=== PATIENT | female | born 1975 | race Caucasian/White ===

== ENCOUNTER 2018-02-18 15:26 | Emergency (ER) | payer MEDICARE ==
[~2018-02-18] VITALS: Ht 170.2 cm; Wt 160.6 kg
[~2018-02-18 15:26] MED LIST: ASPIRIN EC81 MG PO; AUGMENTIN 875-1 EACH PO; BACTROBAN15 GM; BENTYL10 MG PO; CETIRIZINE HCL10 MG PO; CLARITIN10 M2 PO; FEXOFENADINE HC60 MG; GABAPENTIN300 MG PO; IBUPROFEN400 MG PO; KLONOPIN0.5 MG PO; KLONOPIN2 MG PO; LEVOTHYROXINE112 MCG PO; LEVOTHYROXINE200 MCG PO; LEXAPRO10 MG PO; LIPITOR10 MG PO; LISINOPRIL-HCT1 EACH PO; LISINOPRIL20 MG PO; METFORMIN HCL500 M2 PO; METFORMIN HCL500 MG PO; METOPROLOL SUCC25 MG PO; NASONEX17 GM IH; OMEPRAZOLE20 M1 PO; OMEPRAZOLE40 MG PO; SINGULAIR10 MG PO; SYMBICORT 16010.2 GM INH; SYNTHROID100 MCG PO; ULTRAM50 MG PO; XANAX0.25 MG PO; ZOFRAN ODT4 MG PO
[2018-02-18 18:48] LABS: BASOPHILS # (AUTO) 0.1 (0.0-0.1); BASOPHILS % 0.8 % (0.0-1.0); EOSINOPHILS # (AUTO) 0.3 (0.0-0.4); EOSINOPHILS % 2.9 % (0.0-6.0); HEMATOCRIT 41.8 % (34.2-44.1); HEMOGLOBIN 13.4 g/dL (12.0-16.0); LYMPHOCYTES # (AUTO) 3.5 (1.0-3.2); LYMPHOCYTES % 34.2 % (18.0-39.1); MEAN CORPUSCULAR HEMOGLOBIN 27.6 pg (28-32); MEAN CORPUSCULAR HGB CONC 32.1 g/dL (31-35); MEAN CORPUSCULAR VOLUME 86.2 fL (81-99); MONOCYTES # (AUTO) 0.7 (0.2-0.8); MONOCYTES % 6.4 % (4.4-11.3); NEUTROPHILS # (AUTO) 5.7 (2.1-6.9); NEUTROPHILS % 55.4 % (38.7-80.0); PLATELET COUNT 330 x10e3/uL (140-360); RED BLOOD COUNT 4.85 x10e6/uL (3.6-5.1); RED CELL DISTRIBUTION WIDTH 13.2 % (11.7-14.4)
[2018-02-18 18:51] LABS: ALANINE AMINOTRANSFERASE 27 IU/L (0-55); ALBUMIN 3.9 g/dL (3.5-5.0); ANION GAP 15.2 mmol/L (8-16); BLOOD UREA NITROGEN 7 mg/dL (7-26); BUN/CREATININE RATIO 10 (6-25); CALCIUM 9.8 mg/dL (8.4-10.2); CARBON DIOXIDE 25 mmol/L (22-29); CHLORIDE 105 mmol/L (98-107); CREATININE, SERUM 0.72 mg/dL (0.57-1.11); EST GLOMERULAR FILTRATION RATE > 60 ML/MIN (60-); GLUCOSE 100 mg/dL (74-118); POTASSIUM 4.2 mmol/L (3.5-5.1); SODIUM 141 mmol/L (136-145)
[2018-02-18 18:52] LABS: ALKALINE PHOSPHATASE 74 IU/L (40-150)
[2018-02-18] MEDS ORDERED: IOPAMIDOL 370 MG/ML 200 ML INFUS..BTL INJ ONE (19:07)
[2018-02-18] MEDS ORDERED: SODIUM CHLORIDE 0.9% 50ML 50 ML ONE (19:07)
[2018-02-18 19:37] LABS: CLARITY,URINE HAZY (CLEAR); COLOR,URINE YELLOW (YELLOW)
[2018-02-18 19:38] LABS: LEUKOCYTE ESTERASE ,URINE NEGATIVE (NEGATIVE); NITRITE,URINE POSITIVE (NEGATIVE); PROTEIN,URINE DIPSTICK NEGATIVE (NEGATIVE)
[2018-02-18 19:39] LABS: BILIRUBIN,URINE NEGATIVE (NEGATIVE); KETONES,URINE NEGATIVE (NEGATIVE); URINE UROBILINOGEN 0.2 mg/dL (0.2 - 1)
[2018-02-18 19:41] LABS: BACTERIA,URINE MODERATE /HPF; EPITHELIAL CELLS,URINE MODERATE /LPF; RBC,URINE 0-5 /HPF (0-5); WBC,URINE (MAN) 0-5 /HPF (0-5)
--- NOTE | 2018-02-18 20:19 | Diagnostic Imaging Report ---
EXAM: CT ABDOMEN AND PELVIS with IV CONTRAST DATE: 02/18/2018 3:48 PM Time stamp on Exam: 1929 hours INDICATION: Lower abdominal/bladder pain COMPARISON: None TECHNIQUE: The abdomen and pelvis were scanned using a multidetector helical scanner. Coronal and sagittal reformations were obtained. Routine protocol performed. IV Contrast: 100 cc Isovue-370 Oral Contrast: Water CTDIvol has been reviewed. It is below the limits set by the Radiation Protocol Committee (RPC). FINDINGS: LOWER THORAX: No consolidations LIVER: No masses BILIARY: Cholecystectomy, no ductal dilation. SPLEEN: No masses PANCREAS: No masses ADRENALS: No nodules KIDNEYS: Symmetric perfusion. No enhancing masses. No hydronephrosis. GI TRACT: No distention, wall thickening or evidence of obstruction. Surgical changes of the stomach. 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 BONES: No suspicious bone lesions. IMPRESSION: No acute findings in the CT of the abdomen or pelvis. No findings to explain patient's lower abdominal pain. Signed by: Dr. Vonda Fung M.D. on 02/18/2018 8:15 PM
== END 2018-02-18 20:50 | disposition home or self-care (01) ==
LOC: ER 15:26
DX: R10.32 Left lower quadrant pain (principal); R11.0 Nausea; R19.7 Diarrhea, unspecified; B37.3 Candidiasis of vulva and vagina
CPT/HCPCS: 36415; 74177; 80053; 81001; 85025; 99283; Q9967

== ENCOUNTER 2018-03-23 23:25 | Emergency (ER) | payer MEDICARE ==
[~2018-03-23] VITALS: Ht 167.6 cm; Wt 174.2 kg
[2018-03-24] MEDS ORDERED: KETOROLAC TROMETHAMINE 60 MG/2 ML VIAL IM ONE (00:15)
[2018-03-24 00:20] VITALS: BP 139/90
== END 2018-03-24 00:34 | disposition home or self-care (01) ==
LOC: FSED 23:25
DX: S83.422A Sprain of lateral collateral ligament of left knee, initial encounter (principal); X50.1XXA Overexertion from prolonged static or awkward postures, initial encounter; Y92.008 Other place in unspecified non-institutional (private) residence as the place of occurrence of the external cause; I10 Essential (primary) hypertension; E11.9 Type 2 diabetes mellitus without complications; E03.9 Hypothyroidism, unspecified; E78.5 Hyperlipidemia, unspecified
CPT/HCPCS: 81003; 99282; J1885

== ENCOUNTER 2019-01-12 13:26 | Emergency (ER) | payer MEDICARE ==
[~2019-01-12] VITALS: Ht 170.2 cm; Wt 170.1 kg
--- OUTSIDE RECORDS SUMMARY | 2019-01-12 13:30 | XMS REPORT | Summary of Care ---
Author Author [facility] Organization [facility] Address Unknown Phone Unavailable Encounter MIROSLAVA Cole_fuad(FIN) [id number] Date(s): 04/03/18 - 04/03/18 [facility] [address] Attending Physician: Isacc Chacon MD Referring Physician: Isacc Chacon MD Vital Signs No data available for this section Problem List Condition Effective Dates Status Health Status Informant Asthma(Confirmed) Active Back Active problem(Confirmed) Cholelithiasis(Confi Active rmed) Cholesterol Active level(Confirmed)1 Diabetes mellitus Resolved type 2(Confirmed) GERD - Active Gastro-esophageal reflux disease(Confirmed) Hypothyroidism(Confi Active rmed) Morbid Active obesity(Confirmed) Motion Active sickness(Confirmed) Panic Resolved attack(Confirmed) Short of breath on Active exertion(Confirmed) Sleep Active apnea(Confirmed) 1high Allergies, Adverse Reactions, Alerts Substance Reaction Severity Status sulfa drugs Active Cipro Active Bactrim Active medtronidazole containing Active compounds NKFA Active Medications No data available for this section Results No data available for this section Immunizations No data available for this section Procedures Procedure Date Related Diagnosis Body Site Status Laparoscopic cholecystectomy 12/02/15 Completed Laparoscopic sleeve gastrectomy 11/25/14 Completed Laparoscopy 11/25/14 Completed Lysis of adhesions of abdomen 11/25/14 Completed Hysterectomy Completed Operation Completed Sebaceous cyst removal Completed Tonsillectomy Completed Social History Social History Type Response Alcohol Never, Previous treatment: None. Alcohol use interferes with work or home: No. Drinks more than intended: No. Others hurt by drinking: No. Ready to change: No. Household alcohol concerns: No. Smoking Status Former smoker; Exposure to Tobacco Smoke None; Cigarette Smoking Last 365 Days No; Reg Smoking Cessation Counseling Yes entered on: 12/01/15 Assessment and Plan No data available for this section
--- OUTSIDE RECORDS SUMMARY | 2019-01-12 13:30 | XMS REPORT | Summary of Care ---
Author Author [facility] [place] Organization [facility] Address Unknown Phone Unavailable Encounter MIROSLAVA Aragon(FIN) [id number] Date(s): 12/19/18 - 12/19/18 [facility] [address] [place] [phone] Discharge Disposition: Home or Self Care Attending Physician: Johnny Nieto MD Referring Physician: Johnny iNeto MD Vital Signs No data available for [...]
--- OUTSIDE RECORDS SUMMARY | 2019-01-12 13:30 | XMS REPORT | Continuity of Care Document ---
Author Author [facility] Interface Address Unknown Phone Unavailable Problems Problem Status Onset Date Classification Date Reported Comments Source DX: E66.01=MORBID (SEVERE) OBESITY DUE T Active 12/25/2018 [facility] Sprain of tibiofibular ligament of left ankle, sequela 04/11/2018 10/23/2018 [facility] I80.202 Active 04/04/2018 [facility] I80.202 - PHLBTS AND THOMBOPHLB OF UNSP Active 04/02/2018 [facility] [place] Encounter for screening mammogram for malignant neoplasm of breast 10/05/2017 01/09/2018 [facility] [place] Unspecified subluxation of left patella, initial encounter 09/28/2017 12/29/2017 [facility] [place] Chest pain, unspecified 09/09/2017 12/12/2017 [facility] [place] Pain in right foot 08/23/2017 11/24/2017 [facility] [place] DX: R10.2=PELVIC AND PERINEAL PAIN, N39. Active 04/25/2017 [facility] M74.27 Active 03/02/2017 [facility] 28310, K81.9, CHOLELITHIASIS Active 11/30/2015 [facility] R06.02 - SHORTNESS OF BREATH Active 07/10/2015 [facility] [place] 723.1 - CERVICALGIA Active 03/03/2015 [facility] [place] [address], 27567---QDJDHP OBESITY, CHOLELITH Active 11/06/2014 [facility] 250.00/787.91/V65.3/401.9 Active 09/26/2014 [facility] UNK Active 09/26/2014 [facility] DX: 786.05 DR LEMONS WILL DO/READ PER JESSICA MARES Active 02/21/2012 [facility] MORBID OBESITY Active 12/20/2011 [facility] DX: CHEST PAIN DR. GIVENS WILL BE HERE PER ADORE Active 11/23/2011 [facility] 401.1 Active 10/27/2011 [facility] CPAP Active 10/21/2011 [facility] DX: CHEST PAIN Active 10/17/2011 [facility] 278.01 MORBID OBESITY Active 10/14/2011 [facility] MORBID OESITY Active 06/08/2011 [facility] ABDOMINAL PAIN Active 05/04/2011 [facility] ABD PAIN 789.09/787.99/787.91/278.01/780.57 Active 05/04/2011 [facility] Asthma Active Problem 01/04/2019 [facility] [place] Cholelithiasis Active Problem 01/04/2019 [facility] [place] Cholesterol level<sup>1</sup> Active Problem 01/04/2019 high [facility] [place] Diabetes mellitus type 2 Resolved Problem 01/04/2019 [facility] [place] GERD - Gastro-esophageal reflux disease Active Problem 01/04/2019 [facility] [place] Hypothyroidism Active Problem 01/04/2019 [facility] [place] Morbid obesity Active Problem 01/04/2019 [facility] [place] Motion sickness Active Problem 01/04/2019 [facility] [place] Panic attack Resolved Problem 01/04/2019 [facility] [place] Short of breath on exertion Active Problem 01/04/2019 [facility] [place],[facility] Sleep apnea Active Problem 01/04/2019 [facility] [place] Sprain of unspecified ligament of right ankle, initial encounter 11/24/2017 [facility] [place] Effusion, left knee 12/29/2017 [facility] [place] Phlebitis and thrombophlebitis of unspecified deep vessels of left lower extremity 10/23/2018 [facility] Asthma Active Problem 12/21/2018 [facility] [place],[facility], [facility] [place], [facility] [place] Cholelithiasis Active Problem 12/21/2018 [facility] [place],[facility], [facility] [place], [facility] [place] Cholesterol level<sup>1</sup> Active Problem 12/21/2018 high [facility] [place],[facility], [facility] [place], [facility] [place] Diabetes mellitus type 2 Resolved Problem 12/21/2018 [facility] [place],[facility], [facility] [place], [facility] [place] GERD - Gastro-esophageal reflux disease Active Problem 12/21/2018 [facility] [place],[facility], [facility] [place], [facility] [place] Hypothyroidism Active Problem 12/21/2018 [facility] [place],[facility], [facility] [place], [facility] [place] Morbid obesity Active Problem 12/21/2018 [facility] [place],[facility], [facility] [place], [facility] [place] Motion sickness Active Problem 12/21/2018 [facility] [place],[facility], [facility] [place], [facility] [place] Panic attack Resolved Problem 12/21/2018 [facility] [place],[facility], [facility] [place], [facility] [place] Short of breath on exertion Active Problem 12/21/2018 [facility] [place],[facility], [facility] [place], [facility] [place] Sleep apnea Active Problem 12/21/2018 [facility] [place],[facility], [facility] [place], [facility] [place] Asthma Active Problem 12/07/2018 [facility] [place],[facility], [facility] [place], [facility] [place] Cholelithiasis Active Problem 12/07/2018 [facility] [place],[facility], [facility] [place], [facility] [place] Cholesterol level<sup>1</sup> Active Problem 12/07/2018 high [facility] [place],[facility], [facility] [place], [facility] [place] Diabetes mellitus type 2 Resolved Problem 12/07/2018 [facility] [place],[facility], [facility] [place], [facility] [place] GERD - Gastro-esophageal reflux disease Active Problem 12/07/2018 [facility] [place],[facility], [facility] [place], [facility] [place] Hypothyroidism Active Problem 12/07/2018 [facility] [place],[facility], [facility] [place], [facility] [place] Morbid obesity Active Problem 12/07/2018 [facility] [place],[facility], [facility] [place], [facility] [place] Motion sickness Active Problem 12/07/2018 [facility] [place],[facility], [facility] [place], [facility] [place] Panic attack Resolved Problem 12/07/2018 [facility] LUIS [facility],[facility], [facility] [place], PEDRO LUIS [place] Short of breath on exertion Active Problem 12/07/2018 [facility] [place],[facility], [facility] [place], [facility] [place] Sleep apnea Active Problem 12/07/2018 PEDRO LUIS Villag[facility], [facility] [place], [facility] [place] DIGESTVE SYST SYMPTM NEC Active [facility] ABDMNAL PAIN OTH SPCF ST Active [facility] DIARRHEA Active [facility] OBSTRUCTIVE SLEEP APNEA Active [facility] CHEST PAIN NOS Active [facility] SHORTNESS OF BREATH Active [facility] 786.05 Active [facility] DMII WO CMP NT ST UNCNTR Active [facility] 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 [facility] HYPERTENSION NOS Active [facility] ABDMNAL PAIN EPIGASTRIC Active [facility] ADMINISTRTVE ENCOUNT NOS Active [facility] OTHER SPONDYLOSIS WITH RADICULOPATHY, CECILE Active [facility] ILLNESS, UNSPECIFIED Active [facility] Medications Medication Details Route Status Patient Instructions Ordering Provider Order Date Source Clonazepam (Klonopin) 2 Mg Tablet, 1 Tab Oral Daily Active 03/15/2017 [facility] Dicyclomine Hcl (Bentyl) 10 Mg Capsule, 20 Mg Oral Every 6 Hours Active 03/15/2017 [facility] Escitalopram Oxalate (Lexapro) 10 Mg Tablet, 25 Mg Oral Daily Active 03/15/2017 [facility] Levothyroxine Sodium 112 Mcg Tablet, 312 Mcg Oral Daily Active 03/15/2017 [facility] Ondansetron (Zofran Odt) 4 Mg Tab.rapdis, 4 Mg Oral Every 6 Hours Active 03/15/2017 [facility] Ondansetron 4 MG Disintegrating Tablet [Zofran] 4 mg=1 tab, PO, Q6H, PRN Nausea, # 20 tab, 0 Refill(s) Active 12/03/2015 [facility] tramadol hydrochloride 50 MG Oral Tablet 50 mg=1 tab, PO, Q4H, PRN Pain Score 1-3, # 30 tab, 0 Refill(s) Active 12/03/2015 [facility] Flonase 0.05 mg/inh nasal spray 50 microgram=1 spray, NASAL, Daily, 0 Refill(s) Active 12/03/2015 [facility] 24 HR Metoprolol Tartrate 25 MG Extended Release Tablet [Toprol] 25 mg, 1 tab, Route: PO, Drug form: ERTAB, Daily, Start date: 12/03/15 9:00:00 CDT, Duration: 30 day, Stop date: 01/01/16 9:00:00 CDTNotes: (Same as: Toprol XL) Do Not Crush Inactive 12/03/2015 [facility] Flonase 0.05 mg/inh nasal spray 1 spray, Route: NASAL, Drug Form: SPRY, Dosing Weight 157.2, kg, Daily, Start date: 12/03/15 9:00:00 CDT, Duration: 30 day, Stop date: 01/01/16 9:00:00 CDTNotes: (Same as: Flonase) Inactive 12/03/2015 [facility] Nexium 40 mg, Route: PO, Drug form: ECCAP, Daily, Dosing Weight 157.2, kg, Start date: 12/03/15 9:00:00 CDT, Duration: 30 day, Stop date: 01/01/16 9:00:00 CDT Inactive 12/03/2015 [facility] Lexapro 25 mg, 2.5 tab, Route: PO, Drug form: TAB, Daily, Dosing Weight 157.2, kg, Start date: 12/03/15 9:00:00 CDT, Duration: 30 day, Stop date: 01/01/16 9:00:00 CDTNotes: (Same as: Lexapro) Inactive 12/03/2015 [facility] Klonopin 0.5 mg, 1 tab, Route: PO, Drug form: TAB, QID, Dosing Weight 157.2, kg, Start date: 12/03/15 9:00:00 CDT, Duration: 30 day, Stop date: 01/01/16 21:00:00 CDTNotes: (Same As: KlonoPIN) Inactive 12/03/2015 [facility] Symbicort 160/4.5 inhalation aerosol with adapter 2 inhalation, Route: INHALATION, Drug Form: AERO/A, Dosing Weight 157.2, kg, BID, Start date: 12/03/15 9:00:00 CDT, Duration: 30 day, Stop date: 01/01/16 17:00:00 CDTNotes: (Same as: Symbicort) WASTE: Aerosol - Return to Pharmacy Inactive 12/03/2015 [facility] Protonix 40 mg, 1 tab, Route: PO, Drug form: ECTAB, Before Breakfast, Start date: 12/03/15 7:30:00 CDT, Duration: 30 day, Stop date: 01/01/16 7:30:00 CDTNotes: Tablet should not be chewed or crushed. (Same as: Protonix) Inactive 12/03/2015 [facility] Thyroxine 200 microgram, 2 tab, Route: PO, Drug form: TAB, Q630AM, Dosing Weight 157.2, kg, Start date: 12/03/15 6:30:00 CDT, Duration: 30 day, Stop date: 01/01/16 6:30:00 CDTNotes: Take 1 hour before or 2 hours after meal; Enteral feeds may interefere with the absorption of this medication. (Same as:Levothroid, Synthroid) Inactive 12/03/2015 [facility] Morphine 1 mg, 0.5 mL, Route: IVP, Drug form: INJ, Q2H, Dosing Weight 157.2, kg, PRN Pain Score 7-10, Start date: 12/03/15 6:12:00 CDT, Duration: 30 day, Stop date: 01/02/16 6:11:00 CDTNotes: (Same as:MORPhine Sulfate) Inactive 12/03/2015 [facility] tramadol hydrochloride 50 MG Oral Tablet 50 mg, 1 tab, Route: PO, Drug form: TAB, Q4H, Dosing Weight 157.2, kg, PRN Pain Score 1-3, Start date: 12/03/15 2:00:00 CDT, Duration: 30 day, Stop date: 01/02/16 1:59:00 CDTNotes: Not to exceed 400mg/day. (Same As: Ultram) Inactive 12/03/2015 [facility] Enoxaparin 40 mg, 0.4 mL, Route: SUB-Q, Drug form: INJ, [id number], Dosing Weight 157.2, kg, Consider for obese patients, Start date: 12/02/15 22:00:00 CDT, Duration: 30 day, Stop date: 01/01/16 10:00:00 CDTNotes: (Same as: Lovenox) No Longer Active 12/03/2015 [facility] Simethicone 80 mg, 1 tab, Route: CHEW, Drug form: CHEWTAB, QID, Dosing Weight 157.2, kg, PRN Gas, Start date: 12/02/15 19:07:00 CDT, Duration: 30 day, Stop date: 01/01/16 19:06:00 CDTNotes: (Same as: Mylicon) No Longer Active 12/03/2015 [facility] Ketorolac 30 mg, 1 mL, Route: IV, Drug form: INJ, Q6H, Dosing Weight 157.2, kg, Start date: 12/02/15 18:00:00 CDT, Duration: 4 day, Stop date: 12/06/15 12:00:00 CDTNotes: (Same as:Toradol) IV bolus must be given >15 seconds. Give IM administration slowly and deeply into the muscle. Not for use > 4 days MEDICATION WASTE Product Size: 30 mg Product Wasted: ___ mg No Longer Active 12/02/2015 [facility] Ancef 2 gm, 100 mL, Route: IV, Drug form: INJ, Q8H, Dosing Weight 157.2, kg, times 4 doses, Priority: Routine, Start date: 12/02/15 17:00:00 CDT, Duration: 4 doses or times, Stop date: 12/03/15 16:00:00 CDTNotes: Same as: Ancef No Longer Active 12/02/2015 [facility] Sodium Chloride 0.9% IV 25 mL, Route: IV, Start date: 12/02/15 16:10:00 CDT, Duration: 30 day, Stop date: 01/01/16 16:09:00 CDT, PRN Line Flush No Longer Active 12/02/2015 [facility] BD Normal Saline Flush 10 mL, Route: IV, Drug Form: INJ, PRN, PRN Line Flush, Start date: 12/02/15 16:10:00 CDT, Duration: 30 day, Stop date: 01/01/16 16:09:00 CDTNotes: (Same as: BD Posiflush) No Longer Active 12/02/2015 [facility] D5W 1/2NS + KCL 20mEq/L 1000ml (Premix) 1,000 mL 1,000 mL, Rate: 80 ml/hr, Infuse over: 12.5 hr, Route: IV, Dosing Weight 157.2 kg, Total Volume: 1,000, Start date: 12/02/15 15:48:00 CDT, Stop date: 01/01/16 15:47:00 CDTNotes: PREMIX IV - Do Not Alter WASTE: F/P - Sink; E - Municipal Trash Bin No Longer Active 12/02/2015 [facility] Tylenol 650 mg, 2 tab, Route: PO, Drug form: TAB, Q6H, Dosing Weight 157.2, kg, PRN Pain 1-3/Temp > 100.4 F, Start date: 12/02/15 14:47:00 CDT, Duration: 30 day, Stop date: 01/01/16 14:46:00 CDTNotes: Do not exceed 4 gm/day. (Same as: Tylenol) No Longer Active 12/02/2015 [facility] pneumococcal capsular polysaccharide type 1 vaccine / pneumococcal capsular polysaccharide type 10A vaccine / pneumococcal capsular polysaccharide type 11A vaccine / pneumococcal capsular polysaccharide type 12F vaccine / pneumococcal capsular polysacchar 0.5 mL, Route: IM, Drug Form: INJ, ONCALL, Start date: 12/02/15 12:34:14 CDT, Stop date: 01/01/16 12:29:14 CDTNotes: (Same as: Pneumovax 23) Refrigerate No Longer Active 12/02/2015 [facility] Zofran 4 mg, 2 mL, Route: IVP, Drug form: INJ, Q8H, PRN Nausea & Vomiting, Start date: 12/02/15 10:49:00 CDT, Duration: 30 day, Stop date: 01/01/16 10:48:00 CDTNotes: (Same as: Zofran) MEDICATION WASTE Product Size: 4 mg Product Wasted: ___ mg No Longer Active 12/02/2015 [facility] Benadryl 12.5 mg, 0.25 mL, Route: IVP, Drug form: INJ, Q6H, PRN Itching, Start date: 12/02/15 10:49:00 CDT, Duration: 30 day, Stop date: 01/01/16 10:48:00 CDTNotes: (Same as: Benadryl) No Longer Active 12/02/2015 [facility] naloxone 0.2 mg, 0.5 mL, Route: IVP, Drug form: INJ, Q5Min, PRN Narcotic Reversal, Start date: 12/02/15 10:49:00 CDT, Duration: 30 day, Stop date: 01/01/16 10:48:00 CDTNotes: (Same as: Narcan) No Longer Active 12/02/2015 [facility] morphine Sulfate 30 mg IV, Start date: 12/02/15 10:48:00 CDT, Duration: 30, 30 ml, 154.091Notes: Dose: Delay: Basal rate: 4hr limit: (Same as:Charissai-Ject) No Longer Active 12/02/2015 [facility] Flumazenil 0.2 mg, 2 mL, Route: IVP, Drug form: INJ, PRN, Dosing Weight 154.091, kg, PRN Benzodiazepine Reversal, Initial dose, Start date: 12/02/15 6:58:00 CDT, Duration: 30 day, Stop date: 01/01/16 6:57:00 CD TNotes: (Same as: Romazicon) Inactive 12/02/2015 [facility] Naloxone 0.04 mg, 0.1 mL, Route: IVP, Drug form: INJ, Q2MIN, Dosing Weight 154.091, kg, PRN Narcotic Reversal, Start date: 12/02/15 6:58:00 CDT, Duration: 8 doses or times, Stop date: Limited # of timesNotes: Same as Narcan Inactive 12/02/2015 [facility] Ondansetron 4 mg, 2 mL, Route: IVP, Drug form: INJ, ONCE, Dosing Weight 154.091, kg, PRN Nausea & Vomiting, Start date: 12/02/15 6:58:00 CDTNotes: (Same as: Zofran) MEDICATION WASTE Product Size: 4 mg Product Wasted: ___ mg Inactive 12/02/2015 [facility] Hydromorphone 0.2 mg, 0.1 mL, Route: IVP, Drug form: INJ, Q5Min, Dosing Weight 154.091, kg, PRN Pain Score 7-10, Start date: 12/02/15 6:58:00 CDT, Duration: 4 doses or times, Stop date: Limited # of timesNotes: (S raquel as: Dilaudid) Inactive 12/02/2015 [facility] dicyclomine 20 mg oral tablet 20 mg=1 tab, PO, frequency unknown, 0 Refill(s) Active 12/01/2015 [facility] Vitamin B12 one tablet (mg unknown), PO, Daily, 0 Refill(s) Active 12/01/2015 [facility] Clonazepam 0.5 MG Oral Tablet [Klonopin] 0.5 mg=1 tab, PO, QID, 0 Refill(s) Active 12/01/2015 [facility] Tramadol one tablet (mg unknown), PO, frequency unknown, 0 Refill(s) No Longer Active 12/01/2015 [facility] Flonase 0.05 mg/inh nasal spray 1 spray, NASAL, Daily, 0 Refill(s) Active 12/01/2015 [facility] multivitamin one tablet, PO, Daily, 0 Refill(s) Active 12/01/2015 [facility] Lexapro one tablet (25 mg), PO, Daily, 0 Refill(s) Active 12/01/2015 [facility] metoprolol 25 mg oral tablet, extended release 25 mg=1 tab, PO, Bedtime, # 30 tab, 0 Refill(s) Active 12/01/2015 [facility] Alprazolam (Xanax) 0.25 Mg Tablet, 0.125 Each Oral As Needed as needed for Sleep Active 11/28/2015 [facility] Aspirin (Aspirin Ec) 81 Mg Tablet., 81 Mg Oral Daily Active 11/28/2015 [facility] Atorvastatin Calcium (Lipitor*) 10 Mg Tablet, 10 Mg Oral Bedtime Active 11/28/2015 [facility] Cetirizine Hcl 10 Mg Tablet, 10 Mg Oral Daily Active 11/28/2015 [facility] Lisinopril (Prinavil / Zestril) 20 Mg Tablet, 20 Mg Oral Bedtime Active 11/28/2015 [facility] Metformin Hcl 500 Mg Tablet, 250 Mg Oral Bedtime Active 11/28/2015 [facility] Omeprazole 20 Mg Tablet.dr, 40 Mg Oral Daily Active 11/28/2015 [facility] 0.6 ML Enoxaparin sodium 100 MG/ML Prefilled Syringe [Lovenox] 60 mg, SUB-Q, Q12H, X 7 day, # 14 syr, 0 Refill(s) Active 11/27/2014 [facility] Esomeprazole 40 MG Enteric Coated Capsule [Nexium] 40 mg=1 cap, PO, Daily, # 30 cap, 0 Refill(s) Active 11/27/2014 [facility] Tylenol with Codeine 120 mg-12 mg/5 mL oral liquid 15 ml, PO, Q4H, PRN Pain, X 7 day, # 240 mL, 0 Refill(s) Active 11/27/2014 [facility] Sucralfate 100 MG/ML Oral Suspension [Carafate] 1 gm=10 ml, PO, Before Meals & Bedtime, # 200 ml, 0 Refill(s) Active 11/27/2014 [facility] Lovenox 40 mg, 0.4 mL, Route: SUB-Q, Drug form: INJ, [id number], Start date: 11/26/14 10:00:00, Duration: 30 day, Stop date: 12/25/14 22:00:00Notes: (Same as: Lovenox) No Longer Active 11/26/2014 [facility] acetaminophen-hydrocodone 15 mL, Route: PO, Drug Form: SOLN, Q4H, PRN Other -See Comment, Start date: 11/26/14 9:32:00, Duration: 30 day, Stop date: 12/26/14 9:31:00Notes: Do not exceed 4gm/day of acetaminophen. (Same as: [place] 325/7.5) No Longer Active 11/26/2014 [facility] Tylenol 650 mg, 20.3 mL, Route: PO, Drug form: LIQ, Q4H, PRN Pain Score 1-3, Start date: 11/26/14 9:31:00, Duration: 30 day, Stop date: 12/26/14 9:30:00Notes: Max [id number]/day (4 gm/day). (Same as: Tylenol) No Longer Active 11/26/2014 [facility] heparin 5,000 unit, 1 mL, Route: SUB-Q, Drug form: INJ, ONCE, Start date: 11/26/14 3:00:00, Stop date: 11/26/14 3:00:00Notes: porcine heparin Inactive 11/26/2014 [facility] Reglan 10 mg, 2 mL, Route: IV, Drug form: INJ, Q8H, Start date: 11/26/14 0:00:00, Duration: 30 day, Stop date: 12/25/14 16:00:00Notes: (Same as: Reglan) No Longer Active 11/26/2014 [facility] Pepcid 20 mg, 2 mL, Route: IVP, Drug form: INJ, Q12H, Start date: 11/25/14 21:00:00, Duration: 30 day, Stop date: 12/25/14 9:00:00 No Longer Active 11/26/2014 [facility] ceFAZolin 2 gm, 100 mL, Route: IVPB, Drug form: INJ, Q8H, Start date: 11/25/14 21:00:00, Duration: 4 doses or times, Stop date: 11/26/14 21:00:00Notes: Same as: Ancef No Longer Active 11/26/2014 [facility] insulin regular 100 units/mL human recombinant 8 unit, 0.08 mL, Route: SUB-Q, Drug form: SOLN, TID-Before Meals, PRN Blood Glucose Results, Start date: 11/25/14 18:45:00, Duration: 30 day, Stop date: 12/25/14 18:44:00Notes: (Same as: Humulin R) Roll in palms of hands gently; Do not shake vigorously. "single patient use only" (Restricted to patients requiring a dose > 60 units) Stable for 28 days at room temperature Expires in days fro m Date No Longer Active 11/25/2014 [facility] insulin regular 100 units/mL human recombinant 6 unit, 0.06 mL, Route: SUB-Q, Drug form: SOLN, TID-Before Meals, PRN Blood Glucose Results, Start date: 11/25/14 18:44:00, Duration: 30 day, Stop date: 12/25/14 18:43:00Notes: (Same as: Humulin R) Roll in palms of hands gently; Do not shake vigorously. "single patient use only" (Restricted to patients requiring a dose > 60 units) Stable for 28 days at room temperature Expires in days fro m Date No Longer Active 11/25/2014 [facility] Dextrose 50% in Water IV 25 mL, Route: IVP, Start date: 11/25/14 18:44:00, Duration: 30 day, Stop date: 12/25/14 18:43:00, PRN Blood Glucose Results No Longer Active 11/25/2014 [facility] ketOROLAC 30 mg/mL injectable solution 30 mg, 1 mL, Route: IV, Drug form: INJ, Q6H, Start date: 11/25/14 18:00:00, Duration: 5 doses or times, Stop date: 11/26/14 18:00:00Notes: (Same as:Toradol) IV bolus must be given >15 seconds. Give IM administration slowly and deeply into the muscle. Not for use > 4 days MEDICATION WASTE Product Size: 30 mg Product Wasted: ___ mg No Longer Active 11/25/2014 [facility] Vasotec 1.25 mg, 1 mL, Route: IV, Drug form: INJ, Q6H, PRN Other -See Comment, Start date: 11/25/14 17:55:00, Duration: 30 day, Stop date: 12/25/14 17:54:00Notes: (Same as: Vasotec-IV) No Longer Active 11/25/2014 [facility] Lactated Ringers Injection IV 1,000 mL 1,000 mL, Rate: 80 ml/hr, Infuse over: 12.5 hr, Route: IV, Dosing Weight 210.057 kg, Total Volume: 1,000, Start date: 11/25/14 17:54:00, Stop date: 12/25/14 17:53:00 No Longer Active 11/25/2014 [facility] Sodium Chloride 0.9% IV 25 mL, Route: IV, Start date: 11/25/14 17:53:00, Duration: 30 day, Stop date: 12/25/14 17:52:00, PRN Line Flush No Longer Active 11/25/2014 [facility] BD Normal Saline Flush 10 mL, Route: IV, Drug Form: INJ, PRN, PRN Line Flush, Start date: 11/25/14 17:53:00, Duration: 30 day, Stop date: 12/25/14 17:52:00Notes: (Same as: BD Posiflush) No Longer Active 11/25/2014 [facility] Zofran 4 mg, 2 mL, Route: IVP, Drug form: INJ, Q8H, PRN Nausea & Vomiting, Start date: 11/25/14 15:00:00, Duration: 30 day, Stop date: 12/25/14 14:59:00Notes: (Same as: Zofran) MEDICATION WASTE Product Size: 4 mg Product Wasted: ___ mg No Longer Active 11/25/2014 [facility] Benadryl 12.5 mg, 0.25 mL, Route: IVP, Drug form: INJ, Q6H, PRN Itching, Start date: 11/25/14 15:00:00, Duration: 30 day, Stop date: 12/25/14 14:59:00Notes: (Same as: Benadryl) No Longer Active 11/25/2014 [facility] naloxone 0.2 mg, 0.5 mL, Route: IVP, Drug form: INJ, Q5Min, PRN Narcotic Reversal, Start date: 11/25/14 15:00:00, Duration: 30 day, Stop date: 12/25/14 14:59:00Notes: (Same as: Narcan) No Longer Active 11/25/2014 [facility] morphine 1 mg/ml 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 (30 mg/30 mL) INJ Syringe 30 mg IV, Start date: 11/25/14 14:59:00, Duration: 30, 30 ml, 210.057Notes: Dose: Delay: Basal rate: 4hr limit: (Same as:Charissai-Ject) No Longer Active 11/25/2014 [facility] Phenergan 25 mg, 50 mL, 200 ml/hr, Route: IVPB, Drug Form: SOLN, Q4H, PRN Nausea & Vomiting, Start date: 11/25/14 14:58:00, Duration: 30 day, Stop date: 12/25/14 14:57:00 No Longer Active 11/25/2014 [facility] Morphine 4 mg, 0.4 mL, Route: IVP, Drug form: INJ, Q5Min, Dosing Weight 210.057, kg, PRN Pain Score 7-10, Start date: 11/25/14 12:47:00, Duration: 3 doses or times, Stop date: Limited # of timesNotes: (Same a s:MORPhine Sulfate) Inactive 11/25/2014 [facility] Hydromorphone 0.5 mg, 0.25 mL, Route: IVP, Drug form: INJ, Q5Min, Dosing Weight 210.057, kg, PRN Pain Score 7-10, Start date: 11/25/14 12:47:00, Duration: 4 doses or times, Stop date: Limited # of timesNotes: (Same as: Dilaudid) Inactive 11/25/2014 [facility] Naloxone 0.04 mg, 0.1 mL, Route: IVP, Drug form: INJ, Q2MIN, Dosing Weight 210.057, kg, PRN Narcotic Reversal, Start date: 11/25/14 12:47:00, Duration: 8 doses or times, Stop date: Limited # of timesNotes: Same as Narcan Inactive 11/25/2014 [facility] Meperidine 12.5 mg, 0.25 mL, Route: IVP, Drug form: INJ, Q30Min, Dosing Weight 210.057, kg, PRN Other -See Comment, For shivering, Start date: 11/25/14 12:47:00, Duration: 2 doses or times, Stop date: Limited # of timesNotes: (Same As: Demerol) Inactive 11/25/2014 [facility] Flumazenil 0.2 mg, 2 mL, Route: IVP, Drug form: INJ, PRN, Dosing Weight 210.057, kg, PRN Benzodiazepine Reversal, Initial dose, Start date: 11/25/14 12:47:00, Duration: 30 day, Stop date: 12/25/14 12:46:00Notes: (Same as: Romazicon) Inactive 11/25/2014 [facility] Dexamethasone 4 mg, 1 mL, Route: IVP, Drug form: INJ, ONCE, Dosing Weight 210.057, kg, PRN Nausea & Vomiting, Start date: 11/25/14 12:47:00Notes: Concentration: 4mg/ml Inactive 11/25/2014 [facility] Ondansetron 4 mg, 2 mL, Route: IVP, Drug form: INJ, ONCE, Dosing Weight 210.057, kg, PRN Nausea & Vomiting, Start date: 11/25/14 12:47:00Notes: (Same as: Zofran) MEDICATION WASTE Product Size: 4 mg Product Wasted: ___ mg Inactive 11/25/2014 [facility] Diphenhydramine 12.5 mg, 0.25 mL, Route: IVP, Drug form: INJ, Q6H, Dosing Weight 210.057, kg, PRN Itching, Start date: 11/25/14 12:47:00, Duration: 30 day, Stop date: 12/25/14 12:46:00Notes: (Same as: Benadryl) Inactive 11/25/2014 [facility] Labetalol 10 mg, 2 mL, Route: IVP, Drug form: INJ, Q5Min, Dosing Weight 210.057, kg, PRN Elevated BP, Start date: 11/25/14 12:47:00, Duration: 5 doses or times, Stop date: Limited # of timesNotes: (Same as: Normo dyne, Trandate) Push over 2 minutes Give bolus over 2-3 minutes. Inactive 11/25/2014 [facility] Hydralazine 10 mg, 0.5 mL, Route: IVP, Drug form: INJ, Q20Min, Dosing Weight 210.057, kg, PRN Elevated BP, Start date: 11/25/14 12:47:00, Duration: 2 doses or times, Stop date: Limited # of timesNotes: (Same as: Apresoline) Push over 5 minutes Inactive 11/25/2014 [facility] Metoprolol 1 mg, 1 mL, Route: IVP, Drug form: INJ, Q5Min, Dosing Weight 210.057, kg, PRN Other -See Comment, Start date: 11/25/14 12:47:00, Duration: 5 doses or times, Stop date: Limited # of timesNotes: (Same as: Lopressor) Push over 2 minutes Inactive 11/25/2014 [facility] chlorhexidine topical 0.12% liquid 15 mL, Route: S&SPIT, ONCALL, Drug form: LIQ, Start date: 11/25/14 1:00:00, Duration: 20 hr, Stop date: 11/25/14 20:59:00Notes: (Same As: Peridex) Inactive 11/25/2014 [facility] Ancef 3 gm, 100 mL, Route: IVPB, Drug form: INJ, ONCALL, Start date: 11/25/14 1:00:00, Duration: 30 day, Stop date: 12/25/14 0:59:00Notes: Same as: Ancef Inactive 11/25/2014 [facility] Naloxone 0.1 mg, 0.25 mL, Route: IVP, Drug form: INJ, Q2MIN, Dosing Weight 215.909, kg, PRN Narcotic Reversal, Start date: 10/09/14 10:33:00, Duration: 4 doses or times, Stop date: Limited # of timesNotes: Same as Narcan Inactive 10/09/2014 [facility] Flumazenil 0.2 mg, 2 mL, Route: IVP, Drug form: INJ, PRN, Dosing Weight 215.909, kg, PRN Other -See Comment, Start date: 10/09/14 10:33:00, Duration: 1 doses or times, Stop date: Limited # of timesNotes: (Same as: Romazicon) Inactive 10/09/2014 [facility] Sodium Chloride 0.154 MEQ/ML Injectable Solution 500 mL, 0 ml/hr, Infuse Over: 0 hr, Route: IV, 500, Drug form: INJ, ONCE, Dosing Weight 215.909 kg, Start date: 10/09/14 10:01:00, Stop date: 10/09/14 10:01:00, Bolus Inactive 10/09/2014 [facility] Vitamin D3 5000 intl units oral capsule 5,000 IntlUnit=1 cap, PO, Daily, 0 Refill(s) Active 10/03/2014 [facility] atorvastatin 10 mg, PO, Bedtime, 0 Refill(s) Active 10/03/2014 [facility] montelukast 10 mg oral tablet 10 mg=1 tab, PO, Bedtime, # 30 tab, 0 Refill(s) Active 10/03/2014 [facility] pantoprazole 40 mg oral enteric coated tablet 40 mg=1 tab, PO, Daily, # 30 tab, 0 Refill(s) Active 10/03/2014 [facility] metoprolol 25 mg oral tablet, extended release 25 mg, PO, Daily, # 30 tab, 0 Refill(s) Active 10/03/2014 [facility] Amoxicillin/Potassium Clav (Augmentin 875-125 Tablet) 1 Each Tablet, 1 Tab Oral Twice A Day Active 04/04/2014 [facility] Montelukast Sodium (Singulair) 10 Mg Tablet, 10 Mg Oral Daily Active 04/04/2014 [facility] Mupirocin (Bactroban) 15 Gm Cr, Active 04/04/2014 [facility] flumazenil 0.1 mg, 1 mL, Route: IVP, Drug form: INJ, Q5Min, PRN Other -See Comment, Start date: 05/13/11 9:22:00, Duration: 30 day, Stop date: 06/12/11 8:21:00 IVP No Longer Active [facility] 05/13/2011 [facility] naloxone 0.1 mg, 0.25 mL, Route: IVP, Drug form: INJ, Q2MIN, PRN Narcotic Reversal, Start date: 05/13/11 9:22:00, Duration: 4 doses or times, Stop date: Limited # of times IVP No Longer Active [facility] 05/13/2011 [facility] Zyrtec 10 mg oral tablet 1 tab, PO, Daily, PRN, 30 tab, as needed for allergy symptoms, Substitution Allowed, TAB PO Active 05/11/2011 [facility] Symbicort 160/4.5 inhalation aerosol with adapter 2 puff, INHALATION, BID, 10 gm, Substitution Allowed, Maintenance, AERO INHALATION Active 05/11/2011 [facility] furosemide 20 mg oral tablet 1 tab, PO, Daily, 30 tab, Substitution Allowed, TAB PO Active 05/11/2011 [facility] levothyroxine 200 mcg (0.2 mg) oral tablet 1 tab, PO, Daily, 30 tab, Substitution Allowed, TAB PO Active 05/11/2011 [facility] metFORmin 500 mg oral tablet, extended release 1 tab, PO, Daily, 30 tab, Substitution Allowed, ERTAB PO Active 05/11/2011 [facility] lisinopril 20 mg oral tablet 1 tab, PO, Daily, 30 tab, Substitution Allowed, TAB PO Active 05/11/2011 [facility] Budesonide/Formoterol Fumarate (Symbicort 160-4.5 Mcg Inhaler) 10.2 Gm Hfa.aer.ad Twice A Day Active [facility] Clonazepam (Klonopin) 0.5 Mg Tablet Twice A Day Active [facility] Escitalopram Oxalate (Lexapro) 10 Mg Tablet Daily Active [facility] Gabapentin 300 Mg Capsule Daily Active [facility] Levothyroxine Sodium (Synthroid) 100 Mcg Tab Today At 6:00AM Active [facility] Metformin Hcl 500 Mg Tablet Daily Active [facility] Metoprolol Succinate 25 Mg Tab.er.24h Daily Active [facility] Omeprazole 40 Mg Capsule.dr Daily Active [facility] Tramadol Hcl (Ultram) 50 Mg Tablet Every 4 Hours as needed for Pain Active [facility] Allergies, Adverse Reactions, Alerts Substance Category Reaction Severity Reaction type Status Date Reported Comments Source Sulfamethoxazole DIZZY Unknown Allergy to Substance Active 03/15/2017 [facility] Trimethoprim DIZZY Unknown Allergy to Substance Active 03/15/2017 [facility] Ciprofloxacin Unknown Allergy to Substance Active 03/15/2017 [facility] Metronidazole ITCHING Unknown Allergy to Substance Active 03/15/2017 [facility] Sulfa (Sulfonamide Antibiotics) DIZZY Unknown Allergy to Substance Active 02/18/2018 [facility] Bactrim Assertion Propensity to adverse reactions to drug Active [facility] sulfa drugs Assertion Drug allergy Active [facility] medtronidazole containing compounds Assertion Drug allergy Active [facility] Cipro Assertion Drug allergy Active [facility] NKFA Assertion Food allergy Active [facility] Immunizations Immunization Date Given Site Status Last Updated Comments Source Results Order Name Results Value Reference Range Date Interpretation Comments Source Femur wo contrast CT Femur wo contrast CT EXAM: CT BILATERAL LOWER EXTREMITY WITHOUT CONTRAST DATE: 11/26/2018 12:31 CDT INDICATION: - 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 Axial, coronal and sagittal images through the left hip are provided. MIP images of the pelvis are provided. IV contrast: None. DLP: 451.62 mGy-cm FINDINGS: ACETABULAR ANTEVERSION (measured at the level of the equator of the femoral head): RIGHT: 8.4 degrees LEFT: 10.4 degrees RIGHT FEMORAL ANTEVERSION: 11.5 degrees LEFT FEMORAL ANTEVERSION: 14 degrees RIGHT TIBIAL TORSION :43 degrees LEFT TIBIAL TORSION: 41 degrees BONES: There is no fracture or dislocation of the visualized bones. Lateral and superior subluxation of the patella relative to the trochlear groove bilaterally, worse on the left. Dysplastic and shallow trochlear grooves. TT TG distance is 2.5 on the left and 2.8 on the right. Subchondral cystic change of the lateral patellar facet and trochlear groove on the right. Subchondral cystic change of the median patellar ridge the left. SOFT TISSUES: Limited evaluation of the pelvis due to beam hardening artifact and decreased attenuation secondary to body habitus. Other findings: Mild degenerative changes of the bilateral sacroiliac joints. IMPRESSION: 1. Acetabular/femoral anteversion and tibial torsion measurements, as above. 2. Lateral and superior subluxation of the patella relative to the trochlea bilaterally, worse on the left. Secondary degenerative changes of the bilateral patellofemoral joints. 3. Findings consistent with patellar instability bilaterally and increased TT TG distance, worse on the left. 4. Shallow/dysplastic left trochlea 12/19/2018 - - This report was dictated by a Electrical Timing Device Calibrator/Fellow/Physician Thread Separator. I have personally reviewed the images as well as the interpretation and agree with the findings. Read by: Angelo Tinsley MD Resident/Fellow/Physician Thread Separator: Angelo Tinsley MD Dictated Date/time: 12/19/18 16:52 Electronically Signed by: Juliane Gaston MD 12/19/18 18:36 [facility]AL [facility] Liver US Liver US EXAM: US LIVER DATE: 12/05/2018 INDICATION: - K76.0 Fatty (change of) liver, not elsewhere classified ADDITIONAL INFORMATION: None. COMPARISON: None. TECHNIQUE: Multiplanar grayscale and color Doppler ultrasound of the right upper quadrant. FINDINGS: Liver: Craniocaudal length: 21.08 cm. Normal. Echogenicity: Increased. Surface nodularity: None Mass (size and location): None. Portal vein: Normal. Bile ducts: Common bile duct diameter: 0.5 cm. Normal Intrahepatic ducts: Normal. Gallbladder: Absent Pancreas: Head and uncinate process: Normal. Body and tail: Not seen. Right kidney: Hydronephrosis: None Size: 11.0 x 4.3 x 4.7 cm. Normal. Echogenicity: Normal. Mass/Stone/Cyst (size and location): None. Ascites: None IMPRESSION: 1. Hepatomegaly with hepatic steatosis. 2. Status post cholecystectomy. 12/05/2018 - - Read by: Ida Shaffer MD Dictated Date/time: 12/05/18 09:30 Electronically Signed by: Ida Shaffer MD 12/05/18 09:36 FINAL REPORT [facility] Knee wo contrast MRI Knee wo contrast MRI EXAMINATION: MRI of the left knee without contrast HISTORY: M23.92 Unspecified internal derangement of left knee; left knee patellar instability; left knee patellar chondromalacia COMPARISON: Radiograph dated 02/26/2015 and prior MR dated 09/22/2017 are reviewed. TECHNIQUE: Multiplanar, multisequence magnetic resonance imaging of the left knee is performed with an extremity coil without contrast. FINDINGS: Menisci: --Medial: The anterior horn, body, and posterior horn are intact. --Lateral: The anterior horn, body, and posterior horn are intact. Ligaments: The cruciate ligaments are intact. The medial collateral ligament and lateral collateral ligament complex are intact. Extensor mechanism: There is lateral subluxation of the patella with respect to the trochlear groove and mild lateral patellar tilt. The extensor mechanism is intact. The tibial tubercle-trochlear groove (TT-TG) distance is within normal limits. Muscles: There is normal signal intensity and muscle bulk of the musculature at the knee. Cartilage: * Within the medial and lateral compartments, there is no focal chondrosis or subchondral marrow edema. * Within the patellofemoral compartment, there is grade 2, deep partial thickness chondrosis involving the patellar median ridge and medial aspect of the lateral patellar facet with focus of subchondral edema along the patellar median ridge, similar to the prior examination. The trochlear articular cartilage is within normal limits. Bone: Again, there is lateral subluxation of the patella with respect to the trochlear groove and mild lateral patellar tilt. 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 There is no acute fracture. There are no suspicious bone marrow replacing lesions. Soft tissues: There is a small knee effusion without Rodriguez's cyst. There is mild subcutaneous edema along the anterior aspect of the knee. IMPRESSION: 1. 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 2. 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 These findings are suggestive of patellar maltracking with shallow trochlear groove predisposing to lateral patellar subluxation or dislocation. The tibial tubercle-trochlear groove (TT- TG) distance is within normal limits however. 3. Small left knee effusion and mild subcutaneous edema along the anterior aspect of the knee. 4. Intact left knee menisci, cruciate ligaments, and collateral ligaments without medial or lateral compartment chondrosis. 11/16/2018 - - Read by: Rhett Nunez MD Dictated Date/time: 11/16/18 15:07 Electronically Signed by: Rhett Nunez MD 11/16/18 15:22 FINAL REPORT [facility] [place] Tibia fibula series DX Tibia fibula series DX Left tibia-fibula 2 views: HISTORY: Leg sprain, thrombophlebitis. FINDINGS: No bone, joint or soft tissue abnormality SL: EG-M 04/05/2018 - - Read by: Jluis Coleman MD Dictated Date/time: 04/05/18 16:48 Electronically Signed by: Jluis Coleman MD 04/05/18 16:48 FINAL REPORT [place] Ext Lower Venous Doppler Bilat US Ext Lower Venous Doppler Bilat US PROCEDURE: BILATERAL LOWER EXTREMITY VENOUS ULTRASOUND INDICATION: Leg pain COMPARISON: None. TECHNIQUE: Sonographic evaluation of the bilateral lower extremity veins was performed using high resolution B-mode, pulse and color Doppler imaging. FINDINGS: RIGHT: The common femoral, femoral, popliteal and visualized calf veins are patent. Normal venous waveforms. The saphenofemoral junction is unremarkable. LEFT: The common femoral, femoral, popliteal and visualized calf veins are patent. Normal venous waveforms. The saphenofemoral junction is unremarkable. IMPRESSION: No deep venous thrombosis. SL: MADELYN 04/05/2018 - - Read by: Jluis Coleman MD Dictated Date/time: 04/05/18 16:14 Electronically Signed by: Jluis Coleman MD 04/05/18 16:15 FINAL REPORT [facility] Automated blood basophil count (count/volume) Automated blood basophil count (count/volume) 0.1 0.0 - 0.1 02/18/2018 [facility] Automated blood basophil count as percentage of total leukocytes Automated blood basophil count as percentage of total leukocytes 0.8 0.0 - 1.0 02/18/2018 [facility] Automated blood eosinophil count Automated blood eosinophil count 0.3 0.0 - 0.4 02/18/2018 [facility] Automated blood eosinophil count as percentage of total leukocytes Automated blood eosinophil count as percentage of total leukocytes 2.9 0.0 - 6.0 02/18/2018 [facility] Automated blood hematocrit (volume fraction) Automated blood hematocrit (volume fraction) 41.8 34.2 - 44.1 02/18/2018 [facility] Automated blood lymphocyte count as percentage ot total leukocytes Automated blood lymphocyte count as percentage ot total leukocytes 34.2 18.0 - 39.1 02/18/2018 [facility] Automated blood monocyte count as percentage of total leukocytes Automated blood monocyte count as percentage of total leukocytes 6.4 4.4 - 11.3 02/18/2018 [facility] Automated blood neutrophil count Automated blood neutrophil count 5.7 2.1 - 6.9 02/18/2018 [facility] Automated blood platelet count (count/volume) Automated blood platelet count (count/volume) 330 140 - 360 02/18/2018 [facility] Automated blood segmented neutrophil count as percentage of total leukocytes Automated blood segmented neutrophil count as percentage of total leukocytes 55.4 38.7 - 80.0 02/18/2018 [facility] Automated erythrocyte mean corpuscular hemoglobin (mass per erythrocyte) Automated erythrocyte mean corpuscular hemoglobin (mass per erythrocyte) 27.6 28 - 32 02/18/2018 [facility] Automated erythrocyte mean corpuscular hemoglobin concentration measurement (mass/volume) Automated erythrocyte mean corpuscular hemoglobin concentration measurement (mass/volume) 32.1 31 - 35 02/18/2018 [facility] Automated erythrocyte mean corpuscular volume Automated erythrocyte mean corpuscular volume 86.2 81 - 99 02/18/2018 [facility] Blood erythrocytes automated count (number/volume) Blood erythrocytes automated count (number/volume) 4.85 3.6 - 5.1 02/18/2018 [facility] Blood hemoglobin measurement (moles/volume) Blood hemoglobin measurement (moles/volume) 13.4 12.0 - 16.0 02/18/2018 [facility] Blood leukocytes automated count (number/volume) Blood leukocytes automated count (number/volume) 10.31 4.8 - 10.8 02/18/2018 [facility] Blood lymphocytes count (number/volume) Blood lymphocytes count (number/volume) 3.5 1.0 - 3.2 02/18/2018 [facility] Blood monocytes automated count (number/volume) Blood monocytes automated count (number/volume) 0.7 0.2 - 0.8 02/18/2018 [facility] Estimated glomerular filtration rate (GFR) determination Estimated glomerular filtration rate (GFR) determination null 60 02/18/2018 [facility] Glucose measurement Glucose measurement 100 74 - 118 02/18/2018 [facility] Plasma globulin measurement (mass/volume) Plasma globulin measurement (mass/volume) 3.9 2.3 - 3.5 02/18/2018 [facility] Serum or plasma alanine aminotransferase measurement (enzymatic activity/volume) Serum or plasma alanine aminotransferase measurement (enzymatic activity/volume) 27 0 - 55 02/18/2018 [facility] Serum or plasma albumin measurement (mass/volume) Serum or plasma albumin measurement (mass/volume) 3.9 3.5 - 5.0 02/18/2018 [facility] Serum or plasma albumin/globulin mass ratio Serum or plasma albumin/globulin mass ratio 1.0 0.8 - 2.0 02/18/2018 [facility] Serum or plasma alkaline phosphatase measurement (enzymatic activity/volume) Serum or plasma alkaline phosphatase measurement (enzymatic activity/volume) 74 40 - 150 02/18/2018 [facility] Serum or plasma anion gap Serum or plasma anion gap 15.2 8 - 16 02/18/2018 [facility] Serum or plasma calcium measurement (mass/volume) Serum or plasma calcium measurement (mass/volume) 9.8 8.4 - 10.2 02/18/2018 [facility] Serum or plasma carbon dioxide, total measurement (moles/volume) Serum or plasma carbon dioxide, total measurement (moles/volume) 25 22 - 29 02/18/2018 [facility] Serum or plasma chloride measurement (moles/volume) Serum or plasma chloride measurement (moles/volume) 105 98 - 107 02/18/2018 [facility] Serum or plasma creatinine measurement (mass/volume) Serum or plasma creatinine measurement (mass/volume) 0.72 0.57 - 1.11 02/18/2018 [facility] Serum or plasma potassium measurement (moles/volume) Serum or plasma potassium measurement (moles/volume) 4.2 3.5 - 5.1 02/18/2018 [facility] Serum or plasma protein measurement (mass/volume) Serum or plasma protein measurement (mass/volume) 7.8 6.5 - 8.1 02/18/2018 [facility] Serum or plasma sodium measurement (moles/volume) Serum or plasma sodium measurement (moles/volume) 141 136 - 145 02/18/2018 [facility] Serum or plasma total bilirubin measurement (mass/volume) Serum or plasma total bilirubin measurement (mass/volume) 0.6 0.2 - 1.2 02/18/2018 [facility] Serum or plasma urea nitrogen measurement (mass/volume) Serum or plasma urea nitrogen measurement (mass/volume) 7 7 - 26 02/18/2018 [facility] Serum or plasma urea nitrogen/creatinine mass ratio Serum or plasma urea nitrogen/creatinine mass ratio 10 6 - 25 02/18/2018 [facility] Red Cell Distribution Width 13.2 11.7 - 14.4 02/18/2018 [facility] IM GRANULOCYTES % 0.3 0.0 - 1.0 02/18/2018 [facility] Absolute Immature Granulocyte (auto 0.03 0 - 0.1 02/18/2018 [facility] Aspartate Amino Transf (AST/SGOT) 22 5 - 34 02/18/2018 [facility] Automated urine sediment leukocyte count by microscopy (number/high power field) Automated urine sediment leukocyte count by microscopy (number/high power field) null 0 - 5 02/18/2018 [facility] Bacteria detection in urine sediment by light microscopy Bacteria detection in urine sediment by light microscopy MODERATE NONE 02/18/2018 [facility] Epithelial cells detection in urine sediment by light microscopy Epithelial cells detection in urine sediment by light microscopy MODERATE NONE 02/18/2018 [facility] Erythrocytes detection in urine sediment by light microscopy Erythrocytes detection in urine sediment by light microscopy null 0 - 5 02/18/2018 [facility] Specific gravity of Urine by Test strip Specific gravity of Urine by Test strip 1.010 1.010 - 1.025 02/18/2018 [facility] Urine clarity Urine clarity HAZY CLEAR 02/18/2018 [facility] Urine color determination Urine color determination YELLOW YELLOW 02/18/2018 [facility] Urine erythrocytes detection Urine erythrocytes detection NEGATIVE NEGATIVE 02/18/2018 [facility] Urine glucose detection Urine glucose detection NEGATIVE NEGATIVE 02/18/2018 [facility] Urine ketones detection by automated test strip Urine ketones detection by automated test strip NEGATIVE NEGATIVE 02/18/2018 [facility] Urine leukocyte esterase detection by dipstick Urine leukocyte esterase detection by dipstick NEGATIVE NEGATIVE 02/18/2018 [facility] Urine nitrite detection Urine nitrite detection POSITIVE NEGATIVE 02/18/2018 [facility] Urine pH measurement by automated test strip Urine pH measurement by automated test strip 6.5 5 - 7 02/18/2018 [facility] Urine protein measurement by test strip (mass/volume) Urine protein measurement by test strip (mass/volume) NEGATIVE NEGATIVE 02/18/2018 [facility] Urine total bilirubin measurement (mass/volume) Urine total bilirubin measurement (mass/volume) NEGATIVE NEGATIVE 02/18/2018 [facility] Urine urobilinogen measurement by test strip (mass/volume) Urine urobilinogen measurement by test strip (mass/volume) 0.2 0.2 - 1 02/18/2018 [facility] Shoulder series DX Shoulder series DX HISTORY: - M19.012 Primary osteoarthritis, left shoulder TECHNIQUE: Internal and external rotation views of the left shoulder as well as scapular Y view. COMPARISON: None available. FINDINGS: Normal mineralization and anatomic alignment of the bones without fracture or dislocation. The joint spaces are well-maintained without evidence of effusion. Visualized portion of the left lung is clear. IMPRESSION: No acute osseous injury. [id number] 11/10/2017 - - Read by: Manoj Méndez MD Dictated Date/time: 11/10/17 14:58 Electronically Signed by: Manoj Méndez MD 11/10/17 14:59 FINAL REPORT [facility] [facility] SHANE incl CAD MA Breast Mammo Scrn SHANE incl CAD MA BILATERAL DIGITAL SCREENING MAMMOGRAM WITH CAD: 10/03/2017 CLINICAL: Encounter For Screening Mammogram For Malignant Neoplasm Of Breast/Z12.31. Current study was evaluated with a Computer Aided Detection (CAD) system. COMPARISON:No prior exams were available for comparison. TECHNIQUE: Mammographic views were obtained using digital acquisition. Current study was also evaluated with a Computer Aided Detection (CAD) system. FINDINGS: The tissue of both breasts is almost entirely fat. There are benign calcifications in both breasts. No significant masses, calcifications, or other findings are seen in either breast. IMPRESSION: BENIGN RECOMMENDATION:There is no mammographic evidence of malignancy. A 1 year screening mammogram is recommended.(10/04/2018) This exam was interpreted at [id number] for NAY Ford SL 15. Professional services are provided by the [facility] M.D[facility] Division of Diagnostic Imaging. Warner Pavon M.D. cm/penrad:10/04/2017 11:02:50 Reliability Specialist(s): RT Steve(R)(M), [facility] letter sent: BI-RADS 1/2 Mammogram BI-RADS: 2 Benign 10/03/2017 - - Read by: Linus Stockton MD Dictated Date/time: 10/04/17 11:02 Electronically Signed by: Linus Stockton MD 10/04/17 11:02 FINAL REPORT NAY Villagomez Knee wo contrast MRI Knee wo contrast MRI EXAMINATION: MRI of the left knee without contrast. HISTORY: S83.002A Unspecified subluxation of left patella, initial encounter - S83.002A Unspecified subluxation of left patella, initial encounter; AGE: 42 years GENDER: Female COMPARISON: Left knee radiographs 02/26/2015 TECHNIQUE: Multiplanar, multisequence magnetic resonance imaging of the left knee is performed with an extremity coil without contrast. FINDINGS: Menisci: Medial: The anterior horn, body, and posterior horn are intact. Lateral: The anterior horn, body, and posterior horn are intact. Ligaments: The anterior cruciate ligament and posterior cruciate ligament are intact. The medial collateral ligament and lateral collateral ligament complex are intact. Extensor mechanism: Mild proximal patellar tendinosis. Medial and lateral patellar retinacula are intact. Muscles: There is normal signal intensity and muscle bulk of the musculature at the knee. Cartilage: Mild reactive marrow change in the central patellar apex. The patellofemoral articular cartilage grade 2/3 chondral malacia in the central and inferior patellar apex. Mild chondral surface fraying in the lateral patellar facet.. The medial tibiofemoral articular cartilage is intact.. The lateral tibiofemoral articular cartilage is intact.. Bone: There are no acute fractures. There are no suspicious bone marrow replacing lesions. Tibial tubercle -- trochlear groove distance is within normal limits measuring 17 mm. Soft tissues: There is a moderate knee joint effusion. There is no Rodriguez's cyst. IMPRESSION: 1. Grade 2/3 chondromalacia in the central and inferior patellar apex with mild underlying reactive marrow change. Mild chondral surface fraying in the lateral patellar facet. 2. Mild proximal patellar tendinosis. 09/22/2017 - - Read by: Vincenzo Zhang MD Dictated Date/time: 09/22/17 17:25 Electronically Signed by: Vincenzo Zhang MD 09/22/17 17:37 FINAL REPORT PED[facility] LU[facility] Villagomez Chest 2 views DX Chest 2 views DX EXAM: Chest 2 views DX HISTORY: - R07.2 Precordial pain COMPARISON: 12/02/2015 The heart size is normal and the lungs are clear. There is no pleural effusion or pneumothorax. No acute skeletal abnormality. IMPRESSION: No acute abnormality. 09/05/2017 - - Read by: Jere Waite MD Dictated Date/time: 09/05/17 14:18 Electronically Signed by: Jere Waite MD 09/05/17 14:22 FINAL REPORT P[facility] LU[facility] Villagomez Ankle wo contrast MRI Ankle wo contrast MRI EXAMINATION: MR right ankle without contrast HISTORY: S93.4 Sprain of ankle; right ankle instability; lateral right ankle pain; right ankle grinding; right peroneus longus tendinosis COMPARISON: Radiographs of the right foot dated 03/03/2015 are reviewed. TECHNIQUE: Multiplanar, multisequence magnetic resonance imaging of the right ankle and hindfoot is performed with an extremity coil without contrast. FINDINGS: Ligaments: Lateral: AITFL and PITFL: The anterior/inferior tibiofibular and posterior/inferior tibiofibular syndesmotic ligaments are intact. ATFL: The anterior talofibular ligament is intact. CFL: The calcaneofibular ligament is intact. Medial: Deltoid complex: The superficial and deep components of the deltoid ligament complex including the tibiospring ligament and superomedial calcaneonavicular component of the spring ligament are within normal limits. Tendons: Medial flexor: Fluid is noted within the posterior tibialis tendon sheath without intratendinous abnormality. Otherwise, the remaining medial flexor tendons are within normal limits. Peroneal: There is mild peroneus longus tendinosis with mild increased intratendinous signal and mild focal enlargement of the peroneus longus tendon just posterior and distal to the lateral malleolus. There is a small amount of fluid within the retromalleolar and inframalleolar peroneal tendon sheath, but the peroneal tendons remain intact. Extensor: The anterior ankle extensor tendons are within normal limits. Achilles tendon: The Achilles tendon is within normal limits. Plantar fascia: Within normal limits. Muscles: There is normal signal intensity and muscle bulk of the intrinsic foot musculature. Cartilage: There is no focal chondrosis or subchondral marrow edema. No osteochondral defects. Bone: Examination is nonweightbearing limiting evaluation of alignment; however, there is possible mild pes cavus alignment. There is small subcortical intraosseous cyst formation within the plantar aspect of the base of the 4th metatarsal with very mild adjacent bone marrow edema. The bone marrow signal intensity is otherwise normal without evidence of fracture or osteonecrosis. Soft tissue: There is mild soft tissue edema between the bases of the 4th and 5th metatarsals and mild subcutaneous edema along the dorsolateral aspect of the midfoot at this level. There is a small amount of fluid within the tibiotalar, posterior subtalar, and talonavicular joints, likely physiologic. There is normal fatty signal within the sinus Tarsi. IMPRESSION: 1. Mild right peroneus longus tendinosis with mild increased intratendinous signal and mild focal enlargement of the peroneus longus tendon, just posterior and distal to the lateral malleolus. There is also a small amount of fluid within the retromalleolar and inframalleolar right peroneal tendon sheath which may represent mild peroneal tenosynovitis, but the peroneal tendons remain intact. 2. Small subcortical intraosseous cyst formation within the plantar aspect of the base of the right 4th metatarsal with very mild adjacent bone marrow edema. There is also mild soft tissue edema between the bases of the 4th and 5th metatarsals and mild subcutaneous tenderness edema along the dorsolateral aspect of the midfoot at this level. Overall, these findings are nonspecific, but suggestive of chronic inflammatory or degenerative changes within the intermetatarsal space at the bases of the 4th and 5th metatarsals. 3. Nonweightbearing examination limits evaluation of alignment; however, there is possible mild pes cavus alignment. This may be confirmed with weightbearing radiographs as clinically indicated. 4. Nonspecific small volume fluid within the right tibiotalar, posterior subtalar, and talonavicular joints, likely physiologic. 08/18/2017 - - Read by: Rhett Nunez MD Dictated Date/time: 08/18/17 09:44 Electronically Signed by: Rhett Nunez MD 08/18/17 09:59 FINAL REPORT [facility] LU[facility] Villagomez Abdomen AP DX Abdomen AP DX HISTORY: - N39.0 Urinary tract infection, site not specified TECHNIQUE: 3 frontal views of the abdomen. COMPARISON: None available. FINDINGS: No abnormal calcifications are seen projecting over the renal shadows or along the expected course of the ureters to suggest urolithiasis. Nonobstructive bowel gas pattern with a small stool burden and gas seen throughout the colon to the level of the rectum. No gas distended loops of small bowel are seen. No evidence of intra-abdominal mass effect. Cholecystectomy clips are noted. No acute osseous injury. IMPRESSION: No radiographic evidence of urolithiasis. [id number] 08/15/2017 - - Read by: Manoj Méndez MD Dictated Date/time: 08/15/17 15:07 Electronically Signed by: Manoj Méndez MD 08/15/17 15:08 FINAL REPORT [facility] LU[facility] Villagomez Retroperitoneal Complete US Retroperitoneal Complete US Patient Name: CHARLENE VASQUEZ : 1975; Age: 41 years y/o Female MR: [id number] Study: Retroperitoneal Complete US Clinical Indication: N39.0 Urinary tract infection, site not specified - N39.0 Urinary tract infection, site not specified; Comparison: None TECHNIQUE: Multiple longitudinal and transverse real time sonographic images of the kidneys and urinary bladder are obtained. FINDINGS: KIDNEY: The right kidney measures 12 x 4.7 x 5.9 centimeters The left kidney measures 11.3 x 5.8 x 4.7 cm. No pelvocaliectasis, nephrolithiasis or renal mass lesion identified bilaterally. BLADDER: Bladder is distended. No intrinsic bladder lesion appreciated. IMPRESSION: Distended urinary bladder. No significant renal abnormality is otherwise demonstrated. SL: [id number] 04/27/2017 - - Read by: Frederick Ji MD Dictated Date/time: 04/27/17 11:29 Electronically Signed by: Frederick Ji MD 04/27/17 11:30 FINAL REPORT [facility] Pelvis Complete US Pelvis Complete US Patient Name: CHARLENE VASQUEZ : 1975; Age: 41 years y/o Female MR: [id number] Study: Pelvis Complete US 04/27/2017 10:36 AM CDT Ordering Physician: Isacc Chacon MD Clinical Indication: R10.2 Pelvic and perineal pain - R10.2 Pelvic and perineal pain; Comparison: None Transabdominal pelvic ultrasound exam: Uterus is absent. Right ovary not visualized. Left ovary 4.5 x 4.1 x 5 cm. No adnexal mass or pathologic fluid is evident. IMPRESSION: Absent uterus. Absent visualized right ovary. Correlate with previous surgical history. Left ovary mildly prominent in volume, without other mass or lesion appreciated. SL: [id number] 04/27/2017 - - Read by: Frederick Ji MD Dictated Date/time: 04/27/17 11:31 Electronically Signed by: Frederick Ji MD 04/27/17 11:33 FINAL REPORT [facility] CHEM [facility] eGFR 113 mL/min/1.73m2 03/17/2017 Result Comment: The eGFR is calculated using the CKD-EPI formula. In most young, healthy individuals the eGFR will be >90 mL/min/1.73m2. The eGFR declines with age. An eGFR of 60-89 may be normal in some populations, particularly the elderly, for whom the CKD-EPI formula has not been extensively validated. Use of the eGFR is not recommended in the following populations: Individuals with unstable creatinine concentrations, including patients and those with serious co-morbid conditions. Patients with extremes in muscle mass or diet. The data above are obtained from the National Kidney Disease Education Program (NKDEP) which additionally recommends that when the eGFR is used in patients with extremes of body mass index for purposes of drug dosing, the eGFR should be multiplied by the estimated BMI. [facility] CHEM PANEL POC Creatinine 0.6 mg/dL 0.5 - 1.4 03/17/2017 [facility] Spine lumbar w/wo contrast MRI Spine lumbar w/wo contrast MRI MRI LUMBAR SPINE WITHOUT AND WITH CONTRAST HISTORY: 20ml Dotarem ; Lower back pain with bilateral leg numbness. Patient also experiencing right hip and groin pain. Right leg gives out.; Pain with neurological manifestation, spondylosis with radiculopathy, pain and numbness in the bilateral lower extremities and feet, back pain and right hip pain COMPARISON: Lumbar spine radiography dated 02/27/2016 TECHNIQUE: Multiplanar T1, T2, fluid-sensitive weighted MRI of the lumbar spine without and with IV contrast is performed on the 1.5 Raisa magnet. FINDINGS: There are 6 lumbar type vertebra. No fracture is seen. Vertebral body heights are maintained. No bone marrow edema or aggressive osseous lesion. No discitis/osteomyelitis. No abnormal postcontrast enhancement in the lumbar spine. There is mild degenerative desiccation of the L3/L4 intervertebral disc. Remaining intervertebral discs are normal. There is no disc bulge or disc protrusion in the lumbar spine. No significant degenerative facet arthrosis is identified in the lumbar spine. There is no lumbar spine canal stenosis or neural foraminal narrowing. The conus medullaris and cauda equina are normal. No epidural or intrathecal mass or fluid collection. The paraspinal soft tissues are unremarkable. Visualized portion of the kidneys and aorta are normal. IMPRESSION: 1. Six lumbar type vertebra. If surgery is contemplated, recommend confirmation of surgical level with intraoperative fluoroscopy. 2. Very mild degenerative changes of the L3/L4 intervertebral disc. No other significant lumbar degenerative changes are identified. No lumbar canal stenosis or neural foraminal narrowing. 3. Otherwise negative study. No abnormal postcontrast enhancement. SL: FOSTER 03/17/2017 - - Read by: Kunal Ramos MD Dictated Date/time: 03/17/17 14:36 Electronically Signed by: Kunal Ramos MD 03/17/17 15:03 FINAL REPORT [facility] Hip 2/3 views uni DX Hip 2/3 views uni DX Exam: Right hip x-ray, 2 views Reason for Exam: M19.90 Unspecified osteoarthritis, unspecified site Comparison Exam: None Discussion: No fractures or dislocations are seen within the right hip. No suspicious osteoblastic or osteolytic lesions. The femoral acetabular joint is intact. No evidence for avascular necrosis of the femoral head. The visualized portions of the pubic symphysis and SI joint are unremarkable. Impression: 1. No acute bony abnormalities identified. 01/18/2016 - - Read by: Carmelo Beltran MD Dictated Date/time: 01/18/16 09:19 Electronically Signed by: Carmelo Beltran MD 01/18/16 09:34 FINAL REPORT P[facility] LU[facility] Araujoa CHEM PANEL Alk Phos 79 unit/L 39 - 136 12/03/2015 [facility] CHEM PANEL Bili Total 0.7 mg/dL 0.2 - 1.3 12/03/2015 [facility] CHEM PANEL Total Protein 6.6 g/dL 6.4 - 8.4 12/03/2015 [facility] CHEM PANEL eGFR 110 mL/min/1.73m2 12/03/2015 Result Comment: The eGFR is calculated using the CKD-EPI formula. In most young, healthy individuals the eGFR will be >90 mL/min/1.73m2. The eGFR declines with age. An eGFR of 60-89 may be normal in some populations, particularly the elderly, for whom the CKD-EPI formula has not been extensively validated. Use of the eGFR is not recommended in the following populations: Individuals with unstable creatinine concentrations, including patients and those with serious co-morbid conditions. Patients with extremes in muscle mass or diet. The data above are obtained from the National Kidney Disease Education Program (NKDEP) which additionally recommends that when the eGFR is used in patients with extremes of body mass index for purposes of drug dosing, the eGFR should be multiplied by the estimated BMI. [facility] CHEM PANEL AST 35 unit/L 0 - 37 12/03/2015 [facility] CHEM PANEL Glucose Lvl 121 mg/dL 70 - 99 12/03/2015 [facility] CHEM PANEL CO2 31 meq/L 24 - 32 12/03/2015 [facility] CHEM PANEL Albumin Lvl 3.3 g/dL 3.5 - 5.0 12/03/2015 [facility] CHEM PANEL ALT 49 unit/L 0 - 65 12/03/2015 [facility] CHEM PANEL BUN 6 mg/dL 7 - 22 12/03/2015 [facility] CHEM PANEL Creatinine Lvl 0.66 mg/dL 0.50 - 1.40 12/03/2015 [facility] CHEM PANEL Chloride Lvl 102 meq/L 95 - 109 12/03/2015 [facility] CHEM PANEL Potassium Lvl 4.4 meq/L 3.5 - 5.1 12/03/2015 [facility] CHEM PANEL Calcium Lvl 8.4 mg/dL 8.5 - 10.5 12/03/2015 [facility] CHEM PANEL Sodium Lvl 140 meq/L 135 - 145 12/03/2015 [facility] CHEM PANEL A/G Ratio 1.0 0.7 - 1.6 12/03/2015 [facility] CHEM PANEL Globulin 3.3 g/dL 2.0 - 4.0 12/03/2015 [facility] CHEM PANEL AGAP 11.4 meq/L 10.0 - 20.0 12/03/2015 [facility] CHEM PANEL B/C Ratio 9 6 - 25 12/03/2015 [facility] HEMATOLOGY Basophils # 0.0 K/CMM 0.0 - 0.2 12/03/2015 [facility] HEMATOLOGY Eosinophils # 0.0 K/CMM 0.0 - 0.5 12/03/2015 [facility] HEMATOLOGY Monocytes # 0.9 K/CMM 0.0 - 0.8 12/03/2015 [facility] HEMATOLOGY Basophils 0.2 % 0.0 - 1.0 12/03/2015 [facility] HEMATOLOGY Monocytes 7.3 % 2.0 - 12.0 12/03/2015 [facility] HEMATOLOGY Lymphocytes 17.0 % 20.0 - 40.0 12/03/2015 [facility] HEMATOLOGY Segs 75.5 % 45.0 - 75.0 12/03/2015 [facility] HEMATOLOGY Eosinophils 0.0 % 0.0 - 4.0 12/03/2015 [facility] HEMATOLOGY Lymphocytes # 2.1 K/CMM 1.0 - 5.5 12/03/2015 [facility] HEMATOLOGY Segs-Bands # 9.3 K/CMM 1.5 - 8.1 12/03/2015 [facility] HEMATOLOGY RBC 4.14 M/CMM 4.20 - 5.40 12/03/2015 [facility] HEMATOLOGY WBC 12.4 K/CMM 3.7 - 10.4 12/03/2015 [facility] HEMATOLOGY Hgb 11.5 g/dL 12.0 - 16.0 12/03/2015 [facility] HEMATOLOGY Platelet 297 K/CMM 133 - 450 12/03/2015 [facility] HEMATOLOGY MPV 8.8 fL 7.4 - 10.4 12/03/2015 [facility] HEMATOLOGY RDW 13.1 % 11.5 - 14.5 12/03/2015 [facility] HEMATOLOGY MCHC 32.3 g/dL 32.0 - 36.0 12/03/2015 [facility] HEMATOLOGY MCH 27.8 pg 27.0 - 31.0 12/03/2015 [facility] HEMATOLOGY MCV 86.1 fL 80.0 - 98.0 12/03/2015 [facility] HEMATOLOGY Hct 35.7 % 36.0 - 48.0 12/03/2015 [facility] SPECIAL CHEMISTRY Hgb A1C 5.8 % <=5.6 % 12/03/2015 [facility] Chest 1view DX Chest 1view DX EXAM: AP CHEST X-RAY DATE: 12/02/2015 7:35 PM CDT . CLINICAL INDICATION: Chest pain TECHNIQUE: SINGLE FRONTAL VIEW OF THE CHEST COMPARISON: Chest x-ray of 07/10/2015 FINDINGS: The lungs are well-inflated. There are linear opacities at the left lung base.. Heart and mediastinal contours are grossly stable given differences in technique and position. Bony thorax is unremarkable. IMPRESSION: Left lung base platelike atelectasis. Otherwise no acute intrathoracic abnormality. 12/02/2015 - - Read by: Bobby Shine MD Dictated Date/time: 12/02/15 20:28 Electronically Signed by: Bobby Shine MD 12/02/15 20:29 FINAL REPORT [facility] Chest 2 views DX Chest 2 views DX CHEST PA AND LATERAL History: 39 year female with shortness of breath Comparison: 11/14/2014 Findings: The lungs are expanded and no infiltrate, mass or pleural effusion seen. The cardiomediastinal structures are within normal limits. Osseous structures are unremarkable. IMPRESSION: There is no active cardio pulmonary abnormality. Stable chest x-ray. 07/10/2015 - - Read by: Derian Landry MD Dictated Date/time: 07/10/15 14:23 Electronically Signed by: Derian Landry 07/10/15 14:24 FINAL REPORT [facility] Villagomez Foot 2 views bilateral DX Foot 2 views bilateral DX EXAM: Foot 2 Views Bilateral HISTORY: pain COMPARISON: None FINDINGS: No displaced fracture or subluxation is seen involving the bilateral feet. No significant degenerative change. There is no evidence of soft tissue swelling. IMPRESSION: No radiographic abnormality appreciated. 03/03/2015 - - Read by: Jere Waite MD Dictated Date/time: 03/03/15 16:42 Electronically Signed by: Jere Waite MD 03/03/15 16:43 FINAL REPORT [facility] Villagomez Spine cervical 2 or 3 view DX Spine cervical 2 or 3 view DX Exam: Cervical spine x-ray, 2 views Reason for Exam: Neck pain Comparison Exam: None Discussion: On lateral view, the cervical spine is seen from the C1 vertebral body level down through the C7/T1 junction. Vertebral body heights are maintained. No spondylolisthesis. Mild scattered degenerative disc disease. No suspicious osteoblastic or osteolytic lesions. Prevertebral soft tissue is within normal limits. Lateral masses of C1 and dens of C2 appear intact. Please note that a cervical spine x-ray cannot rule out ligamentous injuries or spinal cord abnormalities. Visualized portions of the lung apices are unremarkable. Impression: 1. Vertebral body heights are maintained. No spondylolisthesis. Mild scattered degenerative disc disease. 03/03/2015 - - Read by: Carmelo Beltran MD Dictated Date/time: 03/04/15 09:29 Electronically Signed by: Carmelo Beltran MD 03/04/15 09:31 FINAL REPORT SERAChery Kalpesh Spine lumbar 2 or 3 views DX Spine lumbar 2 or 3 views DX EXAMINATION: Lumbar spine - 2 to 3 views HISTORY: Lumbago. FINDINGS: Frontal, lateral, and coned lateral views of the lumbar spine are performed without comparison. There is a partially lumbarized S1 segment. There is no listhesis of the lumbar spine. The vertebral body heights are normal without compression fracture. There is a fracture of the left transverse process of L1 of indeterminate age. There is mild L3-L4 through L4-L5 degenerative disc disease. The sacral ala appear intact. IMPRESSION: 1. Partially lumbarized S1 segment. 2. Fracture of the left transverse process of L1 of indeterminate age. 3. Mild L3-L4 through L4-L5 degenerative disc disease. 02/26/2015 - - Read by: Rhett Nunez MD Dictated Date/time: 02/26/15 13:38 Electronically Signed by: Rhett Nunez MD 02/26/15 13:41 FINAL REPORT NAY Villagomez Knee 1-2 Views Bilateral DX Knee 1-2 Views Bilateral DX EXAMINATION: Bilateral knees 1 to 2 views each. HISTORY: Bilateral knee pain; possible recurrent patellar dislocation-relocation FINDINGS: Frontal view of both knees and lateral views of each knee are performed without comparison. There is mild lateral subluxation of the patellae with respect to the central trochlea bilaterally demonstrated on the frontal views. The joint spaces are normal. There is a possible small right knee effusion without definite left knee effusion. There is no acute fracture. IMPRESSION: 1. Mild lateral subluxation of the patellae with respect to the central trochlea bilaterally. 2. Possible small right knee effusion. 3. No acute fracture or substantial joint space narrowing. 02/26/2015 - - Read by: Rhett Nunez MD Dictated Date/time: 02/26/15 13:33 Electronically Signed by: Rhett Nunez MD 02/26/15 13:38 FINAL REPORT NAY Villagomez Spine thoracic 3 views DX Spine thoracic 3 views DX EXAMINATION: Thoracic spine 2-3 views HISTORY: Thoracic back pain. FINDINGS: Frontal, lateral, and swimmer's views of the thoracic spine are performed without comparison. There is minimal dextrocurvature of the midthoracic spine without listhesis. The vertebral body heights are normal without compression fracture. There is moderate multilevel degenerative disc disease of the mid to lower thoracic spine. IMPRESSION: 1. Moderate multilevel degenerative disc disease of the mid to lower thoracic spine. 02/26/2015 - - Read by: Rhett Nunez MD Dictated Date/time: 02/26/15 13:32 Electronically Signed by: Rhett Nunez MD 02/26/15 13:33 FINAL REPORT [facility] CHEM PANEL Calcium Lvl 8.5 mg/dL 8.5 - 10.5 11/27/2014 [facility] CHEM PANEL Albumin Lvl 3.3 g/dL 3.5 - 5.0 11/27/2014 [facility] CHEM PANEL CO2 26 meq/L 24 - 32 11/27/2014 [facility] CHEM PANEL Glucose Lvl 93 mg/dL 70 - 99 11/27/2014 4Interpretive Data: Adult reference range values reflect the clinical guidelines of the [place] [employer]. [facility] CHEM PANEL BUN 6 mg/dL 7 - 22 11/27/2014 [facility] CHEM PANEL ALT 73 unit/L 0 - 65 11/27/2014 [facility] CHEM PANEL AST 73 unit/L 0 - 37 11/27/2014 [facility] CHEM PANEL Alk Phos 112 unit/L 39 - 136 11/27/2014 [facility] CHEM PANEL Bili Total 1.2 mg/dL 0.2 - 1.3 11/27/2014 [facility] CHEM PANEL A/G Ratio 0.9 0.7 - 1.6 11/27/2014 [facility] CHEM PANEL Globulin 3.5 g/dL 2.0 - 4.0 11/27/2014 [facility] CHEM PANEL Total Protein 6.8 g/dL 6.4 - 8.4 11/27/2014 [facility] CHEM PANEL eGFR 93 mL/min/1.73m2 11/27/2014 1Result Comment: The eGFR is calculated using the CKD-EPI formula. In most young, healthy individuals the eGFR will be >90 mL/min/1.73m2. The eGFR declines with age. An eGFR of 60-89 may be normal in some populations, particularly the elderly, for whom the CKD-EPI formula has not been extensively validated. Use of the eGFR is not recommended in the following populations: Individuals with unstable creatinine concentrations, including patients and those with serious co-morbid conditions. Patients with extremes in muscle mass or diet. The data above are obtained from the National Kidney Disease Education Program (NKDEP) which additionally recommends that when the eGFR is used in patients with extremes of body mass index for purposes of drug dosing, the eGFR should be multiplied by the estimated BMI. [facility] CHEM PANEL Sodium Lvl 140 meq/L 135 - 145 11/27/2014 [facility] CHEM PANEL Creatinine Lvl 0.8 mg/dL 0.5 - 1.4 11/27/2014 [facility] CHEM PANEL Chloride Lvl 104 meq/L 95 - 109 11/27/2014 [facility] CHEM PANEL Potassium Lvl 4.0 meq/L 3.5 - 5.1 11/27/2014 [facility] CHEM PANEL AGAP 14.0 meq/L 10.0 - 20.0 11/27/2014 [facility] CHEM PANEL B/C Ratio 8 6 - 25 11/27/2014 [facility] HEMATOLOGY RBC 4.15 M/CMM 4.20 - 5.40 11/27/2014 [facility] HEMATOLOGY Hgb 11.2 g/dL 12.0 - 16.0 11/27/2014 [facility] HEMATOLOGY WBC 9.4 K/CMM 3.7 - 10.4 11/27/2014 [facility] MPV 9.2 fL 7.4 - 10.4 11/27/2014 [facility] Platelet 267 K/CMM 133 - 450 11/27/2014 [facility] RDW 15.1 % 11.5 - 14.5 11/27/2014 [facility] MCHC 32.2 g/dL 32.0 - 36.0 11/27/2014 [facility] MCV 83.6 fL 80.0 - 98.0 11/27/2014 [facility] MCH 26.9 pg 27.0 - 31.0 11/27/2014 [facility] Hct 34.7 % 36.0 - 48.0 11/27/2014 [facility] HEMATOLOGY Basophils # 0.1 K/CMM 0.0 - 0.2 11/27/2014 [facility] Eosinophils # 0.1 K/CMM 0.0 - 0.5 11/27/2014 [facility] Monocytes # 0.7 K/CMM 0.0 - 0.8 11/27/2014 [facility] Segs 57.3 % 45.0 - 75.0 11/27/2014 [facility] Lymphocytes # 3.1 K/CMM 1.0 - 5.5 11/27/2014 [facility] Eosinophils 1.4 % 0.0 - 4.0 11/27/2014 [facility] Monocytes 7.7 % 2.0 - 12.0 11/27/2014 [facility] Basophils 0.6 % 0.0 - 1.0 11/27/2014 [facility] Segs-Bands # 5.4 K/CMM 1.5 - 8.1 11/27/2014 [facility] Lymphocytes 33.0 % 20.0 - 40.0 11/27/2014 [facility] Upper GI Series w water soluble DX Upper GI Series w water soluble DX OMNIPAQUE UPPER GI SERIES 11/26/2014 The fluoroscopy time is 5 seconds. Small volume of Omnipaque given orally passed easily from the distal esophagus into the gastric tube and duodenum. No contrast extravasation or obstruction is seen. Impression: 1. No contrast extravasation or obstruction identified. 11/26/2014 - - Read by: Ted Monk MD Dictated Date/time: 11/26/14 08:27 Electronically Signed by: Ted Monk MD 11/26/14 08:27 FINAL REPORT [facility] CHEM PANEL Globulin 3.8 g/dL 2.0 - 4.0 11/26/2014 [facility] CHEM PANEL A/G Ratio 0.9 0.7 - 1.6 11/26/2014 [facility] CHEM PANEL AGAP 11.8 meq/L 10.0 - 20.0 11/26/2014 [facility] CHEM PANEL B/C Ratio 9 6 - 25 11/26/2014 [facility] CHEM PANEL Bili Total 0.7 mg/dL 0.2 - 1.3 11/26/2014 [facility] CHEM PANEL ALT 82 unit/L 0 - 65 11/26/2014 [facility] CHEM PANEL AST 47 unit/L 0 - 37 11/26/2014 [facility] CHEM PANEL Alk Phos 104 unit/L 39 - 136 11/26/2014 [facility] CHEM PANEL Total Protein 7.3 g/dL 6.4 - 8.4 11/26/2014 [facility] CHEM PANEL Creatinine Lvl 0.8 mg/dL 0.5 - 1.4 11/26/2014 [facility] CHEM PANEL Sodium Lvl 138 meq/L 135 - 145 11/26/2014 [facility] CHEM PANEL Potassium Lvl 4.8 meq/L 3.5 - 5.1 11/26/2014 [facility] CHEM PANEL Chloride Lvl 103 meq/L 95 - 109 11/26/2014 [facility] CHEM PANEL eGFR 93 mL/min/1.73m2 11/26/2014 2Result Comment: The eGFR is calculated using the CKD-EPI formula. In most young, healthy individuals the eGFR will be >90 mL/min/1.73m2. The eGFR declines with age. An eGFR of 60-89 may be normal in some populations, particularly the elderly, for whom the CKD-EPI formula has not been extensively validated. Use of the eGFR is not recommended in the following populations: Individuals with unstable creatinine concentrations, including patients and those with serious co-morbid conditions. Patients with extremes in muscle mass or diet. The data above are obtained from the National Kidney Disease Education Program (NKDEP) which additionally recommends that when the eGFR is used in patients with extremes of body mass index for purposes of drug dosing, the eGFR should be multiplied by the estimated BMI. [facility] CHEM PANEL Calcium Lvl 8.5 mg/dL 8.5 - 10.5 11/26/2014 [facility] CHEM PANEL Albumin Lvl 3.5 g/dL 3.5 - 5.0 11/26/2014 [facility] CHEM PANEL BUN 7 mg/dL 7 - 22 11/26/2014 [facility] CHEM PANEL Glucose Lvl 99 mg/dL 70 - 99 11/26/2014 5Interpretive Data: Adult reference range values reflect the clinical guidelines of the [place] [employer]. [facility] CHEM PANEL CO2 28 meq/L 24 - 32 11/26/2014 [facility] HEMATOLOGY MCV 84.1 fL 80.0 - 98.0 11/26/2014 [facility] HEMATOLOGY MCH 27.0 pg 27.0 - 31.0 11/26/2014 [facility] HEMATOLOGY MCHC 32.1 g/dL 32.0 - 36.0 11/26/2014 [facility] HEMATOLOGY RDW 15.5 % 11.5 - 14.5 11/26/2014 [facility] HEMATOLOGY RBC 4.46 M/CMM 4.20 - 5.40 11/26/2014 [facility] HEMATOLOGY Hgb 12.0 g/dL 12.0 - 16.0 11/26/2014 [facility] HEMATOLOGY WBC 12.8 K/CMM 3.7 - 10.4 11/26/2014 [facility] HEMATOLOGY Platelet 313 K/CMM 133 - 450 11/26/2014 [facility] HEMATOLOGY MPV 8.9 fL 7.4 - 10.4 11/26/2014 [facility] HEMATOLOGY Hct 37.5 % 36.0 - 48.0 11/26/2014 [facility] HEMATOLOGY Monocytes # 0.7 K/CMM 0.0 - 0.8 11/26/2014 [facility] HEMATOLOGY Eosinophils # 0.0 K/CMM 0.0 - 0.5 11/26/2014 [facility] HEMATOLOGY Eosinophils 0.1 % 0.0 - 4.0 11/26/2014 [facility] HEMATOLOGY Monocytes 5.4 % 2.0 - 12.0 11/26/2014 [facility] HEMATOLOGY Basophils 0.3 % 0.0 - 1.0 11/26/2014 [facility] HEMATOLOGY Plt Morph Normal (11/26/14 3:36 AM) 11/26/2014 [facility] HEMATOLOGY RBC Morph Normal (11/26/14 3:36 AM) 11/26/2014 [facility] HEMATOLOGY Lymphocytes 13.0 % 20.0 - 40.0 11/26/2014 [facility] HEMATOLOGY Segs 81.2 % 45.0 - 75.0 11/26/2014 [facility] HEMATOLOGY Segs-Bands # 10.4 K/CMM 1.5 - 8.1 11/26/2014 [facility] HEMATOLOGY Lymphocytes # 1.7 K/CMM 1.0 - 5.5 11/26/2014 [facility] BLOOD BANK RESULTS Antibody Scrn Negative (11/25/14 12:05 PM) 11/25/2014 [facility] BLOOD BANK RESULTS ABO/Rh O POS 11/25/2014 [facility] CHEM PANEL Vitamin D, 25-OH, Total 28 ng/mL 30 - 100 11/14/2014 7Interpretive Data: Reference range is based on recommendations in the Endocrine Society Clinical Practice Guideline (J Clin Endocrinol Metab 2011;96:2783-0535) [facility] CHEM PANEL eGFR 93 mL/min/1.73m2 11/14/2014 3Result Comment: The eGFR is calculated using the CKD-EPI formula. In most young, healthy individuals the eGFR will be >90 mL/min/1.73m2. The eGFR declines with age. An eGFR of 60-89 may be normal in some populations, particularly the elderly, for whom the CKD-EPI formula has not been extensively validated. Use of the eGFR is not recommended in the following populations: Individuals with unstable creatinine concentrations, including patients and those with serious co-morbid conditions. Patients with extremes in muscle mass or diet. The data above are obtained from the National Kidney Disease Education Program (NKDEP) which additionally recommends that when the eGFR is used in patients with extremes of body mass index for purposes of drug dosing, the eGFR should be multiplied by the estimated BMI. [facility] CHEM PANEL Creatinine Lvl 0.8 mg/dL 0.5 - 1.4 11/14/2014 [facility] CHEM PANEL BUN 12 mg/dL 7 - 22 11/14/2014 [facility] CHEM PANEL Glucose Lvl 98 mg/dL 70 - 99 11/14/2014 6Interpretive Data: Adult reference range values reflect the clinical guidelines of the [place] [employer]. [facility] ELECTROLYTES Sodium Lvl 136 meq/L 135 - 145 11/14/2014 [facility] ELECTROLYTES Potassium Lvl 4.0 meq/L 3.5 - 5.1 11/14/2014 [facility] HEMATOLOGY Hct 40.4 % 36.0 - 48.0 11/14/2014 [facility] HEMATOLOGY Hgb 12.9 g/dL 12.0 - 16.0 11/14/2014 [facility] PARATHYROID PROFILE PTH Intact 42.8 pg/mL 11.1 - 79.5 11/14/2014 [facility] SPECIAL CHEMISTRY Hgb A1C 6.3 % <=5.6 % 11/14/2014 [facility] Chest 2 views DX Chest 2 views DX Chest x-ray 2 views INDICATION: Coughing COMPARISON: 12/21/2011 FINDINGS: Heart size and central vasculature are within normal limits. There is no effusion or focal pneumonia. No pneumothorax. No acute osseous pathology. IMPRESSION: No acute cardiopulmonary process. 11/14/2014 - - Read by: Rebecca Moran MD Dictated Date/time: 11/14/14 13:59 Electronically Signed by: Rebecca Moran MD 11/14/14 14:00 FINAL REPORT [facility] CHEM PANEL eGFR 93 mL/min/1.73m2 10/03/2014 1Result Comment: The eGFR is calculated using the CKD-EPI formula. In most young, healthy individuals the eGFR will be >90 mL/min/1.73m2. The eGFR declines with age. An eGFR of 60-89 may be normal in some populations, particularly the elderly, for whom the CKD-EPI formula has not been extensively validated. Use of the eGFR is not recommended in the following populations: Individuals with unstable creatinine concentrations, including patients and those with serious co-morbid conditions. Patients with extremes in muscle mass or diet. The data above are obtained from the National Kidney Disease Education Program (NKDEP) which additionally recommends that when the eGFR is used in patients with extremes of body mass index for purposes of drug dosing, the eGFR should be multiplied by the estimated BMI. [facility] CHEM PANEL Chloride Lvl 103 meq/L 95 - 109 10/03/2014 [facility] CHEM PANEL Potassium Lvl 4.0 meq/L 3.5 - 5.1 10/03/2014 [facility] CHEM PANEL CO2 29 meq/L 24 - 32 10/03/2014 [facility] CHEM PANEL AGAP 10.0 meq/L 10.0 - 20.0 10/03/2014 [facility] CHEM PANEL Calcium Lvl 9.2 mg/dL 8.5 - 10.5 10/03/2014 [facility] CHEM PANEL Creatinine Lvl 0.8 mg/dL 0.5 - 1.4 10/03/2014 [facility] CHEM PANEL BUN 15 mg/dL 7 - 22 10/03/2014 [facility] CHEM PANEL Sodium Lvl 138 meq/L 135 - 145 10/03/2014 [facility] CHEM PANEL Glucose Lvl 108 mg/dL 70 - 99 10/03/2014 2Interpretive Data: Adult reference range values reflect the clinical guidelines of the [place] [employer]. [facility] Vital Signs Vital Sign Value Date Comments Source Respitory Rate 10 12/03/2015 [facility] Systolic (mm Hg) 83 12/03/2015 [facility] Diastolic (mm Hg) 38 12/03/2015 [facility] Respitory Rate 20 12/03/2015 [facility] Systolic (mm Hg) 112 12/03/2015 [facility] Diastolic (mm Hg) 61 12/03/2015 [facility] Respitory Rate 11 12/03/2015 [facility] Temperature Oral (F) 97.8 F 12/03/2015 [facility] Systolic (mm Hg) 109 12/03/2015 [facility] Diastolic (mm Hg) 48 12/03/2015 [facility] Temperature Oral (F) 98 F 12/03/2015 [facility] Temperature Oral (F) 98.3 F 12/03/2015 [facility] Weight 157.2 12/02/2015 [facility] Heart Rate 75 12/02/2015 [facility] Weight 154.091 12/01/2015 [facility] BMI Calculated 53.21 12/01/2015 [facility] Height 170.18 cm 12/01/2015 [facility] Heart Rate 88 11/27/2014 [facility] Respitory Rate 19 11/27/2014 [facility] Systolic (mm Hg) 114 11/27/2014 [facility] Diastolic (mm Hg) 72 11/27/2014 [facility] Temperature Oral (F) 98.0 F 11/27/2014 [facility] Respitory Rate 19 11/27/2014 [facility] Systolic (mm Hg) 115 11/27/2014 [facility] Diastolic (mm Hg) 74 11/27/2014 [facility] Temperature Oral (F) 98.3 F 11/27/2014 [facility] Heart Rate 95 11/27/2014 [facility] Temperature Oral (F) 98.4 F 11/27/2014 [facility] Respitory Rate 18 11/27/2014 [facility] Systolic (mm Hg) 111 11/27/2014 [facility] Diastolic (mm Hg) 71 11/27/2014 [facility] Heart Rate 93 11/27/2014 [facility] BMI Calculated 73.63 11/14/2014 [facility] Weight 210.057 11/14/2014 [facility] Height 168.91 cm 11/14/2014 [facility] Respitory Rate 20 10/09/2014 [facility] Systolic (mm Hg) 123 10/09/2014 [facility] Diastolic (mm Hg) 71 10/09/2014 [facility] Respitory Rate 12 10/09/2014 [facility] Systolic (mm Hg) 106 10/09/2014 [facility] Diastolic (mm Hg) 62 10/09/2014 [facility] Systolic (mm Hg) 117 10/09/2014 [facility] Diastolic (mm Hg) 75 10/09/2014 [facility] Heart Rate 87 10/09/2014 [facility] Respitory Rate 20 10/09/2014 [facility] Heart Rate 90 10/03/2014 [facility] Temperature Oral (F) 98.6 F 10/03/2014 [facility] Weight 215.909 10/03/2014 [facility] BMI Calculated 76.83 10/03/2014 [facility] Height 167.64 cm 10/03/2014 [facility] Weight 202.727 11/05/2011 [facility] Height 170.18 cm 11/05/2011 [facility] Weight 200.455 10/20/2011 [facility] Height 170.18 cm 10/20/2011 [facility] Weight 202.273 10/17/2011 [facility] Height 170.18 cm 10/17/2011 [facility] Height 170.18 cm 10/14/2011 [facility] Weight 190.909 10/14/2011 [facility] Heart Rate 85.0 05/13/2011 [facility] Respitory Rate 18.0 05/13/2011 [facility] Systolic (mm Hg) 121.0 05/13/2011 [facility] Diastolic (mm Hg) 67.0 05/13/2011 [facility] Respitory Rate 18.0 05/13/2011 [facility] Systolic (mm Hg) 104.0 05/13/2011 [facility] Diastolic (mm Hg) 54.0 05/13/2011 [facility] Heart Rate 89.0 05/13/2011 [facility] Respitory Rate 18.0 05/13/2011 [facility] Systolic (mm Hg) 108.0 05/13/2011 [facility] Diastolic (mm Hg) 56.0 05/13/2011 [facility] Heart Rate 95.0 05/13/2011 [facility] Temperature Oral (F) 98.2 F 05/11/2011 [facility] Height 167.64 cm 05/11/2011 [facility] Weight 211.364 05/11/2011 [facility] Encounters Location Location Details Encounter Type Encounter Number Reason For Visit Attending Provider ADM Date DC Date Status Source [facility] AIDE [id number] DARABRIANNA FALCON 05/13/2011 05/13/2011 [place] [facility] [place] [id number] [facility]08[facility]2011 [place] [facility] [place] [id number] [facility] 07/13/2011 Active [facility] Outpatient [id number] 278.01 [facility]/16[facility]2011 Active [facility] Outpatient [id number] DX: CHEST PAIN [facility] 10/20/2011 Active [facility] Outpatient [id number] 401.1 [facility] 11/02/2011 Active [facility] [id number] [facility] 11/04/2011 Active [facility] [place] [id number] MORBID OBESITY [facility] 12/21/2011 Active [facility] Outpatient [id number] 786.05 LESIA NELSON 12/21/2011 Active [facility] Bedded Outpatient [id number] Nanette Covington 10/09/2014 10/09/2014 [facility] Inpatient [id number] Sacha [place] 11/25/2014 11/27/2014 [facility] [place] [facility] [id number] Dillan Mushtaq 02/26/2015 02/27/2015 [facility] [place] [facility] [place] [facility] [id number] Dillan Mushtaq 03/03/2015 03/04/2015 [facility] [facility] [place] [facility] [id number] Lesia Nelson 07/10/2015 07/11/[address] [place] [facility] Inpatient [id number] Sacha [place] 12/02/2015 12/03/2015 [facility] [place] [facility] [id number] Isacc Cahcon 01/18/2016 01/19/2016 [place] [facility] Outpatient [id number] Isacc Chacon 03/17/2017 03/18/2017 [facility] Outpatient [id number] Isacc Chacon 04/27/2017 04/28/2017 [facility] Out[facility] [place] [facility] [id number] Frank Cuza 08/18/2017 08/19/2017 [facility] [place] [facility] [place] [facility] [id number] Isacc Chacon 09/05/2017 09/06/2017 [facility] [facility] [place] [facility] [id number] Isacc Chacon 09/22/2017 09/23/2017 [facility] [facility] [place] [facility] [id number] Paulette Blas 10/03/2017 10/04/2017 [facility] [place] [facility] [place] [facility] [id number] Isacc Chacon 11/10/2017 11/11/2017 [facility] [place] Departed Emergency Room [id number] YANG IBANEZ MD 02/18/2018 02/18/2018 [facility] Departed Emergency Room [id number] RON CARVAJAL MD 03/23/2018 03/24/2018 [facility] Out[facility] [place] [facility] [id number] Isacc Chacon 04/03/2018 04/03/2018 [facility] [place] [facility] Outpatient [id number] Isacc Chacon 04/05/2018 04/06/2018 [facility] Outpatient [facility] [place] [facility] [id number] Chun Bender 11/16/2018 11/17/2018 [facility] [place] [facility] Outpatient [facility] [place] [facility] [id number] Alberto Franz 12/05/2018 12/06/2018 OP[facility] [place] [facility] Outpatient Imaging [place] [facility] [id number] Johnny Nieto 12/19/2018 12/20/2018 [facility] [place] [facility] Outpatient [id number] Bernardino Marrero 01/02/2019 01/03/2019 [facility] Outpatient [id number] DX: CHEST PAIN DR. GIVENS WILL BE HERE PER ADORE GIVENS Cancel [facility] Outpatient [id number] DX: 786.05 DR LEMONS WILL DO/READ PER JESSICA MARES ISAIAH LEMONS Cancel [facility] Procedures Procedure Code Date Perfomer Comments Source Computed tomography of abdomen and pelvis with contrast [id number] 02/18/2018 [facility] Laparoscopic cholecystectomy [id number] 12/02/2015 [facility] [place] Laparoscopic cholecystectomy [id number] 12/02/2015 [facility] Laparoscopic cholecystectomy [id number] 12/02/2015 [facility] Laparoscopic cholecystectomy [id number] 12/02/2015 [facility] [place] Laparoscopic cholecystectomy [id number] 12/02/2015 [facility] [place] Laparoscopic cholecystectomy [id number] 12/02/2015 [facility] [place] Laparoscopic sleeve gastrectomy [id number] 11/25/2014 [facility] [place] Laparoscopy [id number] 11/25/2014 [facility] [place] Lysis of adhesions of abdomen [id number] 11/25/2014 [facility] [place] Laparoscopic sleeve gastrectomy [id number] 11/25/2014 [facility] Laparoscopy [id number] 11/25/2014 [facility] Lysis of adhesions of abdomen [id number] 11/25/2014 [facility] Laparoscopic sleeve gastrectomy [id number] 11/25/2014 [facility] Laparoscopy [id number] 11/25/2014 [facility] Lysis of adhesions of abdomen [id number] 11/25/2014 [facility] Laparoscopic sleeve gastrectomy [id number] 11/25/2014 [facility] Laparoscopy [id number] 11/25/2014 [facility] Lysis of adhesions of abdomen [id number] 11/25/2014 [facility] Laparoscopic sleeve gastrectomy [id number] 11/25/2014 [facility] [place] Laparoscopy [id number] 11/25/2014 [facility] Lysis of adhesions of abdomen [id number] 11/25/2014 [facility] Laparoscopic sleeve gastrectomy [id number] 11/25/2014 [facility] Laparoscopy [id number] 11/25/2014 [facility] Lysis of adhesions of abdomen [id number] 11/25/2014 [facility] Hysterectomy [id number] [facility] [place] Operation [id number] [facility] Sebaceous cyst removal [id number] [facility] Tonsillectomy [id number] [facility] Hysterectomy [id number] [facility] [id number] [facility] Sebaceous cyst removal [id number] [facility] Tonsillectomy [id number] [facility] Hysterectomy [id number] [facility] Operation [id number] [facility] Sebaceous cyst removal [id number] [facility] Tonsillectomy [id number] [facility] Hysterectomy [id number] [facility] Operation [id number] [facility] Sebaceous cyst removal [id number] [facility] Tonsillectomy [id number] [facility] Hysterectomy [id number] [facility] Operation [id number] [facility] Sebaceous cyst removal [id number] [facility] [place] Tonsillectomy [id number] [facility] Hysterectomy [id number] [facility] [place] Operation [id number] [facility] Sebaceous cyst removal [id number] [facility] [place] Tonsillectomy [id number] [facility] [place] [facility]
--- OUTSIDE RECORDS SUMMARY | 2019-01-12 13:30 | XMS REPORT | Summary of Care ---
Author Author [facility] Organization [facility] Address Unknown Phone Unavailable Encounter MIROSLAVA Aragon(KELLY) [id number] Date(s): 01/02/19 - 01/02/19 [facility] [address] [place] [address]- Discharge Disposition: Home or Self Care Attending Physician: Bernardino Marrero DO Referring Physician: Bernardino Marrero DO Vital Signs No data available for this [...]
--- OUTSIDE RECORDS SUMMARY | 2019-01-12 13:30 | XMS REPORT | Summary of Care ---
Author Author [facility] Organization [facility] Address Unknown Phone Unavailable Encounter HQ Mahesh(FIN) [id number] Date(s): 04/05/18 - 04/05/18 [facility] [address] [place] [address]- Encounter Diagnosis Sprain of tibiofibular ligament of left ankle, sequela (Final) - 04/10/18 Phlebitis and thrombophlebitis of unspecified deep vessels of left lower extremi ty (Final) - Discharge Disposition: Home or Self Care Attending Physician: Isacc Chacon MD Admitting Physician: Isacc Chacon MD Referring Physician: Isacc [...]
--- OUTSIDE RECORDS SUMMARY | 2019-01-12 13:30 | XMS REPORT | Summary of Care ---
Author Author [facility] [place] Organization [facility] [place] Address Unknown Phone Unavailable Encounter [facility] Mahesh(FIN) [id number] Date(s): 11/16/18 - 11/16/18 [facility] [place] [address] [address] [phone] Discharge Disposition: Home or Self Care Attending Physician: Chun Bender MD Referring Physician: Chun Bender MD Vital Signs No data available for [...]
--- OUTSIDE RECORDS SUMMARY | 2019-01-12 13:30 | XMS REPORT | Summary of Care ---
Author Author [facility] Outpatient [facility] Address Unknown Phone Unavailable Encounter MIROSLAVA Aragon(KELLY) [id number] Date(s): 12/05/18 - 12/05/18 [facility] [address] [facility], [address] [place] [address] [phone] Discharge Disposition: Home or Self Care Attending Physician: Alberto Franz MD Referring Physician: Alberto Franz MD Vital Signs No data available for [...]
--- OUTSIDE RECORDS SUMMARY | 2019-01-12 13:30 | XMS REPORT | Summary of Care ---
Author Author [facility] [place] Organization [facility] Address Unknown Phone Unavailable Encounter MIROSLAVA Cole_fuad(FIN) [id number] Date(s): 04/03/18 - 04/03/18 [facility] [place] [address] Attending Physician: Isacc Chacon MD Referring [...]
--- OUTSIDE RECORDS SUMMARY | 2019-01-12 13:31 | XMS REPORT | Summary of Care ---
Author Author MARTINEZ M.D., PHD, MICHAEL Jesus Unknown Address [facility] Phone Unavailable Care Team Providers Care Biological Aide Name Role Phone NAV Kuhn, CAMPBELL Unavailable Unavailable VASILIY Chambers, MIKAL Unavailable Unavailable ASHKAN Chambers, JACQUE Unavailable Unavailable MARTINEZ M.D., PHD, MICHAEL Unavailable Unavailable SHANNON SHARMA, MADINA Olvera Unavailable Unavailable MILY SENIOR SUPPORT ENGINEER [place], LAWSON Unavailable Unavailable MARTINEZ MD PHD, MICHAEL Unavailable Unavailable VASILIY SHARMA, MIKAL Caal Unavailable Unavailable LOUIE SENIOR SUPPORT ENGINEER, JOHN Meneses Unavailable Unavailable Adi SHARMA, Karson Unavailable Unavailable JULIANNE SHARMA [place], ARLETTE SIDDIQUI Unavailable Unavailable ASHKAN SHARMA [place], JACQUE H Unavailable Unavailable Unavailable Unavailable Functional Status Name Dates Details Functional status health issues are not documented Status: Name Dates Details Cognitive status health issues are not documented Status: Problems Name Dates Details Acute internal derangement of knee, left (717.9, M23.92) Status: Active Left knee pain, unspecified chronicity (719.46, M25.562) Status: Active Malabsorption (579.9, K90.9) Status: Active Breast cancer screening by mammogram (V76.12, Z12.31) Status: Active Low serum parathyroid hormone (PTH) (790.6, R79.89) Status: Active Urinary frequency (788.41, R35.0) Status: Active Urinary tract infection (599.0, N39.0) Status: Active Acute vaginitis (616.10, N76.0) Status: Active PCOS (polycystic ovarian syndrome) (256.4, E28.2) Status: Active Seasonal allergic rhinitis due to pollen (477.0, J30.1) Status: Active Diabetes (250.00, E11.9) Status: Active Screening for STD (sexually transmitted disease) (V74.5, Z11.3) Status: Active Intestinal malabsorption (579.9, K90.9) Status: Active History of Observed sleep apnea (780.57, G47.30) Status: Resolved History of Shortness of breath on exertion (786.05, R06.02) Status: Resolved History of Joint pain (719.40, M25.50) Status: Resolved History of esophageal reflux (V12.79, Z87.19) Status: Resolved History of hyperlipidemia (V12.29, Z86.39) Status: Resolved History of Edema (782.3, R60.9) Status: Resolved Current mild episode of major depressive disorder without prior episode (296.21, F32.0) Status: Active Binge eating disorder (307.50, F50.81) Status: Active Weight gain (783.1, R63.5) Status: Active Agoraphobia with panic attacks (300.21, F40.01) Status: Active Hypothyroidism (244.9, E03.9) Status: Active Loss of weight (783.21, R63.4) Status: Active Vitamin deficiency (269.2, E56.9) Status: Active Borderline personality disorder (301.83, F60.3) Status: Active Morbid obesity (278.01, E66.01) Status: Active 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 * Quantity: 270 Refills: 1 MARTINEZ M.D., PHD, MICHAEL * Start : 07-Jan-2016 Active Gabapentin 300 MG Oral Capsule TAKE 1 CAPSULE TWICE DAILY * Refills: 0 Active Flonase SUSP * Refills: 0 Active Montelukast Sodium 10 MG Oral Tablet * Refills: 0 Active Dexilant 60 MG Oral Capsule Delayed Release TAKE 1 CAPSULE DAILY * Refills: 1 Active Sucralfate 1 GM Oral Tablet * Refills: 0 Active Levothyroxine Sodium 150 MCG Oral Tablet TAKE 1 TABLET BY MOUTH EVERY DAY DIRECTED * Refills: 0 Active metFORMIN HCl - 500 MG Oral Tablet TAKE 1 TABLET ONCE DAILY WITH A MEAL. * Quantity: 90 Refills: 1 Active Lipitor 20 MG Oral Tablet TAKE 1 TABLET BY MOUTH AT BEDTIME * Refills: 2 Active Metoprolol Tartrate 25 MG Oral Tablet TAKE 1 TABLET DAILY * Quantity: 30 Refills: 0 Active Zyrtec TABS * Refills: 0 Active Methylphenidate HCl - 20 MG Oral Tablet TAKE 1 TABLET 3 TIMES DAILY * Quantity: 90 Refills: 0 MARTINEZ M.D., PHD, MICHAEL * Start : 07-May-2018 Active buPROPion HCl ER (XL) 300 MG Oral Tablet Extended Release 24 Hour TAKE 1 TABLET BY MOUTH EVERY MORNING * Quantity: 90 Refills: 1 MARTINEZ M.D., PHD, MICHAEL * Start : 06-Jul-2018 Active Azelastine HCl - 137 MCG/SPRAY Nasal Solution USE 1 TO 2 SPRAYS IN EACH NOSTRIL TWICE DAILY NEEDED * Quantity: 1 Refills: 11 MIKAL AMANDA M.D. * Start : 23-Aug-2018 Active 30 ML Bottle Cefdinir 300 MG Oral Capsule TAKE 1 CAPSULE EVERY 12 HOURS DAILY. * Quantity: 14 Refills: 0 CAMPBELL CHOPRA N.P. * Start : 09-Oct-2018 Active Nystatin-Triamcinolone 115505-4.1 UNIT/GM-% External Ointment APPLY SPARINGLY TO AFFECTED AREA TWICE A DAY FOR 7 TO 14 DAYS. * Quantity: 1 Refills: 0 CAMPBELL CHOPRA N.P. * Start : 09-Oct-2018 Active 15 GM Tube Diclofenac Sodium 1 % Transdermal Gel APPLY 4 GRAMS TOPICALLY TO AFFECTED AREA (LOWER EXTREMITIES) 4 TIMES DAILY. DO N OT APPLY MORE THAN 16 GRAMS DAILY TO ANY ONE AFFECTED JOINT * Quantity: 5 Refills: 1 JACQUE LUTHER M.D. * Start : 07-Nov-2018 Active 100 GM Tube Allergies and Adverse Reactions Name Dates Details Cipro (Allergy) Status: Active Flagyl TABS (Allergy) Status: Active Sulfa Drugs (Allergy) Status: Active Past Medical History Name Dates Details Diabetes (250.00, E11.9) Status: Active History of Edema (782.3, R60.9) Status: Resolved History of esophageal reflux (V12.79, Z87.19) Status: Resolved History of Essential hypertension, benign (401.1, I10) Status: Resolved History of hyperlipidemia (V12.29, Z86.39) Status: Resolved History of Joint pain (719.40, M25.50) Status: Resolved History of BAXTER (nonalcoholic steatohepatitis) (571.8, K75.81) Status: Resolved History of Observed sleep apnea (780.57, G47.30) Status: Resolved History of Shortness of breath on exertion (786.05, R06.02) Status: Resolved Procedures Procedure Dates Details History of Cholecystectomy Completed History of Dilation Of Female Urethra Completed History of Hysterectomy Completed History of Gastrectomy Sleeve Laparoscopic Completed History of Tonsillectomy Completed Immunization Name Dates Details Immunizations not documented Family History Name Dates Details Family history of cancer (V16.9, Z80.9) Status: Active Family history of High cholesterol (272.0, E78.00) Status: Active Name Dates Details Family history of cancer (V16.9, Z80.9) Status: Active Family history of High cholesterol (272.0, E78.00) Status: Active Name Dates Details Family history of depression (V17.0, Z81.8) Status: Active Family history of Gallbladder disease (575.9, K82.9) Status: Active Family history of cancer (V16.9, Z80.9) Status: Active Family history of cardiac disorder (V17.49, Z82.49) Status: Active Family history of HTN (hypertension) (401.9, I10) Status: Active Family history of High cholesterol (272.0, E78.00) Status: Active Name Dates Details Family history of cancer (V16.9, Z80.9) Status: Active Family history of Bilateral kidney stones (592.0, N20.0) Status: Active Family history of HTN (hypertension) (401.9, I10) Status: Active Family history of High cholesterol (272.0, E78.00) Status: Active Name Dates Details Family history of Diabetes (250.00, E11.9) Status: Active Social History Name Dates Details - Status: Name Dates Details Former smoker Former smoker Vital Signs Date Test Result Details [id number] BP Systolic 117 mm[Hg] Status: BP Diastolic 74 mm[Hg] Status: Weight 378.8 lb Status: Body Mass Index Calculated 59.33 kg/m2 Status: Body Surface Area Calculated 2.65 m2 Status: Heart Rate 71 /min Status: :22 Weight 375 lb Status: Body Mass Index Calculated 58.73 kg/m2 Status: Body Surface Area Calculated 2.64 m2 Status: Height 67 in Status: Results Date Description Value Details :19 [U] XRAY KNEE 4 OR MORE VWS LEFT 48710 XR KNEE 4 OR MORE VWS LEFT Images acquired, not reported on this accession number. Plan of Care Name Dates Details Planned Observations Planned Goals not documented Planned Encounters Appointment; JACQUE LUTHER M.D. On: 29-Nov-2018 14:45 Interventions Provided Medication Changes* buPROPion HCl ER (XL) 300 MG Oral Tablet Extended Release 24 Hour - Renew * clonazePAM 0.5 MG Oral Tablet Disintegrating - Renew * Escitalopram Oxalate 20 MG Oral Tablet - Renew * Methylphenidate HCl - 20 MG Oral Tablet - Renew Plan* Escitalopram Oxalate 20 MG Oral Tablet; TAKE 2 TABLETS DAILY; * Therapy: 13Oct2015 to (Evaluate:[id number]) Requested for: 12Jan2017; Last Rx:12Jan2017; Status: ACTIVE Ordered * Rx By: MICHAEL MARTINEZ; Dispense: 90 Days ; #:180 Tablet; Refill: 0; * For: Agoraphobia with panic attacks; ITA=N; Verified Transmission to [employer]; Last Updated By: [employer]; 01/18/2017 1:09:30 PM * buPROPion HCl ER (XL) 300 MG Oral Tablet Extended Release 24 Hour; TAKE 1 TABLET EVERY MORNING; * Therapy: [id number] to (Evaluate:03Nov2018) Requested for: [id number]; Last Rx:[id number]; Status: ACTIVE Ordered * Rx By: MICHAEL MARTINEZ; Dispense: 30 Days ; #:30 Tablet; Refill: 1; * For: Binge eating disorder, Current mild episode of major depressive disorder without prior episode; ITA=N; Verified Transmission to [employer] [id number]; Last Updated By: [employer]; 09/05/2018 3:52:01 PM * Annotations * Formulary Override Reason: * Drug has been unsuccessful in the past * Agoraphobia with panic attacks (300.21) (F40.01) * Discussed diagnosis, differential diagnosis, co morbidities, bio psychosocial factors, predisposing, precipitating and maintaining symptoms PHARMACOGENOMICS TEST ORDERED TODAY * 1. MEDICATION: * LEXAPRO 20 MG 0 + 0 + 0 + 2 * WELLBUTRIN XL 300 MG 1 + 0 + 0 + 0 * KLONOPIN 0.5 MG 0 + 0 + 0 + 1 * RITALIN 20 MG 1 + 1 + 1 + 0 * 2. PRN KLONOPIN ODT 0.5 MG UP TO 3 TIMES A DAY only if more anxiety/panic * 3. Explained possible side effects including GI upset, restlessness, insomnia, sexual dysfunction, increase risk of blood pressure if >225mg etc. * 4. Patient encouraged calling the clinic if symptoms worsen or side effects develop * 5. Patient also encouraged to call 911/go to ER if begin feeling unsafe or suicidal/homicidal or having significant side-effects from the medication * 6. Patient educated on the benefits of a balanced diet. Encouraged outside activities including exercise * 7. Patient to follow-up with primary care physician for care and management of any medical issues * 8. Monitor for signs of low mood, anxiety or hypomania * 9. Referred to PSYCHOLOGY * 10. Referred to her BARIATRIC SURGERY team * 11. Return to clinic in 8 weeks. Discussion/Summary* Progress made toward Goal actively participated. * Discussed the following with patient/family/other who verbally acknowledged and agrees to comply. Safety issues, Patient understands and will comply. Bio-psychosocial factors. Co-Morbidities. Differential diagnosis. Emergency treatment. Maintaining symptoms. Predisposing symptoms. Precipating symptoms. Safety plan. Alternative medication(s). Current medication(s). Risks/benefits. Side effects. Target symptoms. Treatment plan. Diagnosis. follow-up 8 weeks Agoraphobia with panic attacks Instructions Name Dates Details Instructions not documented Encounters Appointment; MICHAEL MARTINEZ M.D.|PHD Encounter Diagnosis: Problem not documented On: 12-Jan-2017 9:00 Appointment; MICHAEL MARTINEZ M.D.|PHD Encounter Diagnosis: Problem not documented On: 30-Mar-2017 9:30 Appointment; JOSEPHINE MORRELL M.D. Encounter Diagnosis: Problem not documented On: 27-Jun-2017 15:30 Appointment; MICHAEL MARTINEZ M.D.|PHD Encounter Diagnosis: Problem not documented On: 04-Jul-2017 13:00 Appointment; ELLIOTT TERESA M.D. Encounter Diagnosis: Problem not documented On: 06-Sep-2017 8:30 Appointment; MICHAEL MARTINEZ M.D.|PHD Encounter Diagnosis: Problem not documented On: 17-Oct-2017 14:00 Appointment; MICHAEL MARTINEZ M.D.|PHD Encounter Diagnosis: Problem not documented On: 18-Jan-2018 11:30 Appointment; MICHAEL MARTINEZ M.D.|PHD Encounter Diagnosis: Problem not documented On: 28-Feb-2018 13:30 Appointment; MICHAEL MARTINEZ M.D.|PHD Encounter Diagnosis: Problem not documented On: 06-Mar-2018 10:00 Appointment; MICHAEL MARTINEZ M.D.|PHD Encounter Diagnosis: Problem not documented On: 14-Mar-2018 16:00 Appointment; MICHAEL MARTINEZ M.D.|PHD Encounter Diagnosis: Problem not documented On: 04-May-2018 13:00 Appointment; JOHN PALMA LCSW Encounter Diagnosis: Problem not documented On: 08-May-2018 11:00 Appointment; JOHN PALMA LCSW Encounter Diagnosis: Problem not documented On: 15-May-2018 10:00 Appointment; JOHN PALMA LCSW Encounter Diagnosis: Problem not documented On: 22-May-2018 13:00 Appointment; MICHAEL MARTINEZ M.D.|PHD Encounter Diagnosis: Problem not documented On: 06-Jul-2018 13:00 Appointment; LAWSON MINOR LCSW Encounter Diagnosis: Problem not documented On: 20-Jul-2018 12:00 Appointment; LAWSON MINOR LCSW Encounter Diagnosis: Problem not documented On: 27-Jul-2018 9:00 Appointment; LAWSON MINOR LCSW Encounter Diagnosis: Problem not documented On: 10-Aug-2018 9:00 Appointment; MIKAL AMANDA M.D. Encounter Diagnosis: Problem not documented On: 23-Aug-2018 12:45 Appointment; MICHAEL MARTINEZ M.D.|PHD Encounter Diagnosis: Problem not documented On: 04-Sep-2018 15:30 Appointment; LAWSON MINOR LCSW Encounter Diagnosis: Problem not documented On: 04-Sep-2018 16:00 Appointment; LAWSON MINOR LCSW Encounter Diagnosis: Problem not documented On: 04-Sep-2018 16:00 Appointment; CAMPBELL CHOPRA NP Encounter Diagnosis: Problem not documented On: 09-Oct-2018 7:30 Appointment; JACQUE LUTHER M.D. Encounter Diagnosis: Problem not documented On: 07-Nov-2018 8:45 Appointment; MICHAEL MARTINEZ M.D.|PHD Encounter Diagnosis: Problem not documented On: 27-Nov-2018 14:00"
[2019-01-12 15:01] VITALS: BP 177/87
== END 2019-01-12 14:53 | disposition home or self-care (01) ==
LOC: FSED 13:26
DX: J02.0 Streptococcal pharyngitis (principal); H65.01 Acute serous otitis media, right ear; E66.01 Morbid (severe) obesity due to excess calories; Z68.43 Body mass index [BMI] 50.0-59.9, adult; I10 Essential (primary) hypertension; E11.9 Type 2 diabetes mellitus without complications; Z87.891 Personal history of nicotine dependence; E28.2 Polycystic ovarian syndrome; N39.0 Urinary tract infection, site not specified; Z79.84 Long term (current) use of oral hypoglycemic drugs
CPT/HCPCS: 81003; 99283

== ENCOUNTER 2019-01-13 14:26 | Emergency (ER) | payer MEDICARE, OTHER ==
[~2019-01-13] VITALS: Ht 170.2 cm; Wt 170.1 kg
[2019-01-13 15:50] VITALS: BP 117/71
== END 2019-01-13 15:45 | disposition home or self-care (01) ==
LOC: FSED 14:26
DX: J02.9 Acute pharyngitis, unspecified (principal); R05 Cough; R10.12 Left upper quadrant pain; R19.7 Diarrhea, unspecified; R53.83 Other fatigue; I10 Essential (primary) hypertension; E11.9 Type 2 diabetes mellitus without complications; J45.909 Unspecified asthma, uncomplicated
CPT/HCPCS: 83518; 99283

== ENCOUNTER 2019-01-20 03:14 | Emergency (ER) | payer MEDICARE, OTHER ==
[~2019-01-20] VITALS: Ht 170.2 cm; Wt 170.1 kg
--- OUTSIDE RECORDS SUMMARY | 2019-01-20 03:18 | XMS REPORT | Continuity of Care Document ---
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 Role Phone [employer] Information [place] Unavailable Unavailable Problems Problem Status Onset Date Classification Date Reported Comments Source DX: E66.01=MORBID (SEVERE) OBESITY DUE T Active 12/25/2018 [facility] Sprain of tibiofibular ligament of left ankle, sequela 04/11/2018 10/23/2018 [facility] I80.202 Active 04/04/2018 [facility] I80.202 - PHLBTS AND THOMBOPHLB OF UNSP [facility] [place] Encounter for screening mammogram for malignant neoplasm of breast 10/05/2017 01/09/2018 [facility] [place] Unspecified subluxation of left patella, initial encounter 09/28/2017 12/29/2017 [facility] [place] Chest pain, unspecified 09/09/2017 12/12/2017 [facility] [place] Pain in right foot 08/23/2017 11/24/2017 [facility] [place] DX: R10.2=PELVIC AND PERINEAL PAIN, N39. Active 04/25/2017 [facility] M74.27 Active 03/02/2017 [facility] 80584, K81.9, CHOLELITHIASIS Active 11/30/2015 [facility] R06.02 - SHORTNESS OF BREATH Active 07/10/2015 [facility] [place] 723.1 - CERVICALGIA Active 03/03/2015 [facility] [place] [address], [address]231---BAKKNL OBESITY, CHOLELITH Active 11/06/2014 [facility] UNK Active 09/26/2014 [facility] 250.00/787.91/V65.3/401.9 Active 09/26/2014 [facility] DX: 786.05 DR LEMONS WILL DO/READ PER JESSICA MARES Active 02/21/2012 [facility] MORBID OBESITY Active 12/20/2011 [facility] DX: CHEST PAIN DR. GIVENS WILL BE HERE PER HEATHE Active 11/23/2011 [facility] 401.1 Active 10/27/2011 [facility] CPAP Active 10/21/2011 [facility] DX: CHEST PAIN Active 10/17/2011 [facility] 278.01 MORBID OBESITY Active 10/14/2011 [facility] MORBID OESITY Active 06/08/2011 [facility] ABDOMINAL PAIN Active 05/04/2011 [facility] ABD PAIN 789.09/787.99/787.91/278.01/780.57 Active 05/04/2011 [facility] Asthma Active Problem 01/04/2019 PEDRO LUIS Nelson, [facility] [place], [facility] [place],[facility] [place] Cholesterol level1 Active Problem 01/04/2019 high PEDRO LUIS Nelson, [facility] [place], [facility] [place],[facility], [facility] [place] Diabetes mellitus type 2 Resolved Problem 01/04/2019 PEDRO LUIS Nelson, [facility] [place], [facility] [place],[facility], [facility] [place] GERD - Gastro-esophageal reflux disease Active Problem 01/04/2019 PEDRO LUIS Nelson, [facility] [place], [facility] [place],[facility], [facility] [place] Hypothyroidism Active Problem 01/04/2019 PEDRO LUIS Nelson, [facility] [place], [facility] [place],[facility], [facility] [place] Morbid obesity Active Problem 01/04/2019 PEDRO LUIS Nelson, [facility] [place], [facility] [place],[facility], [facility] [place] Motion sickness Active Problem 01/04/2019 PEDRO LUIS Nelson, [facility] [place], [facility] [place],[facility], [facility] [place] Short of breath on exertion Active Problem 01/04/2019 PEDRO LUIS Nelson, [facility] [place], [facility] [place],[facility], [facility] [place] Sleep apnea Active Problem 01/04/2019 PEDRO LUIS Nelson, [facility] [place], [facility] [place],[facility], [facility] [place] Cholelithiasis Active Problem 01/04/2019 [facility], [facility] [place], [facility] Panic attack Resolved Problem 01/04/2019 PEDRO LUIS Nelson, [facility] LU[facility] [place], [facility] [place], [facility] [place] Sprain of unspecified ligament of right ankle, initial encounter 11/24/2017 [facility] [place] Phlebitis and thrombophlebitis of unspecified deep vessels of left lower extremity 10/23/2018 [facility] Effusion, left knee 12/29/2017 PEDRO LUIS Villagomez DIGESTVE SYST SYMPTM NEC Active [facility] ABDMNAL PAIN OTH SPCF ST Active [facility] DIARRHEA Active [facility] OBSTRUCTIVE SLEEP APNEA Active [facility] CHEST PAIN NOS Active [facility] SHORTNESS OF BREATH Active [facility] 786.05 Active [facility] DMII WO CMP NT ST UNCNTR Active [facility] 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 [facility] HYPERTENSION NOS Active [facility] ABDMNAL PAIN EPIGASTRIC Active [facility] ADMINISTRTVE ENCOUNT NOS Active [facility] ILLNESS, UNSPECIFIED Active [facility] OTHER SPONDYLOSIS WITH RADICULOPATHY, CECILE Active [facility] Medications Medication Details Route Status Patient Instructions Ordering Provider Order Date Source Clonazepam (Klonopin) 2 Mg Tablet, 1 Tab Oral Daily Active 03/15/2017 [facility] Dicyclomine Hcl (Bentyl) 10 Mg Capsule, 20 Mg Oral Every 6 Hours Active 03/15/2017 [facility] Escitalopram Oxalate (Lexapro) 10 Mg Tablet, 25 Mg Oral Daily Active 03/15/2017 [facility] Levothyroxine Sodium 112 Mcg Tablet, 312 Mcg Oral Daily Active 03/15/2017 [facility] Ondansetron (Zofran Odt) 4 Mg Tab.rapdis, 4 Mg Oral Every 6 Hours Active 03/15/2017 [facility] Ondansetron 4 MG Disintegrating Tablet [Zofran] 4 mg=1 tab, PO, Q6H, PRN Nausea, # 20 tab, 0 Refill(s) Active 12/03/2015 [facility] tramadol hydrochloride 50 MG Oral Tablet 50 mg=1 tab, PO, Q4H, PRN Pain Score 1-3, # 30 tab, 0 Refill(s) Active 12/03/2015 [facility] Flonase 0.05 mg/inh nasal spray 50 microgram=1 spray, NASAL, Daily, 0 Refill(s) Active 12/03/2015 [facility] 24 HR Metoprolol Tartrate 25 MG Extended Release Tablet [Toprol] 25 mg, 1 tab, Route: PO, Drug form: ERTAB, Daily, Start date: 12/03/15 9:00:00 CDT, Duration: 30 day, Stop date: 01/01/16 9:00:00 CDTNotes: (Same as: Toprol XL) Do Not Crush Inactive 12/03/2015 [facility] Flonase 0.05 mg/inh nasal spray 1 spray, Route: NASAL, Drug Form: SPRY, Dosing Weight 157.2, kg, Daily, Start date: 12/03/15 9:00:00 CDT, Duration: 30 day, Stop date: 01/01/16 9:00:00 CDTNotes: (Same as: Flonase) Inactive 12/03/2015 [facility] Nexium 40 mg, Route: PO, Drug form: ECCAP, Daily, Dosing Weight 157.2, kg, Start date: 12/03/15 9:00:00 CDT, Duration: 30 day, Stop date: 01/01/16 9:00:00 CDT Inactive 12/03/2015 [facility] Lexapro 25 mg, 2.5 tab, Route: PO, Drug form: TAB, Daily, Dosing Weight 157.2, kg, Start date: 12/03/15 9:00:00 CDT, Duration: 30 day, Stop date: 01/01/16 9:00:00 CDTNotes: (Same as: Lexapro) Inactive 12/03/2015 [facility] Klonopin 0.5 mg, 1 tab, Route: PO, Drug form: TAB, QID, Dosing Weight 157.2, kg, Start date: 12/03/15 9:00:00 CDT, Duration: 30 day, Stop date: 01/01/16 21:00:00 CDTNotes: (Same As: KlonoPIN) Inactive 12/03/2015 [facility] Symbicort 160/4.5 inhalation aerosol with adapter 2 inhalation, Route: INHALATION, Drug Form: AERO/A, Dosing Weight 157.2, kg, BID, Start date: 12/03/15 9:00:00 CDT, Duration: 30 day, Stop date: 01/01/16 17:00:00 CDTNotes: (Same as: Symbicort) WASTE: Aerosol - Return to Pharmacy Inactive 12/03/2015 [facility] Protonix 40 mg, 1 tab, Route: PO, Drug form: ECTAB, Before Breakfast, Start date: 12/03/15 7:30:00 CDT, Duration: 30 day, Stop date: 01/01/16 7:30:00 CDTNotes: Tablet should not be chewed or crushed. (Same as: Protonix) Inactive 12/03/2015 [facility] Thyroxine 200 microgram, 2 tab, Route: PO, Drug form: TAB, Q630AM, Dosing Weight 157.2, kg, Start date: 12/03/15 6:30:00 CDT, Duration: 30 day, Stop date: 01/01/16 6:30:00 CDTNotes: Take 1 hour before or 2 hours after meal; Enteral feeds may interefere with the absorption of this medication. (Same as:Levothroid, Synthroid) Inactive 12/03/2015 [facility] Morphine 1 mg, 0.5 mL, Route: IVP, Drug form: INJ, Q2H, Dosing Weight 157.2, kg, PRN Pain Score 7-10, Start date: 12/03/15 6:12:00 CDT, Duration: 30 day, Stop date: 01/02/16 6:11:00 CDTNotes: (Same as:MORPhine Sulfate) Inactive 12/03/2015 [facility] tramadol hydrochloride 50 MG Oral Tablet 50 mg, 1 tab, Route: PO, Drug form: TAB, Q4H, Dosing Weight 157.2, kg, PRN Pain Score 1-3, Start date: 12/03/15 2:00:00 CDT, Duration: 30 day, Stop date: 01/02/16 1:59:00 CDTNotes: Not to exceed 400mg/day. (Same As: Ultram) Inactive 12/03/2015 [facility] Enoxaparin 40 mg, 0.4 mL, Route: SUB-Q, Drug form: INJ, [id number], Dosing Weight 157.2, kg, Consider for obese patients, Start date: 12/02/15 22:00:00 CDT, Duration: 30 day, Stop date: 01/01/16 10:00:00 CDTNotes: (Same as: Lovenox) No Longer Active 12/03/2015 [facility] Simethicone 80 mg, 1 tab, Route: CHEW, Drug form: CHEWTAB, QID, Dosing Weight 157.2, kg, PRN Gas, Start date: 12/02/15 19:07:00 CDT, Duration: 30 day, Stop date: 01/01/16 19:06:00 CDTNotes: (Same as: Mylicon) No Longer Active 12/03/2015 [facility] Ketorolac 30 mg, 1 mL, Route: [...] Wasted: ___ mg No Longer Active 12/02/2015 [facility] Ancef 2 gm, 100 mL, Route: IV, Drug form: INJ, Q8H, Dosing Weight 157.2, kg, times 4 doses, Priority: Routine, Start date: 12/02/15 17:00:00 CDT, Duration: 4 doses or times, Stop date: 12/03/15 16:00:00 CDTNotes: Same as: Ancef No Longer Active 12/02/2015 [facility] Sodium Chloride 0.9% IV 25 mL, Route: IV, Start date: 12/02/15 16:10:00 CDT, Duration: 30 day, Stop date: 01/01/16 16:09:00 CDT, PRN Line Flush No Longer Active 12/02/2015 [facility] BD Normal Saline Flush 10 mL, Route: IV, Drug Form: INJ, PRN, PRN Line Flush, Start date: 12/02/15 16:10:00 CDT, Duration: 30 day, Stop date: 01/01/16 16:09:00 CDTNotes: (Same as: BD Posiflush) No Longer Active 12/02/2015 [facility] D5W 1/2NS + KCL 20mEq/L 1000ml (Premix) 1,000 mL 1,000 mL, Rate: 80 ml/hr, Infuse over: 12.5 hr, Route: IV, Dosing Weight 157.2 kg, Total Volume: 1,000, Start date: 12/02/15 15:48:00 CDT, Stop date: 01/01/16 15:47:00 CDTNotes: PREMIX IV - Do Not Alter WASTE: F/P - Sink; E - Municipal Trash Bin No Longer Active 12/02/2015 [facility] Tylenol 650 mg, 2 tab, Route: PO, Drug form: TAB, Q6H, Dosing Weight 157.2, kg, PRN Pain 1-3/Temp > 100.4 F, Start date: 12/02/15 14:47:00 CDT, Duration: 30 day, Stop date: 01/01/16 14:46:00 CDTNotes: Do not exceed 4 gm/day. (Same as: Tylenol) No Longer Active 12/02/2015 [facility] pneumococcal capsular polysaccharide type 1 vaccine / pneumococcal capsular polysaccharide type 10A vaccine / pneumococcal capsular polysaccharide type 11A vaccine / pneumococcal capsular polysaccharide type 12F vaccine / pneumococcal capsular polysacchar 0.5 mL, Route: IM, Drug Form: INJ, ONCALL, Start date: 12/02/15 12:34:14 CDT, Stop date: 01/01/16 12:29:14 CDTNotes: (Same as: Pneumovax 23) Refrigerate No Longer Active 12/02/2015 [facility] Zofran 4 mg, 2 mL, Route: IVP, Drug form: INJ, Q8H, PRN Nausea & Vomiting, Start date: 12/02/15 10:49:00 CDT, Duration: 30 day, Stop date: 01/01/16 10:48:00 CDTNotes: (Same as: Zofran) MEDICATION WASTE Product Size: 4 mg Product Wasted: ___ mg No Longer Active 12/02/2015 [facility] Benadryl 12.5 mg, 0.25 mL, Route: IVP, Drug form: INJ, Q6H, PRN Itching, Start date: 12/02/15 10:49:00 CDT, Duration: 30 day, Stop date: 01/01/16 10:48:00 CDTNotes: (Same as: Benadryl) No Longer Active 12/02/2015 [facility] naloxone 0.2 mg, 0.5 mL, Route: IVP, Drug form: INJ, Q5Min, PRN Narcotic Reversal, Start date: 12/02/15 10:49:00 CDT, Duration: 30 day, Stop date: 01/01/16 10:48:00 CDTNotes: (Same as: Narcan) No Longer Active 12/02/2015 [facility] morphine Sulfate 30 mg IV, Start date: 12/02/15 10:48:00 CDT, Duration: 30, 30 ml, 154.091Notes: Dose: Delay: Basal rate: 4hr limit: (Same as:Rapi-Ject) No Longer Active 12/02/2015 [facility] Flumazenil 0.2 mg, 2 mL, Route: IVP, Drug form: INJ, PRN, Dosing Weight 154.091, kg, PRN Benzodiazepine Reversal, Initial dose, Start date: 12/02/15 6:58:00 CDT, Duration: 30 day, Stop date: 01/01/16 6:57:00 CD TNotes: (Same as: Romazicon) Inactive 12/02/2015 [facility] Naloxone 0.04 mg, 0.1 mL, Route: IVP, Drug form: INJ, Q2MIN, Dosing Weight 154.091, kg, PRN Narcotic Reversal, Start date: 12/02/15 6:58:00 CDT, Duration: 8 doses or times, Stop date: Limited # of timesNotes: Same as Narcan Inactive 12/02/2015 [facility] Ondansetron 4 mg, 2 mL, Route: IVP, Drug form: INJ, ONCE, Dosing Weight 154.091, kg, PRN Nausea & Vomiting, Start date: 12/02/15 6:58:00 CDTNotes: (Same as: Zofran) MEDICATION WASTE Product Size: 4 mg Product Wasted: ___ mg Inactive 12/02/2015 [facility] Hydromorphone 0.2 mg, 0.1 mL, Route: IVP, Drug form: INJ, Q5Min, Dosing Weight 154.091, kg, PRN Pain Score 7-10, Start date: 12/02/15 6:58:00 CDT, Duration: 4 doses or times, Stop date: Limited # of timesNotes: (S raquel as: Dilaudid) Inactive 12/02/2015 [facility] dicyclomine 20 mg oral tablet 20 mg=1 tab, PO, frequency unknown, 0 Refill(s) Active 12/01/2015 [facility] Vitamin B12 one tablet (mg unknown), PO, Daily, 0 Refill(s) Active 12/01/2015 [facility] Clonazepam 0.5 MG Oral Tablet [Klonopin] 0.5 mg=1 tab, PO, QID, 0 Refill(s) Active 12/01/2015 [facility] Tramadol one tablet (mg unknown), PO, frequency unknown, 0 Refill(s) No Longer Active 12/01/2015 [facility] Flonase 0.05 mg/inh nasal spray 1 spray, NASAL, Daily, 0 Refill(s) Active 12/01/2015 [facility] multivitamin one tablet, PO, Daily, 0 Refill(s) Active 12/01/2015 [facility] Lexapro one tablet (25 mg), PO, Daily, 0 Refill(s) Active 12/01/2015 [facility] metoprolol 25 mg oral tablet, extended release 25 mg=1 tab, PO, Bedtime, # 30 tab, 0 Refill(s) Active 12/01/2015 [facility] Alprazolam (Xanax) 0.25 Mg Tablet, 0.125 Each Oral As Needed as needed for Sleep Active 11/28/2015 [facility] Aspirin (Aspirin Ec) 81 Mg Tablet.dr, 81 Mg Oral Daily Active 11/28/2015 [facility] Atorvastatin Calcium (Lipitor*) 10 Mg Tablet, 10 Mg Oral Bedtime Active 11/28/2015 [facility] Cetirizine Hcl 10 Mg Tablet, 10 Mg Oral Daily Active 11/28/2015 [facility] Lisinopril (Prinavil / Zestril) 20 Mg Tablet, 20 Mg Oral Bedtime Active 11/28/2015 [facility] Metformin Hcl 500 Mg Tablet, 250 Mg Oral Bedtime Active 11/28/2015 [facility] Omeprazole 20 Mg Tablet.dr, 40 Mg Oral Daily Active 11/28/2015 [facility] 0.6 ML Enoxaparin sodium 100 MG/ML Prefilled Syringe [Lovenox] 60 mg, SUB-Q, Q12H, X 7 day, # 14 syr, 0 Refill(s) Active 11/27/2014 [facility] Esomeprazole 40 MG Enteric Coated Capsule [Nexium] 40 mg=1 cap, PO, Daily, # 30 cap, 0 Refill(s) Active 11/27/2014 [facility] Tylenol with Codeine 120 mg-12 mg/5 mL oral liquid 15 ml, PO, Q4H, PRN Pain, X 7 day, # 240 mL, 0 Refill(s) Active 11/27/2014 [facility] Sucralfate 100 MG/ML Oral Suspension [Carafate] 1 gm=10 ml, PO, Before Meals & Bedtime, # 200 ml, 0 Refill(s) Active 11/27/2014 [facility] Lovenox 40 mg, 0.4 mL, Route: SUB-Q, Drug form: INJ, [id number], Start date: 11/26/14 10:00:00, Duration: 30 day, Stop date: 12/25/14 22:00:00Notes: (Same as: Lovenox) No Longer Active 11/26/2014 [facility] acetaminophen-hydrocodone 15 mL, Route: PO, Drug Form: SOLN, Q4H, PRN Other -See Comment, Start date: 11/26/14 9:32:00, Duration: 30 day, Stop date: 12/26/14 9:31:00Notes: Do not exceed 4gm/day of acetaminophen. (Same as: [place] 325/7.5) No Longer Active 11/26/2014 [facility] Tylenol 650 mg, 20.3 mL, Route: PO, Drug form: LIQ, Q4H, PRN Pain Score 1-3, Start date: 11/26/14 9:31:00, Duration: 30 day, Stop date: 12/26/14 9:30:00Notes: Max onnbogdvypume=9637oq/day (4 gm/day). (Same as: Tylenol) No Longer Active 11/26/2014 [facility] heparin 5,000 unit, 1 mL, Route: SUB-Q, Drug form: INJ, ONCE, Start date: 11/26/14 3:00:00, Stop date: 11/26/14 3:00:00Notes: porcine heparin Inactive 11/26/2014 [facility] Reglan 10 mg, 2 mL, Route: IV, Drug form: INJ, Q8H, Start date: 11/26/14 0:00:00, Duration: 30 day, Stop date: 12/25/14 16:00:00Notes: (Same as: Reglan) No Longer Active 11/26/2014 [facility] Pepcid 20 mg, 2 mL, Route: IVP, Drug form: INJ, Q12H, Start date: 11/25/14 21:00:00, Duration: 30 day, Stop date: 12/25/14 9:00:00 No Longer Active 11/26/2014 [facility] ceFAZolin 2 gm, 100 mL, Route: IVPB, Drug form: INJ, Q8H, Start date: 11/25/14 21:00:00, Duration: 4 doses or times, Stop date: 11/26/14 21:00:00Notes: Same as: Ancef No Longer Active 11/26/2014 [facility] insulin regular 100 units/mL human recombinant [...] fro m Date No Longer Active 11/25/2014 [facility] insulin regular 100 units/mL human recombinant [...] fro m Date No Longer Active 11/25/2014 [facility] Dextrose 50% in Water IV 25 mL, Route: IVP, Start date: 11/25/14 18:44:00, Duration: 30 day, Stop date: 12/25/14 18:43:00, PRN Blood Glucose Results No Longer Active 11/25/2014 [facility] ketOROLAC 30 mg/mL injectable solution 30 [...] Wasted: ___ mg No Longer Active 11/25/2014 [facility] Vasotec 1.25 mg, 1 mL, Route: IV, Drug form: INJ, Q6H, PRN Other -See Comment, Start date: 11/25/14 17:55:00, Duration: 30 day, Stop date: 12/25/14 17:54:00Notes: (Same as: Vasotec-IV) No Longer Active 11/25/2014 [facility] Lactated Ringers Injection IV 1,000 mL 1,000 mL, Rate: 80 ml/hr, Infuse over: 12.5 hr, Route: IV, Dosing Weight 210.057 kg, Total Volume: 1,000, Start date: 11/25/14 17:54:00, Stop date: 12/25/14 17:53:00 No Longer Active 11/25/2014 [facility] Sodium Chloride 0.9% IV 25 mL, Route: IV, Start date: 11/25/14 17:53:00, Duration: 30 day, Stop date: 12/25/14 17:52:00, PRN Line Flush No Longer Active 11/25/2014 [facility] BD Normal Saline Flush 10 mL, Route: IV, Drug Form: INJ, PRN, PRN Line Flush, Start date: 11/25/14 17:53:00, Duration: 30 day, Stop date: 12/25/14 17:52:00Notes: (Same as: BD Posiflush) No Longer Active 11/25/2014 [facility] Zofran 4 mg, 2 mL, Route: IVP, Drug form: INJ, Q8H, PRN Nausea & Vomiting, Start date: 11/25/14 15:00:00, Duration: 30 day, Stop date: 12/25/14 14:59:00Notes: (Same as: Zofran) MEDICATION WASTE Product Size: 4 mg Product Wasted: ___ mg No Longer Active 11/25/2014 [facility] Benadryl 12.5 mg, 0.25 mL, Route: IVP, Drug form: INJ, Q6H, PRN Itching, Start date: 11/25/14 15:00:00, Duration: 30 day, Stop date: 12/25/14 14:59:00Notes: (Same as: Benadryl) No Longer Active 11/25/2014 [facility] naloxone 0.2 mg, 0.5 mL, Route: IVP, Drug form: INJ, Q5Min, PRN Narcotic Reversal, Start date: 11/25/14 15:00:00, Duration: 30 day, Stop date: 12/25/14 14:59:00Notes: (Same as: Narcan) No Longer Active 11/25/2014 [facility] morphine 1 mg/ml 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 (30 mg/30 mL) INJ Syringe 30 mg IV, Start date: 11/25/14 14:59:00, Duration: 30, 30 ml, 210.057Notes: Dose: Delay: Basal rate: 4hr limit: (Same as:Charissai-Ject) No Longer Active 11/25/2014 [facility] Phenergan 25 mg, 50 mL, 200 ml/hr, Route: IVPB, Drug Form: SOLN, Q4H, PRN Nausea & Vomiting, Start date: 11/25/14 14:58:00, Duration: 30 day, Stop date: 12/25/14 14:57:00 No Longer Active 11/25/2014 [facility] Morphine 4 mg, 0.4 mL, Route: IVP, Drug form: INJ, Q5Min, Dosing Weight 210.057, kg, PRN Pain Score 7-10, Start date: 11/25/14 12:47:00, Duration: 3 doses or times, Stop date: Limited # of timesNotes: (Same a s:MORPhine Sulfate) Inactive 11/25/2014 [facility] Hydromorphone 0.5 mg, 0.25 mL, Route: IVP, Drug form: INJ, Q5Min, Dosing Weight 210.057, kg, PRN Pain Score 7-10, Start date: 11/25/14 12:47:00, Duration: 4 doses or times, Stop date: Limited # of timesNotes: (Same as: Dilaudid) Inactive 11/25/2014 [facility] Naloxone 0.04 mg, 0.1 mL, Route: IVP, Drug form: INJ, Q2MIN, Dosing Weight 210.057, kg, PRN Narcotic Reversal, Start date: 11/25/14 12:47:00, Duration: 8 doses or times, Stop date: Limited # of timesNotes: Same as Narcan Inactive 11/25/2014 [facility] Meperidine 12.5 mg, 0.25 mL, Route: IVP, Drug form: INJ, Q30Min, Dosing Weight 210.057, kg, PRN Other -See Comment, For shivering, Start date: 11/25/14 12:47:00, Duration: 2 doses or times, Stop date: Limited # of timesNotes: (Same As: Demerol) Inactive 11/25/2014 [facility] Flumazenil 0.2 mg, 2 mL, Route: IVP, Drug form: INJ, PRN, Dosing Weight 210.057, kg, PRN Benzodiazepine Reversal, Initial dose, Start date: 11/25/14 12:47:00, Duration: 30 day, Stop date: 12/25/14 12:46:00Notes: (Same as: Romazicon) Inactive 11/25/2014 [facility] Dexamethasone 4 mg, 1 mL, Route: IVP, Drug form: INJ, ONCE, Dosing Weight 210.057, kg, PRN Nausea & Vomiting, Start date: 11/25/14 12:47:00Notes: Concentration: 4mg/ml Inactive 11/25/2014 [facility] Ondansetron 4 mg, 2 mL, Route: IVP, Drug form: INJ, ONCE, Dosing Weight 210.057, kg, PRN Nausea & Vomiting, Start date: 11/25/14 12:47:00Notes: (Same as: Zofran) MEDICATION WASTE Product Size: 4 mg Product Wasted: ___ mg Inactive 11/25/2014 [facility] Diphenhydramine 12.5 mg, 0.25 mL, Route: IVP, Drug form: INJ, Q6H, Dosing Weight 210.057, kg, PRN Itching, Start date: 11/25/14 12:47:00, Duration: 30 day, Stop date: 12/25/14 12:46:00Notes: (Same as: Benadryl) Inactive 11/25/2014 [facility] Labetalol 10 mg, 2 mL, Route: IVP, Drug form: INJ, Q5Min, Dosing Weight 210.057, kg, PRN Elevated BP, Start date: 11/25/14 12:47:00, Duration: 5 doses or times, Stop date: Limited # of timesNotes: (Same as: Normo dyne, Trandate) Push over 2 minutes Give bolus over 2-3 minutes. Inactive 11/25/2014 [facility] Hydralazine 10 mg, 0.5 mL, Route: IVP, Drug form: INJ, Q20Min, Dosing Weight 210.057, kg, PRN Elevated BP, Start date: 11/25/14 12:47:00, Duration: 2 doses or times, Stop date: Limited # of timesNotes: (Same as: Apresoline) Push over 5 minutes Inactive 11/25/2014 [facility] Metoprolol 1 mg, 1 mL, Route: IVP, Drug form: INJ, Q5Min, Dosing Weight 210.057, kg, PRN Other -See Comment, Start date: 11/25/14 12:47:00, Duration: 5 doses or times, Stop date: Limited # of timesNotes: (Same as: Lopressor) Push over 2 minutes Inactive 11/25/2014 [facility] chlorhexidine topical 0.12% liquid 15 mL, Route: S&SPIT, ONCALL, Drug form: LIQ, Start date: 11/25/14 1:00:00, Duration: 20 hr, Stop date: 11/25/14 20:59:00Notes: (Same As: Peridex) Inactive 11/25/2014 [facility] Ancef 3 gm, 100 mL, Route: IVPB, Drug form: INJ, ONCALL, Start date: 11/25/14 1:00:00, Duration: 30 day, Stop date: 12/25/14 0:59:00Notes: Same as: Ancef Inactive 11/25/2014 [facility] Naloxone 0.1 mg, 0.25 mL, Route: IVP, Drug form: INJ, Q2MIN, Dosing Weight 215.909, kg, PRN Narcotic Reversal, Start date: 10/09/14 10:33:00, Duration: 4 doses or times, Stop date: Limited # of timesNotes: Same as Narcan Inactive 10/09/2014 [facility] Flumazenil 0.2 mg, 2 mL, Route: IVP, Drug form: INJ, PRN, Dosing Weight 215.909, kg, PRN Other -See Comment, Start date: 10/09/14 10:33:00, Duration: 1 doses or times, Stop date: Limited # of timesNotes: (Same as: Romazicon) Inactive 10/09/2014 [facility] Sodium Chloride 0.154 MEQ/ML Injectable Solution 500 mL, 0 ml/hr, Infuse Over: 0 hr, Route: IV, 500, Drug form: INJ, ONCE, Dosing Weight 215.909 kg, Start date: 10/09/14 10:01:00, Stop date: 10/09/14 10:01:00, Bolus Inactive 10/09/2014 [facility] Vitamin D3 5000 intl units oral capsule 5,000 IntlUnit=1 cap, PO, Daily, 0 Refill(s) Active 10/03/2014 [facility] atorvastatin 10 mg, PO, Bedtime, 0 Refill(s) Active 10/03/2014 [facility] montelukast 10 mg oral tablet 10 mg=1 tab, PO, Bedtime, # 30 tab, 0 Refill(s) Active 10/03/2014 [facility] pantoprazole 40 mg oral enteric coated tablet 40 mg=1 tab, PO, Daily, # 30 tab, 0 Refill(s) Active 10/03/2014 [facility] metoprolol 25 mg oral tablet, extended release 25 mg, PO, Daily, # 30 tab, 0 Refill(s) Active 10/03/2014 [facility] Amoxicillin/Potassium Clav (Augmentin 875-125 Tablet) 1 Each Tablet, 1 Tab Oral Twice A Day Active 04/04/2014 [facility] Montelukast Sodium (Singulair) 10 Mg Tablet, 10 Mg Oral Daily Active 04/04/2014 [facility] Mupirocin (Bactroban) 15 Gm Cr, Active 04/04/2014 [facility] flumazenil 0.1 mg, 1 mL, Route: IVP, Drug form: INJ, Q5Min, PRN Other -See Comment, Start date: 05/13/11 9:22:00, Duration: 30 day, Stop date: 06/12/11 8:21:00 IVP No Longer Active [place] 05/13/2011 [facility] naloxone 0.1 mg, 0.25 mL, Route: IVP, Drug form: INJ, Q2MIN, PRN Narcotic Reversal, Start date: 05/13/11 9:22:00, Duration: 4 doses or times, Stop date: Limited # of times IVP No Longer Active [place] 05/13/2011 [facility] Zyrtec 10 mg oral tablet 1 tab, PO, Daily, PRN, 30 tab, as needed for allergy symptoms, Substitution Allowed, TAB PO Active 05/11/2011 [facility] Symbicort 160/4.5 inhalation aerosol with adapter 2 puff, INHALATION, BID, 10 gm, Substitution Allowed, Maintenance, AERO INHALATION Active 05/11/2011 [facility] furosemide 20 mg oral tablet 1 tab, PO, Daily, 30 tab, Substitution Allowed, TAB PO Active 05/11/2011 [facility] levothyroxine 200 mcg (0.2 mg) oral tablet 1 tab, PO, Daily, 30 tab, Substitution Allowed, TAB PO Active 05/11/2011 [facility] metFORmin 500 mg oral tablet, extended release 1 tab, PO, Daily, 30 tab, Substitution Allowed, ERTAB PO Active 05/11/2011 [facility] lisinopril 20 mg oral tablet 1 tab, PO, Daily, 30 tab, Substitution Allowed, TAB PO Active 05/11/2011 [facility] Budesonide/Formoterol Fumarate (Symbicort 160-4.5 Mcg Inhaler) 10.2 Gm Hfa.aer.ad Twice A Day Active [facility] Clonazepam (Klonopin) 0.5 Mg Tablet Twice A Day Active [facility] Escitalopram Oxalate (Lexapro) 10 Mg Tablet Daily Active [facility] Gabapentin 300 Mg Capsule Daily Active [facility] Levothyroxine Sodium (Synthroid) 100 Mcg Tab Today At 6:00AM Active [facility] Metformin Hcl 500 Mg Tablet Daily Active [facility] Metoprolol Succinate 25 Mg Tab.er.24h Daily Active [facility] Omeprazole 40 Mg Capsule.dr [place] Active [facility] Tramadol Hcl (Ultram) 50 Mg Tablet Every 4 Hours as needed for Pain Active [facility] Allergies, Adverse Reactions, Alerts Substance Category Reaction Severity Reaction type Status Date Reported Comments Source Sulfamethoxazole DIZZY Unknown Allergy to Substance Active 03/15/2017 [facility] Trimethoprim DIZZY Unknown Allergy to Substance Active 03/15/2017 [facility] Ciprofloxacin Unknown Allergy to Substance Active 03/15/2017 [facility] Metronidazole ITCHING Unknown Allergy to Substance Active 03/15/2017 [facility] Sulfa (Sulfonamide Antibiotics) DIZZY Unknown Allergy to Substance Active 02/18/2018 [facility] Bactrim Assertion Propensity to adverse reactions to drug Active [facility] sulfa drugs Assertion Drug allergy Active [facility] medtronidazole containing compounds Assertion Drug allergy Active [facility] Cipro Assertion Drug allergy Active [facility] NKFA Assertion Food allergy Active [facility] Immunizations No Data Provided for This Section Results Order Name Results Value Reference Range Date Interpretation Comments Source Automated blood basophil count (count/volume) Automated blood basophil count (count/volume) 0.1 0.0 - 0.1 02/18/2018 [facility] Automated blood basophil count as percentage of total leukocytes Automated blood basophil count as percentage of total leukocytes 0.8 0.0 - 1.0 02/18/2018 [facility] Automated blood eosinophil count Automated blood eosinophil count 0.3 0.0 - 0.4 02/18/2018 [facility] Automated blood eosinophil count as percentage of total leukocytes Automated blood eosinophil count as percentage of total leukocytes 2.9 0.0 - 6.0 02/18/2018 [facility] Automated blood hematocrit (volume fraction) Automated blood hematocrit (volume fraction) 41.8 34.2 - 44.1 02/18/2018 [facility] Automated blood lymphocyte count as percentage ot total leukocytes Automated blood lymphocyte count as percentage ot total leukocytes 34.2 18.0 - 39.1 02/18/2018 [facility] Automated blood monocyte count as percentage of total leukocytes Automated blood monocyte count as percentage of total leukocytes 6.4 4.4 - 11.3 02/18/2018 [facility] Automated blood neutrophil count Automated blood neutrophil count 5.7 2.1 - 6.9 02/18/2018 [facility] Automated blood platelet count (count/volume) Automated blood platelet count (count/volume) 330 140 - 360 02/18/2018 [facility] Automated blood segmented neutrophil count as percentage of total leukocytes Automated blood segmented neutrophil count as percentage of total leukocytes 55.4 38.7 - 80.0 02/18/2018 [facility] Automated erythrocyte mean corpuscular hemoglobin (mass per erythrocyte) Automated erythrocyte mean corpuscular hemoglobin (mass per erythrocyte) 27.6 28 - 32 02/18/2018 [facility] Automated erythrocyte mean corpuscular hemoglobin concentration measurement (mass/volume) Automated erythrocyte mean corpuscular hemoglobin concentration measurement (mass/volume) 32.1 31 - 35 02/18/2018 [facility] Automated erythrocyte mean corpuscular volume Automated erythrocyte mean corpuscular volume 86.2 81 - 99 02/18/2018 [facility] Blood erythrocytes automated count (number/volume) Blood erythrocytes automated count (number/volume) 4.85 3.6 - 5.1 02/18/2018 [facility] Blood hemoglobin measurement (moles/volume) Blood hemoglobin measurement (moles/volume) 13.4 12.0 - 16.0 02/18/2018 [facility] Blood leukocytes automated count (number/volume) Blood leukocytes automated count (number/volume) 10.31 4.8 - 10.8 02/18/2018 [facility] Blood lymphocytes count (number/volume) Blood lymphocytes count (number/volume) 3.5 1.0 - 3.2 02/18/2018 [facility] Blood monocytes automated count (number/volume) Blood monocytes automated count (number/volume) 0.7 0.2 - 0.8 02/18/2018 [facility] Estimated glomerular filtration rate (GFR) determination Estimated glomerular filtration rate (GFR) determination >60 60 02/18/2018 [facility] Glucose measurement Glucose measurement 100 74 - 118 02/18/2018 [facility] Plasma globulin measurement (mass/volume) Plasma globulin measurement (mass/volume) 3.9 2.3 - 3.5 02/18/2018 [facility] Serum or plasma alanine aminotransferase measurement (enzymatic activity/volume) Serum or plasma alanine aminotransferase measurement (enzymatic activity/volume) 27 0 - 55 02/18/2018 [facility] Serum or plasma albumin measurement (mass/volume) Serum or plasma albumin measurement (mass/volume) 3.9 3.5 - 5.0 02/18/2018 [facility] Serum or plasma albumin/globulin mass ratio Serum or plasma albumin/globulin mass ratio 1.0 0.8 - 2.0 02/18/2018 [facility] Serum or plasma alkaline phosphatase measurement (enzymatic activity/volume) Serum or plasma alkaline phosphatase measurement (enzymatic activity/volume) 74 40 - 150 02/18/2018 [facility] Serum or plasma anion gap Serum or plasma anion gap 15.2 8 - 16 02/18/2018 [facility] Serum or plasma calcium measurement (mass/volume) Serum or plasma calcium measurement (mass/volume) 9.8 8.4 - 10.2 02/18/2018 [facility] Serum or plasma carbon dioxide, total measurement (moles/volume) Serum or plasma carbon dioxide, total measurement (moles/volume) 25 22 - 29 02/18/2018 [facility] Serum or plasma chloride measurement (moles/volume) Serum or plasma chloride measurement (moles/volume) 105 98 - 107 02/18/2018 [facility] Serum or plasma creatinine measurement (mass/volume) Serum or plasma creatinine measurement (mass/volume) 0.72 0.57 - 1.11 02/18/2018 [facility] Serum or plasma potassium measurement (moles/volume) Serum or plasma potassium measurement (moles/volume) 4.2 3.5 - 5.1 02/18/2018 [facility] Serum or plasma protein measurement (mass/volume) Serum or plasma protein measurement (mass/volume) 7.8 6.5 - 8.1 02/18/2018 [facility] Serum or plasma sodium measurement (moles/volume) Serum or plasma sodium measurement (moles/volume) 141 136 - 145 02/18/2018 [facility] Serum or plasma total bilirubin measurement (mass/volume) Serum or plasma total bilirubin measurement (mass/volume) 0.6 0.2 - 1.2 02/18/2018 [facility] Serum or plasma urea nitrogen measurement (mass/volume) Serum or plasma urea nitrogen measurement (mass/volume) 7 7 - 26 02/18/2018 [facility] Serum or plasma urea nitrogen/creatinine mass ratio Serum or plasma urea nitrogen/creatinine mass ratio 10 6 - 25 02/18/2018 [facility] Red Cell Distribution Width 13.2 11.7 - 14.4 02/18/2018 [facility] IM GRANULOCYTES % 0.3 0.0 - 1.0 02/18/2018 [facility] Absolute Immature Granulocyte (auto 0.03 0 - 0.1 02/18/2018 [facility] Aspartate Amino Transf (AST/SGOT) 22 5 - 34 02/18/2018 [facility] Automated urine sediment leukocyte count by microscopy (number/high power field) Automated urine sediment leukocyte count by microscopy (number/high power field) <5 0 - 5 02/18/2018 [facility] Bacteria detection in urine sediment by light microscopy Bacteria detection in urine sediment by light microscopy MODERATE NONE 02/18/2018 [facility] Epithelial cells detection in urine sediment by light microscopy Epithelial cells detection in urine sediment by light microscopy MODERATE NONE 02/18/2018 [facility] Erythrocytes detection in urine sediment by light microscopy Erythrocytes detection in urine sediment by light microscopy <5 0 - 5 02/18/2018 [facility] Specific gravity of Urine by Test strip Specific gravity of Urine by Test strip 1.010 1.010 - 1.025 02/18/2018 [facility] Urine clarity Urine clarity HAZY CLEAR 02/18/2018 [facility] Urine color determination Urine color determination YELLOW YELLOW 02/18/2018 [facility] Urine erythrocytes detection Urine erythrocytes detection NEGATIVE NEGATIVE 02/18/2018 [facility] Urine glucose detection Urine glucose detection NEGATIVE NEGATIVE 02/18/2018 [facility] Urine ketones detection by automated test strip Urine ketones detection by automated test strip NEGATIVE NEGATIVE 02/18/2018 [facility] Urine leukocyte esterase detection by dipstick Urine leukocyte esterase detection by dipstick NEGATIVE NEGATIVE 02/18/2018 [facility] Urine nitrite detection Urine nitrite detection POSITIVE NEGATIVE 02/18/2018 [facility] Urine pH measurement by automated test strip Urine pH measurement by automated test strip 6.5 5 - 7 02/18/2018 [facility] Urine protein measurement by test strip (mass/volume) Urine protein measurement by test strip (mass/volume) NEGATIVE NEGATIVE 02/18/2018 [facility] Urine total bilirubin measurement (mass/volume) Urine total bilirubin measurement (mass/volume) NEGATIVE NEGATIVE 02/18/2018 [facility] Urine urobilinogen measurement by test strip (mass/volume) Urine urobilinogen measurement by test strip (mass/volume) 0.2 0.2 - 1 02/18/2018 [facility] CHEM PANEL eGFR 113 03/17/2017 Result Comment: The eGFR is calculated [...] should be multiplied by the estimated BMI. [facility] CHEM PANEL POC Creatinine 0.6 0.5 - 1.4 03/17/2017 [facility] CHEM PANEL Alk Phos 79 39 - 136 12/03/2015 [facility] CHEM PANEL Bili Total 0.7 0.2 - 1.3 12/03/2015 [facility] CHEM PANEL Total Protein 6.6 6.4 - 8.4 12/03/2015 [facility] CHEM PANEL eGFR 110 12/03/2015 Result Comment: The eGFR is calculated [...] should be multiplied by the estimated BMI. [facility] CHEM PANEL AST 35 0 - 37 12/03/2015 [facility] CHEM PANEL Glucose Lvl 121 70 - 99 12/03/2015 [facility] CHEM PANEL CO2 31 24 - 32 12/03/2015 [facility] CHEM PANEL Albumin Lvl 3.3 3.5 - 5.0 12/03/2015 [facility] CHEM PANEL ALT 49 0 - 65 12/03/2015 [facility] CHEM PANEL BUN 6 7 - 22 12/03/2015 [facility] CHEM PANEL Creatinine Lvl 0.66 0.50 - 1.40 12/03/2015 [facility] CHEM PANEL Chloride Lvl 102 95 - 109 12/03/2015 [facility] CHEM PANEL Potassium Lvl 4.4 3.5 - 5.1 12/03/2015 [facility] CHEM PANEL Calcium Lvl 8.4 8.5 - 10.5 12/03/2015 [facility] CHEM PANEL Sodium Lvl 140 135 - 145 12/03/2015 [facility] CHEM PANEL A/G Ratio 1.0 0.7 - 1.6 12/03/2015 [facility] CHEM PANEL Globulin 3.3 2.0 - 4.0 12/03/2015 [facility] CHEM PANEL AGAP 11.4 10.0 - 20.0 12/03/2015 [facility] CHEM PANEL B/C Ratio 9 6 - 25 12/03/2015 [facility] HEMATOLOGY Basophils # 0.0 0.0 - 0.2 12/03/2015 [facility] HEMATOLOGY Eosinophils # 0.0 0.0 - 0.5 12/03/2015 [facility] HEMATOLOGY Monocytes # 0.9 0.0 - 0.8 12/03/2015 [facility] HEMATOLOGY Basophils 0.2 0.0 - 1.0 12/03/2015 [facility] HEMATOLOGY Monocytes 7.3 2.0 - 12.0 12/03/2015 [facility] HEMATOLOGY Lymphocytes 17.0 20.0 - 40.0 12/03/2015 [facility] HEMATOLOGY Segs 75.5 45.0 - 75.0 12/03/2015 [facility] HEMATOLOGY Eosinophils 0.0 0.0 - 4.0 12/03/2015 [facility] HEMATOLOGY Lymphocytes # 2.1 1.0 - 5.5 12/03/2015 [facility] HEMATOLOGY Segs-Bands # 9.3 1.5 - 8.1 12/03/2015 [facility] HEMATOLOGY RBC 4.14 4.20 - 5.40 12/03/2015 [facility] HEMATOLOGY WBC 12.4 3.7 - 10.4 12/03/2015 [facility] HEMATOLOGY Hgb 11.5 12.0 - 16.0 12/03/2015 [facility] HEMATOLOGY Platelet 297 133 - 450 12/03/2015 [facility] HEMATOLOGY MPV 8.8 7.4 - 10.4 12/03/2015 [facility] HEMATOLOGY RDW 13.1 11.5 - 14.5 12/03/2015 [facility] HEMATOLOGY MCHC 32.3 32.0 - 36.0 12/03/2015 [facility] HEMATOLOGY MCH 27.8 27.0 - 31.0 12/03/2015 [facility] HEMATOLOGY MCV 86.1 80.0 - 98.0 12/03/2015 [facility] HEMATOLOGY Hct 35.7 36.0 - 48.0 12/03/2015 [facility] SPECIAL CHEMISTRY Hgb A1C 5.8 <=5.6 % 12/03/2015 [facility] CHEM PANEL Calcium Lvl 8.5 8.5 - 10.5 11/27/2014 [facility] CHEM PANEL Albumin Lvl 3.3 3.5 - 5.0 11/27/2014 [facility] CHEM PANEL CO2 26 24 - 32 11/27/2014 [facility] CHEM PANEL Glucose Lvl 93 70 - 99 11/27/2014 <sup>4</sup>Interpretive Data: Adult reference range values reflect the clinical guidelines
of the [place] [employer]. [facility] CHEM PANEL BUN 6 7 - 22 11/27/2014 [facility] CHEM PANEL ALT 73 0 - 65 11/27/2014 [facility] CHEM PANEL AST 73 0 - 37 11/27/2014 [facility] CHEM PANEL Alk Phos 112 39 - 136 11/27/2014 [facility] CHEM PANEL Bili Total 1.2 0.2 - 1.3 11/27/2014 [facility] CHEM PANEL A/G Ratio 0.9 0.7 - 1.6 11/27/2014 [facility] CHEM PANEL Globulin 3.5 2.0 - 4.0 11/27/2014 [facility] CHEM PANEL Total Protein 6.8 6.4 - 8.4 11/27/2014 [facility] CHEM PANEL eGFR 93 11/27/2014 <sup>1</sup>Result Comment: The eGFR is calculated using the CKD-EPI formula. In most young, healthy individuals the eGFR will be >90 mL/min/1.73m2. The eGFR declines with age. An eGFR of 60-89 may be normal in some populations, particularly the elderly, for whom the CKD-EPI formula has not been extensively validated. Use of the eGFR is not recommended in the following populations:& lt;br/>
Individuals with unstable creatinine concentrations, including patients [...] should be multiplied by the estimated BMI. [facility] CHEM PANEL Sodium Lvl 140 135 - 145 11/27/2014 [facility] CHEM PANEL Creatinine Lvl 0.8 0.5 - 1.4 11/27/2014 [facility] CHEM PANEL Chloride Lvl 104 95 - 109 11/27/2014 [facility] CHEM PANEL Potassium Lvl 4.0 3.5 - 5.1 11/27/2014 [facility] CHEM PANEL AGAP 14.0 10.0 - 20.0 11/27/2014 [facility] CHEM PANEL B/C Ratio 8 6 - 25 11/27/2014 [facility] HEMATOLOGY RBC 4.15 4.20 - 5.40 11/27/2014 [facility] HEMATOLOGY Hgb 11.2 12.0 - 16.0 11/27/2014 [facility] HEMATOLOGY WBC 9.4 3.7 - 10.4 11/27/2014 [facility] HEMATOLOGY MPV 9.2 7.4 - 10.4 11/27/2014 [facility] HEMATOLOGY Platelet 267 133 - 450 11/27/2014 [facility] HEMATOLOGY RDW 15.1 11.5 - 14.5 11/27/2014 [facility] HEMATOLOGY MCHC 32.2 32.0 - 36.0 11/27/2014 [facility] HEMATOLOGY MCV 83.6 80.0 - 98.0 11/27/2014 [facility] HEMATOLOGY MCH 26.9 27.0 - 31.0 11/27/2014 [facility] HEMATOLOGY Hct 34.7 36.0 - 48.0 11/27/2014 [facility] HEMATOLOGY Basophils # 0.1 0.0 - 0.2 11/27/2014 [facility] HEMATOLOGY Eosinophils # 0.1 0.0 - 0.5 11/27/2014 [facility] HEMATOLOGY Monocytes # 0.7 0.0 - 0.8 11/27/2014 [facility] HEMATOLOGY Segs 57.3 45.0 - 75.0 11/27/2014 [facility] HEMATOLOGY Lymphocytes # 3.1 1.0 - 5.5 11/27/2014 [facility] HEMATOLOGY Eosinophils 1.4 0.0 - 4.0 11/27/2014 [facility] HEMATOLOGY Monocytes 7.7 2.0 - 12.0 11/27/2014 [facility] HEMATOLOGY Basophils 0.6 0.0 - 1.0 11/27/2014 [facility] HEMATOLOGY Segs-Bands # 5.4 1.5 - 8.1 11/27/2014 [facility] HEMATOLOGY Lymphocytes 33.0 20.0 - 40.0 11/27/2014 [facility] CHEM PANEL Globulin 3.8 2.0 - 4.0 11/26/2014 [facility] CHEM PANEL A/G Ratio 0.9 0.7 - 1.6 11/26/2014 [facility] CHEM PANEL AGAP 11.8 10.0 - 20.0 11/26/2014 [facility] CHEM PANEL B/C Ratio 9 6 - 25 11/26/2014 [facility] CHEM PANEL Bili Total 0.7 0.2 - 1.3 11/26/2014 [facility] CHEM PANEL ALT 82 0 - 65 11/26/2014 [facility] CHEM PANEL AST 47 0 - 37 11/26/2014 [facility] CHEM PANEL Alk Phos 104 39 - 136 11/26/2014 [facility] CHEM PANEL Total Protein 7.3 6.4 - 8.4 11/26/2014 [facility] CHEM PANEL Creatinine Lvl 0.8 0.5 - 1.4 11/26/2014 [facility] CHEM PANEL Sodium Lvl 138 135 - 145 11/26/2014 [facility] CHEM PANEL Potassium Lvl 4.8 3.5 - 5.1 11/26/2014 [facility] CHEM PANEL Chloride Lvl 103 95 - 109 11/26/2014 [facility] CHEM PANEL eGFR 93 11/26/2014 <sup>2</sup>Result Comment: The eGFR is calculated using the CKD-EPI formula. In most young, healthy individuals the eGFR will be >90 mL/min/1.73m2. The eGFR declines with age. An eGFR of 60-89 may be normal in some populations, particularly the elderly, for whom the CKD-EPI formula has not been extensively validated. Use of the eGFR is not recommended in the following populations:& lt;br/>
Individuals with unstable creatinine concentrations, including patients [...] should be multiplied by the estimated BMI. [facility] CHEM PANEL Calcium Lvl 8.5 8.5 - 10.5 11/26/2014 [facility] CHEM PANEL Albumin Lvl 3.5 3.5 - 5.0 11/26/2014 [facility] CHEM PANEL BUN 7 7 - 22 11/26/2014 [facility] CHEM PANEL Glucose Lvl 99 70 - 99 11/26/2014 <sup>5</sup>Interpretive Data: Adult reference range values reflect the clinical guidelines
of the [place] [employer]. [facility] CHEM PANEL CO2 28 24 - 32 11/26/2014 [facility] HEMATOLOGY MCV 84.1 80.0 - 98.0 11/26/2014 [facility] HEMATOLOGY MCH 27.0 27.0 - 31.0 11/26/2014 [facility] HEMATOLOGY MCHC 32.1 32.0 - 36.0 11/26/2014 [facility] HEMATOLOGY RDW 15.5 11.5 - 14.5 11/26/2014 [facility] HEMATOLOGY RBC 4.46 4.20 - 5.40 11/26/2014 [facility] HEMATOLOGY Hgb 12.0 12.0 - 16.0 11/26/2014 [facility] WBC 12.8 3.7 - 10.4 11/26/2014 [facility] Platelet 313 133 - 450 11/26/2014 [facility] MPV 8.9 7.4 - 10.4 11/26/2014 [facility] Hct 37.5 36.0 - 48.0 11/26/2014 [facility] Monocytes # 0.7 0.0 - 0.8 11/26/2014 [facility] HEMATOLOGY Eosinophils # 0.0 0.0 - 0.5 11/26/2014 [facility] HEMATOLOGY Eosinophils 0.1 0.0 - 4.0 11/26/2014 [facility] Monocytes 5.4 2.0 - 12.0 11/26/2014 [facility] Basophils 0.3 0.0 - 1.0 11/26/2014 [facility] Plt Morph Normal (11/26/14 3:36 AM) 11/26/2014 [facility] RBC Morph Normal (11/26/14 3:36 AM) 11/26/2014 [facility] Lymphocytes 13.0 20.0 - 40.0 11/26/2014 [facility] Segs 81.2 45.0 - 75.0 11/26/2014 [facility] Segs-Bands # 10.4 1.5 - 8.1 11/26/2014 [facility] Lymphocytes # 1.7 1.0 - 5.5 11/26/2014 [facility] BLOOD BANK RESULTS Antibody Scrn Negative (11/25/14 12:05 PM) 11/25/2014 [facility] BLOOD BANK RESULTS ABO/Rh O POS 11/25/2014 [facility] CHEM PANEL Vitamin D, 25-OH, Total 28 30 - 100 11/14/2014 <sup>7</sup>Interpretive Data: Reference range is based on recommendations in the Endocrine
Society Clinical Practice Guideline (J Clin Endocrinol Metab
2010;96:7790-5012) [facility] CHEM PANEL eGFR 93 11/14/2014 <sup>3</sup>Result Comment: The eGFR is calculated using the CKD-EPI formula. In most young, healthy individuals the eGFR will be >90 mL/min/1.73m2. The eGFR declines with age. An eGFR of 60-89 may be normal in some populations, particularly the elderly, for whom the CKD-EPI formula has not been extensively validated. Use of the eGFR is not recommended in the following populations:& lt;br/>
Individuals with unstable creatinine concentrations, including patients [...] should be multiplied by the estimated BMI. [facility] CHEM PANEL Creatinine Lvl 0.8 0.5 - 1.4 11/14/2014 [facility] CHEM PANEL BUN 12 7 - 22 11/14/2014 [facility] CHEM PANEL Glucose Lvl 98 70 - 99 11/14/2014 <sup>6</sup>Interpretive Data: Adult reference range values reflect the clinical guidelines
of the [place] [employer]. [facility] ELECTROLYTES Sodium Lvl 136 135 - 145 11/14/2014 [facility] ELECTROLYTES Potassium Lvl 4.0 3.5 - 5.1 11/14/2014 [facility] HEMATOLOGY Hct 40.4 36.0 - 48.0 11/14/2014 [facility] HEMATOLOGY Hgb 12.9 12.0 - 16.0 11/14/2014 [facility] PARATHYROID PROFILE PTH Intact 42.8 11.1 - 79.5 11/14/2014 [facility] SPECIAL CHEMISTRY Hgb A1C 6.3 <=5.6 % 11/14/2014 [facility] CHEM PANEL eGFR 93 10/03/2014 <sup>1</sup>Result Comment: The eGFR is calculated using the CKD-EPI formula. In most young, healthy individuals the eGFR will be >90 mL/min/1.73m2. The eGFR declines with age. An eGFR of 60-89 may be normal in some populations, particularly the elderly, for whom the CKD-EPI formula has not been extensively validated. Use of the eGFR is not recommended in the following populations:& lt;br/>
Individuals with unstable creatinine concentrations, including patients [...] should be multiplied by the estimated BMI. [facility] CHEM PANEL Chloride Lvl 103 95 - 109 10/03/2014 [facility] CHEM PANEL Potassium Lvl 4.0 3.5 - 5.1 10/03/2014 [facility] CHEM PANEL CO2 29 24 - 32 10/03/2014 [facility] CHEM PANEL AGAP 10.0 10.0 - 20.0 10/03/2014 [facility] CHEM PANEL Calcium Lvl 9.2 8.5 - 10.5 10/03/2014 [facility] CHEM PANEL Creatinine Lvl 0.8 0.5 - 1.4 10/03/2014 [facility] CHEM PANEL BUN 15 7 - 22 10/03/2014 [facility] CHEM PANEL Sodium Lvl 138 135 - 145 10/03/2014 [facility] CHEM PANEL Glucose Lvl 108 70 - 99 10/03/2014 <sup>2</sup>Interpretive Data: Adult reference range values reflect the clinical guidelines
of the [place] [employer]. [facility] Pathology Reports No Data Provided for This Section Diagnostic Reports Report Value Date Source Femur wo contrast CT EXAM: CT BILATERAL [...] the left. 4. Shallow/dysplastic left trochlea 12/19/2018 [facility] Liver US EXAM: US LIVER DATE: 12/05/2018 [...] hepatic steatosis. 2. Status post cholecystectomy. 12/05/2018 [facility] Knee wo contrast MRI EXAMINATION: MRI of [...] without medial or lateral compartment chondrosis. 11/16/2018 [facility] Tibia fibula series DX Left tibia-fibula 2 views: HISTORY: Leg sprain, thrombophlebitis. FINDINGS: No bone, joint or soft tissue abnormality SL: MADELYN 04/05/2018 [facility] Ext Lower Venous Doppler Bilat US PROCEDURE: [...] unremarkable. IMPRESSION: No deep venous thrombosis. SL: EG-M 04/05/2018 [facility] Shoulder series DX HISTORY: - M19.012 Primary [...] is clear. IMPRESSION: No acute osseous injury. [id number] 11/10/2017 [facility] Breast Mammo Scrn SHANE incl CAD MA [...] is recommended.(10/04/2018) This exam was interpreted at [id number] for ISIDRO Del Real 15. Professional services are provided by the [facility]. Warner Pavon M.D., cm/kalen:10/04/2017 11:02:50 Vice President Quality(s): RT Steve(R)(M), [facility] letter sent: BI-RADS 1/2 Mammogram BI-RADS: 2 Benign 10/03/2017 [facility] Knee wo contrast MRI EXAMINATION: MRI of [...] facet. 2. Mild proximal patellar tendinosis. 09/22/2017 [facility] Chest 2 views DX EXAM: Chest 2 views DX HISTORY: - R07.2 Precordial pain COMPARISON: 12/02/2015 The heart size is normal and the lungs are clear. There is no pleural effusion or pneumothorax. No acute skeletal abnormality. IMPRESSION: No acute abnormality. 09/05/2017 [facility] Ankle wo contrast MRI EXAMINATION: MR right [...] subtalar, and talonavicular joints, likely physiologic. 08/18/2017 [facility] Abdomen AP DX HISTORY: - N39.0 Urinary [...] injury. IMPRESSION: No radiographic evidence of urolithiasis. [id number] 08/15/2017 [facility] Retroperitoneal Complete US Patient Name: CHARLENE VASQUEZ : 1975; Age: 41 years y/o Female MR: [id number] Study: Retroperitoneal Complete US Clinical Indication: N39.0 [...] significant renal abnormality is otherwise demonstrated. SL: [id number] 04/27/2017 [facility] Pelvis Complete US Patient Name: CHARLENE VASQUEZ : 1975; Age: 41 years y/o Female MR: [id number] Study: Pelvis Complete US 04/27/2017 10:36 AM [...] without other mass or lesion appreciated. SL: [id number] 04/27/2017 [facility] lumbar w/wo contrast MRI MRI LUMBAR SPINE [...] negative study. No abnormal postcontrast enhancement. SL: ELIZABETH-PC 03/17/2017 [facility] Hip 2/3 views uni DX Exam: Right [...] 1. No acute bony abnormalities identified. 01/18/2016 [facility] Chest 1view DX EXAM: AP CHEST X-RAY [...] atelectasis. Otherwise no acute intrathoracic abnormality. 12/02/2015 [facility] Chest 2 views DX CHEST PA AND LATERAL History: 39 year female with shortness of breath Comparison: 11/14/2014 Findings: The lungs are expanded and no infiltrate, mass or pleural effusion seen. The cardiomediastinal structures are within normal limits. Osseous structures are unremarkable. IMPRESSION: There is no active cardio pulmonary abnormality. Stable chest x-ray. 07/10/2015 [facility] Spine cervical 2 or [...] spondylolisthesis. Mild scattered degenerative disc disease. 03/03/2015 [facility] [place] Foot 2 views bilateral DX EXAM: Foot 2 Views Bilateral HISTORY: pain COMPARISON: None FINDINGS: No displaced fracture or subluxation is seen involving the bilateral feet. No significant degenerative change. There is no evidence of soft tissue swelling. IMPRESSION: No radiographic abnormality appreciated. [facility]-2 Views Bilateral DX EXAMINATION: Bilateral [...] fracture or substantial joint space narrowing. [facility] Spine thoracic 3 views DX EXAMINATION: Thoracic [...] the mid to lower thoracic spine. [facility]26[facility] [place] Spine lumbar 2 or 3 views DX [...] L3-L4 through L4-L5 degenerative disc disease. 02/26/2015 [facility] Upper GI Series w water soluble DX OMNIPAQUE UPPER GI SERIES 11/26/2014 The fluoroscopy time is 5 seconds. Small volume of Omnipaque given orally passed easily from the distal esophagus into the gastric tube and duodenum. No contrast extravasation or obstruction is seen. Impression: 1. No contrast extravasation or obstruction identified. 11/26/2014 [facility] Chest 2 views DX Chest x-ray 2 views INDICATION: Coughing COMPARISON: 12/21/2011 FINDINGS: Heart size and central vasculature are within normal limits. There is no effusion or focal pneumonia. No pneumothorax. No acute osseous pathology. IMPRESSION: No acute cardiopulmonary process. 11/14/2014 [facility] Consultation Notes No Data Provided for This Section Discharge Summaries No Data Provided for This Section History and Physicals No Data Provided for This Section Vital Signs Vital Sign Value Date Comments Source Respitory Rate 10 12/03/2015 [facility] Systolic (mm Hg) 83 12/03/2015 [facility] Diastolic (mm Hg) 38 12/03/2015 [facility] Respitory Rate 20 12/03/2015 [facility] Systolic (mm Hg) 112 12/03/2015 [facility] Diastolic (mm Hg) 61 12/03/2015 [facility] Respitory Rate 11 12/03/2015 [facility] Temperature Oral (F) 97.8 F 12/03/2015 [facility] Systolic (mm Hg) 109 12/03/2015 [facility] Diastolic (mm Hg) 48 12/03/2015 [facility] Temperature Oral (F) 98 F 12/03/2015 [facility] Temperature Oral (F) 98.3 F 12/03/2015 [facility] Weight 157.2 12/02/2015 [facility] Heart Rate 75 12/02/2015 [facility] Weight 154.091 12/01/2015 [facility] BMI Calculated 53.21 12/01/2015 [facility] Height 170.18 cm 12/01/2015 [facility] Heart Rate 88 11/27/2014 [facility] Respitory Rate 19 11/27/2014 [facility] Systolic (mm Hg) 114 11/27/2014 [facility] Diastolic (mm Hg) 72 11/27/2014 [facility] Temperature Oral (F) 98.0 F 11/27/2014 [facility] Respitory Rate 19 11/27/2014 [facility] Systolic (mm Hg) 115 11/27/2014 [facility] Diastolic (mm Hg) 74 11/27/2014 [facility] Temperature Oral (F) 98.3 F 11/27/2014 [facility] Heart Rate 95 11/27/2014 [facility] Temperature Oral (F) 98.4 F 11/27/2014 [facility] Respitory Rate 18 11/27/2014 [facility] Systolic (mm Hg) 111 11/27/2014 [facility] Diastolic (mm Hg) 71 11/27/2014 [facility] Heart Rate 93 11/27/2014 [facility] BMI Calculated 73.63 11/14/2014 [facility] Weight 210.057 11/14/2014 [facility] Height 168.91 cm 11/14/2014 [facility] Respitory Rate 20 10/09/2014 [facility] Systolic (mm Hg) 123 10/09/2014 [facility] Diastolic (mm Hg) 71 10/09/2014 [facility] Respitory Rate 12 10/09/2014 [facility] Systolic (mm Hg) 106 10/09/2014 [facility] Diastolic (mm Hg) 62 10/09/2014 [facility] Systolic (mm Hg) 117 10/09/2014 [facility] Diastolic (mm Hg) 75 10/09/2014 [facility] Heart Rate 87 10/09/2014 [facility] Respitory Rate 20 10/09/2014 [facility] Heart Rate 90 10/03/2014 [facility] Temperature Oral (F) 98.6 F 10/03/2014 [facility] Weight 215.909 10/03/2014 [facility] BMI Calculated 76.83 10/03/2014 [facility] Height [...] 67.0 05/13/2011 [facility] Respitory Rate 18.0 05/13/2011 [facility] Systolic (mm Hg) 104.0 05/13/2011 [facility] Diastolic (mm Hg) 54.0 05/13/2011 [facility] Heart Rate 89.0 05/13/2011 [facility] Respitory Rate 18.0 05/13/2011 [facility] Systolic (mm Hg) 108.0 05/13/2011 [facility] Diastolic (mm Hg) 56.0 05/13/2011 [facility] Heart Rate 95.0 05/13/2011 [facility] Temperature Oral (F) 98.2 F 05/11/2011 [facility] Height 167.64 cm 05/11/2011 [facility] Weight 211.364 05/11/2011 [facility] Encounters Location Location Details Encounter Type Encounter Number Reason For Visit Attending Provider ADM Date DC Date Status Source [facility] AIDE [id number] DARA FALCON 05/13/2011 05/13/2011 Discharged [facility] [place] [id number] [facility] 06/08/2011 Active [facility] [place] [id number] [facility] 07/13/2011 Active [facility] Outpatient [id number] 278.01 [facility] 10/16/2011 Active [facility] Outpatient [id number] DX: CHEST PAIN ISAIAH LEMONS 10/20/2011 Active [facility] Outpatient [id number] 401.1 [facility] 11/02/2011 Active [facility] Outpatient [id number] CPAP [facility] 11/04/2011 Active [facility] [place] [id number] [facility] 12/21/2011 Active [facility] Outpatient [id number] 786.05 LESIA NELSON 12/21/2011 Active [facility] Bedded Outpatient [id number] Nanette Covington 10/09/2014 10/09/2014 [facility] Inpatient [id number] Sacha Toledo 11/25/2014 11/27/2014 [facility] [place] [facility] [id number] Dillan Mushtaq 02/26/2015 02/27/2015 [facility] [place] [facility] [id number] Dillan Mushtaq 03/03/2015 03/04/2015 [facility] [place] [facility] [place] [facility] [id number] Lesia Nelson 07/10/2015 07/11/2015 [facility] [place] [facility] Inpatient [id number] Sacha Toledo 12/02/2015 12/03/2015 [facility] [place] [facility] [id number] Isacc Chacon 01/18/2016 01/19/2016 [facility] [place] [facility] Outpatient [id number] Isacc Chacon 03/17/2017 03/18/2017 [facility] Outpatient [id number] Isacc Chacon 04/27/2017 04/28/2017 [facility]patient [facility] [place] [facility] [id number] Frank Brown 08/18/2017 08/19/2017 [facility] [place] [facility] [place] [facility] [id number] Isacc Chacon 09/05/2017 09/06/2017 [facility] [place] [facility] [place] [facility] [id number] Isacc Chacon 09/22/2017 09/23/2017 [facility] [place] [facility] [place] [facility] [id number] Paulette Odonnell 10/03/2017 10/04/2017 [facility] [place] [facility] [place] [facility] [id number] Isacc Chacon 11/10/2017 11/11/2017 [facility] [place] Departed Emergency Room [id number] YANG IBANEZ MD 02/18/2018 02/18/2018 [facility] Departed Emergency Room [id number] RON CARVAJAL MD 03/23/2018 03/24/2018 [facility] Outpatient Imaging [place] Out[facility] Di[facility] [id number] Isacc Chacon 04/03/2018 04/03/2018 [facility] [place] [facility] Outpatient [id number] Isacc Chacon 04/05/2018 04/06/2018 [facility]patient [facility] [place] [facility] [id number] Chun Bender 11/16/2018 11/17/2018 [facility] [place] [facility] Outpatient [facility] [place] Out[facility] Di[facility] Services [id number] Alberto Franz 12/05/2018 12/06/2018 [facility] [place] [facility] Outpatient Imaging [place] Out[facility] Diag Services [id number] Johnny Nieto 12/19/2018 12/20/2018 [facility] Outpatient [id number] Obonorumtalib Salgadose 01/02/2019 01/03/2019 [facility] Outpatient [id number] DX: CHEST PAIN DR. GIVENS WILL BE HERE PER ADORE GIVENS Cancel [facility] Outpatient [id number] DX: 786.05 DR LEMONS WILL DO/READ PER JESSICA MARES ISAIAH LEMONS Cancel [facility] Procedures Procedure Code Date Perfomer Comments Source Computed tomography of abdomen and pelvis with contrast [id number] 02/18/2018 [facility] Laparoscopic cholecystectomy [id number] 12/02/2015 [facility] Laparoscopic cholecystectomy [id number] 12/02/2015 [facility] [place] Laparoscopic cholecystectomy [id number] 12/02/2015 [facility] Laparoscopic cholecystectomy [id number] 12/02/2015 [facility] Laparoscopic cholecystectomy [id number] 12/02/2015 [facility] Laparoscopic cholecystectomy [id number] 12/02/2015 [facility] Laparoscopic sleeve gastrectomy [id number] 11/25/2014 [facility] [place] Laparoscopy [id number] 11/25/2014 [facility] [place] Lysis of adhesions of abdomen [id number] 11/25/2014 [facility] [place] Laparoscopic sleeve gastrectomy [id number] 11/25/2014 [facility] Laparoscopy [id number] 11/25/2014 [facility] Lysis of adhesions of abdomen [id number] 11/25/2014 [facility] Laparoscopic sleeve gastrectomy [id number] 11/25/2014 [facility] [place] Laparoscopy [id number] 11/25/2014 [facility] [place] Lysis of adhesions of abdomen [id number] 11/25/2014 [facility] [place] Laparoscopic sleeve gastrectomy [id number] 11/25/2014 [facility] Laparoscopy [id number] 11/25/2014 [facility] Lysis of adhesions of abdomen 39871758 11/25/2014 [facility] Laparoscopic sleeve gastrectomy [id number] 11/25/2014 [facility] Laparoscopy [id number] 11/25/2014 [facility] Lysis of adhesions of abdomen [id number] 11/25/2014 [facility] [place] Laparoscopic sleeve gastrectomy [id number] 11/25/2014 [facility] [place] Laparoscopy [id number] 11/25/2014 [facility] [place] Lysis of adhesions of abdomen [id number] 11/25/2014 [facility] [place] Hysterectomy [id number] [facility] [place] Operation [id number] [facility] [place] Sebaceous cyst removal 752590151 [facility] [place] Tonsillectomy [id number] [facility] [place] Hysterectomy [id number] [facility] [id number] [facility] Sebaceous cyst removal [id number] [facility] Tonsillectomy [id number] [facility] Hysterectomy [id number] [facility] Operation [id number] [facility] Sebaceous cyst removal [id number] [facility] Tonsillectomy [id number] [facility] Hysterectomy [id number] [facility] [place] Operation [id number] [facility] [place] Sebaceous cyst removal [id number] [facility] [place] Tonsillectomy [id number] [facility] [place] Hysterectomy [id number] [facility] [place] Operation [id number] [facility] [place] Sebaceous cyst removal [id number] [facility] Tonsillectomy [id number] [facility] [place] Hysterectomy [id number] [facility] [place] Operation [id number] [facility] [place] Sebaceous cyst removal [id number] [facility] [place] Tonsillectomy [id number] [facility] [place] Assessment and Plan Assessment and Plan Date Source Extracted from:Title: Surgery Note Author: Ayla Queen (Fellow) Date: 12/03/15 Progress Daily [facility] Completed: November, 01:53 by Ayla Queen (Fellow) RM: 319 - 00, [place]RI[place] J3EC CHARLENE VASQUEZ 40y (: 1975) F Attending: Sacha Toledo MD Service: General Surgery Service Reason for Admission: 27112, K81.9, CHOLELITHIASIS Working DRG: Cholecystectomy except by laparoscope w/o c.d.e. w CC Code status: None Specified=FULL CODE Current diet: Isolation: None Documented Allergies: Cipro, NKFA, medtronidazole containing compounds, sulfa drugs, Bactrim SUBJECTIVE Pt had some issues with "gas pain" last noc, but this has improved. Tolerating clears. +amb, +urination. Pain controlled. No N/V/F/S/C. OBJECTIVE Gen: AAOx3, NAD CV: RRR Lungs: Symmetric expansion, non-labored Abd: Soft, ND, ATTP. No guarding or rebound. Inc sites C/D/I. AKASH drain with serosanguineous output. Ext: No C/C/E ASSESSMENT and EXAM 40 y/o female s/p lap shantel (POD #1) - Pain - Obesity, HTN, HLD, DM, TORREY, GERD, hypothyroidism PLAN and TREATMENT - Pain well controlled. Will encourage use of PO pain meds this AM. - Pertinent home meds restarted. ADAT to regular this AM. Encourage ambulation. - Dispo. Plan to transfer pt to the floor today. Extracted from:Title: Clinical Document Author: Boubacar Bojorquez MD Date: 12/02/15 Consultation Note Attending: Sacha Toledo MD Service: General Surgery Service Code status: None Specified=FULL CODE Reason for Admission: 08034, K81.9, CHOLELITHIASIS Working DRG: None Documented Isolation: None Documented Consulting Physicians: Rupesh Vázquez MD Office: (not on file) MSO: [id number] Service: Medicine Sacha Toledo MD Office: MSO: [id number] Service: General Surgery Reason for Consult: s/p laparoscopy cholecystectomy Chief Complaint: abdominal pain History of Present illness: 40F with h/o morbid obesity s/p gastric sleeve on 12/02/15, diabetes type 2, hypothyroidism, TORREY on CPAP underwent an elective laparoscopy cholecystectomy for acute on chronic cholecystitis. the procedure was uncomplicated. She was extubated to CPAP in PACU and transferred to SICU for further management. She's currently complains of mild abdominal pain around surgical site. ( 10/31). She' s on 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 morphine. ROS All Systems were reviewed and are otherwise negative. Past Medical Diabetes mellitus type 2 Hypothyroidism Sleep apnea Panic attack Past Surgical Laparoscopic sleeve gastrectomy: 11/25/14 Lysis of adhesions of abdomen: 11/25/14 Laparoscopy: 11/25/14 Operation Tonsillectomy Sebaceous cyst removal Hysterectomy Social History Alcohol Details: Never, Previous treatment: None. Alcohol use interferes with work or home: No. Drinks more than intended: No. Others hurt by drinking: No. Ready to change: No. Household alcohol concerns: No. Tobacco Details: Use: Former smoker. Tobacco smoke exposure: None. Did the Patient Smoke Cigarettes Anytime During the Last 365 Days? No. Cessation Counseling Provided? Yes. Family History Reviewed Father: COPD - Chronic obstructive pulmonary disease; Heart attack; Heart disease; High blood pressure; Lung Mother: Aneurysm Brother: Anemia Sister: Anemia Grandparent: Heart attack; Heart disease; Lung; Pacemaker catheter, device; Type 2 diabetes mellitus Allergies: Cipro, NKFA, medtronidazole containing compounds, sulfa drugs, Bactrim Scheduled Meds: None Vitals Tmp(F) Pulse BP RR SpO2 FIO2 12/01 14:06 ---- --- ----- -- --- 40% 12/01 14:04 ---- --- ----- -- 97 2.0L/m 12/01 13:56 ---- --- ----- -- 100 40% 12/01 11:00 ---- 69 103/45 14 100 50% 12/01 10:45 ---- 71 124/72 15 100 50% 24 Hr Tmax: 97.8F (36.56c) at 12/01 05:45 Vital Signs are the last 5 in the past 48 hours. Physical Exam: GEN:NAD, awake HENT:dryMM NECK:supple CARDIOVASCULAR:distant s1s2 LUNGS:diminished BS at both bases ABDO:prominent soft NT BS are hypoactive RUQ AKASH drain ( bloody) NEURO:nonfocal.MAEx4 MUSCULOSKELETAL:no joint deformities EXTREMITIES:no edema SKIN:warm PSYCH:nl mood and affect I&O Record In Out Bal 24hr Tot 0 0 0 24hr Tot 0 0 0 RESPIRATORY CARE ORDERS 12/02/2015 14:06 FIO2 (%) 40 12/02/2015 14:04 Oxygen Therapy Mode Nasal cannula SpO2 percent 97 12/02/2015 13:56 Non-Invasive Vent Mode CPAP PEEP/CPAP 10 Ambu Bag Mask to O2 Yes Resp Rate, Actual 22 Exhaled Tidal Vol (ml) 773 Peak Pressure (cmH2O) 11 12/02/2015 10:29 Inspiratory Pressure 10 No qualifying data available MICROBIOLOGY RADIOLOGY ECHOCARDIOGRAPHY 09/2011 The study is technically limited due to patient body habitus. Endocardium is poorly visualized. Parastenal and subcostal views are inadequate. Apical views are adequate for interpretation. There is normal left ventricular systolic function. The LV ejection fraction is estimated at 55%-60%. Abnormal left ventricular diastolic function is observed. The left atrium is dilated. There is no evidence of aortic stenosis.by spectral doppler. The mitral valve leaflets are normal. There is no evidence of tricuspid valve regurgitation. There is no pericardial effusion. The venous system is not well visualized. (no lines, tubes, drains information documentated) ASSESSMENT 1. Acute on chronic cholecystitis w/ a mucocoele of gallbladder POD#0 s/p laparoscopy cholecystectomy. AKASH drainage minimal. General Surgery following 2. h/o type 2 DM. present on admission 3. h/o TORREY. Present on admission. On CPAP as an outpatient 4. h/o Hypothyroidism. On synthroid PLAN Postop care per GS Frequent IS use encouraged Diet advancement per GS Increase activity level in AM Continue CPAP as needed during the day and continuous at night Continue Morphine 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 for pain control Recommend continuous End-tidal CO2 monitoring while on 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 pump due to high risk for development of respiratory compromise check HbA1C Critical care time 45 minutes excluding procedure time 12/03/2015 [facility] Extracted from:Title: Clinical Document Author: Sacha Toledo MD Date: 11/27/14 Doing well. VS stable. Chest clear. Abdomen soft. Tolerating diet. 11/27/2014 [facility] Plan of Care Plan of Care Date Source Discharge Date 03/24/18 12:34am Disposition HOME, SELF-CARE Condition at Discharge Stable Instructions/Education Provided Sprains- Knee Prescriptions See Medication Section Referrals ISACC CHACON MD Address: [address] [place] [id number] Additional Instructions/Education REST; FOLLOW UP WITH YOUR PCP 03/24/2018 [facility] Social History Social History Date Source Smoking Status Start Date Stop Date Former smoker 03/24/2018 [facility] Social History TypeResponse Alcohol Never, Previous treatment: None. Alcohol use interferes with work or home: No. Drinks more than intended: No. Others hurt by drinking: No. Ready to change: No. Household alcohol concerns: No. Smoking Status Former smoker; Exposure to Tobacco Smoke None; Cigarette Smoking Last 365 Days No; Reg Smoking Cessation Counseling Yes entered on: 12/01/15 12/02/2015 [facility] Social History TypeResponse Alcohol Never, Previous treatment: None. Alcohol use interferes with work or home: No. Drinks more than intended: No. Others hurt by drinking: No. Ready to change: No. Household alcohol concerns: No. Smoking Status Former smoker; Exposure to Tobacco Smoke None; Cigarette Smoking Last 365 Days No; Reg Smoking Cessation Counseling Yes entered on: 12/01/15 12/02/2015 [facility] Social History TypeResponse Alcohol Never, Previous treatment: None. Alcohol use interferes with work or home: No. Drinks more than intended: No. Others hurt by drinking: No. Ready to change: No. Household alcohol concerns: No. Smoking Status Former smoker; Exposure to Tobacco Smoke None; Cigarette Smoking Last 365 Days No; Reg Smoking Cessation Counseling Yes 12/02/2015 [facility] Social History TypeResponse Alcohol Never, Previous treatment: None. Alcohol use interferes with work or home: No. Drinks more than intended: No. Others hurt by drinking: No. Ready to change: No. Household alcohol concerns: No. Smoking Status Former smoker; Exposure to Tobacco Smoke None; Cigarette Smoking Last 365 Days No; Reg Smoking Cessation Counseling Yes entered on: 12/01/15 12/02/2015 [facility] [place] Social History TypeResponse Alcohol Never, Previous treatment: None. Alcohol use interferes with work or home: No. Drinks more than intended: No. Others hurt by drinking: No. Ready to change: No. Household alcohol concerns: No. Smoking Status Former smoker; Exposure to Tobacco Smoke None; Cigarette Smoking Last 365 Days No; Reg Smoking Cessation Counseling Yes entered on: 12/01/15 12/02/2015 [facility] [place] Social History TypeResponse Alcohol Never, Previous treatment: None. Alcohol use interferes with work or home: No. Drinks more than intended: No. Others hurt by drinking: No. Ready to change: No. Household alcohol concerns: No. Smoking Status Former smoker; Exposure to Tobacco Smoke None; Cigarette Smoking Last 365 Days No; Reg Smoking Cessation Counseling Yes entered on: 12/01/15 12/02/2015 [facility] [place] Family History No Data Provided for This Section Advance Directives Order Name Results Value Date Source Advance Directives Advance Directives Directive Response Recorded Date/Time Does the patient have an advance directive? No 07/10/12 3:34pm If yes, is advance directive on file with [facility]? No 07/10/12 3:34pm If not on file with [facility] will patient provide a copy? Yes 03/15/17 8:45pm 03/24/2018 [facility] Functional Status No Data Provided for This Section
[2019-01-20 04:06] LABS: BILIRUBIN,URINE NEGATIVE (NEGATIVE); CLARITY,URINE CLEAR (CLEAR); COLOR,URINE YELLOW (YELLOW); KETONES,URINE NEGATIVE (NEGATIVE); LEUKOCYTE ESTERASE ,URINE NEGATIVE (NEGATIVE); NITRITE,URINE POSITIVE (NEGATIVE); PROTEIN,URINE DIPSTICK NEGATIVE (NEGATIVE); URINE UROBILINOGEN 0.2 mg/dL (0.2 - 1)
[2019-01-20] MEDS ORDERED: PHENAZOPYRIDINE HCL 100 MG TAB PO ONE (04:15)
[2019-01-20 04:18] LABS: BACTERIA,URINE MANY /HPF; EPITHELIAL CELLS,URINE MANY /LPF; RBC,URINE 0-5 /HPF (0-5); WBC,URINE (MAN) 0-5 /HPF (0-5)
[2019-01-20] MEDS ORDERED: PHENAZOPYRIDINE HCL 100 MG TAB ONE (04:25)
[2019-01-20 04:30] LABS: BASOPHILS # (AUTO) 0.1 (0.0-0.1); BASOPHILS % 0.6 % (0.0-1.0); EOSINOPHILS # (AUTO) 0.1 (0.0-0.4); EOSINOPHILS % 0.8 % (0.0-6.0); HEMATOCRIT 40.6 % (34.2-44.1); LYMPHOCYTES # (AUTO) 3.7 (1.0-3.2); LYMPHOCYTES % 26.8 % (18.0-39.1); MEAN CORPUSCULAR HEMOGLOBIN 27.3 pg (28-32); MEAN CORPUSCULAR VOLUME 85.3 fL (81-99); MONOCYTES # (AUTO) 0.8 (0.2-0.8); MONOCYTES % 6.1 % (4.4-11.3); NEUTROPHILS # (AUTO) 8.9 (2.1-6.9); NEUTROPHILS % 65.1 % (38.7-80.0); PLATELET COUNT 351 x10e3/uL (140-360); RED BLOOD COUNT 4.76 x10e6/uL (3.6-5.1); RED CELL DISTRIBUTION WIDTH 13.2 % (11.7-14.4)
[2019-01-20 04:48] LABS: ALANINE AMINOTRANSFERASE 16 IU/L (0-55); ALBUMIN 3.8 g/dL (3.5-5.0); ALKALINE PHOSPHATASE 88 IU/L (40-150); ANION GAP 13.6 mmol/L (8-16); BLOOD UREA NITROGEN 12 mg/dL (7-26); BUN/CREATININE RATIO 15 (6-25); CALCIUM 9.7 mg/dL (8.4-10.2); CARBON DIOXIDE 27 mmol/L (22-29); CHLORIDE 103 mmol/L (98-107); CREATININE, SERUM 0.78 mg/dL (0.57-1.11); EST GLOMERULAR FILTRATION RATE > 60 ML/MIN (60-); GLUCOSE 90 mg/dL (74-118); LIPASE 41 U/L (8-78); POTASSIUM 4.6 mmol/L (3.5-5.1); SODIUM 139 mmol/L (136-145)
--- NOTE | 2019-01-20 05:16 | Diagnostic Imaging Report ---
Exam: Abdominal film Clinical History: Left upper quadrant pain Comparison: None. DISCUSSION: Frontal view of the abdomen shows a nonobstructive bowel gas pattern with mild amount of retained stool. No dilated, air-filled loops of bowel. No abnormal calcifications. Right upper quadrant clips. No acute bone abnormality. IMPRESSION: 1. Nonobstructive bowel gas pattern. Signed by: Dr. Kunal Ureña M.D. on 01/20/2019 5:13 AM
--- NOTE | 2019-01-20 06:03 | Diagnostic Imaging Report ---
EXAMINATION: Limited abdominal ultrasound CLINICAL INDICATION: Left upper quadrant pain COMPARISON: Pain DISCUSSION: Transverse and longitudinal images of the left upper quadrant were obtained. The spleen is normal in echogenicity and size measuring 11.8 centimeters in length. The left kidney measures 10 centimeters in length. There is normal renal cortical echogenicity and no hydronephrosis, mass or shadowing calculi. The visualized portions of the great vessels are normal. No free fluid is seen. IMPRESSION: Normal sonographic appearance of the left upper quadrant. Signed by: Dr. Kunal Ureña M.D. on 01/20/2019 5:59 AM
--- NOTE | 2019-01-20 06:03 | Diagnostic Imaging Report ---
Exam:Ultrasound pelvic Limited History:Pain Comparison: None available Findings:Transverse and longitudinal sonographic images of the bladder region performed. The bladder is unable to be visualized. Impression: Poor visualization of the bladder Signed by: Dr. Kunal Ureña M.D. on 01/20/2019 6:00 AM
[2019-01-20] MEDS ORDERED: MACROBID 100 M100 MG PO (06:14)
[2019-01-20] MEDS ORDERED: PYRIDIUM100 MG PO (06:14)
== END 2019-01-20 06:38 | disposition home or self-care (01) ==
LOC: ER 03:14
DX: R10.30 Lower abdominal pain, unspecified (principal); N30.91 Cystitis, unspecified with hematuria; I10 Essential (primary) hypertension; E11.9 Type 2 diabetes mellitus without complications; K21.9 Gastro-esophageal reflux disease without esophagitis; F41.9 Anxiety disorder, unspecified; F32.9 Major depressive disorder, single episode, unspecified; Z98.84 Bariatric surgery status
CPT/HCPCS: 36415; 74018; 76705; 76857; 80053; 81001; 83690; 85025; 87086; 99284

== ENCOUNTER 2019-01-27 02:20 | Emergency (ER) | payer MEDICARE ==
[~2019-01-27] VITALS: Ht 170.2 cm; Wt 170.1 kg
[~2019-01-27 02:20] MED LIST changes: +MACROBID 100 M100 MG PO; +PYRIDIUM100 MG PO
--- OUTSIDE RECORDS SUMMARY | 2019-01-27 02:25 | XMS REPORT | Continuity of Care Document ---
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 Name Role Phone [employer] Unavailable Unavailable Problems Problem Status Onset Date Classification Date Reported Comments Source LT KNEE INSTABILITY Active 01/15/2019 [facility] [place] DX: E66.01=MORBID (SEVERE) OBESITY DUE T Active 12/25/2018 [facility] Sprain of tibiofibular ligament of left ankle, sequela 04/11/2018 10/23/2018 [facility] I80.202 Active 04/04/2018 [facility] I80.202 - PHLBTS AND THOMBOPHLB OF UNSP Active 04/02/2018 [facility] Encounter for screening mammogram for malignant neoplasm of breast 10/05/2017 01/09/2018 [facility] [place] Unspecified subluxation of left patella, initial encounter 09/28/2017 12/29/2017 [facility] [place] Chest pain, unspecified 09/09/2017 12/12/2017 [facility] [place] Pain in right foot 08/23/2017 11/24/2017 [facility] [place] DX: R10.2=PELVIC AND PERINEAL PAIN, N39. Active 04/25/2017 [facility] M74.27 Active 03/02/2017 [facility] 65789, K81.9, CHOLELITHIASIS Active 11/30/2015 [facility] R06.02 - SHORTNESS OF BREATH Active 07/10/2015 [facility] [place] 723.1 - CERVICALGIA Active 03/03/2015 [facility] [place] 16888, 32712---NXDYZF OBESITY, CHOLELITH Active 11/06/2014 [facility] UNK Active 09/26/2014 [facility] 250.00/787.91/V65.3/401.9 Active 09/26/2014 [facility] DX: 786.05 DR LEMONS WILL DO/READ PER JESSICA @ DR MARES Active 02/21/2012 [facility] MORBID OBESITY Active 12/20/2011 [facility] DX: CHEST PAIN DR. GIVENS WILL BE HERE PER HEATHE Active 11/23/2011 [facility] 401.1 Active 10/27/2011 [facility] CPAP Active 10/21/2011 [facility] DX: CHEST PAIN Active 10/17/2011 [facility] 278.01 MORBID OBESITY Active 10/14/2011 [facility] MORBID OESITY Active 06/08/2011 [facility] ABDOMINAL PAIN Active 05/04/2011 [facility] ABD PAIN 789.09/787.99/787.91/278.01/780.57 Active 05/04/2011 [facility] Asthma Active Problem 01/04/2019 PEDRO LU[facility] Nelson, [facility] [place], [facility],[facility] [place] Cholesterol level1 Active Problem 01/04/2019 high P[facility]RO LU[facility] Nelson, [facility] [place], [facility], [facility] [place] Diabetes mellitus type 2 Resolved Problem 01/04/2019 PEDRO LUIS Nelson, [facility] [place], [facility], [facility] [place] GERD - Gastro-esophageal reflux disease Active Problem 01/04/2019 PEDRO LUIS Nelson, [facility] [place], [facility], [facility] [place] Hypothyroidism Active Problem 01/04/2019 PEDRO LUIS Nelson, [facility] [place], [facility], [facility] [place] Morbid obesity Active Problem 01/04/2019 PEDRO LUIS Nelson, [facility] [place], [facility], [facility] [place] Motion sickness Active Problem 01/04/2019 PEDRO LUIS Nelson, [facility] [place], [facility], [facility] [place] Short of breath on exertion Active Problem 01/04/2019 PEDRO LUIS Nelson, [facility] [place], [facility], [facility] [place] Sleep apnea Active Problem 01/04/2019 PEDRO LUIS Nelson, [facility] [place], [facility] Cholelithiasis Active Problem 01/04/2019 PEDRO LUIS Nelson, PEDRO LUIS Kalpesh,[facility], [facility] Panic attack Resolved Problem 01/04/2019 PEDRO LUIS Nelson, [facility] [place],[facility], [facility] Sprain of unspecified ligament of right ankle, initial encounter 11/24/2017 [facility] [place] Phlebitis and thrombophlebitis of unspecified deep vessels of left lower extremity 10/23/2018 [facility] Effusion, left knee 12/29/2017 PEDRO LUIS Villag[place] DIGESTVE SYST SYMPTM NEC Active [facility] ABDMNAL PAIN OTH SPCF ST Active [facility] DIARRHEA Active [facility] OBSTRUCTIVE SLEEP APNEA Active [facility] CHEST PAIN NOS Active [facility] SHORTNESS OF BREATH Active [facility] 786.05 Active [facility] DMII WO CMP NT ST UNCNTR Active [facility] 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 [facility] HYPERTENSION NOS Active [facility] ABDMNAL PAIN EPIGASTRIC Active [facility] ADMINISTRTVE ENCOUNT NOS Active [facility] ILLNESS, UNSPECIFIED Active [facility] OTHER SPONDYLOSIS WITH RADICULOPATHY, CECILE Active [facility] Medications Medication Details Route Status Patient Instructions Ordering Provider Order Date Source Nitrofurantoin Monohyd/M-Cryst (Macrobid 100 Mg Capsule) 100 Mg Capsule Twice A Day Active Wes 01/20/2019 [facility] Phenazopyridine Hcl (Pyridium) 100 Mg Tablet Three Times A Day Active Wes 01/20/2019 [facility] Clonazepam (Klonopin) 2 Mg Tablet, 1 Tab Oral Daily Active 03/15/2017 [facility] Dicyclomine Hcl (Bentyl) 10 Mg Capsule, 20 Mg Oral Every 6 Hours Active 03/15/2017 [facility] Escitalopram Oxalate (Lexapro) 10 Mg Tablet, 25 Mg Oral Daily Active 03/15/2017 [facility] Levothyroxine Sodium 112 Mcg Tablet, 312 Mcg Oral Daily Active 03/15/2017 [facility] Ondansetron (Zofran Odt) 4 Mg Tab.rapdis, 4 Mg Oral Every 6 Hours Active 03/15/2017 [facility] Clonazepam (Klonopin) 2 Mg Tablet, 1 Tab Oral Daily Active 03/15/2017 [facility] Dicyclomine Hcl (Bentyl) 10 Mg Capsule, 20 Mg Oral Every 6 Hours Active 03/15/2017 [facility] Escitalopram Oxalate (Lexapro) 10 Mg Tablet, 25 Mg Oral Daily Active 03/15/2017 [facility] Levothyroxine Sodium 112 Mcg Tablet, 312 Mcg Oral Daily Active 03/15/2017 [facility] Ondansetron (Zofran Odt) 4 Mg Tab.rapdis, 4 Mg Oral Every 6 Hours Active 03/15/2017 [facility] Ondansetron 4 MG Disintegrating Tablet [Zofran] 4 mg=1 tab, PO, Q6H, PRN Nausea, # 20 tab, 0 Refill(s) Active 12/03/2015 [facility] tramadol hydrochloride 50 MG Oral Tablet 50 mg=1 tab, PO, Q4H, PRN Pain Score 1-3, # 30 tab, 0 Refill(s) Active 12/03/2015 [facility] Flonase 0.05 mg/inh nasal spray 50 microgram=1 spray, NASAL, Daily, 0 Refill(s) Active 12/03/2015 [facility] 24 HR Metoprolol Tartrate 25 MG Extended Release Tablet [Toprol] 25 mg, 1 tab, Route: PO, Drug form: ERTAB, Daily, Start date: 12/03/15 9:00:00 CDT, Duration: 30 day, Stop date: 01/01/16 9:00:00 CDTNotes: (Same as: Toprol XL) Do Not Crush Inactive 12/03/2015 [facility] Flonase 0.05 mg/inh nasal spray 1 spray, Route: NASAL, Drug Form: SPRY, Dosing Weight 157.2, kg, Daily, Start date: 12/03/15 9:00:00 CDT, Duration: 30 day, Stop date: 01/01/16 9:00:00 CDTNotes: (Same as: Flonase) Inactive 12/03/2015 [facility] Nexium 40 mg, Route: PO, Drug form: ECCAP, Daily, Dosing Weight 157.2, kg, Start date: 12/03/15 9:00:00 CDT, Duration: 30 day, Stop date: 01/01/16 9:00:00 CDT Inactive 12/03/2015 [facility] Lexapro 25 mg, 2.5 tab, Route: PO, Drug form: TAB, Daily, Dosing Weight 157.2, kg, Start date: 12/03/15 9:00:00 CDT, Duration: 30 day, Stop date: 01/01/16 9:00:00 CDTNotes: (Same as: Lexapro) Inactive 12/03/2015 [facility] Klonopin 0.5 mg, 1 tab, Route: PO, Drug form: TAB, QID, Dosing Weight 157.2, kg, Start date: 12/03/15 9:00:00 CDT, Duration: 30 day, Stop date: 01/01/16 21:00:00 CDTNotes: (Same As: KlonoPIN) Inactive 12/03/2015 [facility] Symbicort 160/4.5 inhalation aerosol with adapter 2 inhalation, Route: INHALATION, Drug Form: AERO/A, Dosing Weight 157.2, kg, BID, Start date: 12/03/15 9:00:00 CDT, Duration: 30 day, Stop date: 01/01/16 17:00:00 CDTNotes: (Same as: Symbicort) WASTE: Aerosol - Return to Pharmacy Inactive 12/03/2015 [facility] Protonix 40 mg, 1 tab, Route: PO, Drug form: ECTAB, Before Breakfast, Start date: 12/03/15 7:30:00 CDT, Duration: 30 day, Stop date: 01/01/16 7:30:00 CDTNotes: Tablet should not be chewed or crushed. (Same as: Protonix) Inactive 12/03/2015 [facility] Thyroxine 200 microgram, 2 tab, Route: PO, Drug form: TAB, Q630AM, Dosing Weight 157.2, kg, Start date: 12/03/15 6:30:00 CDT, Duration: 30 day, Stop date: 01/01/16 6:30:00 CDTNotes: Take 1 hour before or 2 hours after meal; Enteral feeds may interefere with the absorption of this medication. (Same as:Levothroid, Synthroid) Inactive 12/03/2015 [facility] Morphine 1 mg, 0.5 mL, Route: IVP, Drug form: INJ, Q2H, Dosing Weight 157.2, kg, PRN Pain Score 7-10, Start date: 12/03/15 6:12:00 CDT, Duration: 30 day, Stop date: 01/02/16 6:11:00 CDTNotes: (Same as:MORPhine Sulfate) Inactive 12/03/2015 [facility] tramadol hydrochloride 50 MG Oral Tablet 50 mg, 1 tab, Route: PO, Drug form: TAB, Q4H, Dosing Weight 157.2, kg, PRN Pain Score 1-3, Start date: 12/03/15 2:00:00 CDT, Duration: 30 day, Stop date: 01/02/16 1:59:00 CDTNotes: Not to exceed 400mg/day. (Same As: Ultram) Inactive 12/03/2015 [facility] Enoxaparin 40 mg, 0.4 mL, Route: SUB-Q, Drug form: INJ, [id number], Dosing Weight 157.2, kg, Consider for obese patients, Start date: 12/02/15 22:00:00 CDT, Duration: 30 day, Stop date: 01/01/16 10:00:00 CDTNotes: (Same as: Lovenox) No Longer Active 12/03/2015 [facility] Simethicone 80 mg, 1 tab, Route: CHEW, Drug form: CHEWTAB, QID, Dosing Weight 157.2, kg, PRN Gas, Start date: 12/02/15 19:07:00 CDT, Duration: 30 day, Stop date: 01/01/16 19:06:00 CDTNotes: (Same as: Mylicon) No Longer Active 12/03/2015 [facility] Ketorolac 30 mg, 1 mL, Route: IV, [...] Wasted: ___ mg No Longer Active 12/02/2015 [facility] Ancef 2 gm, 100 mL, Route: IV, Drug form: INJ, Q8H, Dosing Weight 157.2, kg, times 4 doses, Priority: Routine, Start date: 12/02/15 17:00:00 CDT, Duration: 4 doses or times, Stop date: 12/03/15 16:00:00 CDTNotes: Same as: Ancef No Longer Active 12/02/2015 [facility] Sodium Chloride 0.9% IV 25 mL, Route: IV, Start date: 12/02/15 16:10:00 CDT, Duration: 30 day, Stop date: 01/01/16 16:09:00 CDT, PRN Line Flush No Longer Active 12/02/2015 [facility] BD Normal Saline Flush 10 mL, Route: IV, Drug Form: INJ, PRN, PRN Line Flush, Start date: 12/02/15 16:10:00 CDT, Duration: 30 day, Stop date: 01/01/16 16:09:00 CDTNotes: (Same as: BD Posiflush) No Longer Active 12/02/2015 [facility] D5W 1/2NS + KCL 20mEq/L 1000ml (Premix) 1,000 mL 1,000 mL, Rate: 80 ml/hr, Infuse over: 12.5 hr, Route: IV, Dosing Weight 157.2 kg, Total Volume: 1,000, Start date: 12/02/15 15:48:00 CDT, Stop date: 01/01/16 15:47:00 CDTNotes: PREMIX IV - Do Not Alter WASTE: F/P - Sink; E - Municipal Trash Bin No Longer Active 12/02/2015 [facility] Tylenol 650 mg, 2 tab, Route: PO, Drug form: TAB, Q6H, Dosing Weight 157.2, kg, PRN Pain 1-3/Temp > 100.4 F, Start date: 12/02/15 14:47:00 CDT, Duration: 30 day, Stop date: 01/01/16 14:46:00 CDTNotes: Do not exceed 4 gm/day. (Same as: Tylenol) No Longer Active 12/02/2015 [facility] pneumococcal capsular polysaccharide type 1 vaccine / pneumococcal capsular polysaccharide type 10A vaccine / pneumococcal capsular polysaccharide type 11A vaccine / pneumococcal capsular polysaccharide type 12F vaccine / pneumococcal capsular polysacchar 0.5 mL, Route: IM, Drug Form: INJ, ONCALL, Start date: 12/02/15 12:34:14 CDT, Stop date: 01/01/16 12:29:14 CDTNotes: (Same as: Pneumovax 23) Refrigerate No Longer Active 12/02/2015 [facility] Zofran 4 mg, 2 mL, Route: IVP, Drug form: INJ, Q8H, PRN Nausea & Vomiting, Start date: 12/02/15 10:49:00 CDT, Duration: 30 day, Stop date: 01/01/16 10:48:00 CDTNotes: (Same as: Zofran) MEDICATION WASTE Product Size: 4 mg Product Wasted: ___ mg No Longer Active 12/02/2015 [facility] Benadryl 12.5 mg, 0.25 mL, Route: IVP, Drug form: INJ, Q6H, PRN Itching, Start date: 12/02/15 10:49:00 CDT, Duration: 30 day, Stop date: 01/01/16 10:48:00 CDTNotes: (Same as: Benadryl) No Longer Active 12/02/2015 [facility] naloxone 0.2 mg, 0.5 mL, Route: IVP, Drug form: INJ, Q5Min, PRN Narcotic Reversal, Start date: 12/02/15 10:49:00 CDT, Duration: 30 day, Stop date: 01/01/16 10:48:00 CDTNotes: (Same as: Narcan) No Longer Active 12/02/2015 [facility] morphine Sulfate 30 mg IV, Start date: 12/02/15 10:48:00 CDT, Duration: 30, 30 ml, 154.091Notes: Dose: Delay: Basal rate: 4hr limit: (Same as:Rapi-Ject) No Longer Active 12/02/2015 [facility] Flumazenil 0.2 mg, 2 mL, Route: IVP, Drug form: INJ, PRN, Dosing Weight 154.091, kg, PRN Benzodiazepine Reversal, Initial dose, Start date: 12/02/15 6:58:00 CDT, Duration: 30 day, Stop date: 01/01/16 6:57:00 CD TNotes: (Same as: Romazicon) Inactive 12/02/2015 [facility] Naloxone 0.04 mg, 0.1 mL, Route: IVP, Drug form: INJ, Q2MIN, Dosing Weight 154.091, kg, PRN Narcotic Reversal, Start date: 12/02/15 6:58:00 CDT, Duration: 8 doses or times, Stop date: Limited # of timesNotes: Same as Narcan Inactive 12/02/2015 [facility] Ondansetron 4 mg, 2 mL, Route: IVP, Drug form: INJ, ONCE, Dosing Weight 154.091, kg, PRN Nausea & Vomiting, Start date: 12/02/15 6:58:00 CDTNotes: (Same as: yMa) MEDICATION WASTE Product Size: 4 mg Product Wasted: ___ mg Inactive 12/02/2015 [facility] Hydromorphone 0.2 mg, 0.1 mL, Route: IVP, Drug form: INJ, Q5Min, Dosing Weight 154.091, kg, PRN Pain Score 7-10, Start date: 12/02/15 6:58:00 CDT, Duration: 4 doses or times, Stop date: Limited # of timesNotes: (S raquel as: Dilaudid) Inactive 12/02/2015 [facility] dicyclomine 20 mg oral tablet 20 mg=1 tab, PO, frequency unknown, 0 Refill(s) Active 12/01/2015 [facility] Vitamin B12 one tablet (mg unknown), PO, Daily, 0 Refill(s) Active 12/01/2015 [facility] Clonazepam 0.5 MG Oral Tablet [Klonopin] 0.5 mg=1 tab, PO, QID, 0 Refill(s) Active 12/01/2015 [facility] Tramadol one tablet (mg unknown), PO, frequency unknown, 0 Refill(s) No Longer Active 12/01/2015 [facility] Flonase 0.05 mg/inh nasal spray 1 spray, NASAL, Daily, 0 Refill(s) Active 12/01/2015 [facility] multivitamin one tablet, PO, Daily, 0 Refill(s) Active 12/01/2015 [facility] Lexapro one tablet (25 mg), PO, Daily, 0 Refill(s) Active 12/01/2015 [facility] metoprolol 25 mg oral tablet, extended release 25 mg=1 tab, PO, Bedtime, # 30 tab, 0 Refill(s) Active 12/01/2015 [facility] Alprazolam (Xanax) 0.25 Mg Tablet, 0.125 Each Oral As Needed as needed for Sleep Active 11/28/2015 [facility] Aspirin (Aspirin Ec) 81 Mg Tablet., 81 Mg Oral Daily Active 11/28/2015 [facility] Atorvastatin Calcium (Lipitor*) 10 Mg Tablet, 10 Mg Oral Bedtime Active 11/28/2015 [facility] Cetirizine Hcl 10 Mg Tablet, 10 Mg Oral Daily Active 11/28/2015 [facility] Lisinopril (Prinavil / Zestril) 20 Mg Tablet, 20 Mg Oral Bedtime Active 11/28/2015 [facility] Metformin Hcl 500 Mg Tablet, 250 Mg Oral Bedtime Active 11/28/2015 [facility] Omeprazole 20 Mg Tablet., 40 Mg Oral Daily Active 11/28/2015 [facility] Alprazolam (Xanax) 0.25 Mg Tablet, 0.125 Each Oral As Needed as needed for Sleep Active 11/28/2015 [facility] Atorvastatin Calcium (Lipitor*) 10 Mg Tablet, 10 Mg Oral Bedtime Active 11/28/2015 [facility] Metformin Hcl 500 Mg Tablet, 250 Mg Oral Bedtime Active 11/28/2015 [facility] Omeprazole 20 Mg Tablet., 40 Mg Oral Daily Active 11/28/2015 [facility] 0.6 ML Enoxaparin sodium 100 MG/ML Prefilled Syringe [Lovenox] 60 mg, SUB-Q, Q12H, X 7 day, # 14 syr, 0 Refill(s) Active 11/27/2014 [facility] Esomeprazole 40 MG Enteric Coated Capsule [Nexium] 40 mg=1 cap, PO, Daily, # 30 cap, 0 Refill(s) Active 11/27/2014 [facility] Tylenol with Codeine 120 mg-12 mg/5 mL oral liquid 15 ml, PO, Q4H, PRN Pain, X 7 day, # 240 mL, 0 Refill(s) Active 11/27/2014 [facility] Sucralfate 100 MG/ML Oral Suspension [Carafate] 1 gm=10 ml, PO, Before Meals & Bedtime, # 200 ml, 0 Refill(s) Active 11/27/2014 [facility] Lovenox 40 mg, 0.4 mL, Route: SUB-Q, Drug form: INJ, [id number], Start date: 11/26/14 10:00:00, Duration: 30 day, Stop date: 12/25/14 22:00:00Notes: (Same as: Lovenox) No Longer Active 11/26/2014 [facility] acetaminophen-hydrocodone 15 mL, Route: PO, Drug Form: SOLN, Q4H, PRN Other -See Comment, Start date: 11/26/14 9:32:00, Duration: 30 day, Stop date: 12/26/14 9:31:00Notes: Do not exceed 4gm/day of acetaminophen. (Same as: Lerona 325/7.5) No Longer Active 11/26/2014 [facility] Tylenol 650 mg, 20.3 mL, Route: PO, Drug form: LIQ, Q4H, PRN Pain Score 1-3, Start date: 11/26/14 9:31:00, Duration: 30 day, Stop date: 12/26/14 9:30:00Notes: Max [id number]=[id number]/day (4 gm/day). (Same as: Tylenol) No Longer Active 11/26/2014 [facility] heparin 5,000 unit, 1 mL, Route: SUB-Q, Drug form: INJ, ONCE, Start date: 11/26/14 3:00:00, Stop date: 11/26/14 3:00:00Notes: porcine heparin Inactive 11/26/2014 [facility] Reglan 10 mg, 2 mL, Route: IV, Drug form: INJ, Q8H, Start date: 11/26/14 0:00:00, Duration: 30 day, Stop date: 12/25/14 16:00:00Notes: (Same as: Reglan) No Longer Active 11/26/2014 [facility] Pepcid 20 mg, 2 mL, Route: IVP, Drug form: INJ, Q12H, Start date: 11/25/14 21:00:00, Duration: 30 day, Stop date: 12/25/14 9:00:00 No Longer Active 11/26/2014 [facility] ceFAZolin 2 gm, 100 mL, Route: IVPB, Drug form: INJ, Q8H, Start date: 11/25/14 21:00:00, Duration: 4 doses or times, Stop date: 11/26/14 21:00:00Notes: Same as: Ancef No Longer Active 11/26/2014 [facility] insulin regular 100 units/mL human recombinant 8 [...] fro m Date No Longer Active 11/25/2014 [facility] insulin regular 100 units/mL human recombinant 6 [...] fro m Date No Longer Active 11/25/2014 [facility] Dextrose 50% in Water IV 25 mL, Route: IVP, Start date: 11/25/14 18:44:00, Duration: 30 day, Stop date: 12/25/14 18:43:00, PRN Blood Glucose Results No Longer Active 11/25/2014 [facility] ketOROLAC 30 mg/mL injectable solution 30 mg, [...] Wasted: ___ mg No Longer Active 11/25/2014 [facility] Vasotec 1.25 mg, 1 mL, Route: IV, Drug form: INJ, Q6H, PRN Other -See Comment, Start date: 11/25/14 17:55:00, Duration: 30 day, Stop date: 12/25/14 17:54:00Notes: (Same as: Vasotec-IV) No Longer Active 11/25/2014 [facility] Lactated Ringers Injection IV 1,000 mL 1,000 mL, Rate: 80 ml/hr, Infuse over: 12.5 hr, Route: IV, Dosing Weight 210.057 kg, Total Volume: 1,000, Start date: 11/25/14 17:54:00, Stop date: 12/25/14 17:53:00 No Longer Active 11/25/2014 [facility] Sodium Chloride 0.9% IV 25 mL, Route: IV, Start date: 11/25/14 17:53:00, Duration: 30 day, Stop date: 12/25/14 17:52:00, PRN Line Flush No Longer Active 11/25/2014 [facility] BD Normal Saline Flush 10 mL, Route: IV, Drug Form: INJ, PRN, PRN Line Flush, Start date: 11/25/14 17:53:00, Duration: 30 day, Stop date: 12/25/14 17:52:00Notes: (Same as: BD Posiflush) No Longer Active 11/25/2014 [facility] Zofran 4 mg, 2 mL, Route: IVP, Drug form: INJ, Q8H, PRN Nausea & Vomiting, Start date: 11/25/14 15:00:00, Duration: 30 day, Stop date: 12/25/14 14:59:00Notes: (Same as: Zofran) MEDICATION WASTE Product Size: 4 mg Product Wasted: ___ mg No Longer Active 11/25/2014 [facility] Benadryl 12.5 mg, 0.25 mL, Route: IVP, Drug form: INJ, Q6H, PRN Itching, Start date: 11/25/14 15:00:00, Duration: 30 day, Stop date: 12/25/14 14:59:00Notes: (Same as: Benadryl) No Longer Active 11/25/2014 [facility] naloxone 0.2 mg, 0.5 mL, Route: IVP, Drug form: INJ, Q5Min, PRN Narcotic Reversal, Start date: 11/25/14 15:00:00, Duration: 30 day, Stop date: 12/25/14 14:59:00Notes: (Same as: Narcan) No Longer Active 11/25/2014 [facility] morphine 1 mg/ml DOWEL POINTER (30 mg/30 mL) INJ Syringe 30 mg IV, Start date: 11/25/14 14:59:00, Duration: 30, 30 ml, 210.057Notes: Dose: Delay: Basal rate: 4hr limit: (Same as:Rapi-Ject) No Longer Active 11/25/2014 [facility] Phenergan 25 mg, 50 mL, 200 ml/hr, Route: IVPB, Drug Form: SOLN, Q4H, PRN Nausea & Vomiting, Start date: 11/25/14 14:58:00, Duration: 30 day, Stop date: 12/25/14 14:57:00 No Longer Active 11/25/2014 [facility] Morphine 4 mg, 0.4 mL, Route: IVP, Drug form: INJ, Q5Min, Dosing Weight 210.057, kg, PRN Pain Score 7-10, Start date: 11/25/14 12:47:00, Duration: 3 doses or times, Stop date: Limited # of timesNotes: (Same a s:MORPhine Sulfate) Inactive 11/25/2014 [facility] Hydromorphone 0.5 mg, 0.25 mL, Route: IVP, Drug form: INJ, Q5Min, Dosing Weight 210.057, kg, PRN Pain Score 7-10, Start date: 11/25/14 12:47:00, Duration: 4 doses or times, Stop date: Limited # of timesNotes: (Same as: Dilaudid) Inactive 11/25/2014 [facility] Naloxone 0.04 mg, 0.1 mL, Route: IVP, Drug form: INJ, Q2MIN, Dosing Weight 210.057, kg, PRN Narcotic Reversal, Start date: 11/25/14 12:47:00, Duration: 8 doses or times, Stop date: Limited # of timesNotes: Same as Narcan Inactive 11/25/2014 [facility] Meperidine 12.5 mg, 0.25 mL, Route: IVP, Drug form: INJ, Q30Min, Dosing Weight 210.057, kg, PRN Other -See Comment, For shivering, Start date: 11/25/14 12:47:00, Duration: 2 doses or times, Stop date: Limited # of timesNotes: (Same As: Demerol) Inactive 11/25/2014 [facility] Flumazenil 0.2 mg, 2 mL, Route: IVP, Drug form: INJ, PRN, Dosing Weight 210.057, kg, PRN Benzodiazepine Reversal, Initial dose, Start date: 11/25/14 12:47:00, Duration: 30 day, Stop date: 12/25/14 12:46:00Notes: (Same as: Romazicon) Inactive 11/25/2014 [facility] Dexamethasone 4 mg, 1 mL, Route: IVP, Drug form: INJ, ONCE, Dosing Weight 210.057, kg, PRN Nausea & Vomiting, Start date: 11/25/14 12:47:00Notes: Concentration: 4mg/ml Inactive 11/25/2014 [facility] Ondansetron 4 mg, 2 mL, Route: IVP, Drug form: INJ, ONCE, Dosing Weight 210.057, kg, PRN Nausea & Vomiting, Start date: 11/25/14 12:47:00Notes: (Same as: Zofran) MEDICATION WASTE Product Size: 4 mg Product Wasted: ___ mg Inactive 11/25/2014 [facility] Diphenhydramine 12.5 mg, 0.25 mL, Route: IVP, Drug form: INJ, Q6H, Dosing Weight 210.057, kg, PRN Itching, Start date: 11/25/14 12:47:00, Duration: 30 day, Stop date: 12/25/14 12:46:00Notes: (Same as: Benadryl) Inactive 11/25/2014 [facility] Labetalol 10 mg, 2 mL, Route: IVP, Drug form: INJ, Q5Min, Dosing Weight 210.057, kg, PRN Elevated BP, Start date: 11/25/14 12:47:00, Duration: 5 doses or times, Stop date: Limited # of timesNotes: (Same as: Normo dyne, Trandate) Push over 2 minutes Give bolus over 2-3 minutes. Inactive 11/25/2014 [facility] Hydralazine 10 mg, 0.5 mL, Route: IVP, Drug form: INJ, Q20Min, Dosing Weight 210.057, kg, PRN Elevated BP, Start date: 11/25/14 12:47:00, Duration: 2 doses or times, Stop date: Limited # of timesNotes: (Same as: Apresoline) Push over 5 minutes Inactive 11/25/2014 [facility] Metoprolol 1 mg, 1 mL, Route: IVP, Drug form: INJ, Q5Min, Dosing Weight 210.057, kg, PRN Other -See Comment, Start date: 11/25/14 12:47:00, Duration: 5 doses or times, Stop date: Limited # of timesNotes: (Same as: Lopressor) Push over 2 minutes Inactive 11/25/2014 [facility] chlorhexidine topical 0.12% liquid 15 mL, Route: S&SPIT, ONCALL, Drug form: LIQ, Start date: 11/25/14 1:00:00, Duration: 20 hr, Stop date: 11/25/14 20:59:00Notes: (Same As: Peridex) Inactive 11/25/2014 [facility] Ancef 3 gm, 100 mL, Route: IVPB, Drug form: INJ, ONCALL, Start date: 11/25/14 1:00:00, Duration: 30 day, Stop date: 12/25/14 0:59:00Notes: Same as: Ancef Inactive 11/25/2014 [facility] Naloxone 0.1 mg, 0.25 mL, Route: IVP, Drug form: INJ, Q2MIN, Dosing Weight 215.909, kg, PRN Narcotic Reversal, Start date: 10/09/14 10:33:00, Duration: 4 doses or times, Stop date: Limited # of timesNotes: Same as Narcan Inactive 10/09/2014 [facility] Flumazenil 0.2 mg, 2 mL, Route: IVP, Drug form: INJ, PRN, Dosing Weight 215.909, kg, PRN Other -See Comment, Start date: 10/09/14 10:33:00, Duration: 1 doses or times, Stop date: Limited # of timesNotes: (Same as: Romazicon) Inactive 10/09/2014 [facility] Sodium Chloride 0.154 MEQ/ML Injectable Solution 500 mL, 0 ml/hr, Infuse Over: 0 hr, Route: IV, 500, Drug form: INJ, ONCE, Dosing Weight 215.909 kg, Start date: 10/09/14 10:01:00, Stop date: 10/09/14 10:01:00, Bolus Inactive 10/09/2014 [facility] Vitamin D3 5000 intl units oral capsule 5,000 IntlUnit=1 cap, PO, Daily, 0 Refill(s) Active 10/03/2014 [facility] atorvastatin 10 mg, PO, Bedtime, 0 Refill(s) Active 10/03/2014 [facility] montelukast 10 mg oral tablet 10 mg=1 tab, PO, Bedtime, # 30 tab, 0 Refill(s) Active 10/03/2014 [facility] pantoprazole 40 mg oral enteric coated tablet 40 mg=1 tab, PO, Daily, # 30 tab, 0 Refill(s) Active 10/03/2014 [facility] metoprolol 25 mg oral tablet, extended release 25 mg, PO, Daily, # 30 tab, 0 Refill(s) Active 10/03/2014 [facility] Amoxicillin/Potassium Clav (Augmentin 875-125 Tablet) 1 Each Tablet, 1 Tab Oral Twice A Day Active 04/04/2014 [facility] Montelukast Sodium (Singulair) 10 Mg Tablet, 10 Mg Oral Daily Active 04/04/2014 [facility] Mupirocin (Bactroban) 15 Gm Cr, Active 04/04/2014 [facility] Mupirocin (Bactroban) 15 Gm Cr, Active 04/04/2014 [facility] flumazenil 0.1 mg, 1 mL, Route: IVP, Drug form: INJ, Q5Min, PRN Other -See Comment, Start date: 05/13/11 9:22:00, Duration: 30 day, Stop date: 06/12/11 8:21:00 IVP No Longer Active [facility] 05/13/2011 [facility] naloxone 0.1 mg, 0.25 mL, Route: IVP, Drug form: INJ, Q2MIN, PRN Narcotic Reversal, Start date: 05/13/11 9:22:00, Duration: 4 doses or times, Stop date: Limited # of times IVP No Longer Active [facility] 05/13/2011 [facility] Zyrtec 10 mg oral tablet 1 tab, PO, Daily, PRN, 30 tab, as needed for allergy symptoms, Substitution Allowed, TAB PO Active 05/11/2011 [facility] Symbicort 160/4.5 inhalation aerosol with adapter 2 puff, INHALATION, BID, 10 gm, Substitution Allowed, Maintenance, AERO INHALATION Active 05/11/2011 [facility] furosemide 20 mg oral tablet 1 tab, PO, Daily, 30 tab, Substitution Allowed, TAB PO Active 05/11/2011 [facility] levothyroxine 200 mcg (0.2 mg) oral tablet 1 tab, PO, Daily, 30 tab, Substitution Allowed, TAB PO Active 05/11/2011 [facility] metFORmin 500 mg oral tablet, extended release 1 tab, PO, Daily, 30 tab, Substitution Allowed, ERTAB PO Active 05/11/2011 [facility] lisinopril 20 mg oral tablet 1 tab, PO, Daily, 30 tab, Substitution Allowed, TAB PO Active 05/11/2011 [facility] Budesonide/Formoterol Fumarate (Symbicort 160-4.5 Mcg Inhaler) 10.2 Gm Hfa.aer.ad Twice A Day Active [facility] Clonazepam (Klonopin) 0.5 Mg Tablet Twice A Day Active [facility] Escitalopram Oxalate (Lexapro) 10 Mg Tablet Daily Active [facility] Gabapentin 300 Mg Capsule Daily Active [facility] Levothyroxine Sodium (Synthroid) 100 Mcg Tab Today At 6:00AM Active [facility] Metformin Hcl 500 Mg Tablet Daily Active [facility] Metoprolol Succinate 25 Mg Tab.er.24h Daily Active [facility] Omeprazole 40 Mg Capsule. Daily Active [facility] Tramadol Hcl (Ultram) 50 Mg Tablet Every 4 Hours as needed for Pain Active [facility] Clonazepam (Klonopin) 0.5 Mg Tablet Twice A Day Active [facility] Escitalopram Oxalate (Lexapro) 10 Mg Tablet Daily Active [facility] Gabapentin 300 Mg Capsule Daily Active [facility] Levothyroxine Sodium (Synthroid) 100 Mcg Tab Today At 6:00AM Active [facility] Metformin Hcl 500 Mg Tablet Daily Active [facility] Metoprolol Succinate 25 Mg Tab.er.24h Daily Active [facility] Omeprazole 40 Mg Capsule.dr [place] Active [facility] Allergies, Adverse Reactions, Alerts Substance Category Reaction Severity Reaction type Status Date Reported Comments Source Sulfamethoxazole DIZZY Unknown Allergy to Substance Active 03/15/2017 [facility] Trimethoprim DIZZY Unknown Allergy to Substance Active 03/15/2017 [facility] Ciprofloxacin Unknown Allergy to Substance Active 03/15/2017 [facility] Metronidazole ITCHING Unknown Allergy to Substance Active 03/15/2017 [facility] Sulfa (Sulfonamide Antibiotics) DIZZY Unknown Allergy to Substance Active 02/18/2018 [facility] Bactrim Assertion Propensity to adverse reactions to drug Active [facility] sulfa drugs Assertion Drug allergy Active [facility] medtronidazole containing compounds Assertion Drug allergy Active [facility] Cipro Assertion Drug allergy Active [facility] NKFA Assertion Food allergy Active [facility] Immunizations No Data Provided for This Section Results Order Name Results Value Reference Range Date Interpretation Comments Source Blood leukocytes automated count (number/volume) 13.66 4.8 - 10.8 01/20/2019 [facility] Blood erythrocytes automated count (number/volume) 4.76 3.6 - 5.1 01/20/2019 [facility] Blood hemoglobin measurement (moles/volume) 13.0 12.0 - 16.0 01/20/2019 [facility] Automated blood hematocrit (volume fraction) 40.6 34.2 - 44.1 01/20/2019 [facility] Automated erythrocyte mean corpuscular volume 85.3 81 - 99 01/20/2019 [facility] Automated erythrocyte mean corpuscular hemoglobin (mass per erythrocyte) 27.3 28 - 32 01/20/2019 [facility] Automated erythrocyte mean corpuscular hemoglobin concentration measurement (mass/volume) 32.0 31 - 35 01/20/2019 [facility] RDW BldCo-Rto 13.2 11.7 - 14.4 01/20/2019 [facility] Automated blood platelet count (count/volume) 351 140 - 360 01/20/2019 [facility] Automated blood segmented neutrophil count as percentage of total leukocytes 65.1 38.7 - 80.0 01/20/2019 [facility] Automated blood lymphocyte count as percentage ot total leukocytes 26.8 18.0 - 39.1 01/20/2019 [facility] Automated blood monocyte count as percentage of total leukocytes 6.1 4.4 - 11.3 01/20/2019 [facility] Automated blood eosinophil count as percentage of total leukocytes 0.8 0.0 - 6.0 01/20/2019 [facility] Automated blood basophil count as percentage of total leukocytes 0.6 0.0 - 1.0 01/20/2019 [facility] IM GRANULOCYTES % 0.6 0.0 - 1.0 01/20/2019 [facility] Automated blood neutrophil count 8.9 2.1 - 6.9 01/20/2019 [facility] Blood lymphocytes count (number/volume) 3.7 1.0 - 3.2 01/20/2019 [facility] Blood monocytes automated count (number/volume) 0.8 0.2 - 0.8 01/20/2019 [facility] Automated blood eosinophil count 0.1 0.0 - 0.4 01/20/2019 [facility] Automated blood basophil count (count/volume) 0.1 0.0 - 0.1 01/20/2019 [facility] Absolute Immature Granulocyte (auto 0.08 0 - 0.1 01/20/2019 [facility] Serum or plasma sodium measurement (moles/volume) 139 136 - 145 01/20/2019 [facility] Serum or plasma potassium measurement (moles/volume) 4.6 3.5 - 5.1 01/20/2019 [facility] Serum or plasma chloride measurement (moles/volume) 103 98 - 107 01/20/2019 [facility] Serum or plasma carbon dioxide, total measurement (moles/volume) 27 22 - 29 01/20/2019 [facility] Serum or plasma anion gap 13.6 8 - 16 01/20/2019 [facility] Serum or plasma urea nitrogen measurement (mass/volume) 12 7 - 26 01/20/2019 [facility] Serum or plasma creatinine measurement (mass/volume) 0.78 0.57 - 1.11 01/20/2019 [facility] Serum or plasma urea nitrogen/creatinine mass ratio 15 6 - 25 01/20/2019 [facility] Estimated glomerular filtration rate (GFR) determination > 60 60 01/20/2019 [facility] Glucose measurement 90 74 - 118 01/20/2019 [facility] Serum or plasma calcium measurement (mass/volume) 9.7 8.4 - 10.2 01/20/2019 [facility] Serum or plasma total bilirubin measurement (mass/volume) 0.3 0.2 - 1.2 01/20/2019 [facility] Aspartate Amino Transf (AST/SGOT) 12 5 - 34 01/20/2019 [facility] Serum or plasma alanine aminotransferase measurement (enzymatic activity/volume) 16 0 - 55 01/20/2019 [facility] Serum or plasma protein measurement (mass/volume) 7.7 6.5 - 8.1 01/20/2019 [facility] Serum or plasma albumin measurement (mass/volume) 3.8 3.5 - 5.0 01/20/2019 [facility] Plasma globulin measurement (mass/volume) 3.9 2.3 - 3.5 01/20/2019 [facility] Serum or plasma albumin/globulin mass ratio 1.0 0.8 - 2.0 01/20/2019 [facility] Serum or plasma alkaline phosphatase measurement (enzymatic activity/volume) 88 40 - 150 01/20/2019 [facility] Serum or plasma lipase measurement (enzymatic activity/volume) 41 8 - 78 01/20/2019 [facility] Urine color determination YELLOW YELLOW 01/20/2019 [facility] Urine clarity CLEAR CLEAR 01/20/2019 [facility] Specific gravity of Urine by Test strip <=1.005 1.010 - 1.025 01/20/2019 [facility] Urine pH measurement by automated test strip 6.5 5 - 7 01/20/2019 [facility] Urine leukocyte esterase detection by automated test strip NEGATIVE NEGATIVE 01/20/2019 [facility] Urine nitrite detection by automated test strip POSITIVE NEGATIVE 01/20/2019 [facility] Urine protein detection by automated test strip NEGATIVE NEGATIVE 01/20/2019 [facility] Urine glucose detection by automated test strip NEGATIVE NEGATIVE 01/20/2019 [facility] Urine ketones detection by automated test strip NEGATIVE NEGATIVE 01/20/2019 [facility] Urine urobilinogen measurement by test strip (mass/volume) 0.2 0.2 - 1 01/20/2019 [facility] Urine total bilirubin detection NEGATIVE NEGATIVE 01/20/2019 [facility] Urine erythrocytes detection 1+ NEGATIVE 01/20/2019 [facility] Automated urine sediment leukocyte count by microscopy (number/high power field) 0-5 0 - 5 01/20/2019 [facility] Erythrocytes detection in urine sediment by light microscopy 0-5 0 - 5 01/20/2019 [facility] Bacteria detection in urine sediment by light microscopy MANY NONE 01/20/2019 [facility] Epithelial cells detection in urine sediment by light microscopy MANY NONE 01/20/2019 [facility] Automated blood basophil count (count/volume) Automated blood basophil count (count/volume) 0.1 0.0 - 0.1 02/18/2018 [facility] Automated blood basophil count as percentage of total leukocytes Automated blood basophil count as percentage of total leukocytes 0.8 0.0 - 1.0 02/18/2018 [facility] Automated blood eosinophil count Automated blood eosinophil count 0.3 0.0 - 0.4 02/18/2018 [facility] Automated blood eosinophil count as percentage of total leukocytes Automated blood eosinophil count as percentage of total leukocytes 2.9 0.0 - 6.0 02/18/2018 [facility] Automated blood hematocrit (volume fraction) Automated blood hematocrit (volume fraction) 41.8 34.2 - 44.1 02/18/2018 [facility] Automated blood lymphocyte count as percentage ot total leukocytes Automated blood lymphocyte count as percentage ot total leukocytes 34.2 18.0 - 39.1 02/18/2018 [facility] Automated blood monocyte count as percentage of total leukocytes Automated blood monocyte count as percentage of total leukocytes 6.4 4.4 - 11.3 02/18/2018 [facility] Automated blood neutrophil count Automated blood neutrophil count 5.7 2.1 - 6.9 02/18/2018 [facility] Automated blood platelet count (count/volume) Automated blood platelet count (count/volume) 330 140 - 360 02/18/2018 [facility] Automated blood segmented neutrophil count as percentage of total leukocytes Automated blood segmented neutrophil count as percentage of total leukocytes 55.4 38.7 - 80.0 02/18/2018 [facility] Automated erythrocyte mean corpuscular hemoglobin (mass per erythrocyte) Automated erythrocyte mean corpuscular hemoglobin (mass per erythrocyte) 27.6 28 - 32 02/18/2018 [facility] Automated erythrocyte mean corpuscular hemoglobin concentration measurement (mass/volume) Automated erythrocyte mean corpuscular hemoglobin concentration measurement (mass/volume) 32.1 31 - 35 02/18/2018 [facility] Automated erythrocyte mean corpuscular volume Automated erythrocyte mean corpuscular volume 86.2 81 - 99 02/18/2018 [facility] Blood erythrocytes automated count (number/volume) Blood erythrocytes automated count (number/volume) 4.85 3.6 - 5.1 02/18/2018 [facility] Blood hemoglobin measurement (moles/volume) Blood hemoglobin measurement (moles/volume) 13.4 12.0 - 16.0 02/18/2018 [facility] Blood leukocytes automated count (number/volume) Blood leukocytes automated count (number/volume) 10.31 4.8 - 10.8 02/18/2018 [facility] Blood lymphocytes count (number/volume) Blood lymphocytes count (number/volume) 3.5 1.0 - 3.2 02/18/2018 [facility] Blood monocytes automated count (number/volume) Blood monocytes automated count (number/volume) 0.7 0.2 - 0.8 02/18/2018 [facility] Estimated glomerular filtration rate (GFR) determination Estimated glomerular filtration rate (GFR) determination >60 60 02/18/2018 [facility] Glucose measurement Glucose measurement 100 74 - 118 02/18/2018 [facility] Plasma globulin measurement (mass/volume) Plasma globulin measurement (mass/volume) 3.9 2.3 - 3.5 02/18/2018 [facility] Serum or plasma alanine aminotransferase measurement (enzymatic activity/volume) Serum or plasma alanine aminotransferase measurement (enzymatic activity/volume) 27 0 - 55 02/18/2018 [facility] Serum or plasma albumin measurement (mass/volume) Serum or plasma albumin measurement (mass/volume) 3.9 3.5 - 5.0 02/18/2018 [facility] Serum or plasma albumin/globulin mass ratio Serum or plasma albumin/globulin mass ratio 1.0 0.8 - 2.0 02/18/2018 [facility] Serum or plasma alkaline phosphatase measurement (enzymatic activity/volume) Serum or plasma alkaline phosphatase measurement (enzymatic activity/volume) 74 40 - 150 02/18/2018 [facility] Serum or plasma anion gap Serum or plasma anion gap 15.2 8 - 16 02/18/2018 [facility] Serum or plasma calcium measurement (mass/volume) Serum or plasma calcium measurement (mass/volume) 9.8 8.4 - 10.2 02/18/2018 [facility] Serum or plasma carbon dioxide, total measurement (moles/volume) Serum or plasma carbon dioxide, total measurement (moles/volume) 25 22 - 29 02/18/2018 [facility] Serum or plasma chloride measurement (moles/volume) Serum or plasma chloride measurement (moles/volume) 105 98 - 107 02/18/2018 [facility] Serum or plasma creatinine measurement (mass/volume) Serum or plasma creatinine measurement (mass/volume) 0.72 0.57 - 1.11 02/18/2018 [facility] Serum or plasma potassium measurement (moles/volume) Serum or plasma potassium measurement (moles/volume) 4.2 3.5 - 5.1 02/18/2018 [facility] Serum or plasma protein measurement (mass/volume) Serum or plasma protein measurement (mass/volume) 7.8 6.5 - 8.1 02/18/2018 [facility] Serum or plasma sodium measurement (moles/volume) Serum or plasma sodium measurement (moles/volume) 141 136 - 145 02/18/2018 [facility] Serum or plasma total bilirubin measurement (mass/volume) Serum or plasma total bilirubin measurement (mass/volume) 0.6 0.2 - 1.2 02/18/2018 [facility] Serum or plasma urea nitrogen measurement (mass/volume) Serum or plasma urea nitrogen measurement (mass/volume) 7 7 - 26 02/18/2018 [facility] Serum or plasma urea nitrogen/creatinine mass ratio Serum or plasma urea nitrogen/creatinine mass ratio 10 6 - 25 02/18/2018 [facility] Red Cell Distribution Width 13.2 11.7 - 14.4 02/18/2018 [facility] IM GRANULOCYTES % 0.3 0.0 - 1.0 02/18/2018 [facility] Absolute Immature Granulocyte (auto 0.03 0 - 0.1 02/18/2018 [facility] Aspartate Amino Transf (AST/SGOT) 22 5 - 34 02/18/2018 [facility] Automated urine sediment leukocyte count by microscopy (number/high power field) Automated urine sediment leukocyte count by microscopy (number/high power field) <5 0 - 5 02/18/2018 [facility] Bacteria detection in urine sediment by light microscopy Bacteria detection in urine sediment by light microscopy MODERATE NONE 02/18/2018 [facility] Epithelial cells detection in urine sediment by light microscopy Epithelial cells detection in urine sediment by light microscopy MODERATE NONE 02/18/2018 [facility] Erythrocytes detection in urine sediment by light microscopy Erythrocytes detection in urine sediment by light microscopy <5 0 - 5 02/18/2018 [facility] Specific gravity of Urine by Test strip Specific gravity of Urine by Test strip 1.010 1.010 - 1.025 02/18/2018 [facility] Urine clarity Urine clarity HAZY CLEAR 02/18/2018 [facility] Urine color determination Urine color determination YELLOW YELLOW 02/18/2018 [facility] Urine erythrocytes detection Urine erythrocytes detection NEGATIVE NEGATIVE 02/18/2018 [facility] Urine glucose detection Urine glucose detection NEGATIVE NEGATIVE 02/18/2018 [facility] Urine ketones detection by automated test strip Urine ketones detection by automated test strip NEGATIVE NEGATIVE 02/18/2018 [facility] Urine leukocyte esterase detection by dipstick Urine leukocyte esterase detection by dipstick NEGATIVE NEGATIVE 02/18/2018 [facility] Urine nitrite detection Urine nitrite detection POSITIVE NEGATIVE 02/18/2018 [facility] Urine pH measurement by automated test strip Urine pH measurement by automated test strip 6.5 5 - 7 02/18/2018 [facility] Urine protein measurement by test strip (mass/volume) Urine protein measurement by test strip (mass/volume) NEGATIVE NEGATIVE 02/18/2018 [facility] Urine total bilirubin measurement (mass/volume) Urine total bilirubin measurement (mass/volume) NEGATIVE NEGATIVE 02/18/2018 [facility] Urine urobilinogen measurement by test strip (mass/volume) Urine urobilinogen measurement by test strip (mass/volume) 0.2 0.2 - 1 02/18/2018 [facility] CHEM PANEL eGFR 113 03/17/2017 Result Comment: [...] should be multiplied by the estimated BMI. [facility] PANEL POC Creatinine 0.6 0.5 - 1.4 03/17/2017 [facility] PANEL Alk Phos 79 39 - 136 12/03/2015 [facility] CHEM PANEL Bili Total 0.7 0.2 - 1.3 12/03/2015 [facility] PANEL Total Protein 6.6 6.4 - 8.4 12/03/2015 [facility] PANEL eGFR 110 12/03/2015 Result Comment: The [...] should be multiplied by the estimated BMI. [facility] CHEM PANEL AST 35 0 - 37 12/03/2015 [facility] CHEM PANEL Glucose Lvl 121 70 - 99 12/03/2015 [facility] CHEM PANEL CO2 31 24 - 32 12/03/2015 [facility] CHEM PANEL Albumin Lvl 3.3 3.5 - 5.0 12/03/2015 [facility] CHEM PANEL ALT 49 0 - 65 12/03/2015 [facility] CHEM PANEL BUN 6 7 - 22 12/03/2015 [facility] CHEM PANEL Creatinine Lvl 0.66 0.50 - 1.40 12/03/2015 [facility] CHEM PANEL Chloride Lvl 102 95 - 109 12/03/2015 [facility] CHEM PANEL Potassium Lvl 4.4 3.5 - 5.1 12/03/2015 [facility] CHEM PANEL Calcium Lvl 8.4 8.5 - 10.5 12/03/2015 [facility] CHEM PANEL Sodium Lvl 140 135 - 145 12/03/2015 [facility] CHEM PANEL A/G Ratio 1.0 0.7 - 1.6 12/03/2015 [facility] CHEM PANEL Globulin 3.3 2.0 - 4.0 12/03/2015 [facility] CHEM PANEL AGAP 11.4 10.0 - 20.0 12/03/2015 [facility] CHEM PANEL B/C Ratio 9 6 - 25 12/03/2015 [facility] HEMATOLOGY Basophils # 0.0 0.0 - 0.2 12/03/2015 [facility] HEMATOLOGY Eosinophils # 0.0 0.0 - 0.5 12/03/2015 [facility] HEMATOLOGY Monocytes # 0.9 0.0 - 0.8 12/03/2015 [facility] HEMATOLOGY Basophils 0.2 0.0 - 1.0 12/03/2015 [facility] HEMATOLOGY Monocytes 7.3 2.0 - 12.0 12/03/2015 [facility] HEMATOLOGY Lymphocytes 17.0 20.0 - 40.0 12/03/2015 [facility] HEMATOLOGY Segs 75.5 45.0 - 75.0 12/03/2015 [facility] HEMATOLOGY Eosinophils 0.0 0.0 - 4.0 12/03/2015 [facility] HEMATOLOGY Lymphocytes # 2.1 1.0 - 5.5 12/03/2015 [facility] HEMATOLOGY Segs-Bands # 9.3 1.5 - 8.1 12/03/2015 [facility] HEMATOLOGY RBC 4.14 4.20 - 5.40 12/03/2015 [facility] HEMATOLOGY WBC 12.4 3.7 - 10.4 12/03/2015 [facility] HEMATOLOGY Hgb 11.5 12.0 - 16.0 12/03/2015 [facility] HEMATOLOGY Platelet 297 133 - 450 12/03/2015 [facility] HEMATOLOGY MPV 8.8 7.4 - 10.4 12/03/2015 [facility] HEMATOLOGY RDW 13.1 11.5 - 14.5 12/03/2015 [facility] HEMATOLOGY MCHC 32.3 32.0 - 36.0 12/03/2015 [facility] HEMATOLOGY MCH 27.8 27.0 - 31.0 12/03/2015 [facility] HEMATOLOGY MCV 86.1 80.0 - 98.0 12/03/2015 [facility] HEMATOLOGY Hct 35.7 36.0 - 48.0 12/03/2015 [facility] SPECIAL CHEMISTRY Hgb A1C 5.8 <=5.6 % 12/03/2015 [facility] CHEM PANEL Calcium Lvl 8.5 8.5 - 10.5 11/27/2014 [facility] CHEM PANEL Albumin Lvl 3.3 3.5 - 5.0 11/27/2014 [facility] CHEM PANEL CO2 26 24 - 32 11/27/2014 [facility] CHEM PANEL Glucose Lvl 93 70 - 99 11/27/2014 <sup>4</sup>Interpretive Data: Adult reference range values reflect the clinical guidelines
of the [place] [employer]. [facility] CHEM PANEL BUN 6 7 - 22 11/27/2014 [facility] CHEM PANEL ALT 73 0 - 65 11/27/2014 [facility] CHEM PANEL AST 73 0 - 37 11/27/2014 [facility] CHEM PANEL Alk Phos 112 39 - 136 11/27/2014 [facility] CHEM PANEL Bili Total 1.2 0.2 - 1.3 11/27/2014 [facility] CHEM PANEL A/G Ratio 0.9 0.7 - 1.6 11/27/2014 [facility] CHEM PANEL Globulin 3.5 2.0 - 4.0 11/27/2014 [facility] CHEM PANEL Total Protein 6.8 6.4 - 8.4 11/27/2014 [facility] CHEM PANEL eGFR 93 11/27/2014 <sup>1</sup>Result Comment: [...] should be multiplied by the estimated BMI. [facility] CHEM PANEL Sodium Lvl 140 135 - 145 11/27/2014 [facility] CHEM PANEL Creatinine Lvl 0.8 0.5 - 1.4 11/27/2014 [facility] CHEM PANEL Chloride Lvl 104 95 - 109 11/27/2014 [facility] CHEM PANEL Potassium Lvl 4.0 3.5 - 5.1 11/27/2014 [facility] CHEM PANEL AGAP 14.0 10.0 - 20.0 11/27/2014 [facility] CHEM PANEL B/C Ratio 8 6 - 25 11/27/2014 [facility] HEMATOLOGY RBC 4.15 4.20 - 5.40 11/27/2014 [facility] HEMATOLOGY Hgb 11.2 12.0 - 16.0 11/27/2014 [facility] HEMATOLOGY WBC 9.4 3.7 - 10.4 11/27/2014 [facility] HEMATOLOGY MPV 9.2 7.4 - 10.4 11/27/2014 [facility] HEMATOLOGY Platelet 267 133 - 450 11/27/2014 [facility] HEMATOLOGY RDW 15.1 11.5 - 14.5 11/27/2014 [facility] HEMATOLOGY MCHC 32.2 32.0 - 36.0 11/27/2014 [facility] HEMATOLOGY MCV 83.6 80.0 - 98.0 11/27/2014 [facility] HEMATOLOGY MCH 26.9 27.0 - 31.0 11/27/2014 [facility] HEMATOLOGY Hct 34.7 36.0 - 48.0 11/27/2014 [facility] HEMATOLOGY Basophils # 0.1 0.0 - 0.2 11/27/2014 [facility] HEMATOLOGY Eosinophils # 0.1 0.0 - 0.5 11/27/2014 [facility] HEMATOLOGY Monocytes # 0.7 0.0 - 0.8 11/27/2014 [facility] HEMATOLOGY Segs 57.3 45.0 - 75.0 11/27/2014 [facility] HEMATOLOGY Lymphocytes # 3.1 1.0 - 5.5 11/27/2014 [facility] HEMATOLOGY Eosinophils 1.4 0.0 - 4.0 11/27/2014 [facility] HEMATOLOGY Monocytes 7.7 2.0 - 12.0 11/27/2014 [facility] HEMATOLOGY Basophils 0.6 0.0 - 1.0 11/27/2014 [facility] HEMATOLOGY Segs-Bands # 5.4 1.5 - 8.1 11/27/2014 [facility] HEMATOLOGY Lymphocytes 33.0 20.0 - 40.0 11/27/2014 [facility] CHEM PANEL Globulin 3.8 2.0 - 4.0 11/26/2014 [facility] CHEM PANEL A/G Ratio 0.9 0.7 - 1.6 11/26/2014 [facility] CHEM PANEL AGAP 11.8 10.0 - 20.0 11/26/2014 [facility] CHEM PANEL B/C Ratio 9 6 - 25 11/26/2014 [facility] CHEM PANEL Bili Total 0.7 0.2 - 1.3 11/26/2014 [facility] CHEM PANEL ALT 82 0 - 65 11/26/2014 [facility] CHEM PANEL AST 47 0 - 37 11/26/2014 [facility] CHEM PANEL Alk Phos 104 39 - 136 11/26/2014 [facility] CHEM PANEL Total Protein 7.3 6.4 - 8.4 11/26/2014 [facility] CHEM PANEL Creatinine Lvl 0.8 0.5 - 1.4 11/26/2014 [facility] CHEM PANEL Sodium Lvl 138 135 - 145 11/26/2014 [facility] CHEM PANEL Potassium Lvl 4.8 3.5 - 5.1 11/26/2014 [facility] CHEM PANEL Chloride Lvl 103 95 - 109 11/26/2014 [facility] CHEM PANEL eGFR 93 11/26/2014 <sup>2</sup>Result Comment: [...] should be multiplied by the estimated BMI. [facility] CHEM PANEL Calcium Lvl 8.5 8.5 - 10.5 11/26/2014 [facility] CHEM PANEL Albumin Lvl 3.5 3.5 - 5.0 11/26/2014 [facility] CHEM PANEL BUN 7 7 - 22 11/26/2014 [facility] CHEM PANEL Glucose Lvl 99 70 - 99 11/26/2014 <sup>5</sup>Interpretive Data: Adult reference range values reflect the clinical guidelines
of the [place] [employer]. [facility] CHEM PANEL CO2 28 24 - 32 11/26/2014 [facility] HEMATOLOGY MCV 84.1 80.0 - 98.0 11/26/2014 [facility] HEMATOLOGY MCH 27.0 27.0 - 31.0 11/26/2014 [facility] HEMATOLOGY MCHC 32.1 32.0 - 36.0 11/26/2014 [facility] HEMATOLOGY RDW 15.5 11.5 - 14.5 11/26/2014 [facility] HEMATOLOGY RBC 4.46 4.20 - 5.40 11/26/2014 [facility] HEMATOLOGY Hgb 12.0 12.0 - 16.0 11/26/2014 [facility] HEMATOLOGY WBC 12.8 3.7 - 10.4 11/26/2014 [facility] HEMATOLOGY Platelet 313 133 - 450 11/26/2014 [facility] HEMATOLOGY MPV 8.9 7.4 - 10.4 11/26/2014 [facility] HEMATOLOGY Hct 37.5 36.0 - 48.0 11/26/2014 [facility] HEMATOLOGY Monocytes # 0.7 0.0 - 0.8 11/26/2014 [facility] HEMATOLOGY Eosinophils # 0.0 0.0 - 0.5 11/26/2014 [facility] HEMATOLOGY Eosinophils 0.1 0.0 - 4.0 11/26/2014 [facility] HEMATOLOGY Monocytes 5.4 2.0 - 12.0 11/26/2014 [facility] HEMATOLOGY Basophils 0.3 0.0 - 1.0 11/26/2014 [facility] HEMATOLOGY Plt Morph Normal (11/26/14 3:36 AM) 11/26/[address] [facility] RBC Morph Normal (11/26/14 3:36 AM) 11/26/2014 [facility] HEMATOLOGY Lymphocytes 13.0 20.0 - 40.0 11/26/2014 [facility] HEMATOLOGY Segs 81.2 45.0 - 75.0 11/26/2014 [facility] HEMATOLOGY Segs-Bands # 10.4 1.5 - 8.1 11/26/2014 [facility] HEMATOLOGY Lymphocytes # 1.7 1.0 - 5.5 11/26/2014 [facility] BLOOD BANK RESULTS Antibody Scrn Negative (11/25/14 12:05 PM) 11/25/2014 [facility] BLOOD BANK RESULTS ABO/Rh O POS 11/25/2014 [facility] CHEM PANEL Vitamin D, 25-OH, Total 28 30 - 100 11/14/2014 <sup>7</sup>Interpretive Data: Reference range is based on recommendations in the Endocrine
Society Clinical Practice Guideline (J Clin Endocrinol Metab
2010;96:7956-6012) [facility] CHEM PANEL eGFR 93 11/14/2014 <sup>3</sup>Result Comment: [...] should be multiplied by the estimated BMI. [facility] CHEM PANEL Creatinine Lvl 0.8 0.5 - 1.4 11/14/2014 [facility] CHEM PANEL BUN 12 7 - 22 11/14/2014 [facility] CHEM PANEL Glucose Lvl 98 70 - 99 11/14/2014 <sup>6</sup>Interpretive Data: Adult reference range values reflect the clinical guidelines
of the [place] [employer]. [facility] ELECTROLYTES Sodium Lvl 136 135 - 145 11/14/2014 [facility] ELECTROLYTES Potassium Lvl 4.0 3.5 - 5.1 11/14/2014 [facility] HEMATOLOGY Hct 40.4 36.0 - 48.0 11/14/2014 [facility] HEMATOLOGY Hgb 12.9 12.0 - 16.0 11/14/2014 [facility] PARATHYROID PROFILE PTH Intact 42.8 11.1 - 79.5 11/14/2014 [facility] SPECIAL CHEMISTRY Hgb A1C 6.3 <=5.6 % 11/14/2014 [facility] CHEM PANEL eGFR 93 10/03/2014 <sup>1</sup>Result Comment: [...] should be multiplied by the estimated BMI. [facility] CHEM PANEL Chloride Lvl 103 95 - 109 10/03/2014 [facility] CHEM PANEL Potassium Lvl 4.0 3.5 - 5.1 10/03/2014 [facility] CHEM PANEL CO2 29 24 - 32 10/03/2014 [facility] CHEM PANEL AGAP 10.0 10.0 - 20.0 10/03/2014 [facility] CHEM PANEL Calcium Lvl 9.2 8.5 - 10.5 10/03/2014 [facility] CHEM PANEL Creatinine Lvl 0.8 0.5 - 1.4 10/03/2014 [facility] CHEM PANEL BUN 15 7 - 22 10/03/2014 [facility] CHEM PANEL Sodium Lvl 138 135 - 145 10/03/2014 [facility] CHEM PANEL Glucose Lvl 108 70 - 99 10/03/2014 <sup>2</sup>Interpretive Data: Adult reference range values reflect the clinical guidelines
of the [place] [employer]. [facility] Pathology Reports No Data Provided for This [...] the left. 4. Shallow/dysplastic left trochlea 12/19/2018 [facility] Liver US EXAM: US LIVER DATE: 12/05/2018 [...] hepatic steatosis. 2. Status post cholecystectomy. 12/05/2018 [facility] contrast MRI EXAMINATION: MRI of the left [...] without medial or lateral compartment chondrosis. 11/16/2018 [facility] Villagomez Tibia fibula series DX Left tibia-fibula 2 views: HISTORY: Leg sprain, thrombophlebitis. FINDINGS: No bone, joint or soft tissue abnormality SL: [facility] 04/05/2018 [facility] Ext Lower Venous Doppler Bilat US PROCEDURE: [...] unremarkable. IMPRESSION: No deep venous thrombosis. SL: [facility] 04/05/2018 [facility] Shoulder series DX HISTORY: - M19.012 Primary [...] is clear. IMPRESSION: No acute osseous injury. [id number] 11/10/2017 [facility] Villag[facility] Breast Mammo Scrn [...] is recommended.(10/04/2018) This exam was interpreted at [id number] for ISIDRO Del Real 15. Professional services are provided by the [facility] M.D. [facility] Division of Diagnostic Imaging. Warner Pavon M.D. cm/penrad:10/04/2017 11:02:50 [employer] Instructor(s): RT Steve(R)(M), [facility] letter sent: BI-RADS 1/2 Mammogram BI-RADS: 2 Benign 10/03/2017 [facility] Villag[facility] Knee wo contrast MRI EXAMINATION: MRI [...] facet. 2. Mild proximal patellar tendinosis. 09/22/2017 [facility] Villag[facility] Chest 2 views DX EXAM: Chest 2 views DX HISTORY: - R07.2 Precordial pain COMPARISON: 12/02/2015 The heart size is normal and the lungs are clear. There is no pleural effusion or pneumothorax. No acute skeletal abnormality. IMPRESSION: No acute abnormality. 09/05/2017 [facility] Ankle wo contrast MRI EXAMINATION: MR [...] subtalar, and talonavicular joints, likely physiologic. 08/18/2017 [facility] Abdomen AP DX HISTORY: - N39.0 Urinary [...] injury. IMPRESSION: No radiographic evidence of urolithiasis. [id number] 08/15/2017 [facility] [place] Retroperitoneal Complete US Patient Name: CHARLENE VASQUEZ : 1975; Age: 41 years y/o Female MR: [id number] Study: Retroperitoneal Complete US Clinical Indication: N39.0 [...] significant renal abnormality is otherwise demonstrated. SL: [id number] 04/27/2017 [facility] Pelvis Complete US Patient Name: CHARLENE VASQUEZ : 1975; Age: 41 years y/o Female MR: [id number] Study: Pelvis Complete US 04/27/2017 10:36 AM [...] without other mass or lesion appreciated. SL: [id number] 04/27/2017 [facility] Spine lumbar w/wo contrast MRI MRI LUMBAR [...] negative study. No abnormal postcontrast enhancement. SL: [id number] 03/17/2017 [facility] Hip 2/3 views uni DX Exam: Right [...] 1. No acute bony abnormalities identified. [facility] [place] Chest 1view DX EXAM: AP CHEST X-RAY [...] atelectasis. Otherwise no acute intrathoracic abnormality. 12/02/2015 [facility] Chest 2 views DX CHEST PA AND LATERAL History: 39 year female with shortness of breath Comparison: 11/14/2014 Findings: The lungs are expanded and no infiltrate, mass or pleural effusion seen. The cardiomediastinal structures are within normal limits. Osseous structures are unremarkable. IMPRESSION: There is no active cardio pulmonary abnormality. Stable chest x-ray. 07/10/2015 [facility] [place] Spine cervical 2 or 3 view DX [...] spondylolisthesis. Mild scattered degenerative disc disease. 03/03/2015 [facility] Foot 2 views bilateral DX EXAM: Foot 2 Views Bilateral HISTORY: pain COMPARISON: None FINDINGS: No displaced fracture or subluxation is seen involving the bilateral feet. No significant degenerative change. There is no evidence of soft tissue swelling. IMPRESSION: No radiographic abnormality appreciated. 03/03/2015 [facility] Knee 1-2 Views Bilateral DX EXAMINATION: Bilateral [...] fracture or substantial joint space narrowing. 02/26/2015 [facility] [place] Spine thoracic 3 views DX EXAMINATION: Thoracic [...] the mid to lower thoracic spine. 02/26/2015 [facility] [place] Spine lumbar 2 or 3 views DX [...] through L4-L5 degenerative disc disease. 02/26/2015 [facility] Upper GI Series w water soluble DX OMNIPAQUE UPPER GI SERIES 11/26/2014 The fluoroscopy time is 5 seconds. Small volume of Omnipaque given orally passed easily from the distal esophagus into the gastric tube and duodenum. No contrast extravasation or obstruction is seen. Impression: 1. No contrast extravasation or obstruction identified. 11/26/2014 [facility] Chest 2 views DX Chest x-ray 2 views INDICATION: Coughing COMPARISON: 12/21/2011 FINDINGS: Heart size and central vasculature are within normal limits. There is no effusion or focal pneumonia. No pneumothorax. No acute osseous pathology. IMPRESSION: No acute cardiopulmonary process. 11/14/2014 [facility] Consultation Notes No Data Provided for This Section Discharge Summaries No Data Provided for This Section History and Physicals No Data Provided for This Section Vital Signs Vital Sign Value Date Comments Source Respitory Rate 10 12/03/2015 [facility] Systolic (mm Hg) 83 12/03/2015 [facility] Diastolic (mm Hg) 38 12/03/2015 [facility] Respitory Rate 20 12/03/2015 [facility] Systolic (mm Hg) 112 12/03/2015 [facility] Diastolic (mm Hg) 61 12/03/2015 [facility] Respitory Rate 11 12/03/2015 [facility] Temperature Oral (F) 97.8 F 12/03/2015 [facility] Systolic (mm Hg) 109 12/03/2015 [facility] Diastolic (mm Hg) 48 12/03/2015 [facility] Temperature Oral (F) 98 F 12/03/2015 [facility] Temperature Oral (F) 98.3 F 12/03/2015 [facility] Weight 157.2 12/02/2015 [facility] Heart Rate 75 12/02/2015 [facility] Weight 154.091 12/01/2015 [facility] BMI Calculated 53.21 12/01/2015 [facility] Height 170.18 cm 12/01/2015 [facility] Heart Rate 88 11/27/2014 [facility] Respitory Rate 19 11/27/2014 [facility] Systolic (mm Hg) 114 11/27/2014 [facility] Diastolic (mm Hg) 72 11/27/2014 [facility] Temperature Oral (F) 98.0 F 11/27/2014 [facility] Respitory Rate 19 11/27/2014 [facility] Systolic (mm Hg) 115 11/27/2014 [facility] Diastolic (mm Hg) 74 11/27/2014 [facility] Temperature Oral (F) 98.3 F 11/27/2014 [facility] Heart Rate 95 11/27/2014 [facility] Temperature Oral (F) 98.4 F 11/27/2014 [facility] Respitory Rate 18 11/27/2014 [facility] Systolic (mm Hg) 111 11/27/2014 [facility] Diastolic (mm Hg) 71 11/27/2014 [facility] Heart Rate 93 11/27/2014 [facility] BMI Calculated 73.63 11/14/2014 [facility] Weight 210.057 11/14/2014 [facility] Height 168.91 cm 11/14/2014 [facility] Respitory Rate 20 10/09/2014 [facility] Systolic (mm Hg) 123 10/09/2014 [facility] Diastolic (mm Hg) 71 10/09/2014 [facility] Respitory Rate 12 10/09/2014 [facility] Systolic (mm Hg) 106 10/09/2014 [facility] Diastolic (mm Hg) 62 10/09/2014 [facility] Systolic (mm Hg) 117 10/09/2014 [facility] Diastolic (mm Hg) 75 10/09/2014 [facility] Heart Rate 87 10/09/2014 [facility] Respitory Rate 20 10/09/2014 [facility] Heart Rate 90 10/03/2014 [facility] Temperature Oral (F) 98.6 F 10/03/2014 [facility] Weight 215.909 10/03/2014 [facility] BMI Calculated 76.83 10/03/2014 [facility] Height 167.64 [...] 05/13/2011 [facility] Diastolic (mm Hg) 54.0 05/13/2011 [facility] Heart Rate 89.0 05/13/2011 [facility] Respitory Rate 18.0 05/13/2011 [facility] Systolic (mm Hg) 108.0 05/13/2011 [facility] Diastolic (mm Hg) 56.0 05/13/2011 [facility] Heart Rate 95.0 05/13/2011 [facility] Temperature Oral (F) 98.2 F 05/11/2011 [facility] Height 167.64 cm 05/11/2011 [facility] Weight 211.364 05/11/2011 [facility] Encounters Location Location Details Encounter Type Encounter Number Reason For Visit Attending Provider ADM Date DC Date Status Source [facility] AIDE [id number] DARA FALCON 05/13/2011 05/13/2011 Discharged [facility] [place] [id number] MORBID OBESITY JASMIN JUVENTINO 06/08/2011 Active [facility] [place] [id number] MORBID OESITY JASMIN JUVENTINO 07/13/2011 Active [facility] Outpatient [id number] MORBID OBESITY JASMIN JUVENTINO 10/16/2011 Active [facility] Outpatient [id number] DX: CHEST PAIN ISAIAH LEMONS 10/20/2011 Active [facility] Outpatient [id number] 401.1 ISAIAH LEMONS 11/02/2011 Active [facility] Outpatient [id number] CPAP JASMIN JAUREGUI 11/04/2011 Active [facility] [place] [id number] MORBID OBESITY JASMIN JUVENTINO 12/21/2011 Active [facility] Outpatient [id number] [id number] LESIAYECENIA NELSON 12/21/2011 Active [facility] Outpatient [id number] Nanette Covington 10/09/2014 10/09/2014 [facility] Inpatient [id number] Sacha Tre 11/25/2014 11/27/2014 [facility] [place] [facility] [id number] Dillan Mushtaq 02/26/2015 02/27/2015 [facility] [place] [facility] [id number] Dillan Mushtaq 03/03/2015 03/04/2015 [facility] [place] [facility] [id number] Lesia Nelson 07/10/2015 07/11/2015 [facility] Inpatient [id number] Sacha Tre 12/02/2015 12/03/2015 [facility] [place] [facility] [id number] Isacc Chacon 01/18/2016 01/19/2016 [facility] Outpatient [id number] Isacc Chacon 03/17/2017 03/18/2017 [facility] Outpatient [id number] Isacc Chacon 04/27/2017 04/28/2017 [facility] [place] [facility] [id number] Frank Cuza 08/18/2017 08/19/2017 [facility] [place] [facility] [place] [facility] [id number] Isacc Chacon 09/05/2017 09/06/2017 [facility] [place] [facility] [id number] Isacc Chacon 09/22/2017 09/23/2017 [facility] [place] [facility] [id number] Paulette Cross 10/03/2017 10/04/2017 [facility] [place] [facility] [place] [facility] [id number] Isacc Chacon 11/10/2017 11/11/2017 [facility] [place] Departed Emergency Room [id number] YANG IBANEZ MD 02/18/2018 02/18/2018 [facility] Departed Emergency Room [id number] RON CARVAJAL MD 03/23/2018 03/24/2018 [facility] [place] [facility] [id number] Isacc Chacon 04/03/2018 04/03/2018 [facility] [place] [facility] Outpatient [id number] Isacc Chacon 04/05/2018 04/06/2018 [facility] [place] [facility] [id number] Chun Bender 11/16/2018 11/17/2018 [facility] [place] [facility] [place] Out[facility] Di[facility] [id number] Alberto Franz 12/05/2018 12/06/2018 [facility] [place] Out[facility] Diag Services [id number] Johnny Nieto 12/19/2018 12/20/2018 [facility] Outpatient [id number] Bernardino Marrero 01/02/2019 01/03/2019 [facility] Departed Emergency Room [id number] MARIAA SHAH MD 01/12/2019 01/12/2019 [facility] Departed Emergency Room [id number] BISHOP TOMAS MD 01/13/2019 01/13/2019 [facility] Departed Emergency Room [id number] RONAK HOANG MD 01/20/2019 01/20/2019 [facility] Outpatient [id number] DX: CHEST PAIN DR. GIVENS WILL BE HERE PER ADORE [place] [facility] Outpatient [id number] DX: 786.05 DR LEMONS WILL DO/READ PER JESSICA MARES REDDYMARY KATE ANTONIOEL [facility] Procedures Procedure Code Date Perfomer Comments Source Ultrasound examination of pelvis, limited or follow-up [id number] 01/20/2019 [facility] US Abdomen limited [id number] 01/20/2019 [facility] Computed tomography of abdomen and pelvis with contrast [id number] 02/18/2018 [facility] Laparoscopic cholecystectomy [id number] 12/02/2015 [facility] Laparoscopic cholecystectomy [id number] 12/02/2015 [facility] [place] Laparoscopic cholecystectomy [id number] 12/02/2015 [facility] Laparoscopic cholecystectomy [id number] 12/02/2015 [facility] Laparoscopic cholecystectomy [id number] 12/02/2015 [facility] Laparoscopic cholecystectomy [id number] 12/02/2015 [facility] [place] Laparoscopic sleeve gastrectomy [id number] 11/25/2014 [facility] [place] Laparoscopy [id number] 11/25/2014 [facility] [place] Lysis of adhesions of abdomen [id number] 11/25/2014 [facility] [place] Laparoscopic sleeve gastrectomy [id number] 11/25/2014 [facility] Laparoscopy [id number] 11/25/2014 [facility] Lysis of adhesions of abdomen [id number] 11/25/2014 [facility] Laparoscopic sleeve gastrectomy [id number] 11/25/2014 [facility] [place] Laparoscopy [id number] 11/25/2014 [facility] [place] Lysis of adhesions of abdomen [id number] 11/25/2014 [facility] [place] Laparoscopic sleeve gastrectomy [id number] 11/25/2014 [facility] Laparoscopy [id number] 11/25/2014 [place] Lysis of adhesions of abdomen [id number] 11/25/2014 [place] Laparoscopic sleeve gastrectomy [id number] 11/25/2014 [facility] [place] Laparoscopy [id number] 11/25/2014 [facility] [place] Lysis of adhesions of abdomen [id number] 11/25/2014 [facility] [place] Laparoscopic sleeve gastrectomy [id number] 11/25/2014 [facility] [place] Laparoscopy [id number] 11/25/2014 [facility] [place] Lysis of adhesions of abdomen [id number] 11/25/2014 [facility] [place] Hysterectomy [id number] [facility] [place] Operation [id number] [facility] [place] Sebaceous cyst removal [id number] [facility] [place] Tonsillectomy [id number] [facility] [place] Hysterectomy [id number] [facility] [id number] [facility] Sebaceous cyst removal [id number] [place] Tonsillectomy [id number] [place] Hysterectomy [id number] [facility] Operation [id number] [facility] Sebaceous cyst removal [id number] [facility] Tonsillectomy [id number] [facility] Hysterectomy [id number] [facility] [place] Operation [id number] [facility] [place] Sebaceous cyst removal [id number] [facility] [place] Tonsillectomy [id number] [facility] [place] Hysterectomy [id number] [facility] [place] Operation [id number] [facility] [place] Sebaceous cyst removal [id number] [facility] Tonsillectomy [id number] [facility] [place] Hysterectomy [id number] [facility] [place] Operation [id number] [facility] [place] Sebaceous cyst removal [id number] [facility] [place] Tonsillectomy [id number] [facility] [place] Assessment and Plan Assessment and Plan Date Source Extracted from:Title: Surgery Note Author: Ayla Queen (Fellow) Date: 12/03/15 Progress Daily [facility] Completed: November, 01:53 by Ayla Queen (Fellow) RM: 319 - 00, J3EC CHARLENE VASQUEZ 40y (: 1975) F Attending: Sacha Toledo MD Service: General Surgery Service Reason for Admission: 59285, K81.9, CHOLELITHIASIS Working DRG: Cholecystectomy except by [...] status: None Specified=FULL CODE Reason for Admission: 89597, K81.9, CHOLELITHIASIS Working DRG: None Documented Isolation: None Documented Consulting Physicians: Rupesh Vázquez MD Office: (not on file) MSO: [id number] Service: Medicine Sacha Toledo MD Office: MSO: [id number] Service: General Surgery Reason for Consult: s/p [...] surgical site. ( 10/31). She' s on DOWEL POINTER morphine. ROS All Systems were reviewed and [...] day and continuous at night Continue Morphine DOWEL POINTER for pain control Recommend continuous End-tidal CO2 monitoring while on DOWEL POINTER pump due to high risk for development of respiratory compromise check HbA1C Critical care time 45 minutes excluding procedure time 12/03/2015 [facility] Extracted from:Title: Clinical Document Author: Sacha Toledo MD Date: 11/27/14 Doing well. VS stable. Chest clear. Abdomen soft. Tolerating diet. 11/27/2014 [facility] Plan of Care Plan of Care Date Source Discharge Date 01/20/19 6:38am Disposition HOME, SELF-CARE Condition at Discharge Stable Instructions/Education Provided Abdominal Pain - Adult Urinary Tract Infection - Women Forms Provided Work/School Excuse Prescriptions See Medication Section Referrals CHILO ENCINAS MD Address: [address] [place] [address] Additional Instructions/Education Please f/u with the urologist provided 01/20/2019 [facility] Discharge Date 03/24/18 12:34am Disposition HOME, SELF-CARE Condition at Discharge Stable Instructions/Education Provided Sprains- Knee Prescriptions See Medication Section Referrals ISACC CHACON MD Address: [address] [place] [address] Additional Instructions/Education REST; FOLLOW UP WITH YOUR PCP 03/24/2018 [facility] Social History Social History Date Source Smoking Status Start Date Stop Date Never Smoker 01/20/2019 [facility] Social History TypeResponse Alcohol Never, Previous treatment: [...] Cessation Counseling Yes entered on: 12/01/15 12/02/2015 [facility] Social History TypeResponse Alcohol Never, Previous treatment: None. Alcohol use interferes with work or home: No. Drinks more than intended: No. Others hurt by drinking: No. Ready to change: No. Household alcohol concerns: No. Smoking Status Former smoker; Exposure to Tobacco Smoke None; Cigarette Smoking Last 365 Days No; Reg Smoking Cessation Counseling Yes 12/02/2015 [facility] Social History TypeResponse Alcohol Never, Previous treatment: None. Alcohol use interferes with work or home: No. Drinks more than intended: No. Others hurt by drinking: No. Ready to change: No. Household alcohol concerns: No. Smoking Status Former smoker; Exposure to Tobacco Smoke None; Cigarette Smoking Last 365 Days No; Reg Smoking Cessation Counseling Yes entered on: 12/01/15 12/02/2015 [facility] Social History TypeResponse Alcohol Never, Previous treatment: None. Alcohol use interferes with work or home: No. Drinks more than intended: No. Others hurt by drinking: No. Ready to change: No. Household alcohol concerns: No. Smoking Status Former smoker; Exposure to Tobacco Smoke None; Cigarette Smoking Last 365 Days No; Reg Smoking Cessation Counseling Yes entered on: 12/01/15 12/02/2015 [facility] Social History TypeResponse Alcohol Never, Previous treatment: None. Alcohol use interferes with work or home: No. Drinks more than intended: No. Others hurt by drinking: No. Ready to change: No. Household alcohol concerns: No. Smoking Status Former smoker; Exposure to Tobacco Smoke None; Cigarette Smoking Last 365 Days No; Reg Smoking Cessation Counseling Yes entered on: 12/01/15 12/02/2015 [facility] [place] Family History No Data Provided for This Section Advance Directives Order Name Results Value Date Source Advance Directives Advance Directives Directive Response Recorded Date/Time Does the patient have an advance directive? No 07/10/12 3:34pm Do you have a Directive to Physician? No 01/20/19 3:14am Do you have a Medical Power of Patient Financial Services Specialist? No 01/20/19 3:14am Do you have an out of hospital Do Not Resuscitate Order? No 01/20/19 3:14am Do you have any special needs we should be aware of? No 01/20/19 3:14am Do you have a support person here with you today? No 01/20/19 3:14am Did patient receive Notice of Privacy Practices? Yes 01/20/19 3:14am Did patient receive patient rights and responsibilities? Yes 01/20/19 3:14am 01/20/2019 [facility] Advance Directives Advance Directives Directive Response Recorded Date/Time Does the patient have an advance directive? No 07/10/12 3:34pm If yes, is advance directive on file with [facility]? No 07/10/12 3:34pm If not on file with [facility] will patient provide a copy? Yes 03/15/17 8:45pm 03/24/2018 [facility] Functional Status No Data Provided for This Section
[2019-01-27 02:59] LABS: BILIRUBIN,URINE NEGATIVE (NEGATIVE); CLARITY,URINE CLEAR (CLEAR); COLOR,URINE YELLOW (YELLOW); KETONES,URINE NEGATIVE (NEGATIVE); LEUKOCYTE ESTERASE ,URINE NEGATIVE (NEGATIVE); NITRITE,URINE NEGATIVE (NEGATIVE); PROTEIN,URINE DIPSTICK NEGATIVE (NEGATIVE); URINE UROBILINOGEN 0.2 mg/dL (0.2 - 1)
[2019-01-27 03:10] LABS: BACTERIA,URINE FEW /HPF; EPITHELIAL CELLS,URINE FEW /LPF; RBC,URINE 0-5 /HPF (0-5); WBC,URINE (MAN) 0-5 /HPF (0-5)
[2019-01-27 03:17] VITALS: BP 99/75
== END 2019-01-27 03:24 | disposition home or self-care (01) ==
LOC: ER 02:20
DX: R30.0 Dysuria (principal); I10 Essential (primary) hypertension; E11.9 Type 2 diabetes mellitus without complications; K21.9 Gastro-esophageal reflux disease without esophagitis; F41.9 Anxiety disorder, unspecified; J45.909 Unspecified asthma, uncomplicated
CPT/HCPCS: 81001; 99282

== ENCOUNTER 2019-04-15 19:33 | Emergency (ER) | payer MEDICARE ==
[~2019-04-15] VITALS: Ht 170.2 cm; Wt 165.6 kg
--- OUTSIDE RECORDS SUMMARY | 2019-04-15 19:37 | XMS REPORT | Clinical Summary ---
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 Active Problems Not on file Encounters Care Team Description Date Type Specialty Lenny Golden MD Sore throat (Primary Dx) 02/05/2019 Emergency Emergency Medicine - 02/06/2019 after 04/14/2018 Social History Date Tobacco Use Types Packs/Day Years Used Never Assessed Sex Assigned at Date Recorded Not on file Industry Job Start Date Occupation Not on file Not on file Not on file Travel End Travel History Travel Start No recent travel history available. Last Filed Vital Signs Reading Time Taken Comments Vital Sign 108/68 02/06/2019 2:43 AM CDT Blood Pressure 66 02/06/2019 2:43 AM CDT Pulse 35.9 C (96.7 F) 02/06/2019 2:43 AM CDT Temperature 20 02/06/2019 2:43 AM CDT Respiratory Rate 98% 02/06/2019 2:43 AM CDT Oxygen Saturation - - Inhaled Oxygen Concentration 125 kg (275 lb) 02/05/2019 10:35 PM CDT Weight 170.2 cm (5' 7") 02/05/2019 10:35 PM CDT Height 43.07 02/05/2019 10:35 PM CDT Body Mass Index Plan of Treatment Health Maintenance Due Date Last Done Comments CERVICAL CANCER SCREENING 1995 INFLUENZA VACCINE 02/21/2019 Procedures Comments Procedure Name Priority Date/Time Associated Diagnosis CT SOFT TISSUE NECK W STAT 02/06/2019 CONTRAST 1:27 AM CDT ESTIMATED GFR STAT 02/06/2019 12:15 AM CDT BASIC METABOLIC PANEL STAT 02/06/2019 12:15 AM CDT HC COMPLETE BLD COUNT STAT 02/06/2019 W/AUTO DIFF 12:15 AM CDT STREP SCREEN CULTURE STAT 02/05/2019 11:45 PM CDT GROUP A STREP, RAPID Routine 02/05/2019 ANTIGEN 11:45 PM CDT after 04/14/2018 Results * CT Soft Tissue Neck W Contrast (02/06/2019 1:27 AM CDT) Specimen Narrative Performed At EXAMINATION: CT SOFT TISSUE NECK W CONTRAST [facility] 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 CT scans are performed using radiation dose reduction techniques (iterative reconstruction and/or automated exposure control). Technical factors are evaluated and adjusted to ensure appropriate moderation of exposure. Automated dose management technology is applied to adjust radiation exposure while achieving a diagnostic quality image. FINDINGS: The orbits, paranasal sinuses, and skull base are normal. The nasopharynx, oropharynx, oral cavity, parapharyngeal space, and retropharyngeal space are normal. The larynx, hypopharynx, and supraglottis are normal. No incidental thyroid nodules are noted. No lymphadenopathy. The visualized vascular and osseous structures are normal. The lung apices are unremarkable. IMPRESSION: No significant abnormality. 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 CT scans are performed using radiation dose reduction techniques (iterative reconstruction and/or automated exposure control). Technical factors are evaluated and adjusted to ensure appropriate moderation of exposure. Automated dose management technology is applied to adjust radiation exposure while achieving a diagnostic quality image. FINDINGS: The orbits, paranasal sinuses, and skull base are normal. The nasopharynx, oropharynx, oral cavity, parapharyngeal space, and retropharyngeal space are normal. The larynx, hypopharynx, and supraglottis are normal. No incidental thyroid nodules are noted. No lymphadenopathy. The visualized vascular and osseous structures are normal. The lung apices are unremarkable. IMPRESSION: No significant abnormality. [facility]-[id number] Performing Organization Address City/[facility]/Zipcode Phone Number [facility] [address] [place] [address] * Estimated GFR (02/06/2019 12:15 AM CDT) Estimated GFR 89 mL/min/1.73 m2 [facility]GY[facility] Comment: [facility] G1 >=90 Normal or high G2 60-89Mildly decreased C6n69-11 Mildly to moderately decreased G5x57-71 Moderately to severely decreased G4 15-29Severely decreased G5 <15Kidney failure The eGFR was calculated using the Chronic Kidney Disease Epidemiology Collaboration (CKD-EPI) equation. Interpretation is based on recommendations of the National Kidney Foundation-Kidney Disease Outcomes Quality Initiative (NKF-KDOQI) published in 2014. Specimen Plasma specimen Performing Organization Address City/[facility] Phone Number [facility] DEPARTMENT OF [address] [place] [address] PATHOLOGY AND GENOMIC MEDICINE [facility] [address] * CBC with platelet and differential (02/06/2019 12:15 AM CDT) Pathologist [facility] WBC 10.6 4.2 - 11.0 k/uL [facility] RBC 4.62 4.04 - 5.86 m/uL [facility] HGB 12.7 11.5 - 15.3 g/dL [facility] HCT 40.9 34.0 - 45.0 % [facility] MCV 88.5 80.0 - 98.[address] [facility] MCH 27.5 27.0 - 34.[address] [facility] MCHC 31.1 (L) 31.5 - 36.5 g/dL [facility] RDW - SD 44.1 37.0 - 51.[address] [facility] MPV 10.4 7.4 - 10.[address] [facility] Platelet count 365 150 - 400 k/uL [facility] Nucleated RBC 0.00 /[address] [facility] Neutrophils 56.0 36.0 - 66.0 % [facility] Lymphocytes 36.3 24.0 - 44.0 % [facility] Monocytes 5.3 0.0 - 6.0 % [facility] Eosinophils 1.4 0.0 - 6.0 % [facility] Basophils 0.7 0.0 - 1.2 % [facility] Immature 0.3 0.0 - 1.0 % [facility] granulocytes [facility] Specimen Blood Performing Organization Address City/[facility] Phone Number [facility] [place] [address] PATHOLOGY AND GENOMIC MEDICINE [address] * Basic metabolic panel (02/06/2019 12:15 AM CDT) Sodium 141 135 - 150 mEq/L [facility] Potassium 4.1 3.5 - 5.0 mEq/L [facility] Chloride 102 98 - 112 mEq/L [facility] CO2 27 24 - 31 mmol/L [facility] Anion gap 12@ANIO 7 - 15 mEq/L [facility] BUN 7 7 - 18 mg/dL [facility] Creatinine 0.80 0.50 - 0.90 mg/dL [facility] Glucose 96 65 - 100 mg/dL [facility] Calcium 9.3 8.3 - 10.2 mg/dL [facility] Specimen Plasma specimen Performing Organization Address City/[facility]code Phone Number [facility] [address] [place] [address] PATHOLOGY AND GENOMIC MEDICINE [facility] [address] [facility] [place] [address] HOSPITAL * Group A strep, rapid antigen (02/05/2019 11:45 PM CDT) Group A strep, Negative for Group A [facility] rapid antigen Streptococcus antigen. YARSANI result Comment: [facility] Specimen Information HOSPITAL Specimen Source: Throat Specimen Site: Not otherwise specified Specimen Throat - Not otherwise specified Performing Organization Address City/State/[facility] Hospitalcode Phone Number [facility] OF [address] [facility] [place] [address] PATHOLOGY AND GENOMIC MEDICINE [facility] [address] [place] [address] HOSPITAL * Strep screen culture (02/05/2019 11:45 PM CDT) Strep screen No beta hemolytic Streptococci ARGY[facility] culture isolate isolated YARSANI Comment: HOSPITAL Specimen Information Specimen Source: Throat Specimen Site: Not otherwise specified Specimen Throat - Not otherwise specified Performing Organization Address City/[facility] Phone Number [facility] DEPARTMENT OF [address] [place] [address] PATHOLOGY AND GENOMIC MEDICINE [facility] YARSANI [address] [place] [address] HOSPITAL after 04/14/2018 Insurance Type Payer Benefit Subscriber ID Effective Phone Address Plan / Dates Group Medicaid MEDICAID MEDICAID xxxxxxxxx 2011-P resent O AMERIGROUP AMERIGROUP xxxxxxxxx 2018-P -AMERIVANT resent AGE MCR O Advance Directives For more information, please contact: [phone] Patient Circulating Nurse Explanation Type Date Recorded Advance Directives, Living Will and Medical Power of Admitted Attorneys
--- OUTSIDE RECORDS SUMMARY | 2019-04-15 19:38 | XMS REPORT | Continuity of Care Document ---
Author Author [employer] Organization [employer] Address Unknown Phone Unavailable Care Team Providers Care Research Program Intern Name Role Phone RecordSled Information [email or web address] Unavailable Unavailable Problems Problem Status Onset Date Classification Date Reported Comments Source LT KNEE INSTABILITY Active 01/15/2019 [facility] [place] DX: E66.01=MORBID (SEVERE) OBESITY DUE T Active 12/25/2018 [facility] Sprain of tibiofibular ligament of left ankle, sequela 04/11/2018 10/23/2018 [facility] I80.202 Active 04/04/2018 [facility] I80.202 - PHLBTS AND THOMBOPHLB OF UNSP Active 04/02/2018 [facility] [place] Encounter for screening mammogram for malignant neoplasm of breast 10/05/2017 01/09/2018 [facility] [place] Unspecified subluxation of left patella, initial encounter 09/28/2017 12/29/2017 [facility] [place] Chest pain, unspecified 09/09/2017 12/12/2017 [facility] [place] Pain in right foot 08/23/2017 11/24/2017 [facility] [place] DX: R10.2=PELVIC AND PERINEAL PAIN, N39. Active 04/25/2017 [facility] M74.27 Active 03/02/2017 [facility] 66854, K81.9, CHOLELITHIASIS Active 11/30/[address] [facility] R06.02 - SHORTNESS OF BREATH Active 07/10/2015 [facility] [place] 723.1 - CERVICALGIA Active 03/03/2015 [facility] [place] [address], 59517---HMETVS OBESITY, CHOLELITH Active 11/06/[address] [facility] UNK Active 09/26/2014 [facility] 250.00/787.91/V65.3/401.9 Active 09/26/2014 [facility] DX: 786.05 DR LEMONS WILL DO/READ PER JESSICA @ DR MARES Active 02/21/2012 [facility] MORBID OBESITY Active 12/20/2011 [facility] DX: CHEST PAIN DR. GIVENS WILL BE HERE PER HEATHE Active 11/23/2011 [facility] 401.1 Active 10/27/2011 [facility] CPAP Active 10/21/2011 [facility] DX: CHEST PAIN Active 10/17/2011 [facility] 278.01 MORBID OBESITY Active 10/14/2011 [facility] MORBID OESITY Active 06/08/2011 [facility] ABDOMINAL PAIN Active 05/04/2011 [facility] ABD PAIN 789.09/787.99/787.91/278.01/780.57 Active 05/04/2011 [facility] Asthma Active Problem 01/04/2019 [facility] Nelson, [facility] [place], [facility] [place],[facility] [place] Cholesterol level1 Active Problem 01/04/2019 high [facility] LU[facility] Nelson, [facility] [place], [facility] [place],[facility], [facility] [place] Diabetes mellitus type 2 Resolved Problem 01/04/2019 [facility] Nelson, [facility] [place], [facility] [place],[facility], [facility] [place] GERD - Gastro-esophageal reflux disease Active Problem 01/04/2019 [facility] Nelson, [facility] [place], [facility] [place],[facility], [facility] [place] Hypothyroidism Active Problem 01/04/2019 [facility] LU[facility] Nelson, [facility] [place], [facility] [place],[facility], [facility] [place] Morbid obesity Active Problem 01/04/2019 [facility] Nelson, [facility] [place], [facility] [place],[facility], [facility] [place] Motion sickness Active Problem 01/04/2019 [facility] Nelson, [facility] [place], [facility] [place],[facility], [facility] [place] Short of breath on exertion Active Problem 01/04/2019 [facility] Nelson, [facility] [place], [facility] [place],[facility], [facility] [place] Sleep apnea Active Problem 01/04/2019 [facility] Nelson, [facility] [place], [facility] [place],[facility] [place] Cholelithiasis Active Problem 01/04/2019 P[facility] LUIS Nelson, P[facility] LU[facility] Villagomez,[facility] [place], [facility], [facility] [place] Panic attack Resolved Problem 01/04/2019 PEDRO LUIS Nelson, [facility] [place],[facility] [place], [facility], [facility] [place] Sprain of unspecified ligament of right ankle, initial encounter 11/24/2017 [facility] LU[facility] Villagomez Phlebitis and thrombophlebitis of unspecified deep vessels of left lower extremity 10/23/2018 [facility] Effusion, left knee 12/29/2017 [facility] Villagomez Asthma (disorder) Active Problem 03/24/2019 [facility] Kalpesh,[facility] [place] Calculus in biliary tract (disorder) Active Problem 03/24/2019 [facility] Kalpesh [facility] [place] Finding of cholesterol level (finding) Active Problem 03/24/2019 high [facility] Kalpesh, [facility] [place] Diabetes mellitus type 2 (disorder) Resolved Problem 03/24/2019 [facility] Kalpesh, [facility] [place] Gastroesophageal reflux disease (disorder) Active Problem 03/24/2019 [facility] Kalpesh [facility] [place] Hypothyroidism (disorder) Active Problem 03/24/2019 [facility] Kalpesh [facility] [place] Morbid obesity (disorder) Active Problem 03/24/2019 [facility] Kalpesh [facility] [place] Motion sickness (disorder) Active Problem 03/24/2019 [facility] Kal[facility]esh [facility] [place] Panic attack (finding) Resolved Problem 03/24/2019 [facility] Kal[facility]esh [facility] [place] Dyspnea on exertion (finding) Active Problem 03/24/2019 [facility]esh [facility] [place] Sleep apnea (finding) Active Problem 03/24/2019 [facility] [place] DIGESTVE SYST SYMPTM NEC Active [facility] ABDMNAL PAIN OTH SPCF ST Active [facility] DIARRHEA Active [facility] OBSTRUCTIVE SLEEP APNEA Active [facility] CHEST PAIN NOS Active [facility] SHORTNESS OF BREATH Active [facility] 786.05 Active [facility] DMII WO CMP NT ST UNCNTR Active [facility] 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 [facility] HYPERTENSION NOS Active [facility] ABDMNAL PAIN EPIGASTRIC Active [facility] ADMINISTRTVE ENCOUNT NOS Active [facility] ILLNESS, UNSPECIFIED Active [facility] OTHER SPONDYLOSIS WITH RADICULOPATHY, CECILE Active [facility] Medications Medication Details Route Status Patient Instructions Ordering Provider Order Date Source Nitrofurantoin Monohyd/M-Cryst (Macrobid 100 Mg Capsule) 100 Mg Capsule Twice A Day Active [facility] 01/20/2019 [facility] Phenazopyridine Hcl (Pyridium) 100 Mg Tablet Three Times A Day Active [facility] 01/20/2019 [facility] Clonazepam (Klonopin) 2 Mg Tablet, 1 Tab Oral Daily Active 03/15/2017 [facility] Dicyclomine Hcl (Bentyl) 10 Mg Capsule, 20 Mg Oral Every 6 Hours Active 03/15/2017 [facility] Escitalopram Oxalate (Lexapro) 10 Mg Tablet, 25 Mg Oral Daily Active 03/15/2017 [facility] Levothyroxine Sodium 112 Mcg Tablet, 312 Mcg Oral Daily Active 03/15/2017 [facility] Ondansetron (Zofran Odt) 4 Mg Tab.rapdis, 4 Mg Oral Every 6 Hours Active 03/15/2017 [facility] Clonazepam (Klonopin) 2 Mg Tablet, 1 Tab Oral Daily Active 03/15/2017 [facility] Dicyclomine Hcl (Bentyl) 10 Mg Capsule, 20 Mg Oral Every 6 Hours Active 03/15/2017 [facility] Escitalopram Oxalate (Lexapro) 10 Mg Tablet, 25 Mg Oral Daily Active 03/15/2017 [facility] Levothyroxine Sodium 112 Mcg Tablet, 312 Mcg Oral Daily Active 03/15/2017 [facility] Ondansetron (Zofran Odt) 4 Mg Tab.rapdis, 4 Mg Oral Every 6 Hours Active 03/15/2017 [facility] Ondansetron 4 MG Disintegrating Tablet [Zofran] 4 mg=1 tab, PO, Q6H, PRN Nausea, # 20 tab, 0 Refill(s) Active 12/03/[address] [facility] tramadol hydrochloride 50 MG Oral Tablet 50 mg=1 tab, PO, Q4H, PRN Pain Score 1-3, # 30 tab, 0 Refill(s) Active 12/03/[address] [facility] Flonase 0.05 mg/inh nasal spray 50 microgram=1 spray, NASAL, Daily, 0 Refill(s) Active 12/03/[address] [facility] 24 HR Metoprolol Tartrate 25 MG Extended Release Tablet [Toprol] 25 mg, 1 tab, Route: PO, Drug form: ERTAB, Daily, Start date: 12/03/15 9:00:00 CDT, Duration: 30 day, Stop date: 01/01/16 9:00:00 CDTNotes: (Same as: Toprol XL) Do Not Crush Inactive 12/03/[address] [facility] Flonase 0.05 mg/inh nasal spray 1 spray, Route: NASAL, Drug Form: SPRY, Dosing Weight 157.2, kg, Daily, Start date: 12/03/15 9:00:00 CDT, Duration: 30 day, Stop date: 01/01/16 9:00:00 CDTNotes: (Same as: Flonase) Inactive 12/03/[address] [facility] Nexium 40 mg, Route: PO, Drug form: ECCAP, Daily, Dosing Weight 157.2, kg, Start date: 12/03/15 9:00:00 CDT, Duration: 30 day, Stop date: 01/01/16 9:00:00 CDT Inactive 12/03/[address] [facility] Lexapro 25 mg, 2.5 tab, Route: PO, Drug form: TAB, Daily, Dosing Weight 157.2, kg, Start date: 12/03/15 9:00:00 CDT, Duration: 30 day, Stop date: 01/01/16 9:00:00 CDTNotes: (Same as: Lexapro) Inactive 12/03/[address] [facility] Klonopin 0.5 mg, 1 tab, Route: PO, Drug form: TAB, QID, Dosing Weight 157.2, kg, Start date: 12/03/15 9:00:00 CDT, Duration: 30 day, Stop date: 01/01/16 21:00:00 CDTNotes: (Same As: KlonoPIN) Inactive 12/03/[address] [facility] Symbicort 160/4.5 inhalation aerosol with adapter 2 inhalation, Route: INHALATION, Drug Form: AERO/A, Dosing Weight 157.2, kg, BID, Start date: 12/03/15 9:00:00 CDT, Duration: 30 day, Stop date: 01/01/16 17:00:00 CDTNotes: (Same as: Symbicort) WASTE: Aerosol - Return to Pharmacy Inactive 12/03/[address] [facility] Protonix 40 mg, 1 tab, Route: PO, Drug form: ECTAB, Before Breakfast, Start date: 12/03/15 7:30:00 CDT, Duration: 30 day, Stop date: 01/01/16 7:30:00 CDTNotes: Tablet should not be chewed or crushed. (Same as: Protonix) Inactive 12/03/[address] [facility] Thyroxine 200 microgram, 2 tab, Route: PO, Drug form: TAB, Q630AM, Dosing Weight 157.2, kg, Start date: 12/03/15 6:30:00 CDT, Duration: 30 day, Stop date: 01/01/16 6:30:00 CDTNotes: Take 1 hour before or 2 hours after meal; Enteral feeds may interefere with the absorption of this medication. (Same as:Levothroid, Synthroid) Inactive 12/03/[address] [facility] Morphine 1 mg, 0.5 mL, Route: IVP, Drug form: INJ, Q2H, Dosing Weight 157.2, kg, PRN Pain Score 7-10, Start date: 12/03/15 6:12:00 CDT, Duration: 30 day, Stop date: 01/02/16 6:11:00 CDTNotes: (Same as:MORPhine Sulfate) Inactive 12/03/[address] [facility] tramadol hydrochloride 50 MG Oral Tablet 50 mg, 1 tab, Route: PO, Drug form: TAB, Q4H, Dosing Weight 157.2, kg, PRN Pain Score 1-3, Start date: 12/03/15 2:00:00 CDT, Duration: 30 day, Stop date: 01/02/16 1:59:00 CDTNotes: Not to exceed 400mg/day. (Same As: Ultram) Inactive 12/03/[address] [facility] Enoxaparin 40 mg, 0.4 mL, Route: SUB-Q, Drug form: INJ, [id number], Dosing Weight 157.2, kg, Consider for obese patients, Start date: 12/02/15 22:00:00 CDT, Duration: 30 day, Stop date: 01/01/16 10:00:00 CDTNotes: (Same as: Lovenox) No Longer Active 12/03/[address] [facility] Simethicone 80 mg, 1 tab, Route: CHEW, Drug form: CHEWTAB, QID, Dosing Weight 157.2, kg, PRN Gas, Start date: 12/02/15 19:07:00 CDT, Duration: 30 day, Stop date: 01/01/16 19:06:00 CDTNotes: (Same as: Mylicon) No Longer Active 12/03/[address] [facility] Ketorolac 30 mg, 1 mL, Route: [...] Wasted: ___ mg No Longer Active 12/02/[address] [facility] Ancef 2 gm, 100 mL, Route: IV, Drug form: INJ, Q8H, Dosing Weight 157.2, kg, times 4 doses, Priority: Routine, Start date: 12/02/15 17:00:00 CDT, Duration: 4 doses or times, Stop date: 12/03/15 16:00:00 CDTNotes: Same as: Ancef No Longer Active 12/02/[address] [facility] Sodium Chloride 0.9% IV 25 mL, Route: IV, Start date: 12/02/15 16:10:00 CDT, Duration: 30 day, Stop date: 01/01/16 16:09:00 CDT, PRN Line Flush No Longer Active 12/02/[address] [facility] BD Normal Saline Flush 10 mL, Route: IV, Drug Form: INJ, PRN, PRN Line Flush, Start date: 12/02/15 16:10:00 CDT, Duration: 30 day, Stop date: 01/01/16 16:09:00 CDTNotes: (Same as: BD Posiflush) No Longer Active 12/02/[address] [facility] D5W 1/2NS + KCL 20mEq/L 1000ml (Premix) 1,000 mL 1,000 mL, Rate: 80 ml/hr, Infuse over: 12.5 hr, Route: IV, Dosing Weight 157.2 kg, Total Volume: 1,000, Start date: 12/02/15 15:48:00 CDT, Stop date: 01/01/16 15:47:00 CDTNotes: PREMIX IV - Do Not Alter WASTE: F/P - Sink; E - Municipal Trash Bin No Longer Active 12/02/[address] [facility] Tylenol 650 mg, 2 tab, Route: PO, Drug form: TAB, Q6H, Dosing Weight 157.2, kg, PRN Pain 1-3/Temp > 100.4 F, Start date: 12/02/15 14:47:00 CDT, Duration: 30 day, Stop date: 01/01/16 14:46:00 CDTNotes: Do not exceed 4 gm/day. (Same as: Tylenol) No Longer Active 12/02/[address] [facility] pneumococcal capsular polysaccharide type 1 vaccine / pneumococcal capsular polysaccharide type 10A vaccine / pneumococcal capsular polysaccharide type 11A vaccine / pneumococcal capsular polysaccharide type 12F vaccine / pneumococcal capsular polysacchar 0.5 mL, Route: IM, Drug Form: INJ, ONCALL, Start date: 12/02/15 12:34:14 CDT, Stop date: 01/01/16 12:29:14 CDTNotes: (Same as: Pneumovax 23) Refrigerate No Longer Active 12/02/[address] [facility] Zofran 4 mg, 2 mL, Route: IVP, Drug form: INJ, Q8H, PRN Nausea & Vomiting, Start date: 12/02/15 10:49:00 CDT, Duration: 30 day, Stop date: 01/01/16 10:48:00 CDTNotes: (Same as: Zofran) MEDICATION WASTE Product Size: 4 mg Product Wasted: ___ mg No Longer Active 12/02/[address] [facility] Benadryl 12.5 mg, 0.25 mL, Route: IVP, Drug form: INJ, Q6H, PRN Itching, Start date: 12/02/15 10:49:00 CDT, Duration: 30 day, Stop date: 01/01/16 10:48:00 CDTNotes: (Same as: Benadryl) No Longer Active 12/02/[address] [facility] naloxone 0.2 mg, 0.5 mL, Route: IVP, Drug form: INJ, Q5Min, PRN Narcotic Reversal, Start date: 12/02/15 10:49:00 CDT, Duration: 30 day, Stop date: 01/01/16 10:48:00 CDTNotes: (Same as: Narcan) No Longer Active 12/02/[address] [facility] morphine Sulfate 30 mg IV, Start date: 12/02/15 10:48:00 CDT, Duration: 30, 30 ml, 154.091Notes: Dose: Delay: Basal rate: 4hr limit: (Same as:Rapi-Ject) No Longer Active 12/02/[address] [facility] Flumazenil 0.2 mg, 2 mL, Route: IVP, Drug form: INJ, PRN, Dosing Weight 154.091, kg, PRN Benzodiazepine Reversal, Initial dose, Start date: 12/02/15 6:58:00 CDT, Duration: 30 day, Stop date: 01/01/16 6:57:00 CD TNotes: (Same as: Romazicon) Inactive 12/02/[address] [facility] Naloxone 0.04 mg, 0.1 mL, Route: IVP, Drug form: INJ, Q2MIN, Dosing Weight 154.091, kg, PRN Narcotic Reversal, Start date: 12/02/15 6:58:00 CDT, Duration: 8 doses or times, Stop date: Limited # of timesNotes: Same as Narcan Inactive 12/02/[address] [facility] Ondansetron 4 mg, 2 mL, Route: IVP, Drug form: INJ, ONCE, Dosing Weight 154.091, kg, PRN Nausea & Vomiting, Start date: 12/02/15 6:58:00 CDTNotes: (Same as: Mya) MEDICATION WASTE Product Size: 4 mg Product Wasted: ___ mg Inactive 12/02/[address] [facility] Hydromorphone 0.2 mg, 0.1 mL, Route: IVP, Drug form: INJ, Q5Min, Dosing Weight 154.091, kg, PRN Pain Score 7-10, Start date: 12/02/15 6:58:00 CDT, Duration: 4 doses or times, Stop date: Limited # of timesNotes: (S raquel as: Dilaudid) Inactive 12/02/[address] [facility] dicyclomine 20 mg oral tablet 20 mg=1 tab, PO, frequency unknown, 0 Refill(s) Active 12/01/[address] [facility] Vitamin B12 one tablet (mg unknown), PO, Daily, 0 Refill(s) Active 12/01/[address] [facility] Clonazepam 0.5 MG Oral Tablet [Klonopin] 0.5 mg=1 tab, PO, QID, 0 Refill(s) Active 12/01/[address] [facility] Tramadol one tablet (mg unknown), PO, frequency unknown, 0 Refill(s) No Longer Active 12/01/[address] [facility] Flonase 0.05 mg/inh nasal spray 1 spray, NASAL, Daily, 0 Refill(s) Active 12/01/[address] [facility] multivitamin one tablet, PO, Daily, 0 Refill(s) Active 12/01/[address] [facility] Lexapro one tablet (25 mg), PO, Daily, 0 Refill(s) Active 12/01/[address] [facility] metoprolol 25 mg oral tablet, extended release 25 mg=1 tab, PO, Bedtime, # 30 tab, 0 Refill(s) Active 12/01/[address] [facility] Alprazolam (Xanax) 0.25 Mg Tablet, 0.125 Each Oral As Needed as needed for Sleep Active 11/28/2015 [facility] Aspirin (Aspirin Ec) 81 Mg Tablet.dr, 81 Mg Oral Daily Active 11/28/2015 [facility] Atorvastatin Calcium (Lipitor*) 10 Mg Tablet, 10 Mg Oral Bedtime Active 11/28/2015 [facility] Cetirizine Hcl 10 Mg Tablet, 10 Mg Oral Daily Active 11/28/2015 [facility] Lisinopril (Prinavil / Zestril) 20 Mg Tablet, 20 Mg Oral Bedtime Active 11/28/2015 [facility] Metformin Hcl 500 Mg Tablet, 250 Mg Oral Bedtime Active 11/28/2015 [facility] Omeprazole 20 Mg Tablet., 40 Mg Oral Daily Active 11/28/2015 [facility] Alprazolam (Xanax) 0.25 Mg Tablet, 0.125 Each Oral As Needed as needed for Sleep Active 11/28/2015 [facility] Atorvastatin Calcium (Lipitor*) 10 Mg Tablet, 10 Mg Oral Bedtime Active 11/28/2015 [facility] Metformin Hcl 500 Mg Tablet, 250 Mg Oral Bedtime Active 11/28/2015 [facility] Omeprazole 20 Mg Tablet., 40 Mg Oral Daily Active 11/28/2015 [facility] 0.6 ML Enoxaparin sodium 100 MG/ML Prefilled Syringe [Lovenox] 60 mg, SUB-Q, Q12H, X 7 day, # 14 syr, 0 Refill(s) Active 11/27/[address] [facility] Esomeprazole 40 MG Enteric Coated Capsule [Nexium] 40 mg=1 cap, PO, Daily, # 30 cap, 0 Refill(s) Active 11/27/[address] [facility] Tylenol with Codeine 120 mg-12 mg/5 mL oral liquid 15 ml, PO, Q4H, PRN Pain, X 7 day, # 240 mL, 0 Refill(s) Active 11/27/[address] [facility] Sucralfate 100 MG/ML Oral Suspension [Carafate] 1 gm=10 ml, PO, Before Meals & Bedtime, # 200 ml, 0 Refill(s) Active 11/27/[address] [facility] Lovenox 40 mg, 0.4 mL, Route: SUB-Q, Drug form: INJ, [id number], Start date: 11/26/14 10:00:00, Duration: 30 day, Stop date: 12/25/14 22:00:00Notes: (Same as: Lovenox) No Longer Active 11/26/[address] [facility] acetaminophen-hydrocodone 15 mL, Route: PO, Drug Form: SOLN, Q4H, PRN Other -See Comment, Start date: 11/26/14 9:32:00, Duration: 30 day, Stop date: 12/26/14 9:31:00Notes: Do not exceed 4gm/day of acetaminophen. (Same as: [place] 325/7.5) No Longer Active 11/26/[address] [facility] Tylenol 650 mg, 20.3 mL, Route: PO, Drug form: LIQ, Q4H, PRN Pain Score 1-3, Start date: 11/26/14 9:31:00, Duration: 30 day, Stop date: 12/26/14 9:30:00Notes: Max fbzhlbecsxgxs=2626la/day (4 gm/day). (Same as: Tylenol) No Longer Active 11/26/[address] [facility] heparin 5,000 unit, 1 mL, Route: SUB-Q, Drug form: INJ, ONCE, Start date: 11/26/14 3:00:00, Stop date: 11/26/14 3:00:00Notes: porcine heparin Inactive 11/26/[address] [facility] Reglan 10 mg, 2 mL, Route: IV, Drug form: INJ, Q8H, Start date: 11/26/14 0:00:00, Duration: 30 day, Stop date: 12/25/14 16:00:00Notes: (Same as: Reglan) No Longer Active 11/26/[address] [facility] Pepcid 20 mg, 2 mL, Route: IVP, Drug form: INJ, Q12H, Start date: 11/25/14 21:00:00, Duration: 30 day, Stop date: 12/25/14 9:00:00 No Longer Active 11/26/[address] [facility] ceFAZolin 2 gm, 100 mL, Route: IVPB, Drug form: INJ, Q8H, Start date: 11/25/14 21:00:00, Duration: 4 doses or times, Stop date: 11/26/14 21:00:00Notes: Same as: Ancef No Longer Active 11/26/[address] [facility] insulin regular 100 units/mL human recombinant [...] fro m Date No Longer Active 11/25/[address] [facility] insulin regular 100 units/mL human recombinant [...] fro m Date No Longer Active 11/25/[address] [facility] Dextrose 50% in Water IV 25 mL, Route: IVP, Start date: 11/25/14 18:44:00, Duration: 30 day, Stop date: 12/25/14 18:43:00, PRN Blood Glucose Results No Longer Active 11/25/[address] [facility] ketOROLAC 30 mg/mL injectable solution 30 [...] Wasted: ___ mg No Longer Active 11/25/[address] [facility] Vasotec 1.25 mg, 1 mL, Route: IV, Drug form: INJ, Q6H, PRN Other -See Comment, Start date: 11/25/14 17:55:00, Duration: 30 day, Stop date: 12/25/14 17:54:00Notes: (Same as: Vasotec-IV) No Longer Active 11/25/[address] [facility] Lactated Ringers Injection IV 1,000 mL 1,000 mL, Rate: 80 ml/hr, Infuse over: 12.5 hr, Route: IV, Dosing Weight 210.057 kg, Total Volume: 1,000, Start date: 11/25/14 17:54:00, Stop date: 12/25/14 17:53:00 No Longer Active 11/25/[address] [facility] Sodium Chloride 0.9% IV 25 mL, Route: IV, Start date: 11/25/14 17:53:00, Duration: 30 day, Stop date: 12/25/14 17:52:00, PRN Line Flush No Longer Active 11/25/[address] [facility] BD Normal Saline Flush 10 mL, Route: IV, Drug Form: INJ, PRN, PRN Line Flush, Start date: 11/25/14 17:53:00, Duration: 30 day, Stop date: 12/25/14 17:52:00Notes: (Same as: BD Posiflush) No Longer Active 11/25/[address] [facility] Zofran 4 mg, 2 mL, Route: IVP, Drug form: INJ, Q8H, PRN Nausea & Vomiting, Start date: 11/25/14 15:00:00, Duration: 30 day, Stop date: 12/25/14 14:59:00Notes: (Same as: Zofran) MEDICATION WASTE Product Size: 4 mg Product Wasted: ___ mg No Longer Active 11/25/[address] [facility] Benadryl 12.5 mg, 0.25 mL, Route: IVP, Drug form: INJ, Q6H, PRN Itching, Start date: 11/25/14 15:00:00, Duration: 30 day, Stop date: 12/25/14 14:59:00Notes: (Same as: Benadryl) No Longer Active 11/25/[address] [facility] naloxone 0.2 mg, 0.5 mL, Route: IVP, Drug form: INJ, Q5Min, PRN Narcotic Reversal, Start date: 11/25/14 15:00:00, Duration: 30 day, Stop date: 12/25/14 14:59:00Notes: (Same as: Narcan) No Longer Active 11/25/[address] [facility] morphine 1 mg/ml TRANSPORTATION ENGINEER (30 mg/30 mL) INJ Syringe 30 mg IV, Start date: 11/25/14 14:59:00, Duration: 30, 30 ml, 210.057Notes: Dose: Delay: Basal rate: 4hr limit: (Same as:Rapi-Ject) No Longer Active 11/25/[address] [facility] Phenergan 25 mg, 50 mL, 200 ml/hr, Route: IVPB, Drug Form: SOLN, Q4H, PRN Nausea & Vomiting, Start date: 11/25/14 14:58:00, Duration: 30 day, Stop date: 12/25/14 14:57:00 No Longer Active 11/25/[address] [facility] Morphine 4 mg, 0.4 mL, Route: IVP, Drug form: INJ, Q5Min, Dosing Weight 210.057, kg, PRN Pain Score 7-10, Start date: 11/25/14 12:47:00, Duration: 3 doses or times, Stop date: Limited # of timesNotes: (Same a s:MORPhine Sulfate) Inactive 11/25/[address] [facility] Hydromorphone 0.5 mg, 0.25 mL, Route: IVP, Drug form: INJ, Q5Min, Dosing Weight 210.057, kg, PRN Pain Score 7-10, Start date: 11/25/14 12:47:00, Duration: 4 doses or times, Stop date: Limited # of timesNotes: (Same as: Dilaudid) Inactive 11/25/[address] [facility] Naloxone 0.04 mg, 0.1 mL, Route: IVP, Drug form: INJ, Q2MIN, Dosing Weight 210.057, kg, PRN Narcotic Reversal, Start date: 11/25/14 12:47:00, Duration: 8 doses or times, Stop date: Limited # of timesNotes: Same as Narcan Inactive 11/25/[address] [facility] Meperidine 12.5 mg, 0.25 mL, Route: IVP, Drug form: INJ, Q30Min, Dosing Weight 210.057, kg, PRN Other -See Comment, For shivering, Start date: 11/25/14 12:47:00, Duration: 2 doses or times, Stop date: Limited # of timesNotes: (Same As: Demerol) Inactive 11/25/[address] [facility] Flumazenil 0.2 mg, 2 mL, Route: IVP, Drug form: INJ, PRN, Dosing Weight 210.057, kg, PRN Benzodiazepine Reversal, Initial dose, Start date: 11/25/14 12:47:00, Duration: 30 day, Stop date: 12/25/14 12:46:00Notes: (Same as: Romazicon) Inactive 11/25/[address] [facility] Dexamethasone 4 mg, 1 mL, Route: IVP, Drug form: INJ, ONCE, Dosing Weight 210.057, kg, PRN Nausea & Vomiting, Start date: 11/25/14 12:47:00Notes: Concentration: 4mg/ml Inactive 11/25/[address] [facility] Ondansetron 4 mg, 2 mL, Route: IVP, Drug form: INJ, ONCE, Dosing Weight 210.057, kg, PRN Nausea & Vomiting, Start date: 11/25/14 12:47:00Notes: (Same as: Zofran) MEDICATION WASTE Product Size: 4 mg Product Wasted: ___ mg Inactive 11/25/[address] [facility] Diphenhydramine 12.5 mg, 0.25 mL, Route: IVP, Drug form: INJ, Q6H, Dosing Weight 210.057, kg, PRN Itching, Start date: 11/25/14 12:47:00, Duration: 30 day, Stop date: 12/25/14 12:46:00Notes: (Same as: Benadryl) Inactive 11/25/[address] [facility] Labetalol 10 mg, 2 mL, Route: IVP, Drug form: INJ, Q5Min, Dosing Weight 210.057, kg, PRN Elevated BP, Start date: 11/25/14 12:47:00, Duration: 5 doses or times, Stop date: Limited # of timesNotes: (Same as: Normo dyne, Trandate) Push over 2 minutes Give bolus over 2-3 minutes. Inactive 11/25/[address] [facility] Hydralazine 10 mg, 0.5 mL, Route: IVP, Drug form: INJ, Q20Min, Dosing Weight 210.057, kg, PRN Elevated BP, Start date: 11/25/14 12:47:00, Duration: 2 doses or times, Stop date: Limited # of timesNotes: (Same as: Apresoline) Push over 5 minutes Inactive 11/25/[address] [facility] Metoprolol 1 mg, 1 mL, Route: IVP, Drug form: INJ, Q5Min, Dosing Weight 210.057, kg, PRN Other -See Comment, Start date: 11/25/14 12:47:00, Duration: 5 doses or times, Stop date: Limited # of timesNotes: (Same as: Lopressor) Push over 2 minutes Inactive 11/25/[address] [facility] chlorhexidine topical 0.12% liquid 15 mL, Route: S&SPIT, ONCALL, Drug form: LIQ, Start date: 11/25/14 1:00:00, Duration: 20 hr, Stop date: 11/25/14 20:59:00Notes: (Same As: Peridex) Inactive 11/25/[address] [facility] Ancef 3 gm, 100 mL, Route: IVPB, Drug form: INJ, ONCALL, Start date: 11/25/14 1:00:00, Duration: 30 day, Stop date: 12/25/14 0:59:00Notes: Same as: Ancef Inactive 11/25/[address] [facility] Naloxone 0.1 mg, 0.25 mL, Route: IVP, Drug form: INJ, Q2MIN, Dosing Weight 215.909, kg, PRN Narcotic Reversal, Start date: 10/09/14 10:33:00, Duration: 4 doses or times, Stop date: Limited # of timesNotes: Same as Narcan Inactive 10/09/2014 [facility] Flumazenil 0.2 mg, 2 mL, Route: IVP, Drug form: INJ, PRN, Dosing Weight 215.909, kg, PRN Other -See Comment, Start date: 10/09/14 10:33:00, Duration: 1 doses or times, Stop date: Limited # of timesNotes: (Same as: Romazicon) Inactive 10/09/2014 [facility] Sodium Chloride 0.154 MEQ/ML Injectable Solution 500 mL, 0 ml/hr, Infuse Over: 0 hr, Route: IV, 500, Drug form: INJ, ONCE, Dosing Weight 215.909 kg, Start date: 10/09/14 10:01:00, Stop date: 10/09/14 10:01:00, Bolus Inactive 10/09/2014 [facility] Vitamin D3 5000 intl units oral capsule 5,000 IntlUnit=1 cap, PO, Daily, 0 Refill(s) Active 10/03/2014 [facility] atorvastatin 10 mg, PO, Bedtime, 0 Refill(s) Active 10/03/2014 [facility] montelukast 10 mg oral tablet 10 mg=1 tab, PO, Bedtime, # 30 tab, 0 Refill(s) Active 10/03/2014 [facility] pantoprazole 40 mg oral enteric coated tablet 40 mg=1 tab, PO, Daily, # 30 tab, 0 Refill(s) Active 10/03/2014 [facility] metoprolol 25 mg oral tablet, extended release 25 mg, PO, Daily, # 30 tab, 0 Refill(s) Active 10/03/2014 [facility] Amoxicillin/Potassium Clav (Augmentin 875-125 Tablet) 1 Each Tablet, 1 Tab Oral Twice A Day Active 04/04/2014 [facility] Montelukast Sodium (Singulair) 10 Mg Tablet, 10 Mg Oral Daily Active 04/04/2014 [facility] Mupirocin (Bactroban) 15 Gm Cr, Active 04/04/2014 [facility] Mupirocin (Bactroban) 15 Gm Cr, Active 04/04/2014 [facility] flumazenil 0.1 mg, 1 mL, Route: IVP, Drug form: INJ, Q5Min, PRN Other -See Comment, Start date: 05/13/11 9:22:00, Duration: 30 day, Stop date: 06/12/11 8:21:00 IVP No Longer Active [facility] 05/13/2011 [facility] naloxone 0.1 mg, 0.25 mL, Route: IVP, Drug form: INJ, Q2MIN, PRN Narcotic Reversal, Start date: 05/13/11 9:22:00, Duration: 4 doses or times, Stop date: Limited # of times IVP No Longer Active [facility] 05/13/2011 [facility] Zyrtec 10 mg oral tablet 1 tab, PO, Daily, PRN, 30 tab, as needed for allergy symptoms, Substitution Allowed, TAB PO Active 05/11/2011 [facility] Symbicort 160/4.5 inhalation aerosol with adapter 2 puff, INHALATION, BID, 10 gm, Substitution Allowed, Maintenance, AERO INHALATION Active 05/11/2011 [facility] furosemide 20 mg oral tablet 1 tab, PO, Daily, 30 tab, Substitution Allowed, TAB PO Active 05/11/2011 [facility] levothyroxine 200 mcg (0.2 mg) oral tablet 1 tab, PO, Daily, 30 tab, Substitution Allowed, TAB PO Active 05/11/2011 [facility] metFORmin 500 mg oral tablet, extended release 1 tab, PO, Daily, 30 tab, Substitution Allowed, ERTAB PO Active 05/11/2011 [facility] lisinopril 20 mg oral tablet 1 tab, PO, Daily, 30 tab, Substitution Allowed, TAB PO Active 05/11/2011 [facility] Budesonide/Formoterol Fumarate (Symbicort 160-4.5 Mcg Inhaler) 10.2 Gm Hfa.aer.ad Twice A Day Active [facility] Clonazepam (Klonopin) 0.5 Mg Tablet Twice A Day Active [facility] Escitalopram Oxalate (Lexapro) 10 Mg Tablet Daily Active [facility] Gabapentin 300 Mg Capsule Daily Active [facility] Levothyroxine Sodium (Synthroid) 100 Mcg Tab Today At 6:00AM Active [facility] Metformin Hcl 500 Mg Tablet Daily Active [facility] Metoprolol Succinate 25 Mg Tab.er.24h Daily Active [facility] Omeprazole 40 Mg Capsule.dr [place] Active [facility] Tramadol Hcl (Ultram) 50 Mg Tablet Every 4 Hours as needed for Pain Active [facility] Clonazepam (Klonopin) 0.5 Mg Tablet Twice A Day Active [facility] Escitalopram Oxalate (Lexapro) 10 Mg Tablet Daily Active [facility] Gabapentin 300 Mg Capsule Daily Active [facility] Levothyroxine Sodium (Synthroid) 100 Mcg Tab Today At 6:00AM Active [facility] Metformin Hcl 500 Mg Tablet Daily Active [facility] Metoprolol Succinate 25 Mg Tab.er.24h Daily Active [facility] Omeprazole 40 Mg Capsule.dr [place] Active [facility] Allergies, Adverse Reactions, Alerts Substance Category Reaction Severity Reaction type Status Date Reported Comments Source Sulfamethoxazole DIZZY Unknown Allergy to Substance Active 03/15/2017 [facility] Trimethoprim DIZZY Unknown Allergy to Substance Active 03/15/2017 [facility] Ciprofloxacin Unknown Allergy to Substance Active 03/15/2017 [facility] Metronidazole ITCHING Unknown Allergy to Substance Active 03/15/2017 [facility] Sulfa (Sulfonamide Antibiotics) DIZZY Unknown Allergy to Substance Active 02/18/2018 [facility] Bactrim Assertion Propensity to adverse reactions to drug Active [facility] sulfa drugs Assertion Drug allergy Active [facility] medtronidazole containing compounds Assertion Drug allergy Active [facility] Cipro Assertion Drug allergy Active [facility] NKFA Assertion Food allergy Active [facility] Immunizations No Data Provided for This Section Results Order Name Results Value Reference Range Date Interpretation Comments Source Urine color determination YELLOW YELLOW 01/27/2019 [facility] Urine clarity CLEAR CLEAR 01/27/2019 [facility] Specific gravity of Urine by Test strip 1.010 1.010 - 1.025 01/27/2019 [facility] Urine pH measurement by automated test strip 5.5 5 - 7 01/27/2019 [facility] Urine leukocyte esterase detection by automated test strip NEGATIVE NEGATIVE 01/27/2019 [facility] Urine nitrite detection by automated test strip NEGATIVE NEGATIVE 01/27/2019 [facility] Urine protein detection by automated test strip NEGATIVE NEGATIVE 01/27/2019 [facility] Urine glucose detection by automated test strip NEGATIVE NEGATIVE 01/27/2019 [facility] Urine ketones detection by automated test strip NEGATIVE NEGATIVE 01/27/2019 [facility] Urine urobilinogen measurement by test strip (mass/volume) 0.2 0.2 - 1 01/27/2019 [facility] Urine total bilirubin detection NEGATIVE NEGATIVE 01/27/2019 [facility] Urine erythrocytes detection NEGATIVE NEGATIVE 01/27/2019 [facility] Automated urine sediment leukocyte count by microscopy (number/high power field) 0-5 0 - 5 01/27/2019 [facility] Erythrocytes detection in urine sediment by light microscopy 0-5 0 - 5 01/27/2019 [facility] Bacteria detection in urine sediment by light microscopy FEW NONE 01/27/2019 [facility] Epithelial cells detection in urine sediment by light microscopy FEW NONE 01/27/2019 [facility] Blood leukocytes automated count (number/volume) 13.66 4.8 - 10.8 01/20/2019 [facility] Blood erythrocytes automated count (number/volume) 4.76 3.6 - 5.1 01/20/2019 [facility] Blood hemoglobin measurement (moles/volume) 13.0 12.0 - 16.0 01/20/2019 [facility] Automated blood hematocrit (volume fraction) 40.6 34.2 - 44.1 01/20/2019 [facility] Automated erythrocyte mean corpuscular volume 85.3 81 - 99 01/20/2019 [facility] Automated erythrocyte mean corpuscular hemoglobin (mass per erythrocyte) 27.3 28 - 32 01/20/2019 [facility] Automated erythrocyte mean corpuscular hemoglobin concentration measurement (mass/volume) 32.0 31 - 35 01/20/2019 [facility] RDW BldCo-Rto 13.2 11.7 - 14.4 01/20/2019 [facility] Automated blood platelet count (count/volume) 351 140 - 360 01/20/2019 [facility] Automated blood segmented neutrophil count as percentage of total leukocytes 65.1 38.7 - 80.0 01/20/2019 [facility] Automated blood lymphocyte count as percentage ot total leukocytes 26.8 18.0 - 39.1 01/20/2019 [facility] Automated blood monocyte count as percentage of total leukocytes 6.1 4.4 - 11.3 01/20/2019 [facility] Automated blood eosinophil count as percentage of total leukocytes 0.8 0.0 - 6.0 01/20/2019 [facility] Automated blood basophil count as percentage of total leukocytes 0.6 0.0 - 1.0 01/20/2019 [facility] IM GRANULOCYTES % 0.6 0.0 - 1.0 01/20/2019 [facility] Automated blood neutrophil count 8.9 2.1 - 6.9 01/20/2019 [facility] Blood lymphocytes count (number/volume) 3.7 1.0 - 3.2 01/20/2019 [facility] Blood monocytes automated count (number/volume) 0.8 0.2 - 0.8 01/20/2019 [facility] Automated blood eosinophil count 0.1 0.0 - 0.4 01/20/2019 [facility] Automated blood basophil count (count/volume) 0.1 0.0 - 0.1 01/20/2019 [facility] Absolute Immature Granulocyte (auto 0.08 0 - 0.1 01/20/2019 [facility] Plasma globulin measurement (mass/volume) 3.9 2.3 - 3.5 01/20/2019 [facility] Serum or plasma albumin/globulin mass ratio 1.0 0.8 - 2.0 01/20/2019 [facility] Serum or plasma alkaline phosphatase measurement (enzymatic activity/volume) 88 40 - 150 01/20/2019 [facility] Serum or plasma lipase measurement (enzymatic activity/volume) 41 8 - 78 01/20/2019 [facility] Serum or plasma anion gap 13.6 8 - 16 01/20/2019 [facility] Serum or plasma urea nitrogen measurement (mass/volume) 12 7 - 26 01/20/2019 [facility] Serum or plasma creatinine measurement (mass/volume) 0.78 0.57 - 1.11 01/20/2019 [facility] Serum or plasma urea nitrogen/creatinine mass ratio 15 6 - 25 01/20/2019 [facility] Estimated glomerular filtration rate (GFR) determination > 60 60 01/20/2019 [facility] Glucose measurement 90 74 - 118 01/20/2019 [facility] Serum or plasma calcium measurement (mass/volume) 9.7 8.4 - 10.2 01/20/2019 [facility] Serum or plasma total bilirubin measurement (mass/volume) 0.3 0.2 - 1.2 01/20/2019 [facility] Aspartate Amino Transf (AST/SGOT) 12 5 - 34 01/20/2019 [facility] Serum or plasma alanine aminotransferase measurement (enzymatic activity/volume) 16 0 - 55 01/20/2019 [facility] Serum or plasma protein measurement (mass/volume) 7.7 6.5 - 8.1 01/20/2019 [facility] Serum or plasma albumin measurement (mass/volume) 3.8 3.5 - 5.0 01/20/2019 [facility] Plasma globulin measurement (mass/volume) 3.9 2.3 - 3.5 01/20/2019 [facility] Serum or plasma albumin/globulin mass ratio 1.0 0.8 - 2.0 01/20/2019 [facility] Serum or plasma alkaline phosphatase measurement (enzymatic activity/volume) 88 40 - 150 01/20/2019 [facility] Serum or plasma lipase measurement (enzymatic activity/volume) 41 8 - 78 01/20/2019 [facility] Serum or plasma sodium measurement (moles/volume) 139 136 - 145 01/20/2019 [facility] Serum or plasma potassium measurement (moles/volume) 4.6 3.5 - 5.1 01/20/2019 [facility] Serum or plasma chloride measurement (moles/volume) 103 98 - 107 01/20/2019 [facility] Serum or plasma carbon dioxide, total measurement (moles/volume) 27 22 - 29 01/20/2019 [facility] Serum or plasma anion gap 13.6 8 - 16 01/20/2019 [facility] Serum or plasma urea nitrogen measurement (mass/volume) 12 7 - 26 01/20/2019 [facility] Serum or plasma creatinine measurement (mass/volume) 0.78 0.57 - 1.11 01/20/2019 [facility] Serum or plasma urea nitrogen/creatinine mass ratio 15 6 - 25 01/20/2019 [facility] Estimated glomerular filtration rate (GFR) determination > 60 60 01/20/2019 [facility] Glucose measurement 90 74 - 118 01/20/2019 [facility] Serum or plasma calcium measurement (mass/volume) 9.7 8.4 - 10.2 01/20/2019 [facility] Serum or plasma total bilirubin measurement (mass/volume) 0.3 0.2 - 1.2 01/20/2019 [facility] Aspartate Amino Transf (AST/SGOT) 12 5 - 34 01/20/2019 [facility] Serum or plasma alanine aminotransferase measurement (enzymatic activity/volume) 16 0 - 55 01/20/2019 [facility] Serum or plasma protein measurement (mass/volume) 7.7 6.5 - 8.1 01/20/2019 [facility] Serum or plasma albumin measurement (mass/volume) 3.8 3.5 - 5.0 01/20/2019 [facility] Urine color determination YELLOW YELLOW 01/20/2019 [facility] Urine clarity CLEAR CLEAR 01/20/2019 [facility] Specific gravity of Urine by Test strip <=1.005 1.010 - 1.025 01/20/2019 [facility] Urine pH measurement by automated test strip 6.5 5 - 7 01/20/2019 [facility] Urine leukocyte esterase detection by automated test strip NEGATIVE NEGATIVE 01/20/2019 [facility] Urine nitrite detection by automated test strip POSITIVE NEGATIVE 01/20/2019 [facility] Urine protein detection by automated test strip NEGATIVE NEGATIVE 01/20/2019 [facility] Urine glucose detection by automated test strip NEGATIVE NEGATIVE 01/20/2019 [facility] Urine ketones detection by automated test strip NEGATIVE NEGATIVE 01/20/2019 [facility] Urine urobilinogen measurement by test strip (mass/volume) 0.2 0.2 - 1 01/20/2019 [facility] Urine total bilirubin detection NEGATIVE NEGATIVE 01/20/2019 [facility] Urine erythrocytes detection 1+ NEGATIVE 01/20/2019 [facility] Automated urine sediment leukocyte count by microscopy (number/high power field) 0-5 0 - 5 01/20/2019 [facility] Erythrocytes detection in urine sediment by light microscopy 0-5 0 - 5 01/20/2019 [facility] Bacteria detection in urine sediment by light microscopy MANY NONE 01/20/2019 [facility] Epithelial cells detection in urine sediment by light microscopy MANY NONE 01/20/2019 [facility] Automated blood basophil count (count/volume) Automated blood basophil count (count/volume) 0.1 0.0 - 0.1 02/18/2018 [facility] Automated blood basophil count as percentage of total leukocytes Automated blood basophil count as percentage of total leukocytes 0.8 0.0 - 1.0 02/18/2018 [facility] Automated blood eosinophil count Automated blood eosinophil count 0.3 0.0 - 0.4 02/18/2018 [facility] Automated blood eosinophil count as percentage of total leukocytes Automated blood eosinophil count as percentage of total leukocytes 2.9 0.0 - 6.0 02/18/2018 [facility] Automated blood hematocrit (volume fraction) Automated blood hematocrit (volume fraction) 41.8 34.2 - 44.1 02/18/2018 [facility] Automated blood lymphocyte count as percentage ot total leukocytes Automated blood lymphocyte count as percentage ot total leukocytes 34.2 18.0 - 39.1 02/18/2018 [facility] Automated blood monocyte count as percentage of total leukocytes Automated blood monocyte count as percentage of total leukocytes 6.4 4.4 - 11.3 02/18/2018 [facility] Automated blood neutrophil count Automated blood neutrophil count 5.7 2.1 - 6.9 02/18/2018 [facility] Automated blood platelet count (count/volume) Automated blood platelet count (count/volume) 330 140 - 360 02/18/2018 [facility] Automated blood segmented neutrophil count as percentage of total leukocytes Automated blood segmented neutrophil count as percentage of total leukocytes 55.4 38.7 - 80.0 02/18/2018 [facility] Automated erythrocyte mean corpuscular hemoglobin (mass per erythrocyte) Automated erythrocyte mean corpuscular hemoglobin (mass per erythrocyte) 27.6 28 - 32 02/18/2018 [facility] Automated erythrocyte mean corpuscular hemoglobin concentration measurement (mass/volume) Automated erythrocyte mean corpuscular hemoglobin concentration measurement (mass/volume) 32.1 31 - 35 02/18/2018 [facility] Automated erythrocyte mean corpuscular volume Automated erythrocyte mean corpuscular volume 86.2 81 - 99 02/18/2018 [facility] Blood erythrocytes automated count (number/volume) Blood erythrocytes automated count (number/volume) 4.85 3.6 - 5.1 02/18/2018 [facility] Blood hemoglobin measurement (moles/volume) Blood hemoglobin measurement (moles/volume) 13.4 12.0 - 16.0 02/18/2018 [facility] Blood leukocytes automated count (number/volume) Blood leukocytes automated count (number/volume) 10.31 4.8 - 10.8 02/18/2018 [facility] Blood lymphocytes count (number/volume) Blood lymphocytes count (number/volume) 3.5 1.0 - 3.2 02/18/2018 [facility] Blood monocytes automated count (number/volume) Blood monocytes automated count (number/volume) 0.7 0.2 - 0.8 02/18/2018 [facility] Estimated glomerular filtration rate (GFR) determination Estimated glomerular filtration rate (GFR) determination >60 60 02/18/2018 [facility] Glucose measurement Glucose measurement 100 74 - 118 02/18/2018 [facility] Plasma globulin measurement (mass/volume) Plasma globulin measurement (mass/volume) 3.9 2.3 - 3.5 02/18/2018 [facility] Serum or plasma alanine aminotransferase measurement (enzymatic activity/volume) Serum or plasma alanine aminotransferase measurement (enzymatic activity/volume) 27 0 - 55 02/18/2018 [facility] Serum or plasma albumin measurement (mass/volume) Serum or plasma albumin measurement (mass/volume) 3.9 3.5 - 5.0 02/18/2018 [facility] Serum or plasma albumin/globulin mass ratio Serum or plasma albumin/globulin mass ratio 1.0 0.8 - 2.0 02/18/2018 [facility] Serum or plasma alkaline phosphatase measurement (enzymatic activity/volume) Serum or plasma alkaline phosphatase measurement (enzymatic activity/volume) 74 40 - 150 02/18/2018 [facility] Serum or plasma anion gap Serum or plasma anion gap 15.2 8 - 16 02/18/2018 [facility] Serum or plasma calcium measurement (mass/volume) Serum or plasma calcium measurement (mass/volume) 9.8 8.4 - 10.2 02/18/2018 [facility] Serum or plasma carbon dioxide, total measurement (moles/volume) Serum or plasma carbon dioxide, total measurement (moles/volume) 25 22 - 29 02/18/2018 [facility] Serum or plasma chloride measurement (moles/volume) Serum or plasma chloride measurement (moles/volume) 105 98 - 107 02/18/2018 [facility] Serum or plasma creatinine measurement (mass/volume) Serum or plasma creatinine measurement (mass/volume) 0.72 0.57 - 1.11 02/18/2018 [facility] Serum or plasma potassium measurement (moles/volume) Serum or plasma potassium measurement (moles/volume) 4.2 3.5 - 5.1 02/18/2018 [facility] Serum or plasma protein measurement (mass/volume) Serum or plasma protein measurement (mass/volume) 7.8 6.5 - 8.1 02/18/2018 [facility] Serum or plasma sodium measurement (moles/volume) Serum or plasma sodium measurement (moles/volume) 141 136 - 145 02/18/2018 [facility] Serum or plasma total bilirubin measurement (mass/volume) Serum or plasma total bilirubin measurement (mass/volume) 0.6 0.2 - 1.2 02/18/2018 [facility] Serum or plasma urea nitrogen measurement (mass/volume) Serum or plasma urea nitrogen measurement (mass/volume) 7 7 - 26 02/18/2018 [facility] Serum or plasma urea nitrogen/creatinine mass ratio Serum or plasma urea nitrogen/creatinine mass ratio 10 6 - 25 02/18/2018 [facility] Red Cell Distribution Width 13.2 11.7 - 14.4 02/18/2018 [facility] IM GRANULOCYTES % 0.3 0.0 - 1.0 02/18/2018 [facility] Absolute Immature Granulocyte (auto 0.03 0 - 0.1 02/18/2018 [facility] Aspartate Amino Transf (AST/SGOT) 22 5 - 34 02/18/2018 [facility] Automated urine sediment leukocyte count by microscopy (number/high power field) Automated urine sediment leukocyte count by microscopy (number/high power field) <5 0 - 5 02/18/2018 [facility] Bacteria detection in urine sediment by light microscopy Bacteria detection in urine sediment by light microscopy MODERATE NONE 02/18/2018 [facility] Epithelial cells detection in urine sediment by light microscopy Epithelial cells detection in urine sediment by light microscopy MODERATE NONE 02/18/2018 [facility] Erythrocytes detection in urine sediment by light microscopy Erythrocytes detection in urine sediment by light microscopy <5 0 - 5 02/18/2018 [facility] Specific gravity of Urine by Test strip Specific gravity of Urine by Test strip 1.010 1.010 - 1.025 02/18/2018 [facility] Urine clarity Urine clarity HAZY CLEAR 02/18/2018 [facility] Urine color determination Urine color determination YELLOW YELLOW 02/18/2018 [facility] Urine erythrocytes detection Urine erythrocytes detection NEGATIVE NEGATIVE 02/18/2018 [facility] Urine glucose detection Urine glucose detection NEGATIVE NEGATIVE 02/18/2018 [facility] Urine ketones detection by automated test strip Urine ketones detection by automated test strip NEGATIVE NEGATIVE 02/18/2018 [facility] Urine leukocyte esterase detection by dipstick Urine leukocyte esterase detection by dipstick NEGATIVE NEGATIVE 02/18/2018 [facility] Urine nitrite detection Urine nitrite detection POSITIVE NEGATIVE 02/18/2018 [facility] Urine pH measurement by automated test strip Urine pH measurement by automated test strip 6.5 5 - 7 02/18/2018 [facility] Urine protein measurement by test strip (mass/volume) Urine protein measurement by test strip (mass/volume) NEGATIVE NEGATIVE 02/18/2018 [facility] Urine total bilirubin measurement (mass/volume) Urine total bilirubin measurement (mass/volume) NEGATIVE NEGATIVE 02/18/2018 [facility] Urine urobilinogen measurement by test strip (mass/volume) Urine urobilinogen measurement by test strip (mass/volume) 0.2 0.2 - 1 02/18/2018 [facility] CHEM PANEL eGFR 113 03/17/2017 Result Comment: [...] should be multiplied by the estimated BMI. [facility] CHEM PANEL POC Creatinine 0.6 0.5 - 1.4 03/17/2017 [facility] CHEM PANEL Alk Phos 79 39 - 136 12/03/[address] [facility] CHEM PANEL Bili Total 0.7 0.2 - 1.3 12/03/[address] [facility] [employer] PANEL Total Protein 6.6 6.4 - 8.4 12/03/[address] [facility] CHEM PANEL eGFR 110 12/03/2015 Result [...] should be multiplied by the estimated BMI. [facility] CHEM PANEL AST 35 0 - 37 12/03/[address] [facility] CHEM PANEL Glucose Lvl 121 70 - 99 12/03/[address] [facility] CHEM PANEL CO2 31 24 - 32 12/03/[address] [facility] CHEM PANEL Albumin Lvl 3.3 3.5 - 5.0 12/03/[address] [facility] CHEM PANEL ALT 49 0 - 65 12/03/[address] [facility] CHEM PANEL BUN 6 7 - 22 12/03/[address] [facility] CHEM PANEL Creatinine Lvl 0.66 0.50 - 1.40 12/03/[address] [facility] CHEM PANEL Chloride Lvl 102 95 - 109 12/03/[address] [facility] CHEM PANEL Potassium Lvl 4.4 3.5 - 5.1 12/03/[address] [facility] CHEM PANEL Calcium Lvl 8.4 8.5 - 10.5 12/03/[address] [facility] CHEM PANEL Sodium Lvl 140 135 - 145 12/03/[address] [facility] CHEM PANEL A/G Ratio 1.0 0.7 - 1.6 12/03/[address] [facility] CHEM PANEL Globulin 3.3 2.0 - 4.0 12/03/[address] [facility] CHEM PANEL AGAP 11.4 10.0 - 20.0 12/03/[address] [facility] CHEM PANEL B/C Ratio 9 6 - 25 12/03/[address] [facility] HEMATOLOGY Basophils # 0.0 0.0 - 0.2 12/03/[address] [facility] HEMATOLOGY Eosinophils # 0.0 0.0 - 0.5 12/03/[address] [facility] HEMATOLOGY Monocytes # 0.9 0.0 - 0.8 12/03/[address] [facility] HEMATOLOGY Basophils 0.2 0.0 - 1.0 12/03/[address] [facility] HEMATOLOGY Monocytes 7.3 2.0 - 12.0 12/03/[address] [facility] HEMATOLOGY Lymphocytes 17.0 20.0 - 40.0 12/03/[address] [facility] HEMATOLOGY Segs 75.5 45.0 - 75.0 12/03/[address] [facility] HEMATOLOGY Eosinophils 0.0 0.0 - 4.0 12/03/[address] [facility] HEMATOLOGY Lymphocytes # 2.1 1.0 - 5.5 12/03/[address] [facility] HEMATOLOGY Segs-Bands # 9.3 1.5 - 8.1 12/03/[address] [facility] HEMATOLOGY RBC 4.14 4.20 - 5.40 12/03/[address] [facility] HEMATOLOGY WBC 12.4 3.7 - 10.4 12/03/[address] [facility] HEMATOLOGY Hgb 11.5 12.0 - 16.0 12/03/[address] [facility] HEMATOLOGY Platelet 297 133 - 450 12/03/[address] [facility] HEMATOLOGY MPV 8.8 7.4 - 10.4 12/03/[address] [facility] HEMATOLOGY RDW 13.1 11.5 - 14.5 12/03/[address] [facility] HEMATOLOGY MCHC 32.3 32.0 - 36.0 12/03/[address] [facility] HEMATOLOGY MCH 27.8 27.0 - 31.0 12/03/[address] [facility] HEMATOLOGY MCV 86.1 80.0 - 98.0 12/03/[address] [facility] HEMATOLOGY Hct 35.7 36.0 - 48.0 12/03/[address] [facility] SPECIAL CHEMISTRY Hgb A1C 5.8 <=5.6 % 12/03/[address] [facility] CHEM PANEL Calcium Lvl 8.5 8.5 - 10.5 11/27/[address] [facility] CHEM PANEL Albumin Lvl 3.3 3.5 - 5.0 11/27/[address] [facility] CHEM PANEL CO2 26 24 - 32 11/27/[address] [facility] CHEM PANEL Glucose Lvl 93 70 - 99 11/27/2014 <sup>4</sup>Interpretive Data: Adult reference range values reflect the clinical guidelines
of the [place] [employer]. [facility] CHEM PANEL BUN 6 7 - 22 11/27/[address] [facility] CHEM PANEL ALT 73 0 - 65 11/27/[address] [facility] CHEM PANEL AST 73 0 - 37 11/27/[address] [facility] CHEM PANEL Alk Phos 112 39 - 136 11/27/[address] [facility] CHEM PANEL Bili Total 1.2 0.2 - 1.3 11/27/[address] [facility] CHEM PANEL A/G Ratio 0.9 0.7 - 1.6 11/27/[address] [facility] CHEM PANEL Globulin 3.5 2.0 - 4.0 11/27/[address] [facility] CHEM PANEL Total Protein 6.8 6.4 - 8.4 11/27/[address] [facility] CHEM PANEL eGFR 93 11/27/2014 <sup>1</sup>Result [...] should be multiplied by the estimated BMI. [facility] CHEM PANEL Sodium Lvl 140 135 - 145 11/27/[address] [facility] CHEM PANEL Creatinine Lvl 0.8 0.5 - 1.4 11/27/[address] [facility] CHEM PANEL Chloride Lvl 104 95 - 109 11/27/[address] [facility] CHEM PANEL Potassium Lvl 4.0 3.5 - 5.1 11/27/[address] [facility] CHEM PANEL AGAP 14.0 10.0 - 20.0 11/27/[address] [facility] CHEM PANEL B/C Ratio 8 6 - 25 11/27/[address] [facility] HEMATOLOGY RBC 4.15 4.20 - 5.40 11/27/[address] [facility] HEMATOLOGY Hgb 11.2 12.0 - 16.0 11/27/[address] [facility] HEMATOLOGY WBC 9.4 3.7 - 10.4 11/27/[address] [facility] HEMATOLOGY MPV 9.2 7.4 - 10.4 11/27/[address] [facility] HEMATOLOGY Platelet 267 133 - 450 11/27/[address] [facility] HEMATOLOGY RDW 15.1 11.5 - 14.5 11/27/[address] [facility] HEMATOLOGY MCHC 32.2 32.0 - 36.0 11/27/[address] [facility] HEMATOLOGY MCV 83.6 80.0 - 98.0 11/27/[address] [facility] HEMATOLOGY MCH 26.9 27.0 - 31.0 11/27/[address] [facility] HEMATOLOGY Hct 34.7 36.0 - 48.0 11/27/[address] [facility] HEMATOLOGY Basophils # 0.1 0.0 - 0.2 11/27/[address] [facility] HEMATOLOGY Eosinophils # 0.1 0.0 - 0.5 11/27/[address] [facility] HEMATOLOGY Monocytes # 0.7 0.0 - 0.8 11/27/[address] [facility] HEMATOLOGY Segs 57.3 45.0 - 75.0 11/27/[address] [facility] HEMATOLOGY Lymphocytes # 3.1 1.0 - 5.5 11/27/[address] [facility] HEMATOLOGY Eosinophils 1.4 0.0 - 4.0 11/27/[address] [facility] HEMATOLOGY Monocytes 7.7 2.0 - 12.0 11/27/[address] [facility] HEMATOLOGY Basophils 0.6 0.0 - 1.0 11/27/[address] [facility] HEMATOLOGY Segs-Bands # 5.4 1.5 - 8.1 11/27/[address] [facility] HEMATOLOGY Lymphocytes 33.0 20.0 - 40.0 11/27/[address] [facility] CHEM PANEL Globulin 3.8 2.0 - 4.0 11/26/[address] [facility] CHEM PANEL A/G Ratio 0.9 0.7 - 1.6 11/26/[address] [facility] CHEM PANEL AGAP 11.8 10.0 - 20.0 11/26/[address] [facility] CHEM PANEL B/C Ratio 9 6 - 25 11/26/[address] [facility] CHEM PANEL Bili Total 0.7 0.2 - 1.3 11/26/[address] [facility] CHEM PANEL ALT 82 0 - 65 11/26/[address] [facility] CHEM PANEL AST 47 0 - 37 11/26/[address] [facility] CHEM PANEL Alk Phos 104 39 - 136 11/26/[address] [facility] CHEM PANEL Total Protein 7.3 6.4 - 8.4 11/26/[address] [facility] CHEM PANEL Creatinine Lvl 0.8 0.5 - 1.4 11/26/[address] [facility] CHEM PANEL Sodium Lvl 138 135 - 145 11/26/[address] [facility] CHEM PANEL Potassium Lvl 4.8 3.5 - 5.1 11/26/[address] [facility] CHEM PANEL Chloride Lvl 103 95 - 109 11/26/[address] [facility] CHEM PANEL eGFR 93 11/26/2014 <sup>2</sup>Result [...] should be multiplied by the estimated BMI. [facility] CHEM PANEL Calcium Lvl 8.5 8.5 - 10.5 11/26/[address] [facility] CHEM PANEL Albumin Lvl 3.5 3.5 - 5.0 11/26/[address] [facility] CHEM PANEL BUN 7 7 - 22 11/26/[address] [facility] CHEM PANEL Glucose Lvl 99 70 - 99 11/26/2014 <sup>5</sup>Interpretive Data: Adult reference range values reflect the clinical guidelines
of the [place] [employer]. [facility] CHEM PANEL CO2 28 24 - 32 11/26/[address] [facility] HEMATOLOGY MCV 84.1 80.0 - 98.0 11/26/[address] [facility] HEMATOLOGY MCH 27.0 27.0 - 31.0 11/26/[address] [facility] HEMATOLOGY MCHC 32.1 32.0 - 36.0 11/26/[address] [facility] HEMATOLOGY RDW 15.5 11.5 - 14.5 11/26/[address] [facility] HEMATOLOGY RBC 4.46 4.20 - 5.40 11/26/[address] [facility] HEMATOLOGY Hgb 12.0 12.0 - 16.0 11/26/[address] [facility] HEMATOLOGY WBC 12.8 3.7 - 10.4 11/26/[address] [facility] HEMATOLOGY Platelet 313 133 - 450 11/26/[address] [facility] HEMATOLOGY MPV 8.9 7.4 - 10.4 11/26/[address] [facility] HEMATOLOGY Hct 37.5 36.0 - 48.0 11/26/[address] [facility] HEMATOLOGY Monocytes # 0.7 0.0 - 0.8 11/26/[address] [facility] HEMATOLOGY Eosinophils # 0.0 0.0 - 0.5 11/26/[address] [facility] HEMATOLOGY Eosinophils 0.1 0.0 - 4.0 11/26/[address] [facility] HEMATOLOGY Monocytes 5.4 2.0 - 12.0 11/26/[address] [facility] HEMATOLOGY Basophils 0.3 0.0 - 1.0 11/26/[address] [facility] HEMATOLOGY Plt Morph Normal (11/26/14 3:36 AM) 11/26/[address] [facility] HEMATOLOGY RBC Morph Normal (11/26/14 3:36 AM) 11/26/[address] [facility] HEMATOLOGY Lymphocytes 13.0 20.0 - 40.0 11/26/[address] [facility] HEMATOLOGY Segs 81.2 45.0 - 75.0 11/26/[address] [facility] Segs-Bands # 10.4 1.5 - 8.1 11/26/[address] [facility] Lymphocytes # 1.7 1.0 - 5.5 11/26/[address] [facility] BLOOD BANK RESULTS Antibody Scrn Negative (11/25/14 12:05 PM) 11/25/[address] [facility] BLOOD BANK RESULTS ABO/Rh O POS 11/25/[address] [facility] CHEM PANEL Vitamin D, 25-OH, Total 28 30 - 100 11/14/2014 <sup>7</sup>Interpretive Data: Reference range is based on recommendations in the Endocrine
Society Clinical Practice Guideline (J Clin Endocrinol Metab
2010;96:6196-[address]123) [facility] CHEM PANEL eGFR 93 11/14/2014 <sup>3</sup>Result [...] should be multiplied by the estimated BMI. [facility] CHEM PANEL Creatinine Lvl 0.8 0.5 - 1.4 11/14/[address] [facility] CHEM PANEL BUN 12 7 - 22 11/14/[address] [facility] CHEM PANEL Glucose Lvl 98 70 - 99 11/14/2014 <sup>6</sup>Interpretive Data: Adult reference range values reflect the clinical guidelines
of the [place] [employer]. [facility] ELECTROLYTES Sodium Lvl 136 135 - 145 11/14/[address] [facility] ELECTROLYTES Potassium Lvl 4.0 3.5 - 5.1 11/14/[address] [facility] HEMATOLOGY Hct 40.4 36.0 - 48.0 11/14/[address] [facility] HEMATOLOGY Hgb 12.9 12.0 - 16.0 11/14/[address] [facility] PARATHYROID PROFILE PTH Intact 42.8 11.1 - 79.5 11/14/[address] [facility] SPECIAL CHEMISTRY Hgb A1C 6.3 <=5.6 % 11/14/[address] [facility] CHEM PANEL eGFR 93 10/03/2014 <sup>1</sup>Result [...] should be multiplied by the estimated BMI. [facility] CHEM PANEL Chloride Lvl 103 95 - 109 10/03/2014 [facility] CHEM PANEL Potassium Lvl 4.0 3.5 - 5.1 10/03/2014 [facility] CHEM PANEL CO2 29 24 - 32 10/03/2014 [facility] CHEM PANEL AGAP 10.0 10.0 - 20.0 10/03/2014 [facility] CHEM PANEL Calcium Lvl 9.2 8.5 - 10.5 10/03/2014 [facility] CHEM PANEL Creatinine Lvl 0.8 0.5 - 1.4 10/03/2014 [facility] CHEM PANEL BUN 15 7 - 22 10/03/2014 [facility] CHEM PANEL Sodium Lvl 138 135 - 145 10/03/2014 [facility] CHEM PANEL Glucose Lvl 108 70 - 99 10/03/2014 <sup>2</sup>Interpretive Data: Adult reference range values reflect the clinical guidelines
of the [place] [employer]. [facility] Pathology Reports No Data Provided for This Section Diagnostic Reports Report Value Date Source Brain wo contrast CT EXAM: CT BRAIN WITHOUT CONTRAST DATE: 03/22/2019 7:40 CDT INDICATION: Blurry vision x1 month COMPARISON: None TECHNIQUE: Noncontrast axial imaging of the brain was acquired from the vertex to the skull base. Coronal and sagittal reformatted images were generated. DLP: 166mGy-cm FINDINGS: No acute intracranial hemorrhage or extra-axial collection. Unremarkable attenuation of the brain parenchyma. No hydrocephalus, midline shift, or herniation. Calvarium and skull base are intact. Imaged portions of the paranasal sinuses and mastoid air cells are clear. IMPRESSION: No acute intracranial abnormality. Negative brain CT. 03/22/[address] [facility] wo contrast CT EXAM: CT BILATERAL LOWER [...] hepatic steatosis. 2. Status post cholecystectomy. 12/05/2018 [facility] wo contrast MRI EXAMINATION: MRI of the [...] medial or lateral compartment chondrosis. 11/16/2018 [facility] Tibia fibula series DX Left tibia-fibula 2 views: HISTORY: Leg sprain, thrombophlebitis. FINDINGS: No bone, joint or soft tissue abnormality SL: MADELYN 04/05/2018 [facility] Ext Lower Venous Doppler Bilat US [...] No deep venous thrombosis. SL: EG-M 04/05/2018 [facility] Shoulder series DX HISTORY: - M19.012 Primary [...] is clear. IMPRESSION: No acute osseous injury. [id number] 11/10/2017 [facility] Breast Mammo Scrn SHANE incl CAD [...] is recommended.(10/04/2018) This exam was interpreted at [id number] for ISIDRO [place] 15. Professional services are provided by the [facility]. Warner Pavon M.D., cm/kalen:10/04/2017 11:02:50 [facility] Liaison(s): RT Steve(R)(M), [facility] letter sent: BI-RADS 1/2 Mammogram BI-RADS: 2 [...] facet. 2. Mild proximal patellar tendinosis. 09/22/2017 [facility] Chest 2 views DX EXAM: Chest [...] injury. IMPRESSION: No radiographic evidence of urolithiasis. [id number] 08/15/2017 [facility] Retroperitoneal Complete US Patient Name: CHARLENE VASQUEZ : 1975; Age: 41 years y/o Female MR: [id number] Study: Retroperitoneal Complete US Clinical Indication: N39.0 [...] significant renal abnormality is otherwise demonstrated. SL: [id number] 04/27/2017 [facility] Pelvis Complete US Patient Name: CHARLENE VASQUEZ : 1975; Age: 41 years y/o Female MR: [id number] Study: Pelvis Complete US 04/27/2017 10:36 AM [...] without other mass or lesion appreciated. SL: [id number] 04/27/2017 [facility] lumbar w/wo contrast MRI MRI LUMBAR [...] No abnormal postcontrast enhancement. SL: [id number] 03/17/2017 [facility] Hip 2/3 views uni DX Exam: [...] atelectasis. Otherwise no acute intrathoracic abnormality. 12/02/[address] [facility] Chest 2 views DX CHEST PA [...] spondylolisthesis. Mild scattered degenerative disc disease. 03[facility]03[facility] Foot 2 views bilateral DX EXAM: Foot 2 Views Bilateral HISTORY: pain COMPARISON: None FINDINGS: No displaced fracture or subluxation is seen involving the bilateral feet. No significant degenerative change. There is no evidence of soft tissue swelling. IMPRESSION: No radiographic abnormality appreciated. 03/03[facility]-2 Views Bilateral DX EXAMINATION: Bilateral [...] fracture or substantial joint space narrowing. 02/26/2015 [facility] Spine thoracic 3 views DX EXAMINATION: Thoracic [...] the mid to lower thoracic spine. 02/26/2015 [facility] lumbar 2 or 3 views DX [...] through L4-L5 degenerative disc disease. 02/26/2015 [facility] Upper GI Series w water soluble DX OMNIPAQUE UPPER GI SERIES 11/26/2014 The fluoroscopy time is 5 seconds. Small volume of Omnipaque given orally passed easily from the distal esophagus into the gastric tube and duodenum. No contrast extravasation or obstruction is seen. Impression: 1. No contrast extravasation or obstruction identified. 11/26/[address] [facility] Chest 2 views DX Chest x-ray 2 views INDICATION: Coughing COMPARISON: 12/21/2011 FINDINGS: Heart size and central vasculature are within normal limits. There is no effusion or focal pneumonia. No pneumothorax. No acute osseous pathology. IMPRESSION: No acute cardiopulmonary process. 11/14/[address] [facility] Consultation Notes No Data Provided for This Section Discharge Summaries No Data Provided for This Section History and Physicals No Data Provided for This Section Vital Signs Vital Sign Value Date Comments Source Respitory Rate 10 12/03/[address] [facility] Systolic (mm Hg) 83 12/03/[address] [facility] Diastolic (mm Hg) 38 12/03/[address] [facility] Respitory Rate 20 12/03/[address] [facility] Systolic (mm Hg) 112 12/03/[address] [facility] Diastolic (mm Hg) 61 12/03/[address] [facility] Respitory Rate 11 12/03/[address] [facility] Temperature Oral (F) 97.8 F 12/03/[address] [facility] Systolic (mm Hg) 109 12/03/[address] [facility] Diastolic (mm Hg) 48 12/03/[address] [facility] Temperature Oral (F) 98 F 12/03/[address] [facility] Temperature Oral (F) 98.3 F 12/03/[address] [facility] Weight 157.2 12/02/[address] [facility] Heart Rate 75 12/02/[address] [facility] Weight 154.091 12/01/[address] [facility] BMI Calculated 53.21 12/01/[address] [facility] Height 170.18 cm 12/01/[address] [facility] Heart Rate 88 11/27/[address] [facility] Respitory Rate 19 11/27/[address] [facility] Systolic (mm Hg) 114 11/27/[address] [facility] Diastolic (mm Hg) 72 11/27/[address] [facility] Temperature Oral (F) 98.0 F 11/27/[address] [facility] Respitory Rate 19 11/27/[address] [facility] Systolic (mm Hg) 115 11/27/[address] [facility] Diastolic (mm Hg) 74 11/27/[address] [facility] Temperature Oral (F) 98.3 F 11/27/[address] [facility] Heart Rate 95 11/27/[address] [facility] Temperature Oral (F) 98.4 F 11/27/[address] [facility] Respitory Rate 18 11/27/[address] [facility] Systolic (mm Hg) 111 11/27/[address] [facility] Diastolic (mm Hg) 71 11/27/[address] [facility] Heart Rate 93 11/27/[address] [facility] BMI Calculated 73.63 11/14/[address] [facility] Weight 210.057 11/14/[address] [facility] Height 168.91 cm 11/14/[address] [facility] Respitory Rate 20 10/09/2014 [facility] Systolic (mm Hg) 123 10/09/2014 [facility] Diastolic (mm Hg) 71 10/09/2014 [facility] Respitory Rate 12 10/09/2014 [facility] Systolic (mm Hg) 106 10/09/2014 [facility] Diastolic (mm Hg) 62 10/09/2014 [facility] Systolic (mm Hg) 117 10/09/2014 [facility] Diastolic (mm Hg) 75 10/09/2014 [facility] Heart Rate 87 10/09/2014 [facility] Respitory Rate 20 10/09/2014 [facility] Heart Rate 90 10/03/2014 [facility] Temperature Oral (F) 98.6 F 10/03/2014 [facility] Weight 215.909 10/03/2014 [facility] BMI Calculated 76.83 10/03/2014 [facility] Height [...] 05/13/2011 [facility] Diastolic (mm Hg) 67.0 05/13/2011 [facility] Respitory Rate 18.0 05/13/2011 [facility] Systolic (mm Hg) 104.0 05/13/2011 [facility] Diastolic (mm Hg) 54.0 05/13/2011 [facility] Heart Rate 89.0 05/13/2011 [facility] Respitory Rate 18.0 05/13/2011 [facility] Systolic (mm Hg) 108.0 05/13/2011 [facility] Diastolic (mm Hg) 56.0 05/13/2011 [facility] Heart Rate 95.0 05/13/2011 [facility] Temperature Oral (F) 98.2 F 05/11/2011 [facility] Height 167.64 cm 05/11/2011 [facility] Weight 211.364 05/11/2011 [facility] Encounters Location Location Details Encounter Type Encounter Number Reason For Visit Attending Provider ADM Date DC Date Status Source [facility] AIDE [id number] DARA FALCON 05/13/2011 05/13/2011 Discharged [facility] [place] [id number] [facility] 06/08/2011 Active [facility] [place] [id number] [facility] 07/13/2011 Active [facility] Outpatient [id number] [facility] 10/16/2011 Active [facility] Outpatient [id number] DX: CHEST PAIN ISAIAH LEMONS 10/20/2011 Active [facility] Outpatient [id number] 401.1 [facility] 11/02/2011 Active [facility] Outpatient [id number] [facility] 11/04/2011 Active [facility] [place] [id number] [facility] 12/21/2011 Active [facility] Outpatient [id number] 786.05 LESIA NELSON 12/21/[address] [facility] Bedded Outpatient [id number] Nanette [place] 10/09/2014 10/09[facility] [id number] Sacha [place] 11/25/2014 11/27/2014 [facility] [place] [facility] [id number] Dillan Mushtaq 02/26/2015 02/27/2015 [facility] Outpatient Imaging [facility] [place] [facility] [id number] Dillanlashell [place] 03/03/2015 03/04/2015 [facility] [place] Outpatient [facility] [place] [facility] [id number] Lesia Cintronpta 07/10/2015 07/11/[address] [place] [facility] Inpatient [id number] Sacha [place] 12/02/2015 12/03/2015 [facility] [place] [facility] [id number] Isacc Chacon 01/18/2016 01/19/2016 [facility] [place] [facility] Outpatient [id number] Isacc Chacon 03/17/2017 03/18/2017 [facility] Outpatient [id number] Isacc Chacon 04/27/2017 04/28/2017 [facility] Outpatient [facility] [place] [facility] [id number] Frank Brown 08/18/2017 08/19/2017 [facility] [place] [facility] Outpatient [facility] [place] [facility] [id number] Isacc Chacon 09/05/2017 09/06/2017 [facility] [place] [facility] Outpatient [facility] [place] [facility] [id number] Isacc Chacon 09/22/2017 09/23/2017 [facility] [place] [facility] Outpatient [facility] [place] [facility] [id number] Paulette Cross 10/03/2017 10/04/2017 [facility] [place] [facility] Outpatient [facility] [place] [facility] [id number] Isacc Chacon 11/10/2017 11/11/2017 [facility] [place] Departed Emergency Room [id number] YANG IBANEZ MD 02/18/2018 02/18/2018 [facility] Departed Emergency Room [id number] RON CARVAJAL MD 03/23/2018 03/24/2018 [facility] Out[facility] [place] [facility] [id number] Isacc Chacon 04/03/2018 04/03/2018 [facility] [place] [facility] Outpatient [id number] Isacc Chacon 04/05/2018 04/06/2018 [facility] Out[facility] [place] [facility] [id number] Chun Bender 11/16/2018 11/17/2018 [facility] Outpatient Imaging - [place] Out[facility] Diag Services [id number] Alberto Franz 12/05/2018 12/06/2018 [facility] Outpatient [facility] [place] Out[facility] Di[facility] [id number] Johnny Plascencias 12/19/2018 12/20/2018 [facility] Outpatient [id number] Obonorufino Castillohaese 01/02/2019 01/03/2019 [facility] Departed Emergency Room [id number] MARIAA SHAH MD 01/12/2019 01/12/2019 [place] [facility] [id number] BISHOP TOMAS MD 01/13/2019 01/13/2019 [facility] [id number] RONAK HOANG MD 01/20/2019 01/20/2019 [facility] [id number] VIV LUI MD 01/27/2019 01/27/2019 [facility] [place] OP Therapy Patients [id number] Johnnyjelani Nieto 02/01/2019 03/03/2019 [facility] Kalpesh [facility] [place] [facility] Di[facility] Services [id number] Albertohanny Franz 03/22/2019 03/23/2019 [facility] Outpatient [id number] DX: CHEST PAIN DR. GIVENS WILL BE HERE PER ADORE Gusmancel [facility] Outpatient [id number] DX: [phone] DR LEMONS WILL DO/READ PER JESSICA MARES ISAIAH LEMONS Cancel [facility] Procedures Procedure Code Date Perfomer Comments Source Ultrasound examination of pelvis, limited or follow-up [id number] 01/20/2019 [facility] US Abdomen limited [id number] 01/20/2019 [facility] Computed tomography of abdomen and pelvis with contrast [id number] 02/18/[address] [facility] Laparoscopic cholecystectomy [id number] 12/02/2015 [facility], [facility] [place], [facility] [place],[facility] [place] Laparoscopic sleeve gastrectomy [id number] 11/25/2014 [facility] [place],[facility] [place],[facility] [place],[facility] [place] Laparoscopy [id number] 11/25/2014 [facility] [place],[facility] [place], [facility] [place],[facility], [facility] [place] Lysis of adhesions of abdomen [id number] 11/25/2014 [facility] Omar, [facility] [place], [facility] [place],[facility] [place] Hysterectomy [id number] [facility] [place], [facility] [place],[facility] [place],[facility], [facility] [place] Operation [id number] [facility], [facility] [place],[facility] [place],[facility] [place] Sebaceous cyst removal [id number] [facility] [place], [facility] [place],[facility] [place],[facility] [place] Tonsillectomy [id number] [facility] [place] [place],[facility] [place] Assessment and Plan Assessment and Plan Date Source Extracted from:Title: Surgery Note Author: Ayla Queen (Fellow) Date: 12/03/[address] [facility] Completed: November, 01:53 by Ayla Queen (Fellow) RM: [phone] - [id number], ANDRIA J3EC CHARLENE VASQUEZ 40y (: 1975) F Attending: Sacha Toledo MD Service: General Surgery Service Reason for Admission: 58996, K81.9, CHOLELITHIASIS Working DRG: Cholecystectomy except by [...] status: None Specified=FULL CODE Reason for Admission: 69472, K81.9, CHOLELITHIASIS Working DRG: None Documented Isolation: None Documented Consulting Physicians: Rupesh Vázquez MD Office: (not on file) MSO: [id number] Service: Medicine Sacha Toledo MD Office: MSO: [id number] Service: General Surgery Reason for Consult: s/p [...] surgical site. ( 10/31). She' s on TRANSPORTATION ENGINEER morphine. ROS All Systems were reviewed and [...] day and continuous at night Continue Morphine TRANSPORTATION ENGINEER for pain control Recommend continuous End-tidal CO2 monitoring while on TRANSPORTATION ENGINEER pump due to high risk for development of respiratory compromise check HbA1C Critical care time 45 minutes excluding procedure time 12/03/[address] [facility] Extracted from:Title: Clinical Document Author: Sacha Toledo MD Date: 11/27/14 Doing well. VS stable. Chest clear. Abdomen soft. Tolerating diet. 11/27/[address] [facility] Plan of Care Plan of Care Date Source Discharge Date 01/27/19 3:24am Disposition HOME, SELF-CARE Condition at Discharge Stable Instructions/Education Provided Dysuria - Female Forms Provided Work/School Excuse Prescriptions See Medication Section Additional Instructions/Education finish your antibiotics, please follow up with your primary care doctor 01/27/2019 [facility] Discharge Date 06/30/19 6:38am Disposition HOME, SELF-CARE Condition at Discharge Stable Instructions/Education Provided Abdominal Pain - Adult Urinary Tract Infection - Women Forms Provided Work/School Excuse Prescriptions See Medication Section Referrals CHILO ENCINAS MD Address: [address] [place] [address] Additional Instructions/Education Please f/u with the urologist provided 01/20/2019 [facility] Discharge Date 03/24/18 12:34am Disposition HOME, SELF-CARE Condition at Discharge Stable Instructions/Education Provided Sprains- Knee Prescriptions See Medication Section Referrals ISACC CHACON MD Address: [address] [place] [address] Additional Instructions/Education REST; FOLLOW UP WITH YOUR PCP 03/24/2018 [facility] Social History Social History Date Source Smoking Status Start Date Stop Date Never Smoker 01/27/2019 [facility] Social History TypeResponse Alcohol Never, Previous treatment: None. Alcohol use interferes with work or home: No. Drinks more than intended: No. Others hurt by drinking: No. Ready to change: No. Household alcohol concerns: No. Smoking Status Former smoker; Exposure to Tobacco Smoke None; Cigarette Smoking Last 365 Days No; Reg Smoking Cessation Counseling Yes entered on: 12/01/15 12/02/2015 [facility] Villag[facility] Social History TypeResponse Alcohol Never, Previous treatment: None. Alcohol use interferes with work or home: No. Drinks more than intended: No. Others hurt by drinking: No. Ready to change: No. Household alcohol concerns: No. Smoking Status Former smoker; Exposure to Tobacco Smoke None; Cigarette Smoking Last 365 Days No; Reg Smoking Cessation Counseling Yes entered on: 12/01/15 12/02/2015 [facility] Social History TypeResponse Alcohol Never, Previous treatment: None. Alcohol use interferes with work or home: No. Drinks more than intended: No. Others hurt by drinking: No. Ready to change: No. Household alcohol concerns: No. Smoking Status Former smoker; Exposure to Tobacco Smoke None; Cigarette Smoking Last 365 Days No; Reg Smoking Cessation Counseling Yes 12/02/[address] [facility] Social History TypeResponse Alcohol Never, Previous treatment: None. Alcohol use interferes with work or home: No. Drinks more than intended: No. Others hurt by drinking: No. Ready to change: No. Household alcohol concerns: No. Smoking Status Former smoker; Exposure to Tobacco Smoke None; Cigarette Smoking Last 365 Days No; Reg Smoking Cessation Counseling Yes entered on: 12/01/15 12/02/2015 [facility] Social History TypeResponse Alcohol Never, Previous treatment: None. Alcohol use interferes with work or home: No. Drinks more than intended: No. Others hurt by drinking: No. Ready to change: No. Household alcohol concerns: No. Smoking Status Former smoker; Exposure to Tobacco Smoke None; Cigarette Smoking Last 365 Days No; Reg Smoking Cessation Counseling Yes entered on: 12/01/15 12/02/2015 [facility] [place] Social History TypeResponse Alcohol Never, Previous treatment: None. Alcohol use interferes with work or home: No. Drinks more than intended: No. Others hurt by drinking: No. Ready to change: No. Household alcohol concerns: No. Smoking Status Former smoker; Exposure to Tobacco Smoke None; Cigarette Smoking Last 365 Days No; Reg Smoking Cessation Counseling Yes entered on: 12/01/15 12/02/2015 [facility] [place] Social History TypeResponse Alcohol Never, Previous treatment: None. Alcohol use interferes with work or home: No. Drinks more than intended: No. Others hurt by drinking: No. Ready to change: No. Household alcohol concerns: No. Smoking Status Former smoker; Exposure to Tobacco Smoke None; Cigarette Smoking Last 365 Days No; Reg Smoking Cessation Counseling Yes entered on: 12/01/15 12/02/2015 [facility] [place] Family History No Data Provided for This Section Advance Directives Order Name Results Value Date Source Advance Directives Advance Directives Directive Response Recorded Date/Time Does the patient have an advance directive? No 07/10/12 3:34pm Do you have a Directive to Physician? No 01/27/19 2:31am Do you have a Medical Power of Trade Manager? No 01/27/19 2:31am Do you have an out of hospital Do Not Resuscitate Order? No 01/27/19 2:31am Do you have any special needs we should be aware of? No 01/27/19 2:31am Do you have a support person here with you today? No 01/27/19 2:31am Did patient receive Notice of Privacy Practices? Yes 01/27/19 2:31am Did patient receive patient rights and responsibilities? Yes 01/27/19 2:31am 01/27/2019 [facility] Advance Directives Advance Directives Directive Response Recorded Date/Time Does the patient have an advance directive? No 07/10/12 3:34pm Do you have a Directive to Physician? No 01/20/19 3:14am Do you have a Medical Power of Trade Manager? No 01/20/19 3:14am Do you have an [...] responsibilities? Yes 01/20/19 3:14am 01/20/2019 [facility] Advance Directives Advance Directives Directive Response Recorded Date/Time Does the patient have an advance directive? No 07/10/12 3:34pm If yes, is advance directive on file with [facility]? No 07/10/12 3:34pm If not on file with [facility] will patient provide a copy? Yes 03/15/17 8:45pm 03/24/2018 [facility] Functional Status No Data Provided for This Section
--- OUTSIDE RECORDS SUMMARY | 2019-04-15 19:39 | XMS REPORT | Summary of Care ---
Author Author [facility] Outpatient Imaging [facility] Address Unknown Phone Unavailable Encounter MIROSLAVA Aragon(FIN) [id number] Date(s): 03/22/19 - 03/22/19 [facility] [address] [facility], [address] [place], [place] [address] [phone] Discharge Disposition: Home or Self Care Attending [...]
--- OUTSIDE RECORDS SUMMARY | 2019-04-15 19:39 | XMS REPORT | Summary of Care ---
Author Author [facility] Address Unknown Phone Unavailable Encounter HQ Osielr_fuad(FIN) [id number] Date(s): 02/01/19 - 03/02/19 [facility] Discharge Disposition: Home or Self Care Attending Physician: Johnny Nieto MD Vital Signs No data available for [...]
[2019-04-15] MEDS ORDERED: MECLIZINE HCL 12.5 MG TAB PO ONE (20:00)
[2019-04-15] MEDS ORDERED: TRULICITY SQ (20:21)
[2019-04-15] MEDS ORDERED: BUPROPION XL300 MG PO (20:21)
[2019-04-15 20:33] LABS: BASOPHILS # (AUTO) 0.1 (0.0-0.1); BASOPHILS % 0.6 % (0.0-1.0); EOSINOPHILS # (AUTO) 0.2 (0.0-0.4); EOSINOPHILS % 1.9 % (0.0-6.0); HEMATOCRIT 41.6 % (34.2-44.1); HEMOGLOBIN 12.9 g/dL (12.0-16.0); LYMPHOCYTES % 25.1 % (18.0-39.1); MEAN CORPUSCULAR HEMOGLOBIN 27.6 pg (28-32); MEAN CORPUSCULAR VOLUME 88.9 fL (81-99); MONOCYTES # (AUTO) 0.7 (0.2-0.8); MONOCYTES % 5.5 % (4.4-11.3); NEUTROPHILS % 66.5 % (38.7-80.0); PLATELET COUNT 354 x10e3/uL (140-360); RED BLOOD COUNT 4.68 x10e6/uL (3.6-5.1); RED CELL DISTRIBUTION WIDTH 13.4 % (11.7-14.4)
[2019-04-15 20:46] LABS: BILIRUBIN,URINE NEGATIVE (NEGATIVE); CLARITY,URINE CLEAR (CLEAR); KETONES,URINE NEGATIVE (NEGATIVE); LEUKOCYTE ESTERASE ,URINE NEGATIVE (NEGATIVE); NITRITE,URINE NEGATIVE (NEGATIVE); PROTEIN,URINE DIPSTICK NEGATIVE (NEGATIVE); URINE UROBILINOGEN 0.2 mg/dL (0.2 - 1)
[2019-04-15 20:52] LABS: COLOR,URINE COLORLESS (YELLOW)
[2019-04-15 20:57] LABS: BACTERIA,URINE MANY /HPF; EPITHELIAL CELLS,URINE MODERATE /LPF
[2019-04-15 20:59] LABS: ANION GAP 12.9 mmol/L (8-16); BLOOD UREA NITROGEN 6 mg/dL (7-26); BUN/CREATININE RATIO 8 (6-25); CALCIUM 9.9 mg/dL (8.4-10.2); CARBON DIOXIDE 28 mmol/L (22-29); CHLORIDE 102 mmol/L (98-107); CREATININE, SERUM 0.73 mg/dL (0.57-1.11); EST GLOMERULAR FILTRATION RATE > 60 ML/MIN (60-); GLUCOSE 87 mg/dL (74-118); POTASSIUM 3.9 mmol/L (3.5-5.1); SODIUM 139 mmol/L (136-145)
[2019-04-15 21:08] VITALS: BP 123/82
== END 2019-04-15 21:20 | disposition home or self-care (01) ==
LOC: ER 19:33
DX: H81.12 Benign paroxysmal vertigo, left ear (principal); I10 Essential (primary) hypertension; E11.9 Type 2 diabetes mellitus without complications; J45.909 Unspecified asthma, uncomplicated; F32.9 Major depressive disorder, single episode, unspecified; K21.9 Gastro-esophageal reflux disease without esophagitis; F41.9 Anxiety disorder, unspecified; G47.30 Sleep apnea, unspecified; Z88.1 Allergy status to other antibiotic agents; Z88.2 Allergy status to sulfonamides; Z88.8 Allergy status to other drugs, medicaments and biological substances; Z83.3 Family history of diabetes mellitus; Z82.49 Family history of ischemic heart disease and other diseases of the circulatory system
CPT/HCPCS: 36415; 80048; 81001; 85025; 99283; J8597

== ENCOUNTER 2019-06-02 03:38 | Emergency (ER) | payer MEDICARE ==
[~2019-06-02] VITALS: Ht 170.2 cm; Wt 165.6 kg
[~2019-06-02 03:38] MED LIST changes: +BUPROPION XL300 MG PO; +TRULICITY SQ
[2019-06-02 05:15] VITALS: BP 119/86
== END 2019-06-02 05:21 | disposition home or self-care (01) ==
LOC: ER 03:38
DX: L73.9 Follicular disorder, unspecified (principal)
CPT/HCPCS: 99282

== ENCOUNTER 2020-05-22 01:19 | Emergency (ER) | payer MEDICARE ==
[~2020-05-22] VITALS: Ht 170.2 cm; Wt 165.6 kg
--- NOTE | 2020-05-22 01:44 | Emergency Department Note ---
History of Present Illnes History of Present Illness Chief Complaint: Extremity Trauma/Pain History of Present Illness This is a 44 year old female left wrist pain . Onset (how long ago): day(s) (2) Location: left wrist Quality: dull Radiation: Denies non-radiation, Denies back, Denies neck, Denies extremity, Denies abdomen, Denies periumbilical, Denies flank, Denies proximal, Denies distal, Denies other Severity: moderate Onset quality: gradual Duration (how long): day(s) (2) Timing of current episode: constant Progression: unchanged Chronicity: new Context: Denies recent illness, Denies recent surgery, Denies recent immobilization, Denies recent travel, Denies trauma/injury, Denies new medica tions, Denies hx of DVT/PE, Denies non-compliance w/ medications, Denies other Relieving factors: none Exacerbating factors: none Associated symptoms: Denies denies other symptoms, Denies confusion, Denies chest pain, Denies cough, Denies diaphoresis, Denies fever/chills, Denies headaches, Denies loss of appetite, Denies malaise, Denies nausea/vomiting, Denies rash, Denies seizure, Denies shortness of breath, Denies syncope, Denies weakness, Denies other Treatments prior to arrival: none Past Medical/Family History Physician Review I have reviewed the patient's past medical and family history. Any updates have been documented here. Past Medical History Past Medical History: Hypertension, Diabetes, Asthma, UTI's, Anxiety, Depres teresita, GERD Other Medical History: CARD'S ESOPHOGAS DIVERTICULOSIS SLEEP APNEA POLYCYSTIC OVARIES LEG EDEMA Past Surgical History: Cholecysctectomy, Hysterectomy, T&A, Bariatric Surgery Other Surgery: gastric sleeve SCALP CYST URETHRA STRETCHED X3 EGD Other Last Tetanus: UNK Review of Systems Review of Systems Constitutional: Reports no symptoms EENTM: Reports no symptoms Cardiovascular: Reports no symptoms Respiratory: Reports no symptoms Gastrointestinal: Reports no symptoms Genitourinary: Reports no symptoms Musculoskeletal: Reports as per HPI Integumentary: Reports no symptoms Neurological: Reports no symptoms Psychological: Reports no symptoms Endocrine: Reports no symptoms Hematological/Lymphatic: Reports no symptoms Physical Exam Related Data Allergies: Coded Allergies: Sulfa (Sulfonamide Antibiotics) (Verified Allergy, Unknown, DIZZY, 02/18/18) ciprofloxacin (Verified Allergy, Unknown, 03/15/17) metronidazole (Verified Allergy, Unknown, ITCHING, 03/15/17) sulfamethoxazole (Verified Allergy, Unknown, DIZZY, 03/15/17) trimethoprim (Verified Allergy, Unknown, DIZZY, 03/15/17) Vital signs reviewed: Yes Physical Exam CONSTITUTIONAL Constitutional: Present well-developed, Present well-nourished HENT HENT: Present normocephalic, Present atraumatic, Present oropharynx clear/moist, Present nose normal HENT L/R: Present left ext ear normal, Present right ext ear normal EYES Eyes: Reports PERRL, Reports conjunctivae normal NECK Neck: Present ROM normal PULMONARY Pulmonary: Present effort normal, Present breath sounds normal CARDIOVASCULAR Cardiovascular: Present regular rhythm, Present heart sounds normal, Present capillary refill normal, Present normal rate GASTROINTESTINAL Abdominal: Present soft, Present nontender, Present bowel sounds normal GENITOURINARY Genitourinary: Present exam deferred SKIN Skin: Present warm, Present dry MUSCULOSKELETAL Musculoskeletal: Present ROM normal, Present tenderness (left wrist) NEUROLOGICAL Neurological: Present alert, Present oriented x 3, Present no gross motor or sensory deficits PSYCHOLOGICAL Psychological: Present mood/affect normal, Present judgement normal Results Imaging Imaging results reviewed: Yes Assessment & Plan Medical Decision Making MDM FX SPRAIN CONTUSION Reassessment Reassessment SAME Assessment & Plan Final Impression: (1) Carpal tunnel syndrome (2) Wrist pain, left Depart Disposition: HOME, SELF-senior care Meds Active Scripts Phenazopyridine Hcl (PYRIDIUM) 100 Mg Tablet, 100 MG PO TID for 3 Days, #6 Prov:RONAK RAINEY DO 01/20/19 Nitrofurantoin Monohyd/M-Cryst (MACROBID 100 MG CAPSULE) 100 Mg Capsule, 100 MG PO BID for 10 Days, #20 Prov:RONAK RAINEY DO 01/20/19 Reported Medications [Trulicity] 2L PEN No Conflict Check, 1.5 MG SQ ONCE ONCE WEEKLY. EVERY MONDAY. 04/15/19 Bupropion Hcl (BUPROPION XL) 300 Mg Tab.er.24h, 300 MG PO DAILY 04/15/19 Omeprazole (OMEPRAZOLE) 40 Mg Capsule.dr, 40 MG PO DAILY 03/15/17 Clonazepam (KLONOPIN) 0.5 Mg Tablet, 0.5 MG PO DAILY 03/15/17 Metoprolol Succinate (METOPROLOL SUCCINATE) 25 Mg Tab.er.24h, 25 MG PO DAILY 03/15/17 Levothyroxine Sodium (SYNTHROID) 100 Mcg Tab, 150 MCG PO 0600, #30 TAB 03/15/17 Budesonide/Formoterol Fumarate (SYMBICORT 160-4.5 MCG INHALER) 10.2 Gm Hfa.aer.ad, 1 INH INH BID 11/03/13 YANY KUO MD May 22, 2020 01:44
[2020-05-22] MEDS ORDERED: NAPROSYN500 MG PO (01:46)
--- NOTE | 2020-05-22 01:56 | Diagnostic Imaging Report ---
XRAY HAND LEFT - 3 views HISTORY: Pain. COMPARISON: None available. FINDINGS: Bones: No acute displaced fracture. Osseous alignment is within normal limits. Joints: The joint spaces are well-maintained. IMPRESSION: No acute radiographic abnormality. Signed by: Angelo Cruz MD on 05/22/2020 1:53 AM
[2020-05-22] MEDS ORDERED: PREDNISONE20 MG PO (02:01)
--- OUTSIDE RECORDS SUMMARY | 2020-05-28 17:56 | XMS REPORT | Clinical Summary ---
Author Author [facility] Address Unknown Phone Unavailable Care Team Providers Care Nurse Informaticist Name Role Phone Asked, No Pcp PCP Unavailable Allergies Comments Active Allergy Reactions Severity Noted Date Ciprofloxacin 02/05/2019 Metronidazole 02/05/2019 Sulfa (Sulfonamide 02/05/2019 Antibiotics) Medications No known medications Active Problems Not on file Surgical History Surgery Date Site/Laterality Comments HYSTERECTOMY 07/24/2001 - 07/23/2002 Social History Date Tobacco Use Types Packs/Day Years Used Never Assessed Sex Assigned at Date Recorded Not on file Last Filed Vital Signs Not on file Plan of Treatment Health Maintenance Due Date Last Done Comments CERVICAL CANCER SCREENING 1995 INFLUENZA VACCINE 02/22/2020 Results Not on fileafter 05/22/2019 Insurance Type Payer Benefit Subscriber ID Effective Phone Address Plan / Dates Group Medicaid MEDICAID MEDICAID [id number] 2011-P resent HMO [employer] AMER[employer] [id number] 2018-P -AMERIVANT resent AGE MCR O Advance Directives For more information, please contact: [phone] Patient Enrollment Nurse Explanation Type Date Recorded Advance Directives, Living Will and Medical Power of Dial Mounter
--- OUTSIDE RECORDS SUMMARY | 2020-05-28 17:57 | XMS REPORT | Continuity of Care Document ---
Author Author [facility] t Organization [facility] Address [address] [place] [address] Phone Unavailable Care Team Providers Care Import/Export Analyst Name Role Phone Ten AMANDA MD PCP YANY KUO Attphys Unavailable RUPERTO ROSARIO M.D. Attphys Unavailable SHADE DORANTES, PHD Attphys Unavailable CL DE LA O M.D. Attphys Unavailable CO19, PROVIDERBAYSHOREAN Attphys Unavailable CAMPBELL CHOPRA APRN Attphys Unavailable FLORI RIOS M.D. Attphys Unavailable WARREN ALFAOR M.D. Attphys Unavailable LEIGH STINSON M.D. Attphys Unavailable VIV LUCAS M.D. Attphys Unavailable AIDAN ALFARO M.D. Attphys Unavailable KIM BURTON Attphys Unavailable CAMPBELL MOSS M.D. Attphys Unavailable MICHAEL MARTINEZ M.D.|PHD Attphys Unavailable JANELLE SALGUERO, D.Joselin Attphys Unavailable BELEM POTTS APRN Attphys Unavailable Saúl HOANG Attphys Unavailable WILL PEPE PA Attphys Unavailable BRANDON ESPINOZA M.D. Attphys Unavailable QUINN TSE, D.Joselin Attphys Unavailable JACQUE LUTHER M.D. Attphys Unavailable LAWSON MINOR, NAYLA Attphys Unavailable MIKAL AMANDA M.D. Attphys Unavailable JOHN PALMA LCSW Attphys Unavailable Lux IBANEZ Attphys Unavailable ELLIOTT TERESA M.D. Attphys Unavailable JOSEPHINE MORRELL M.D. Attphys Unavailable Payers Payer Name Policy Type Policy Number Effective Date Expiration Date Saúl denis [facility] [id number] 2011 00:00:00 [facility] [employer] [id number] [facility] Problems Condition Name Condition Details Condition Category Status Onset Date Resolution Date Last Treatment Date Treating Clinician Comments Source Edema Edema Problem Active [facility] History of hypothyroidism History of hypothyroidism Problem Resolved [facility] Joint pain Joint pain Problem Active [facility] History of Observed sleep apnea History of Observed sleep apnea Problem Resolved [facility] History of Shortness of breath on exertion History of Shortness of breath on exertion Problem Resolved [facility] History of esophageal reflux History of esophageal reflux Problem Re solved [facility] History of Current mild episode of major depressive disorder without prior episode History of Current mild episode of major depressive disorder without prior episode Problem Resolved [facility] Essential hypertension Essential hypertension Problem Active [facility] History of BAXTER (nonalcoholic steatohepatitis) History of BAXTER (nonalcoholic steatohepatitis) Problem Resolved [facility] Low serum parathyroid hormone (PTH) Low serum parathyroid hormon e (PTH) Problem Active [facility] Malabsorption Malabsorption Problem Active [facility] Gallstones Gallstones Problem Active [facility] Right lower quadrant abdominal pain Right lower quadrant abdomin al pain Problem Active [facility] S/P laparoscopic cholecystectomy S/P laparoscopic cholecystectom y Problem Active [facility] Loss of weight Loss of weight Problem Active [facility] Vitamin deficiency Vitamin deficiency Problem Active [facility] S/P laparoscopic sleeve gastrectomy S/P laparoscopic sleeve hector rectomy Problem Active [facility] Breast cancer screening by mammogram Breast cancer screening by mammogram Problem Active [facility] Screening for STD (sexually transmitted disease) Scree sherman for STD (sexually transmitted disease) Problem Active [facility] Weight gain Weight gain Problem Active [facility] PCOS (polycystic ovarian syndrome) PCOS (polycystic ovarian synd елена) Problem Active [facility] Recurrent UTI Recurrent UTI Problem Active [facility] Acute vaginitis Acute vaginitis Problem Active [facility] Urinary frequency Urinary frequency Problem Active [facility] Left knee pain, unspecified chronicity Left knee pain, unspe cified chronicity Problem Active [facility] Acute internal derangement of knee, left Acute interna l derangement of knee, left Problem Active [facility] Hyperlipidemia Hyperlipidemia Problem Active [facility] Hyperuricemia Hyperuricemia Problem Active [facility] Lateral dislocation of left patella, initial encounter Lateral dislocation of left patella, initial encounter Problem Active [facility] Oral shelton Oral shelton Problem Active [facility] Fatty liver Fatty liver Problem Active [facility] Abdominal pain Abdominal pain Problem Active [facility] Ledbetter's esophagus Ledbetter's esophagus Problem Active [facility] Neuropathy, peripheral Neuropathy, peripheral Problem Active [facility] Abnormality of movement of eye Abnormality of movement of eye Problem Active [facility] Polypharmacy Polypharmacy Problem Active [facility] Well woman exam with routine gynecological exam Well w bernice exam with routine gynecological exam Problem Active [facility] STD exposure STD exposure Problem Active [facility] Visual blurriness Visual blurriness Problem Active [facility] Adult BMI 50.0-59.9 kg/sq m Adult BMI 50.0-59.9 kg/sq m Problem Active [facility] Need for influenza vaccination Need for influenza vaccination Problem Active [facility] Binge eating disorder Binge eating disorder Problem Active [facility] Seasonal allergic rhinitis due to pollen Seasonal arnold rgic rhinitis due to pollen Problem Active 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 Obstructive sleep apnea Obstructive sleep apnea Problem Active [facility] Rash and nonspecific skin eruption Rash and nonspecific skin eru ption Problem Active [facility] Dysuria Dysuria Problem Active [facility] Acute pain of right foot Acute pain of right foot Problem Active [facility] Incomplete bladder emptying Incomplete bladder emptying Problem Active [facility] Pelvic pain in female Pelvic pain in female Problem Active [facility] Vertigo Vertigo Problem Active [facility] Constipation Constipation Problem Active [facility] Encounter for laboratory test Encounter for laboratory test Problem Active [facility] Other protein-calorie malnutrition Other protein-calorie malnutr ition Problem Active [facility] Cyst of left ovary Cyst of left ovary Problem Active [facility] Pre-op examination Pre-op examination Problem Active [facility] Vaginal candidiasis Vaginal candidiasis Problem Active [facility] Tinea corporis Tinea corporis Problem Active [facility] Vitamin D deficiency Vitamin D deficiency Problem Active [facility] Post-operative state Post-operative state Problem Active [facility] Obesity (BMI 30.0-34.9) Obesity (BMI 30.0-34.9) Problem Active [facility] Skin lesion Skin lesion Problem Active [facility] Recurrent major depressive disorder, in partial remiss ion Recurrent major depressive disorder, in partial remission Problem Active [facility] MONTSE (generalized anxiety disorder) MONTSE (generalized anxiety diso rder) Problem Active [facility] Morbid obesity Morbid obesity Problem Active [facility] Major depression, recurrent Major depression, recurrent Problem Active [facility] Diabetes Diabetes Problem Active [facility] Hypothyroidism Hypothyroidism Problem Active [facility] Vaginal discharge Vaginal discharge Problem Active [facility] Asthma Asthma Problem Active [facility] Anxiety and depression Anxiety and depression Problem Active [facility] Exposure to COVID-19 virus Exposure to COVID-19 virus Problem Active [facility] Sinusitis, chronic Sinusitis, chronic Problem Active [facility] Memory impairment Memory impairment Problem Active [facility] Nasal sinus congestion Nasal sinus congestion Problem Active [facility] Chronic maxillary sinusitis Chronic maxillary sinusitis Problem Active [facility] Dysfunction of both eustachian tubes Dysfunction of both eus tachian tubes Problem Active [facility] Nasal obstruction Nasal obstruction Problem Active [facility] Deviated nasal septum Deviated nasal septum Problem Active [facility] Hyposmia Hyposmia [facility] Ageusia Ageusia Problem Active [facility] Allergies, Adverse Reactions, Alerts Allergy Name Allergy Type Status Severity Reaction(s) Onset Date Inacti ve Date Treating Clinician Comments Source Metronidazole Propensity to adverse reactions to drug Active 2019-02-05 00:00:00 Warren Cobb t Sulfa (Sulfonamide Antibiotics) Propensity to adverse reactions to drug Active 2019-02-05 00:00:00 Melinda peck [facility]uc[facility] Sulfa (Sulfonamide Antibiotics) Allergy to Substance Active DIZZY 2018-02-18 00:00:00 [facility] Sulfamethoxazole Allergy to Substance Active DIZZY 2017-03-15 00: 00:00 [facility] Trimethoprim Allergy to Substance Active DIZZY 2017-03-15 00:00:0 0 [facility] Ciprofloxacin Allergy to Substance Active 2017-03-15 00:00: 00 [facility] Metronidazole Allergy to Substance Active ITCHING 2017-03-15 00:00 :00 [facility] sulfamethoxazole DA Active [place] 2016-07-15 00:00:00 [facility] trimethoprim DA Active [place] 2016-07-15 00:00:00 [facility] Sulfa (Sulfonamide Antibiotics) DA Active U 2016-07-14 00 :00:00 [facility] ciprofloxacin DA Active U 2016-07-14 00:00:00 [facility] metronidazole DA Active U 2016-07-14 00:00:00 [facility] Flagyl TABS Allergy to drug (finding) Active Itching [facility] Sulfa Drugs Allergy to drug (finding) Active Dizziness [facility] Cipro Propensity to adverse reactions to drug (finding) Active Ot her [facility] Family History Family Member Diagnosis Comments Start Date Stop Date Source Grandmother Family history of cancer [facility] Grandmother Family history of High cholesterol [facility] Grandfather Family history of cancer [facility] Grandfather Family history of High cholesterol [facility] Grandfather Family history of Diabetes [facility] Mother Family history of depression [facility] Mother Family history of Gallbladder disease [facility] Mother Family history of cancer [facility] Mother Family history of cardiac disorder [facility] Mother Family history of HTN (hypertension) [facility] Mother Family history of High cholesterol [facility] Father Family history of cancer [facility] Father Family history of Bilateral kidney stones [facility] Father Family history of HTN (hypertension) [facility] Father Family history of High cholesterol [facility] Social History Social Habit Start Date Stop Date Quantity Comments Source Sex Assigned At [employer] Smoking Status Start Date Stop Date Source Ex-smoker (finding) [place] [facility] Medications Ordered Medication Name Filled Medication Name Start Date Stop Da te Current Medication? Ordering Clinician Indication Dosage Frequency Signature (SIG) Comments Components Source Fluticasone Propionate 50 MCG/ACT Nasal Suspension Flu ticasone Propionate 50 MCG/ACT Nasal Suspension 2020-04-22 00:00:00 Yes RUPERTO ROSARIO M.D. QD USE 2 SPRAYS IN EACH NOSTRIL ONCE DAILY [facility] Azelastine HCl - 137 MCG/SPRAY Nasal Solution Azelasti ne HCl - 137 MCG/SPRAY Nasal Solution 2020-04-22 00:00:00 Yes RUPERTO ROSARIO M.D. Q0.5D INSERT 2 SQUIRTS IN EACH NOSTRIL TWICE DAILY [facility] Amoxicillin-Pot Clavulanate 875-125 MG Oral Tablet Keagan xicillin-Pot Clavulanate 875-125 MG Oral Tablet 2020-04-22 00:00:00 Yes RUPERTO ROSARIO M.D. 1 Q0.5D TAKE 1 TABLET TWICE DAILY WITH FOOD. [facility] Clotrimazole 10 MG LOZG Clotrimazole 10 MG LOZG 2020-01-28 00:00:00 Yes CAMPBELL CHOPRA APRN Q0.25D ALLOW 1 TRO LAMONT TO DISSOLVE SLOWLY IN MOUTH 4 TIMES DAILY. [facility] Fluconazole 150 MG Oral Tablet Fluconazole 150 MG Oral Table t 2019-12-20 00:00:00 Yes LEIGH STINSON M.D. take 1 tablet every other day x 3 days [facility] Clotrimazole-Betamethasone 1-0.05 % External Cream Neema trimazole-Betamethasone 1- 0.05 % External Cream 2019-12-20 00:00:00 Yes LEIGH Ott APPLY AND RUB IN A THIN FILM EXTERNALLY TWICE DAILY FOR 7 DAYS. [facility] Escitalopram Oxalate 20 MG Oral Tablet Escitalopram Oxalate 20 MG Oral Tablet 2019-12-19 00:00:00 Yes CL DE LA O M.D. 1 QD TAKE 1 T ABLET DAILY. [facility] Levothyroxine Sodium 150 MCG Oral Tablet Levothyroxine Sodium 150 MCG Oral Tablet 2019-12-17 00:00:00 Yes CAMPBELL CHOPRA APRN QD TAKE 1 TABLET DAILY DIRECTED. [facility] Furosemide 20 MG Oral Tablet Furosemide 20 MG Oral Tablet 2019-11-22 00:00:00 Yes CAMPBELL CHOPRA APRN QD TAKE 1 TABLET DAILY as need ed for edema [facility] Phentermine HCl - 37.5 MG Oral Capsule Phentermine HCl - 37. 5 MG Oral Capsule 2019-10-18 00:00:00 Yes GENEVIEVE RUGGIERO M.D. QD TAKE 1 CAPSULE EVERY MORNING BEFORE BREAKFAST. [facility] clonazePAM 0.5 MG Oral Tablet Disintegrating clonazePA M 0.5 MG Oral Tablet Disintegrating 2019-10-18 00:00:00 Yes GENEVIEVE RUGGIERO M.D. 0.5 mg qd and 1 mg qhs # 90 [facility] Pyridium 100 MG Oral Tablet Pyridium 100 MG Oral Tablet 2019-09-10 00:00:00 Yes LEIGH STINSON M.D. Puneet e 1 tablet two -three times a day as needed for urinary discomfort [facility] Vitamin D (Ergocalciferol) 1.25 MG (31598 UT) Oral Cap emilee Vitamin D (Ergocalciferol) 1.25 MG (11727 UT) Oral Capsule 2019-09-06 00:00:00 Yes LARRY BLAIR APRN TAKE 1 CAPSULE WEEKLY. [facility] Lactulose 20 GM/30ML Oral Solution Lactulose 20 GM/30ML Oral Solution 2019-08-22 00:00:00 Yes LEIGH STINSON M.D. TAKE 15 ML (1 tablespoon) DAILY NEEDED FOR CONSTIPATION. [facility] Diclofenac Sodium 1 % Transdermal Gel Diclofenac Sodium 1 % Transdermal Gel 2019-06-28 00:00:00 Yes CAMPEBLL CHOPRA APRN QD APPLY TO LOWER EXTREMITIES, 4 GM OF GEL TO AFFECTED AREA 4 TIMES DAILY. DO NOT APPLY MORE THAN 16 GM DAILY TO ANY ONE AFFECTED JOINT. [facility] Trulicity 1.5 MG/0.5ML Subcutaneous Solution Pen-injec tor Trulicity 1.5 MG/0.5ML Subcutaneous Solution Pen-injector 2019-02-13 00:00:00 Yes FLORI RIOS M.D. ADMINISTER 0.5 ML( 1 PEN) UNDER SKIN EVERY WEEK [facility] Nitrofurantoin Monohyd/M-Cryst (Macrobid 100 Mg Capsul e) 100 Mg Capsule Nitrofurantoin Monohyd/M-Cryst (Macrobid 100 Mg Capsule) 100 Mg Capsule 2019-01-20 00:00:00 Yes Ambsal Sandhir Do 100 Twice A Day [facility] Phenazopyridine Hcl (Pyridium) 100 Mg Tablet Phenazopy ridine Hcl (Pyridium) 100 Mg Tablet 2019-01-20 00:00:00 Yes Ambsal Sandhir Do 100 Three Times A Day [facility] OneTouch Verio In Vitro Strip OneTouch Verio In Vitro Strip 2018 00:00:00 Yes FLORI RIOS M.D. USE TO CHECK BLOOD FARAH GAR TWICE A DAY [facility] Tana Delica Lancets 33G OneSterling Delica Lancets 33G 2018-12-19 00:00:00 Yes CAMPBELL CHOPRA APRN TEST EVERY DAY TO TWICE A D AY [facility] Metoprolol Succinate ER 25 MG Oral Tablet Extended Rel ease 24 Hour Metoprolol Succinate ER 25 MG Oral Tablet Extended Release 24 Hour 2018-12-04 00:00:00 Yes CAMPBELL CHOPRA APRN 1 QD TAKE 1 TABLET DAILY. [facility] Budesonide/Formoterol Fumarate (Symbicor t 160-4.5 Mcg Inhaler) 10.2 Gm Hfa.aer.ad Budesonide/Formoterol Fumarate (Symbicor t 160-4.5 Mcg Inhaler) 10.2 Gm Hfa.aer.ad Yes 1 Twice A Day [facility] Bupropion Hcl (Bupropion Xl) 300 Mg Tab.er.24h Bupropi on Hcl (Bupropion Xl) 300 Mg Tab.er.24h Yes [address] [facility] [place] [place] Clonazepam (Klonopin) 0.5 Mg Tablet Clonazepam (Klonopin) 0.5 Mg Tabl et Yes .5 Daily [facility] Levothyroxine Sodium (Synthroid) 100 Mcg Tab Levothyro xine Sodium (Synthroid) 100 Mcg Tab Yes 150 Today At 6:00AM [facility] Metoprolol Succinate 25 Mg Tab.er.24h Metoprolol Succinate 25 Mg Ta b.er.24h Yes 25 Daily [facility] Omeprazole 40 Mg Capsule. Omeprazole 40 Mg Capsule. Yes 40 Daily [facility] Trulicity 2L Pen Trulicity 2L Pen Yes 1.5 Once [facility] Dexilant 60 MG Oral Capsule Delayed Release Dexilant 6 0 MG Oral Capsule Delayed Release Yes FLORI RIOS M.D. 1 QD TAKE 1 CAPSULE DA SIDNEY [facility] Symbicort 160-4.5 MCG/ACT Inhalation Aerosol Symbicort 160-4.5 MCG/ACT Inhalation Aerosol Yes FLORI RIOS M.D. 1 puff twice a day. rinse mouth out after with water [facility] Escitalopram Oxalate (Lexapro) 10 Mg Tablet, 40 Mg Ora l Escitalopram Oxalate (Lexapro) 10 Mg Tablet, 40 Mg Oral 2019-04-15 00:00:00 No 4 0 Daily [facility] Gabapentin 300 Mg Capsule, 300 Mg Oral Gabapentin 300 Mg Capsule , 300 Mg Oral 2019-04-15 00:00:00 No 300 Daily [facility] Metformin Hcl 500 Mg Tablet, 500 Mg Oral Metformin Hcl 500 Mg Tablet, 500 Mg Oral 2019-04-15 00:00:00 No 500 Daily [facility] Tramadol Hcl (Ultram) 50 Mg Tablet, 50 Mg Oral Tramado l Hcl (Ultram) 50 Mg Tablet, 50 Mg Oral 2019-04-15 00:00:00 No 50 Every 4 Hours as needed for Pain [facility] Clonazepam (Klonopin) 2 Mg Tablet, 1 Tab Oral Clonazep am (Klonopin) 2 Mg Tablet, 1 Tab Oral 2017-03-15 00:00:00 No 1 Daily [facility] Dicyclomine Hcl (Bentyl) 10 Mg Capsule, 20 Mg Oral Dic yclomine Hcl (Bentyl) 10 Mg Capsule, 20 Mg Oral 2017-03-15 00:00:00 No 20 E very 6 Hours [facility] Escitalopram Oxalate (Lexapro) 10 Mg Tablet, 25 Mg Ora l Escitalopram Oxalate (Lexapro) 10 Mg Tablet, 25 Mg Oral 2017-03-15 00:00:00 No 2 5 Daily [facility] Levothyroxine Sodium 112 Mcg Tablet, 312 Mcg Oral Levo thyroxine Sodium 112 Mcg Tablet, 312 Mcg Oral 2017-03-15 00:00:00 No 312 Jada ly [facility] Ondansetron (Zofran Odt) 4 Mg Tab.rapdis, 4 Mg Oral On dansetron (Zofran Odt) 4 Mg Tab.rapdis, 4 Mg Oral 2017-03-15 00:00:00 No 4 Every 6 Hours [facility] Alprazolam (Xanax) 0.25 Mg Tablet, 0.125 Each Oral Alp razolam (Xanax) 0.25 Mg Tablet, 0.125 Each Oral 2015-11-28 00:00:00 No .125 As Needed as needed for Sleep [facility] Aspirin (Aspirin Ec) 81 Mg Tablet., 81 Mg Oral Aspir in (Aspirin Ec) 81 Mg Tablet., 81 Mg Oral 2015-11-28 00:00:00 No 81 Da sidney [facility] Atorvastatin Calcium (Lipitor*) 10 Mg Tablet, 10 Mg Or al Atorvastatin Calcium (Lipitor*) 10 Mg Tablet, 10 Mg Oral 2015-11-28 00:00:00 No 10 Bedtime [facility] Cetirizine Hcl 10 Mg Tablet, 10 Mg Oral Cetirizine Hcl 10 Mg Tablet, 10 Mg Oral 2015-11-28 00:00:00 No 10 Daily [facility] Lisinopril (Prinavil / Zestril) 20 Mg Tablet, 20 Mg Or al Lisinopril (Prinavil / Zestril) 20 Mg Tablet, 20 Mg Oral 2015-11-28 00:00:00 No 20 Bedtime [facility] Metformin Hcl 500 Mg Tablet, 250 Mg Oral Metformin Hcl 500 Mg Tablet, 250 Mg Oral 2015-11-28 00:00:00 No 250 Bedtime [facility] Omeprazole 20 Mg Tablet.dr, 40 Mg Oral Omeprazole 20 Mg Tablet.d r, 40 Mg Oral 2015-11-28 00:00:00 No 40 Daily [facility] Amoxicillin/Potassium Clav (Augmentin 875-125 Tablet) 1 Each Tablet, 1 Tab Oral Amoxicillin/Potassium Clav (Augmentin 875-125 Tablet) 1 Each Tablet, 1 Tab Oral 2014-04-04 00:00:00 No 1 Twice A Day [facility] Montelukast Sodium (Singulair) 10 Mg Tablet, 10 Mg Ora l Montelukast Sodium (Singulair) 10 Mg Tablet, 10 Mg Oral 2014-04-04 00:00:00 No 10 Daily [facility] Mupirocin (Bactroban) 15 Gm Cr, Mupirocin (Bactroban) 15 Gm Cr, 2014-04-04 00:00:00 No [facility] Immunizations Ordered Immunization Name Filled Immunization Name Date Status Comments Source Fluzone Quadrivalent 0.5 ML Intramuscular Suspension 2019-04-17 08:37:00 Completed [facility] Pneumovax 23 25 MCG/0.5ML Injection Injectable 2019-01 00:00:00 Completed [facility] Tdap 2018-05-24 00:00:00 Completed [facility] Vital Signs Vital Name Observation Time Observation Value Comments Source Body temperature 2020-05-11 10:36:00 97.7 [degF] Method: Temporal [facility] Body height 2020-04-22 10:49:00 67 [in_us] [facility] Weight 2020-04-22 10:49:00 371 [lb_av] [facility] Body mass index (BMI) [Ratio] 2020-04-22 10:49:00 58.11 kg/m2 [facility] Body temperature 2020-04-22 10:49:00 98.4 [degF] Method: Oral [facility] [facility]icians Systolic blood pressure 2020-03-25 09:40:00 107 mm[Hg] Loca tion: LUE; Position: Sitting [facility] Diastolic blood pressure 2020-03-25 09:40:00 70 mm[Hg] Loc ation: LUE; Position: Sitting [facility] Body height 2020-03-25 09:40:00 67 [in_us] [facility] Weight 2020-03-25 09:40:00 371 [lb_av] [facility] Body mass index (BMI) [Ratio] 2020-03-25 09:40:00 58.11 kg/m2 [facility] Body temperature 2020-03-25 09:40:00 97.6 [degF] Method: Temporal [facility] Heart Rate 2020-03-25 09:40:00 77 /min [facility] Respiratory rate 2020-03-25 09:40:00 16 /min [facility] Systolic blood pressure 2020-03-04 09:29:00 123 mm[Hg] Loca tion: LUE; Position: Sitting [facility] Diastolic blood pressure 2020-03-04 09:29:00 73 mm[Hg] Loc ation: LUE; Position: Sitting [facility] Body height 2020-03-04 09:29:00 67 [in_us] [facility] Weight 2020-03-04 09:29:00 371.7 [lb_av] [facility] Body mass index (BMI) [Ratio] 2020-03-04 09:29:00 58.22 kg/m2 [facility] Body temperature 2020-03-04 09:29:00 96.8 [degF] [facility] Heart Rate 2020-03-04 09:29:00 76 /min [facility] Systolic blood pressure 2019-11-25 10:32:00 114 mm[Hg] Loca tion: LUE; Position: Sitting [facility] Diastolic blood pressure 2019-11-25 10:32:00 67 mm[Hg] Loc ation: LUE; Position: Sitting [facility] Body height 2019-11-25 10:32:00 67 [in_us] [facility] Weight 2019-11-25 10:32:00 361.8 [lb_av] [facility] Body mass index (BMI) [Ratio] 2019-11-25 10:32:00 56.67 kg/m2 [facility] Heart Rate 2019-11-25 10:32:00 71 /min [facility] Systolic blood pressure 2019-09-26 10:25:00 116 mm[Hg] Loca tion: LLE; Position: Sitting [facility] Diastolic blood pressure 2019-09-26 10:25:00 72 mm[Hg] Loc ation: LLE; Position: Sitting [facility] Body height 2019-09-26 10:25:00 67 [in_us] [facility] Weight 2019-09-26 10:25:00 355 [lb_av] [facility] Body mass index (BMI) [Ratio] 2019-09-26 10:25:00 55.6 kg/m2 [facility] Body temperature 2019-09-26 10:25:00 97.5 [degF] [facility] Heart Rate 2019-09-26 10:25:00 73 /min [facility] Systolic blood pressure 2019-09-05 12:23:00 113 mm[Hg] Loca tion: LUE; Position: Sitting [facility] Diastolic blood pressure 2019-09-05 12:23:00 77 mm[Hg] Loc ation: LUE; Position: Sitting [facility] Body height 2019-09-05 12:23:00 67 [in_us] [facility] Weight 2019-09-05 12:23:00 355 [lb_av] [facility] Body mass index (BMI) [Ratio] 2019-09-05 12:23:00 55.6 kg/m2 [facility] Body temperature 2019-09-05 12:23:00 98.4 [degF] Method: Temporal [facility] Heart Rate 2019-09-05 12:23:00 76 /min [facility] Respiratory rate 2019-09-05 12:23:00 16 /min [facility] Systolic blood pressure 2019-08-29 13:02:00 117 mm[Hg] Loca tion: LUE; Position: Sitting [facility] Diastolic blood pressure 2019-08-29 13:02:00 78 mm[Hg] Loc ation: LUE; Position: Sitting [facility] Body height 2019-08-29 13:02:00 67 [in_us] [facility] Weight 2019-08-29 13:02:00 351.5625 [lb_av] [facility] Body mass index (BMI) [Ratio] 2019-08-29 13:02:00 55.06 kg/m2 [facility] Body temperature 2019-08-29 13:02:00 98.3 [degF] Method: Oral [facility] Heart Rate 2019-08-29 13:02:00 77 /min [facility] Systolic blood pressure 2019-08-22 10:01:00 114 mm[Hg] Loca tion: CECILEE; Position: Sitting [facility] Diastolic blood pressure 2019-08-22 10:01:00 71 mm[Hg] Loc ation: CECILEE; Position: Sitting [facility] Body height 2019-08-22 10:01:00 67 [in_us] [facility] Weight 2019-08-22 10:01:00 359 [lb_av] [facility] Body mass index (BMI) [Ratio] 2019-08-22 10:01:00 56.23 kg/m2 [facility] Body temperature 2019-08-22 10:01:00 97.8 [degF] Method: Oral [facility] Heart Rate 2019-08-22 10:01:00 75 /min Location: L Radial; [facility] BP Systolic 2019-07-25 09:07:00 129 mm[Hg] Location: RUE; Positi on: Sitting [facility] BP Diastolic 2019-07-25 09:07:00 77 mm[Hg] Location: RUE; Positi on: Sitting [facility] Height 2019-07-25 09:07:00 67 [in_us] [facility] Weight 2019-07-25 09:07:00 361 [lb_av] [facility] Body Mass Index Calculated 2019-07-25 09:07:00 56.54 kg/m2 [facility] Temperature 2019-07-25 09:07:00 97.9 [degF] Method: Oral [facility] Heart Rate 2019-07-25 09:07:00 80 /min Location: R Radial; Q uality: Normal [facility] BP Systolic 2019-07-23 14:10:00 127 mm[Hg] Location: LUE; Positi on: Sitting [facility] BP Diastolic 2019-07-23 14:10:00 76 mm[Hg] Location: LUE; Positi on: Sitting [facility] Height 2019-07-23 14:10:00 67 [in_us] [facility] Weight 2019-07-23 14:10:00 261.6 [lb_av] [facility] Body Mass Index Calculated 2019-07-23 14:10:00 40.97 kg/m2 [facility] Heart Rate 2019-07-23 14:10:00 73 /min [facility] BP Systolic 2019-06-28 12:19:00 112 mm[Hg] Location: LUE; Positi on: Sitting [facility] BP Diastolic 2019-06-28 12:19:00 76 mm[Hg] Location: CECILEE; Positi on: Sitting [facility] Height 2019-06-28 12:19:00 67 [in_us] [facility] Weight 2019-06-28 12:19:00 358 [lb_av] [facility] Body Mass Index Calculated 2019-06-28 12:19:00 56.07 kg/m2 [facility] Temperature 2019-06-28 12:19:00 98.3 [degF] Method: Temporal [facility] Respiration Rate 2019-06-28 12:19:00 16 /min [facility] Heart Rate 2019-06-28 12:19:00 83 /min [facility] BP Systolic 2019-06-05 08:47:00 112 mm[Hg] Location: DANUTA; Positi on: Sitting [facility] BP Diastolic 2019-06-05 08:47:00 72 mm[Hg] Location: DANUTA; Positi on: Sitting [facility] Height 2019-06-05 08:47:00 67 [in_us] [facility] Weight 2019-06-05 08:47:00 360 [lb_av] [facility] Body Mass Index Calculated 2019-06-05 08:47:00 56.38 kg/m2 [facility] Temperature 2019-06-05 08:47:00 97.7 [degF] Method: Temporal [facility] Respiration Rate 2019-06-05 08:47:00 16 /min [facility] Heart Rate 2019-06-05 08:47:00 82 /min [facility] BP Systolic 2019-05-23 09:27:00 122 mm[Hg] Location: LUE; Positi on: Sitting [facility] BP Diastolic 2019-05-23 09:27:00 80 mm[Hg] Location: LUE; Positi on: Sitting [facility] Height 2019-05-23 09:27:00 67 [in_us] [facility] Weight 2019-05-23 09:27:00 362 [lb_av] [facility] Body Mass Index Calculated 2019-05-23 09:27:00 56.7 kg/m2 [facility] Heart Rate 2019-05-23 09:27:00 71 /min [facility] Respiration Rate 2019-05-23 09:27:00 16 /min [facility] BP Systolic 2019-05-02 13:41:00 117 mm[Hg] Location: RUE; Positi on: Sitting [facility] BP Diastolic 2019-05-02 13:41:00 80 mm[Hg] Location: RUE; Positi on: Sitting [facility] Height 2019-05-02 13:41:00 67 [in_us] [facility] Weight 2019-05-02 13:41:00 368.5 [lb_av] [facility]y [facility] Body Mass Index Calculated 2019-05-02 13:41:00 57.72 kg/m2 [facility] Heart Rate 2019-05-02 13:41:00 79 /min [facility] Respiration Rate 2019-05-02 13:41:00 16 /min [facility] Temperature 2019-05-02 13:41:00 97.6 [degF] Method: Temporal [facility] BP Systolic 2019-04-18 13:28:00 118 mm[Hg] Location: RUE; Positi on: Sitting [facility] BP Diastolic 2019-04-18 13:28:00 78 mm[Hg] Location: RUE; Positi on: Sitting [facility] Height 2019-04-18 13:28:00 67 [in_us] [facility] Weight 2019-04-18 13:28:00 368 [lb_av] [facility] Body Mass Index Calculated 2019-04-18 13:28:00 57.64 kg/m2 [facility] Heart Rate 2019-04-18 13:28:00 89 /min Quality: [facility] BP Systolic 2019-04-17 08:23:00 117 mm[Hg] Location: DANUTA; Positi on: Sitting [facility] BP Diastolic 2019-04-17 08:23:00 73 mm[Hg] Location: DANUTA; Positi on: Sitting [facility] Height 2019-04-17 08:23:00 66.5 [in_us] [facility] [place] [facility] Weight 2019-04-17 08:23:00 368 [lb_av] [facility] Body Mass Index Calculated 2019-04-17 08:23:00 58.51 kg/m2 [facility] Heart Rate 2019-04-17 08:23:00 81 /min [facility] Temperature 2019-04-17 08:23:00 98.3 [degF] Method: Temporal [facility] Respiration Rate 2019-04-17 08:23:00 16 /min [facility] BP Systolic 2019-03-19 14:58:00 117 mm[Hg] Location: DANUTA; Positi on: Sitting [facility] BP Diastolic 2019-03-19 14:58:00 76 mm[Hg] Location: DANUTA; Positi on: Sitting [facility] Height 2019-03-19 14:58:00 66.5 [in_us] [facility] Weight 2019-03-19 14:58:00 363.8 [lb_av] [facility] Body Mass Index Calculated 2019-03-19 14:58:00 57.84 kg/m2 [facility] Heart Rate 2019-03-19 14:58:00 70 /min [facility] Height 2019-03-06 13:44:00 66.5 [in_us] [facility] [place] [facility] Weight 2019-03-06 13:44:00 361 [lb_av] [facility] Body Mass Index Calculated 2019-03-06 13:44:00 57.39 kg/m2 [facility] Temperature 2019-03-06 13:44:00 97.7 [degF] Method: Temporal [facility] Respiration Rate 2019-03-06 13:44:00 16 /min [facility] BP Systolic 2019-02-14 14:39:00 126 mm[Hg] [facility] BP Diastolic 2019-02-14 14:39:00 77 mm[Hg] [facility] Weight 2019-02-14 14:39:00 359 [lb_av] [facility] Body Mass Index Calculated 2019-02-14 14:39:00 57.08 kg/m2 [facility] Heart Rate 2019-02-14 14:39:00 71 /min [facility] BP Systolic 2019-02-13 10:36:00 105 mm[Hg] Location: DANUTA; Positi on: Sitting [facility] BP Diastolic 2019-02-13 10:36:00 69 mm[Hg] Location: DANUTA; Positi on: Sitting [facility] Height 2019-02-13 10:36:00 66.5 [in_us] [facility] Weight 2019-02-13 10:36:00 359.2 [lb_av] [facility] Body Mass Index Calculated 2019-02-13 10:36:00 57.11 kg/m2 [facility] Heart Rate 2019-02-13 10:36:00 72 /min [facility] BP Systolic 2019-01-18 13:51:00 125 mm[Hg] Location: DANUTA; Positi on: Sitting [facility] BP Diastolic 2019-01-18 13:51:00 74 mm[Hg] Location: DANUTA; Positi on: Sitting [facility] Height 2019-01-18 13:51:00 66.5 [in_us] [facility] Weight 2019-01-18 13:51:00 361.6 [lb_av] [facility] Body Mass Index Calculated 2019-01-18 13:51:00 57.49 kg/m2 [facility] Heart Rate 2019-01-18 13:51:00 76 /min Location: L Brachial Artery; [facility] Respiration Rate 2019-01-18 13:51:00 18 /min [facility] BP Systolic 2019-01-16 13:49:00 109 mm[Hg] Location: CECILEE; Positi on: Sitting [facility] BP Diastolic 2019-01-16 13:49:00 73 mm[Hg] Location: LUE; Positi on: Sitting [facility] Height 2019-01-16 13:49:00 66.5 [in_us] [facility] Weight 2019-01-16 13:49:00 366.5 [lb_av] [facility] Body Mass Index Calculated 2019-01-16 13:49:00 58.27 kg/m2 [facility] Heart Rate 2019-01-16 13:49:00 67 /min [facility] Respiration Rate 2019-01-16 13:49:00 16 /min [facility] BP Systolic 2019-01-15 13:15:00 116 mm[Hg] Location: LUE; Positi on: Sitting [facility] BP Diastolic 2019-01-15 13:15:00 73 mm[Hg] Location: LUE; Positi on: Sitting [facility] Height 2019-01-15 13:15:00 66.5 [in_us] [facility] Weight 2019-01-15 13:15:00 367 [lb_av] [facility] Body Mass Index Calculated 2019-01-15 13:15:00 58.35 kg/m2 [facility] Heart Rate 2019-01-15 13:15:00 69 /min [facility] Respiration Rate 2019-01-15 13:15:00 16 /min [facility] Temperature 2019-01-15 13:15:00 98.9 [degF] Method: Temporal [facility] BP Systolic 2018-12-21 11:05:00 117 mm[Hg] Location: DANUTA; Positi on: Sitting [facility] BP Diastolic 2018-12-21 11:05:00 78 mm[Hg] Location: LUE; Positi on: Sitting [facility] Height 2018-12-21 11:05:00 66.5 [in_us] [facility] Weight 2018-12-21 11:05:00 369.25 [lb_av] [facility] Body Mass Index Calculated 2018-12-21 11:05:00 58.71 kg/m2 [facility] Heart Rate 2018-12-21 11:05:00 69 /min [facility] Temperature 2018-12-21 11:05:00 98.2 [degF] Method: Oral [facility] BP Systolic 2018-12-19 08:14:00 103 mm[Hg] Location: DANUTA; Positi on: Sitting [facility] BP Diastolic 2018-12-19 08:14:00 62 mm[Hg] Location: LUE; Positi on: Sitting [facility] Height 2018-12-19 08:14:00 67 [in_us] [facility] Weight 2018-12-19 08:14:00 372.9 [lb_av] [facility] Body Mass Index Calculated 2018-12-19 08:14:00 58.4 kg/m2 [facility] Heart Rate 2018-12-19 08:14:00 62 /min [facility] BP Systolic 2018-12-18 13:41:00 107 mm[Hg] Location: CECILEE; Positi on: Sitting [facility] BP Diastolic 2018-12-18 13:41:00 66 mm[Hg] Location: DANUTA; Positi on: Sitting [facility] Height 2018-12-18 13:41:00 67 [in_us] [facility] Weight 2018-12-18 13:41:00 373.4 [lb_av] [facility] Body Mass Index Calculated 2018-12-18 13:41:00 58.48 kg/m2 [facility] Heart Rate 2018-12-18 13:41:00 71 /min Location: L Brachial Artery; [facility] Respiration Rate 2018-12-18 13:41:00 18 /min [facility] BP Systolic 2018-12-04 09:49:00 103 mm[Hg] Location: CECILEE; Positi on: Sitting [facility] BP Diastolic 2018-12-04 09:49:00 70 mm[Hg] Location: CECILEE; Positi on: Sitting [facility] Height 2018-12-04 09:49:00 67 [in_us] [facility] Weight 2018-12-04 09:49:00 374 [lb_av] [facility] Body Mass Index Calculated 2018-12-04 09:49:00 58.58 kg/m2 [facility] Temperature 2018-12-04 09:49:00 98.1 [degF] Method: Temporal [facility] Respiration Rate 2018-12-04 09:49:00 16 /min [facility] Heart Rate 2018-12-04 09:49:00 69 /min [facility] BP Systolic 2018-11-27 13:58:00 117 mm[Hg] [facility] BP Diastolic 2018-11-27 13:58:00 74 mm[Hg] [facility] Weight 2018-11-27 13:58:00 378.8 [lb_av] [facility] Body Mass Index Calculated 2018-11-27 13:58:00 59.33 kg/m2 [facility] Heart Rate 2018-11-27 13:58:00 71 /min [facility] Weight 2018-11-07 09:22:00 375 [lb_av] [facility] Body Mass Index Calculated 2018-11-07 09:22:00 58.73 kg/m2 [facility] Height 2018-11-07 09:22:00 67 [in_us] [facility] Procedures Procedure Date / Time Performed Performing Clinician Sour e [Q] RESPIRATORY ALLERGY PROFILE REGION X 2020-05-11 00:00:00 [facility] CT Sinus wo contrast [id number] 2020-05-11 [facility] [id number] 2020-05-11 00:[facility] - COVID-19/SARS-Cov-2 2020-03-25 00:00:00 [facility] [QL] BRIAN PANEL, COMPREHENSIVE 2020-03-04 00:00:00 [facility] [QL] SED RATE BY MODIFIED WESTERGREN 2020-03-04 00:00:00 [facility] [QL] C-REACTIVE PROTEIN 2020-03-04 00:00:00 [facility] [QL] RHEUMATOID FACTOR 2020-03-04 00:00:00 [facility] . [facility] - GC/Chlamydia 2019-12-20 00:00:00 [facility] [Q] MYCOPLASMA HOMINIS/ UREAPLASMA CULTURE 2019-12-20 00:00:00 [facility] . [facility] - Affirm VPIII (BV Panel) 2019-12-20 00:00:00 [facility] [Q] HIV AB, HIV 1/2, EIA, WITH REFLEXES 2019-12-20 00:00:00 [facility] [Q] RPR SCREEN WITH REFLEX TO TITER 2019-12-20 00:00:00 [facility] [QL] HEPATIC FUNCTION PANEL 2019-12-20 00:00:00 [facility] [QL] MICROALBUMIN, RANDOM URINE (W/CREATININE) 2019-11-25 00:00: 00 [facility] [QL] TSH, 3RD GENERATION W/REFLEX TO FT4 2019-11-25 00:00:[address] [facility] CT Temporal bone wo contrast [id number] 2019-11-08 00:00:00 [facility] [QL] PROTHROMBIN TIME-INR 2019-09-05 00:00[facility]00 [facility]] PARTIAL THROMBOPLASTIN TIME, ACTIVATED 2019-09-05 00:00:00 [facility] XRAY Chest 2 views [id number] 2019-09-05 00:00:00 [facility] US Pelvis with Pelvis Transvaginal [id number] 2019-09-03 00:00:00 [facility] [QLH] CBC (INCLUDES DIFF/PLT) 2019-08-29 00:00:00 [facility] [QLH] CMP W/EGFR 2019-08-29 00:00:00 [facility] [QLH] FERRITIN 2019-08-29 00:00:00 [facility] [QLH] FOLATE, SERUM 2019-08-29 00:00:00 [facility] [QLH] HEMOGLOBIN A1c 2019-08-29 00:00:00 [facility] [QLH] IRON AND TOTAL IRON BINDING CAPACITY 2019-08-29 00:00:00 [facility] [QL] LIPID PANEL 2019-08-29 00:00:00 [facility] [QLH] PTH, INTACT (WITHOUT CALCIUM) 2019-08-29 00:00:00 [facility] [QLH] TSH, 3RD GENERATION W/REFLEX TO FT4 2019-08-29 00:00:00 [facility] [QLH] VITAMIN A (RETINOL) 2019-08-29 00:00:00 [facility] [QL] VITAMIN B1, WHOLE BLOOD 2019-08-29 00:00:00 [facility] [[facility]] VITAMIN B12 2019-08-29 00:00:00 [facility] [[facility]] VITAMIN D, 25-HYDROXY, LC/MS/MS 2019-08-29 00:00:00 [facility] [QL] VITAMIN E (TOCOPHEROL) 2019-08-29 00:00:00 [facility] Pelvis with Pelvis Transvaginal [id number] 2019-07-30 00:00:00 [facility] [QL] BV/ VAGINITIS PANEL DNA PROBE AFFIRM 2019-07-25 00:00:00 [facility] [QL] URINALYSIS MACROSCOPIC 2019-07-25 00:00:00 [facility] [[facility]] CULTURE, URINE, ROUTINE 2019-07-25 00:00:00 [facility] US Pelvis Transvaginal [id number] 2019-07-25 00:00:00 [facility] [[facility]] SED RATE BY MODIFIED DAYSI 2019-06-28 00:00:00 [facility] [[facility]] URIC ACID 2019-06-28 00:00:00 [place] [facility] [place] [facility] [QL] CULTURE, URINE, ROUTINE 2019-06-28 00:00:00 [facility] XRAY Foot series [id number] 2019-06-28 00:00:00 [facility] XRAY Foot AP lateral [id number] 2019-06-28 00:00[facility]00 [facility]] CBC (INCLUDES DIFF/PLT) 2019-06-11 00:00:00 [facility] [[facility]] SED RATE BY MADELEINE TAVAREZ 2019-06-11 00:00:00 [facility] [[facility]] IMMUNOGLOBULIN E 2019-06-11 00:00:00 [facility] [[facility]] IMMUNOGLOBULIN A 2019-06-11 00:00:00 [facility] ENG 2019-05-23 00:00:00 [facility] [place] [facility] [Q] [facility] PAP RFX HR HPV 2019-04-17 00:00:00 [facility] [QL] HERPES SIMPLEX VIRUS 1 AND 2, PCR 2019-04-17 00:00:00 [facility] [Q] CHLAMYDIA/N. GONORRHOEAE DNA, SDA 2019-04-17 00:00:00 [facility] [Q] HIV AB, HIV 1/2, EIA, WITH REFLEXES 2019-04-17 00:00:00 [facility] [QL] CULTURE, URINE, ROUTINE 2019-04-17 00:00:00 [facility] [QL] TSH, 3RD GENERATION W/REFLEX TO FT4 2019-03-12 00:00:[address] [facility] CT Brain wo contrast [id number] 2019-03-06 00:00:00 [facility] [facility] Ultrasound examination of pelvis, limited or follow-up 01-20 00:00:00 [facility] US Abdomen limited 2019-01-20 00:00:00 [facility] [H] Celiac Pnl w/Rflx Endomy Ab Ttr 2018-12-18 00:00:00 [facility] [QL] BRIAN PANEL, COMPREHENSIVE 2018-12-18 00:00:00 [facility] [QH] SMOOTH MUSCLE AB W/REFL TITER 2018-12-18 00:00:00 [facility] [H] Iron, TIBC \\T\\ Ferritin 2018-12-18 00:00:00 [facility] [H] BAXTER FibroSure 2018-12-18 00:00:00 [facility] [QLH] CERULOPLASMIN 2018-12-18 00:00:00 [facility] [QLH] MITOCHONDRIAL ANTIBODY W/REFL TITER 2018-12-18 00:00:00 [facility] [QLH] LIPID PANEL 2018-12-04 00:00:00 [facility] [QLH] MICROALBUMIN, RANDOM URINE (W/CREATININE) 2018-12-04 00:00 :00 [facility] [QL] HEMOGLOBIN A1c 2018-12-04 00:00:00 [facility] [QLH] TSH, 3RD GENERATION W/REFLEX TO FT4 2018-12-04 00:00:00 [facility] [QL] CMP W/EGFR 2018-12-04 00:00:00 [facility] [QL] URIC ACID 2018-12-04 00:00:00 [facility] [QLH] CULTURE, URINE, ROUTINE 2018-12-04 00:00:00 [facility] [place] Liver [id number] 2018-12-04 00:00:00 [facility] History of Cholecystectomy Unive [facility] History of Dilation Of Female Urethra [facility] History of Hysterectomy [facility] History of Gastrectomy Sleeve Laparoscopic [facility] History of Tonsillectomy [facility] History of Salpingo-oophorectomy Left Side [facility] History of Cyst excision [facility] Plan of Care Planned Activity Planned Date Details Comments Source Future Scheduled Test 2020-02-22 00:00:00 INFLUENZA VACCINE [code = INFLUENZA VACCINE] [facility] Test Pending 2019-07-25 00:00:00 US Pelvis Transv aginal 62312 [code = 78641] [facility] Diagnostic Test Pending 2019-07-05 00:00:00 [QLH] SED RATE B Y MODIFIED WESTERGREN [code = [QLH] SED RATE BY MODIFIED WESTERGREN] [facility] Diagnostic Test Pending 2019-07-05 00:00:00 [QLH] URIC ACID [code = [QLH] URIC ACID] [facility] Diagnostic Test Pending 2019-07-03 00:00:00 ENG [code = ENG] [facility] Diagnostic Test Pending 2019-07-03 00:00:00 ENG [code = ENG] [facility] Diagnostic Test Pending 2019-05-23 00:00:00 ENG [code = ENG] [facility] Diagnostic Test Pending 2019-04-23 00:00:00 [QLH] TSH, 3RD G ENERATION W/REFLEX TO FT4 [code = [QLH] TSH, 3RD GENERATION W/REFLEX TO FT4] [facility] Diagnostic Test Pending 2019-01-15 00:00:00 [QLH] LIPID PANE L [code = [QLH] LIPID PANEL] [facility] Diagnostic Test Pending 2019-01-15 00:00:00 [QLH] MICROALBUM IN, RANDOM URINE (W/CREATININE) [code = 21540] [facility] Diagnostic Test Pending 2019-01-15 00:00:00 [QLH] HEMOGLOBIN A1c [code = [QLH] HEMOGLOBIN A1c] [facility] Diagnostic Test Pending 2019-01-15 00:00:00 [QLH] TSH, 3RD G ENERATION W/REFLEX TO FT4 [code = [QLH] TSH, 3RD GENERATION W/REFLEX TO FT4] [facility] Diagnostic Test Pending 2019-01-15 00:00:00 [QLH] CMP W/EGFR [code = [QLH] CMP W/EGFR] [facility] Diagnostic Test Pending 2019-01-15 00:00:00 [QLH] URIC ACID [code = [QLH] URIC ACID] [facility] Future Scheduled Test 1995 00:00:00 Screening for alexis gnant neoplasm of cervix (procedure) [code = 431371265] [facility] Future Appointment 2020-09-02 09:20:00 Trish RUBY, [facility] Future Appointment 2020-06-16 08:00:00 SHADE, PHD JAYNA, [facility] Future Appointment 2020-06-12 08:45:00 Trish SMALLWOOD DE LA O, [facility] Encounters Start Date/Time End Date/Time Encounter Type Admission Type Attendi [facility] Care Department Encounter ID Source 2020-05-26 12:57:00 2020-05-26 12:57:00 Outpatient [facility] [id number] Located within [facility] 2020-05-11 10:00:00 2020-05-11 10:00:00 Appointment; RUPERTO ROSARIO M .D. BURKE, LUKE, M.D. [facility] Otorhinolaryngology [facility] [id number] [facility] 2020-04-30 09:00:00 2020-04-30 09:00:00 Appointment; IZZY DORANTES, PHD SHADE DORANTES, PHD [facility] Family Medicine [facility] [phone] [facility] 2020-04-22 10:30:00 2020-04-22 10:30:00 Appointment; RUPERTO ROSARIO M .D. BURKE, LUKE, M.D. [facility] Otorhinolaryngology [facility] [id number] [facility] 2020-04-17 09:30:00 2020-04-17 09:30:00 Appointment; CL DE LA O M.D. BOWERS, KYLE, M.D. [facility] [id number] [facility] 2020-03-25 12:45:00 2020-03-25 12:45:00 Appointment; CO19, LANDRY HERNANDEZ CO19, AB [facility] [id number] [phone] [facility] 2020-03-25 11:30:00 2020-03-25 11:30:00 Appointment; WILMA CHOPRA APRN HOANG, CHRISTINA, APRN [facility] [address] [id number] [facility] 2020-03-25 09:30:00 2020-03-25 09:30:00 Appointment; WILMA CHOPRA APRN HOANG, CHRISTINA, APRN [facility] [id number] [facility] 2020-03-04 09:20:00 2020-03-04 09:20:00 Appointment; FLORI RIOS M.D. HAWKINS, WENDY, M.D. [facility], [address] [id number] [facility] 2020-01-17 08:45:00 2020-01-17 08:45:00 Appointment; WRAREN ALFARO M.D. KING, MATTHEW, M.D. [facility] Psychiatry Outpatient Clinic [facility] [id number] [facility] 2019-12-20 13:40:00 2019-12-20 13:40:00 Appointment; LEIGH OLIVAS M.D. ELSHATANOUFY, SOLAFA, M.D. [facility] [id number] [facility] 2019-11-25 10:00:00 2019-11-25 10:00:00 Appointment; FLORI RIOS M.D. HAWKINS, WENDY, M.D. [facility], [address] [id number] [facility] 2019-11-22 08:45:00 2019-11-22 08:45:00 Appointment; WARREN ALFARO M.D. KING, MATTHEW, M.D. [facility] Psychiatry Outpatient Clinic [facility] [id number] [facility] 2019-11-08 13:30:00 2019-11-08 13:30:00 Appointment; VIV LUCAS M.D. BYRD, MICHAEL, M.D. [facility] [id number] [facility] 2019-10-18 10:15:00 2019-10-18 10:15:00 Appointment; WARREN ALFARO M.D. KING, MATTHEW, M.D. [facility] Psychiatry Outpatient Clinic [facility] [id number] [facility] 2019-10-16 09:40:00 2019-10-16 09:40:00 Appointment; FLORI RIOS M.D. HAWKINS, WENDY, M.D. [facility], [address] [id number] [facility] 2019-09-26 10:00:00 2019-09-26 10:00:00 Appointment; LEIGH OLIVAS M.D. ELSHATANOUFY, SOLAFA, M.D. [facility] [id number] [facility] 2019-09-10 07:30:00 2019-09-10 07:30:00 Appointment; LEIGH OLIVAS M.D. ELSHATANOUFY, SOLAFA, M.D. [facility] [id number] [facility] 2019-09-10 05:32:00 2019-09-10 05:32:00 Outpatient [facility] [id number] Located within [facility] 2019-09-05 12:30:00 2019-09-05 12:30:00 Appointment; WILMA CHOPRA APRN HOANG, CHRISTINA, APRN [facility] [address] [id number] [facility] 2019-08-29 13:00:00 2019-08-29 13:00:00 Appointment; AIDAN ALFARO M.D. COWLING, JOHN, M.D. [facility] General Surgery [facility] [id number] [facility] 2019-08-22 10:00:00 2019-08-22 10:00:00 Appointment; LEIGH OLIVAS M.D. ELSHATANOUFY, SOLAFA, M.D. [facility] [id number] [facility] 2019-07-26 10:00:00 2019-07-26 10:00:00 Appointment; KIM BURTON JANA [facility] Otorhinolaryngology [facility] [id number] [facility] 2019-07-25 09:00:00 2019-07-25 09:00:00 Appointment; LEIGH OLIVAS M.D. ELSHATANOUFY, SOLAFA, M.D. [facility] [id number] [facility] 2019-07-23 14:00:00 2019-07-23 14:00:00 Appointment; FLORI RIOS M.D. HAWKINS, WENDY, M.D. [facility], [address] [id number] [facility] 2019-07-10 08:00:00 2019-07-10 08:00:00 Appointment; CAMPBELL MOSS M.D. KIM, CHRISTINA, M.D. [facility] [id number] [facility] 2019-06-28 12:15:00 2019-06-28 12:15:00 Appointment; WILMA CHOPRA APRN HOANG, CHRISTINA, APRN [facility] [address] [id number] [facility] 2019-06-19 09:20:00 2019-06-19 09:20:00 Appointment; FLORI RIOS M.D. HAWKINS, WENDY, M.D. [facility], [address] [id number] [facility] 2019-06-05 08:45:00 2019-06-05 08:45:00 Appointment; WILMA CHOPRA APRN HOANG, CHRISTINA, APRN [facility] [address] [id number] [facility] 2019-06-03 14:00:00 2019-06-03 14:00:00 Appointment; MICHAEL FELDER M.D.|PHD MICHAEL MARTINEZ M.D.|PHD [facility] Psychiatry Outpatien t Clinic - [facility] [id number] [facility] 2019-06-02 03:38:00 2019-06-02 05:21:00 Departed Emergency Room [facility] [id number] [facility] 2019-05-30 13:00:00 2019-05-30 13:00:00 Appointment; CHRISSY SALGUERO D.O. BOKHARI, HAMMAD, D.O. [facility] [id number] [facility] 2019-05-23 09:00:00 2019-05-23 09:00:00 Appointment; VIV LUCAS M.D. BYRD, MICHAEL, M.D. [facility] [address] [id number] [facility] 2019-05-16 15:30:00 2019-05-16 15:30:00 Appointment; MICHAEL FELDER M.D.|PHD MICHAEL MARTINEZ M.D.|PHD [facility] [id number] [facility] 2019-05-02 13:30:00 2019-05-02 13:30:00 Appointment; BELEM POTTS A PRN SAXE, KAILA, APRN [facility] [id number] [facility] 2019-04-18 14:30:00 2019-04-18 14:30:00 Appointment; MICHAEL FELDER M.D.|PHD MICHAEL MARTINEZ M.D.|PHD [facility] [id number] [facility] 2019-04-18 13:30:00 2019-04-18 13:30:00 Appointment; MICHAEL FELDER M.D.|PHD MICHAEL MARTINEZ M.D.|PHD [facility] Psychiatry Outpatien [facility] [id number] [facility] 2019-04-17 08:15:00 2019-04-17 08:15:00 Appointment; WILMA CHOPRA APRN HOANG, CHRISTINA, APRN [facility] [address] [id number] [facility] 2019-04-15 19:33:00 2019-04-15 21:20:00 Departed Emergency Room [facility] [id number] [facility] 2019-03-19 14:40:00 2019-03-19 14:40:00 Appointment; FLORI RIOS M.D. HAWKINS, WENDY, M.D. [facility], [address] [id number] [facility] 2019-03-06 13:45:00 2019-03-06 13:45:00 Appointment; WILMA CHOPRA APRN HOANG, CHRISTINA, APRN [facility] [address] [id number] [facility] 2019-02-14 14:30:00 2019-02-14 14:30:00 Appointment; MICHAEL FELDER M.D.|PHD MICHAEL MARTINEZ M.D.|PHD [facility] [id number] [facility] 2019-02-13 10:00:00 2019-02-13 10:00:00 Appointment; FLORI RIOS M.D. HAWKINS, WENDY, M.D. [facility], [address] [id number] [facility] 2019-01-27 02:20:00 2019-01-27 03:24:00 Departed Emergency Room [facility] [id number] [facility] 2019-01-20 03:14:00 2019-01-20 06:38:00 Departed Emergency Room 1 RONAK HOANG [facility] [id number] [facility] 2019-01-18 13:30:00 2019-01-18 13:30:00 Appointment; WILL PEPE PA CATALANO, MARC, PA [facility], [address] [id number] [facility] 2019-01-16 13:40:00 2019-01-16 13:40:00 Appointment; FLORI RIOS M.D. HAWKINS, WENDY, M.D. [facility] [id number] [facility] 2019-01-15 13:45:00 2019-01-15 13:45:00 Appointment; WILMA CHOPRA APRN HOANG, CHRISTINA, APRN [facility] [address] [id number] [facility] 2019-01-15 11:30:00 2019-01-15 11:30:00 Appointment; BRANDON ESPINOZA M .D. MEEKS, EVAN, M.D. [facility] [id number] [facility] 2019-01-13 14:26:00 2019-01-13 15:45:00 Departed Emergency Room [facility] [id number] [facility] Patients [facility] 2019-01-12 13:26:00 2019-01-12 14:53:00 Departed Emergency Room [facility] [id number] [facility] - Patients [facility] 2019-01-11 12:45:00 2019-01-11 12:45:00 Appointment; BRANDON ESPINOZA M .D. MEEKS, EVAN, M.D. [facility] [id number] [facility] 2019-01-02 10:00:00 2019-01-02 10:00:00 Outpatient [facility] SHADE [id number] Located within [facility] 2018-12-21 11:00:00 2018-12-21 11:00:00 Appointment; SANTOS TSE D.O. EKHAESE, OBONORUMA, D.O. [facility] General Surgery [place] [id number] [facility] 2018-12-19 08:00:00 2018-12-19 08:00:00 Appointment; FLORI RIOS M.D. HAWKINS, WENDY, M.D. [facility] [address] [id number] [facility] 2018-12-18 14:00:00 2018-12-18 14:00:00 Appointment; WILL PEPE PA CATALANO, MARC, PA [facility] [address] [id number] [facility] 2018-12-05 10:00:00 2018-12-05 10:00:00 Appointment; FLORI RIOS M.D. HAWKINS, WENDY M.D. [facility] [address] [id number] [facility] 2018-12-04 15:00:00 2018-12-04 15:00:00 Appointment; BRANDON ESPINOZA M .D. MEEKS, EVAN, M.D. [facility] [address] [id number] [facility] 2018-12-04 10:00:00 2018-12-04 10:00:00 Appointment; WILMA CHOPRA APRN HOANG, CHRISTINA, APRN [facility] [address] [id number] [facility] 2018-11-29 14:45:00 2018-11-29 14:45:00 Appointment; JACQUE LUTHER M.D. HUANG, EDDIE, M.D. [facility] [id number] [facility] 2018-11-27 16:00:00 2018-11-27 16:00:00 Appointment; MICHAEL FELDER M.D.|PHD MICHAEL MARTINEZ M.D.|PHD [facility] [id number] [facility] 2018-11-27 14:00:00 2018-11-27 14:00:00 Appointment; MICHAEL FELDER M.D.|PHD MICHAEL MARTINEZ M.D.|PHD [facility] Psychiatry [id number] [facility] 2018-11-07 08:45:00 2018-11-07 08:45:00 Appointment; JACQUE LUTHER M.D. HUANG, EDDIE, M.D. [facility] Orthopedics [facility] [id number] [facility] 2018-10-09 07:30:00 2018-10-09 07:30:00 Appointment; WILMA CHOPRA APRN HOANG, CHRISTINA, APRN [facility] [id number] [facility] 2018 16:00:00 2018 16:00:00 Appointment; LAWSON TOVAR, DEMOGRAPHIC ANALYST LAWSON MINOR, DEMOGRAPHIC ANALYST [facility] [id number] [facility] 2018 16:00:00 2018 16:00:00 Appointment; LAWSON TOVAR, LAWSON [facility] UTP [id number] [facility] 2018 15:30:00 2018 15:30:00 Appointment; MICHAEL FELDER M.D.|PHD MICHAEL MARTINEZ M.D.|PHD [facility] [id number] [facility] 2018-08-23 12:45:00 2018-08-23 12:45:00 Appointment; MIKAL AMANDA M .D. BAI, KRISTY, M.D. [facility] UTP [id number] [facility] 2018-08-10 09:00:00 2018-08-10 09:00:00 Appointment; LAWSON TOVAR LCSW [facility], DONNA [facility] UTP [id number] [facility] 2018-07-27 09:00:00 2018-07-27 09:00:00 Appointment; LAWSON TOVAR LCSW [place], DONNA, [facility] UTP [id number] [facility] 2018-07-20 12:00:00 2018-07-20 12:00:00 Appointment; LAWSON TOVAR LCSW [place], DONNA [facility] UTP [id number] [facility] 2018-07-06 13:00:00 2018-07-06 13:00:00 Appointment; MICHAEL FELDER M.D.|PHD MICHAEL MARTINEZ M.D.|PHD [facility] UTP [id number] [facility] 2018-05-22 13:00:00 2018-05-22 13:00:00 Appointment; JOHN PALMA LCSW DHAYER, SUSAN, LCSW [facility] UTP [id number] [facility] 2018-05-15 10:00:00 2018-05-15 10:00:00 Appointment; JOHN PALMA LCSW DHAYER, SUSAN, LCSW [facility] UTP [id number] [facility] 2018-05-08 11:00:00 2018-05-08 11:00:00 Appointment; JOHN PALMA LCSW DHAYER, SUSAN, LCSW [facility]TP [id number] [facility] 2018-05-04 13:00:00 2018-05-04 13:00:00 Appointment; MICHAEL FELDER M.D.|PHD MICHAEL MARTINEZ M.D.|PHD [facility] [id number] [facility] 2018-03-23 23:25:00 2018-03-24 00:34:00 Departed Emergency Room [facility] [id number] [facility] 2018-03-14 16:00:00 2018-03-14 16:00:00 Appointment; MICHAEL FELDER M.D.|PHD MICHAEL MARTINEZ M.D.|PHD [facility] [id number] [facility] 2018-03-06 10:00:00 2018-03-06 10:00:00 Appointment; MICHAEL FELDER M.D.|PHD MICHAEL MARTINEZ M.D.|PHD [facility]TP [id number] [facility] 2018-02-28 13:30:00 2018-02-28 13:30:00 Appointment; MICHAEL FELDER M.D.|PHD MICHAEL MARTINEZ M.D.|PHD [facility]TP [id number] [facility] 2018-02-18 15:26:00 2018-02-18 20:50:00 Departed Emergency Room 1 YANG IBANEZ [facility] [id number] [facility] 2018-01-18 11:30:00 2018-01-18 11:30:00 Appointment; MICHAEL FELDER M.D.|PHD MICHAEL MARTINEZ M.D.|PHD [facility]TP [id number] [facility] 2017-10-17 14:00:00 2017-10-17 14:00:00 Appointment; MICHAEL FELDER M.D.|PHD MICHAEL MARTINEZ M.D.|PHD [facility]TP [id number] [facility] 2017-09-06 08:30:00 2017-09-06 08:30:00 Appointment; ELLIOTT TERESA M.D. CROSS, TAMIKA, M.D. [facility] UTP [id number] [facility] 2017-07-04 13:00:00 2017-07-04 13:00:00 Appointment; MICHAEL FELDER M.D.|PHD MICHAEL MARTINEZ M.D.|PHD [facility] UTP [id number] [facility] 2017-06-27 15:30:00 2017-06-27 15:30:00 Appointment; JOSEPHINE MORRELL M.D. DAVIS, GARTH, M.D. [facility] UTP [id number] [facility] 2017-03-30 09:30:00 2017-03-30 09:30:00 Appointment; MICHAEL FELDER M.D.|PHD MICHAEL MARTINEZ M.D.|PHD [facility] UTP [id number] [facility] 2017-01-12 09:00:00 2017-01-12 09:00:00 Appointment; MICHAEL FELDER M.D.|PHD MICHAEL MARTINEZ M.D.|PHD [facility] UTP [id number] [facility] Results Test Description Test Time Test Comments Results Result Comments Source CT Sinus wo contrast [id number] 2020-05-26 13:13:00 R adiation Dose CTDIVOL = 0 (mGy): DLP = 595 (mGy-cm)PROCEDURE INFORMATION:Exam: CT Maxillofacial Without Contrast, SinusExam date and time: 05/26/2020 2:24 PMAge: 44 years oldClinical indication: Chronic maxillary sinusitis; Additional info: /[id number]:Imaging protocol: CT Maxillofacial without contrast. Focus on the sinuses.Radiation optimization: All CT scans at this facility use at least one of thesedose optimization techniques: automated exposure control; mA and/or kVadjustment per patient size (includes targeted exams where dose is matched toclinical indication); or iterative reconstruction.COMPARISON:No relevant prior studies available.RADIATION DOSE METRICS:Total DLP (mGy-cm): 595FINDINGS:Frontal sinuses: Normal. No air-fluid levels.Ethmoid air cells: Normal. No air-fluid levels.Sphenoid sinuses: Normal. No air-fluid levels.Maxillary sinuses: 4 x 2 mm polyp or mucous retention cyst arises from theleft maxillary sinus floor on coronal image 37. No air-fluid levels.Ostiomeatal units are patent.Nasal cavity/Septum: Nasal septum shows deviation to the right.Orbital cavity: Orbits are normal. Globes are unremarkable.Bones/joints: Unremarkable.Soft tissues: Unremarkable.IMPRESSION:Minimal left maxillary sinus disease as above.Deepak Dixon MD On 05/26/2020 15:00:19; [id number] by: Deepak Dixon MDDictated Date/time: 05/26/20 15:01Electronically Signed by: Deepak Dixon MD 05/26/2015:01FINAL REPORT [facility] Physicians HAND 2 VIEW - HOPD 2020-05-22 01:51:00 [facility] CENTERName: CHARLENE VASQUEZ : 1975 Sex: F [facility] [address] [place] [address] Patient Name: CHARLENE VASQUEZ MR #: [id number] : 1975 Age/Sex: 44/F Req #: [id number] [facility] Physician: Ordered by: YANY KUO MD Report #: [id number] Location[facility] Room/Bed: Procedure: [id number] HOPD/HAND 2 VIEW LT - HOPD Exam Date: 05/22/20 Exam Time: 0140 REPORT STATUS: Signed XRAY HAND LEFT - 3 views HISTORY: Pain. COMPARISON: None available. FINDINGS: Bones: No acute displaced fracture. Osseous alignment is within normal limits. Joints: The joint spaces are well-maintained. IMPRESSION: No acute radiographic abnormality. Signed by: Artur Cruz MD on 05/22/2020 1:53 AM Dictated By: ARTUR CRUZ MD 2 Transcribed By: MELANIA on 05/22/20152 COPY TO: YANY KUO MD [Q] RESPIRATORY ALLERGY PROFILE REGION X 2020-05-11 11:31:00 Test Item DERMATOPHAGOIDES PTERONYSSINUS (D1) IGE (test code = DERMATOPHAGOIDES PTERONYSSINUS (D1) IGE) <0.10 N CLASS (test code = CLASS) 0 DERMATOPHAGOIDES FARINAE (D2) IGE (test code = DERMATOPHAGOIDES FARINAE (D2) IGE) <0.10 N PENICILLIUM NOTATUM (M1) IGE (test code = PENICILLIUM NOTATUM (M 1) IGE) <0.10 N CLADOSPORIUM HERBARUM (M2) IGE (test code = CLADOSPORI UM HERBARUM (M2) IGE) <0.10 N ASPERGILLUS FUMIGATUS (M3) IGE (test code = ASPERGILLU S FUMIGATUS (M3) IGE) <0.10 N ALTERNARIA ALTERNATA (M6) IGE (test code = ALTERNARIA ALTERN RUBINA (M6) IGE) <0.10 N CAT DANDER (E1) IGE (test code = CAT DANDER (E1) IGE) <0.10 N DOG DANDER (E5) IGE (test code = DOG DANDER (E5) IGE) <0.10 N COCKROACH (I6) IGE (test code = COCKROACH (I6) IGE) <0.10 N MAPLE (BOX ELDER) (T1) IGE (test code = MAPLE (BOX ELDER) (T1) IGE) <0.10 N BIRCH (T3) IGE (test code = BIRCH (T3) IGE) <0.10 N [place] (T6) IGE (test code = [place] (T6) IGE) <0.10 N [place] (T14) IGE (test code = [place] (T14) IGE) <0.10 N WHITE JEMMA (T15) IGE (test code = WHITE JEMMA (T15) IGE) <0.10 N [place] (T7) IGE (test code = [place] (T7) IGE) <0.10 N ELM (T8) IGE (test code = ELM (T8) IGE) <0.10 N HICKORY/PECAN TREE (T22) IGE (test code = HICKORY/PECAN TREE (T2 2) IGE) <0.10 N WHITE MULBERRY (T70) IGE (test code = WHITE MULBERRY (T70) IGE) <0. 10 N BERMUDA GRASS (G2) IGE (test code = BERMUDA GRASS (G2) IGE) <0.10 N EMMIE GRASS (G6) IGE (test code = EMMIE GRASS (G6) IGE) <0.10 N COMMON RAGWEED (SHORT) (W1) IGE (test code = COMMON RA GWEED (SHORT) (W1) IGE) <0.10 N ROUGH PIGWEED (W14) IGE (test code = ROUGH PIGWEED (W14) IGE) <0.10 N ROUGH LE ELDER (W16) IGE (test code = ROUGH LE ELDER (W16) IG E) <0.10 N SHEEP SORREL (W18) IGE (test code = SHEEP SORREL (W18) IGE) <0.10 N NETTLE (W20) IGE (test code = NETTLE (W20) IGE) <0.10 N MOUSE URINE PROTEINS (E72) IGE (test code = MOUSE URIN E PROTEINS (E72) IGE) <0.10 N IMMUNOGLOBULIN E (test code = IMMUNOGLOBULIN E) 8 {KU/L} <OR=11 4 N [facility][Q] [id number] 11:31:00* Test Item Value Reference Range Interpretation Comments INTERPRETATION (test code = INTERPRETATION) See Below Specific Level of AllergenIGE Class kU/L Specific IGE Antibody ----- --------- 0 <0.10 Absent/Undetectable 0/1 0.10-0.34 Very Low Level 1 0.35-0.69 Low Level 2 0.70-3.49 Moderate Level 3 3.50-17.4 High Level 4 17.5-49.9 Very High Level 5 50-100 Very High Level 6 >100 Very High Level The clinical relevance of allergen results of0.10- 0.34 kU/L are undetermined and intended for specialist use. Allergens denoted with a "" include results usingone or more analyte specific reagents. In thosecases, the test was developed and its analyticalperformance characteristics have been determined by[facility]. It has not been cleared or approvedby the U.S. Food and Drug Administration. This assay has been validated pursuant to the CLIA regulations and is used for clinical purposes. [facility]. [facility] - COVID-19/[id number] 00:00:00 * Test Item Value Reference Range Interpretation Comments SARS-CoV-2 REPORT (test code = SARS-CoV-2 REPORT) Clin icalHistory: J32.9 Sinusitis, chronic.COVID-19/SARS-CoV-2: COVID-19/SARS-CoV-2: Negative.BodySite: Nasopharyngeal.Special Requests: COVID-19/SARS-Cov-2.CPTCode: 44275.ICDCode: J32.9. N [facility][QL] SED RATE BY MODIFIED [id number] 10:15:00* Test Item Value Reference Range Interpretation Comments SED RATE BY MODIFIED WESTERGREN (test code = SED RATE BY MODIFIED WESTERGREN) 19 mm/h < OR = 20 N [facility][QL] BRIAN PANEL, [id number] 10:15:00* Test Item Value Reference Range Interpretation Comments BRIAN SCREEN, IFA (test code = BRIAN SCREEN, IFA) NEGATIVE NEGATIVE N BRIAN IFA is a first line screen for detecting thepresence of up to approximately 150 autoantibodies invarious autoimmune diseases. A negative BRIAN IFA resultsuggests an BRIAN-associated autoimmune disease is notpresent at this time, but is not definitive. If thereis high clinical suspicion for Sjogren's syndrome,testing for anti-SS-A/Ro antibody should be considered.Anti-Patricia-1 antibody should be considered for clinicallysuspected inflammatory myopathies. AC-0: Negative International Consensus on BRIAN Patterns(https://doi.org/10.1515/hqeb-1681-0356) For additional information, please refer tohttp://educati onSchooner Information Technology/faq/TVO640(This link is being provided for informational/educational purposes only.) DNA (DS) ANTIBODY (test code = DNA (DS) ANTIBODY) <1 N IU/mL Interpretation < or = 4 Negative 5-9 Indeterminate > or = 10 Positive SCL-70 ANTIBODY (test code = SCL-70 ANTIBODY) <1.0 NEG <1.0 NEG N SM ANTIBODY (test code = SM ANTIBODY) <1.0 NEG <1.0 NEG N SM/COTTON FEEDER ANTIBODY (test code = SM/COTTON FEEDER ANTIBODY) <1.0 NEG <1.0 NEG N SJOGRENS ANTIBODY (SS-A) (test code = SJOGRENS ANTIBODY (SS- A)) <1.0 NEG <1.0 NEG N SJOGRENS ANTIBODY (SS-B) (test code = SJOGRENS ANTIBODY (SS- B)) <1.0 NEG <1.0 NEG N [facility][QL] RHEUMATOID [id number] 10:15:00* Test Item Value Reference Range Interpretation Comments RHEUMATOID FACTOR (test code = RHEUMATOID FACTOR) <14 <14 N [facility][QL] C-REACTIVE [id number] 10:15:00* Test Item Value Reference Range Interpretation Comments C-REACTIVE PROTEIN (test code = C-REACTIVE PROTEIN) 9.0 mg/L <8 .0 [facility][O] Lipid Panel (In Office)2020-03-04 09:30:00* Test Item Value Reference Range Interpretation Comments CHOLESTEROL, TOTAL (test code = 2093-3) <100 HDL CHOLESTEROL (test code = 2085-9) 41 TRIGLYCERIDES (test code = 2571-8) 90 LDL-CHOLESTEROL (test code = 17404-0) --- NON HDL CHOLESTEROL (test code = NON HDL CHOLESTEROL) --- T. Chol/HDL Ratio (test code = 9830-1) --- GLUCOSE (test code = 1547-9) 109 [facility] ([facility] In Office)2020-03-04 09:30:00* Test Item Value Reference Range Interpretation Comments Glucose POC Lifescan (test code = Glucose POC Lifescan) 97 [facility][O] Hemoglobin A1c (in office)2020-03-04 09:29:00 * Test Item Value Reference Range Interpretation Comments HEMOGLOBIN A1c (test code = 4548-4) 5.6 [facility]. [facility] - [id number] 00:00:00* Test Item Value Reference Range Interpretation Comments Case (test code = Case) Click ImageLink button for report. N [facility][QL] TSH, 3RD GENERATION W/REFLEX TO [id number] 12:12:00* Test Item Value Reference Range Interpretation Comments TSH, 3RD GENERATION W/REFLEX TO FT4 (marybeth t code = TSH, 3RD GENERATION W/REFLEX TO FT4) 2.40 {MIU/L} N Reference Range > or = 20 Years 0.40-4.50 Ranges First trimester 0.26-2.66 Second trimester 0.55-2.73 Third trimester 0.43-2.91 [facility][QL] MICROALBUMIN, RANDOM URINE (W/CREATININE) 2019-11-25 12:12:00* Test Item Value Reference Range Interpretation Comments CREATININE, RANDOM URINE (test code = CREATININE, RANDOM URI NE) 171 mg/dl 20-275 N MICROALBUMIN (test code = MICROALBUMIN) 0.4 mg/dl N Reference RangeNot established MICROALBUMIN/CREATININE RATIO, RANDOM UR INE (test code = MICROALBUMIN/CREATININE RATIO, RANDOM URINE) 2 {MCG/MG CRE} <30 N The ADA de fines abnormalities in albuminexcretion as follows: Category Result (mcg/mg creatinine) Normal <30Microalbuminuria 30-299 Clinical albuminuria > OR = 300 The ADA recommends that at least two of threespecimens collected within a 3-6 month period beabnormal before considering a patient to bewithin a diagnostic category. [facility] ([facility] In [facility])2019-11-25 10:33:00* Test Item Value Reference Range Interpretation Comments Glucose POC Lifescan (test code = Glucose POC Lifescan) 92 [facility][O] Hemoglobin A1c (in office)2019-11-25 10:32:00 * Test Item Value Reference Range Interpretation Comments HEMOGLOBIN A1c (test code = 4548-4) 5.4 [facility]iciansUS Pelvis with Pelvis Transvaginal [id number] 13:55:00EXAM: US PELVIS TRANSABDOMINALEXAM: US PELVIS TRANSVAGINALDATE: 09/09/2019 14:00 CSTINDICATION: - cyst of left ovaryADDITIONAL INFORMATION: None.COMPARISON: Pelvic ultrasound 07/30/2019TECHNIQUE: Multiplanar grayscale and color Doppler ultrasound of the pelviswere obtained transabdominally through a distended urinary bladder andtransvaginally postvoid.FINDINGS:Uterus/Myometrium: Status post hysterectomy.Right ovary: Not visualizedLeft ovary:Size: 3.8 x 2.3 x 2.7 cmCysts/Masses: Simple appearing left ovarian cyst measures 2.3 x 2.2 x 1.9 cm.Previously this measured 3.3 x 2.4 x 2.8 cm. An adjacent ovarian cyst measures2.1 x 1.1 x 1.2 cm.Adnexa: Normal.Free fluid: None.Other: Bladder is mildly distended measuring 9.0 x 7.8 x 9.0 cm.IMPRESSION:1. Two small simple appearing left ovarian cysts versus a larger mildlycomplex septated cyst are reidentified and overall appear similar when comparedto the prior study of 07/30/2019. Recommend follow-up pelvic ultrasound in 12months.2. Status post hysterectomy.--Read by: Anthony Fortune MDDictated Date/time: 09/09/19 14:55Electronically Signed by: Anthony Fortune MD 09/09/2013:59FINAL REPORTUnMountainStar Healthcare PhysiciansXRAY Chest 2 views [id number] 2019-09-05 15:17:00EXAM: XR CHEST 2 VIEWSDATE: 09/05/2019 at 1502 hoursINDICATION: - pre op examinationCOMPARISON: 09/05/2017 at 1353 hours.TECHNIQUE: PA and lateral chest radiographs.FINDINGS:Lines, tubes and hardware: None.Lungs and pleura: Pulmonary vascularity is normal. The lungs are clear. Thecostophrenic sulci are sharp without effusion. No pneumothorax is identified.Heart and mediastinum: The heart size is normal. The mediastinal contours arenormal.Bones, soft tissues: No acute abnormality.IMPRESSION: 1. No significant abnormalities.--Read by: Kaleb Sanders MDDictated Date/time: 09/05/19 16:49Electronically Signed by: Kaleb Sanders MD 09/05/2015:50FINAL [facility]PORTUnMo[facility]] PARTIAL THROMBOPLASTIN TIME, [id number] 13:37:00* Test Item Value Reference Range Interpretation Comments PARTIAL THROMBOPLASTIN TIME, ACTIVATED ( test code = PARTIAL THROMBOPLASTIN TIME, ACTIVATED) 30 {sec} 22-34 N This test has no t been validated for monitoringunfractionated heparin therapy. For testing thatis validated for this type of therapy, please referto the Heparin Anti-Xa assay (test code 70313). For additional information, please refer tohttp://Picturae.Sympoz (dba Craftsy)/faq/SYJ802(This link is being provided for informational/educational purposes only.) [facility]] PROTHROMBIN [id number] 13:37:00* Test Item Value Reference Range Interpretation Comments INR (test code = INR) 0.9 N Refere nce Range 0.9-1.1Moderate-intensity Warfarin Therapy 2.0-3.0Higher-intensity Warfarin Therapy 3.0-4.0 PT (test code = PT) 9.6 {sec} 9.0-11.5 N For more information on this test, go to:http://Picturae.Sonora Leather/faq/TTQ497 [facility]] LIPID [id number] 15:33:00* Test Item Value Reference Range Interpretation Comments CHOLESTEROL, TOTAL; Normal (test code = 2093-3) 184 mg/dl <200 N HDL CHOLESTEROL; Below Low Threshold (test code = 2085-9) 37 mg/dl > OR = 50 TRIGLYCERIDES; Normal (test code = 2571-8) 142 mg/dl <150 N LDL-CHOLESTEROL; Above High Threshold (test code = 76551-6) 122 {MG/DL KHANH} Reference range: <100 Desirable range <1 00 mg/dL for primary prevention; <70 mg/dL for patients with CHD or diabetic patients with > or = 2 CHD risk factors. LDL-C is now calculated using the Rocco-Lockwood calculation, which is a validated novel method providing better accuracy than the Friedewald equation in the estimation of LDL-C. Rocco SS et al. TRUONG. 2013;310(19): 3678-1843 (http ://education.[employer].MentiNova/faq/JEG853) CHOL/HDLC RATIO (test code = CHOL/HDLC RATIO) 5.0 {CALC} <5.0 NON HDL CHOLESTEROL (test code = NON HDL CHOLESTEROL) 147 {MG/DL C AL} <130 For patients with diabetes plus 1 major ASCVD risk factor, treating to a non-HDL-C goal of <100 mg/dL (LDL-C of <70 mg/dL) is considered a therapeutic option. [facility]] IRON AND TOTAL IRON BINDING CAPACITY 2019-09-02 15:33:00* Test Item Value Reference Range Interpretation Comments IRON, TOTAL (test code = IRON, TOTAL) 59 {mcg/dl} 40-190 N IRON BINDING CAPACITY (test code = IRON BINDING CAPACITY) 33 5 {mcg/dL ca} 250-450 N % SATURATION (test code = % SATURATION) 18 {% CALC} 16-45 N [facility]] CMP [id number] 15:33:00* Test Item Value Reference Range Interpretation Comments GLUCOSE; Normal (test code = 1547-9) 87 mg/dl 65-99 N Fasting reference interval UREA NITROGEN (BUN) (test code = UREA NITROGEN (BUN)) 7 mg/dl 7-25 N CREATININE (test code = CREATININE) 0.60 mg/dl 0.50-1.10 N eGFR NON- (test code = eGFR NON-MITESH N SINGAPOREAN) 111 {ML/MIN/1.7} > OR = 60 N eGFR (test code = eGFR ) 12 8 {ML/MIN/1.7} > OR = 60 N BUN/CREATININE RATIO (test code = BUN/CREATININE RATIO) NOT APPLICA BLE 6-22 SODIUM (test code = SODIUM) 139 mmol/L 135-146 N POTASSIUM (test code = POTASSIUM) 4.1 mmol/L 3.5-5.3 N CHLORIDE (test code = CHLORIDE) 102 mmol/L 98-110 N CARBON DIOXIDE (test code = CARBON DIOXIDE) 29 mmol/L 20-32 N CALCIUM (test code = CALCIUM) 9.2 mg/dl 8.6-10.2 N PROTEIN, TOTAL (test code = PROTEIN, TOTAL) 7.6 g/dl 6.1-8.1 N ALBUMIN (test code = ALBUMIN) 3.9 g/dl 3.6-5.1 N GLOBULIN (test code = GLOBULIN) 3.7 {G/DL CALC} 1.9-3.7 N ALBUMIN/GLOBULIN RATIO (test code = ALBUMIN/GLOBULIN RATIO) 1.1 {CALC} 1.0-2.5 N BILIRUBIN, TOTAL; Normal (test code = 16777-4) 0.4 mg/dl 0.2-1.2 N ALKALINE PHSPHATASE (test code = ALKALINE PHSPHATASE) 79 u/l 31-125 N AST; Normal (test code = 1916-6) 11 u/l 10-30 N ALT; Normal (test code = 1742-6) 10 u/l 6-29 N [facility]] CBC (INCLUDES DIFF/PLT)2019-09-02 15:33:00* Test Item Value Reference Range Interpretation Comments WHITE BLOOD CELL COUNT (test code = WHITE BLOOD CELL COUNT) 8.6 {Thousand/u} 3.8-10.8 N RED BLOOD CELL COUNT (test code = RED BLOOD CELL COUNT) 4.58 {Million/uL} 3.80-5.10 N HEMAGLOBIN; Normal (test code = 86392-7) 12.8 g/dl 11.7-15.5 N HEMATOCRIT; Normal (test code = 4544-3) 38.6 % 35.0-45.0 N MCV; Normal (test code = 787-2) 84.3 fL 80.0-100.0 N MCHC; Normal (test code = 49128-8) 33.2 g/dl 32.0-36.0 N RDW; Normal (test code = 788-0) 12.9 % 11.0-15.0 N PLATELET COUNT; Normal (test code = 777-3) 341 {Thousand/u} 140-400 N MPV; Normal (test code = 39856-4) 10.3 fL 7.5-12.5 N ABSOLUTE NEUTROPHILS (test code = ABSOLUTE NEUTROPHILS) 5108 {cells/uL} 9818-7600 N ABSOLUTE LYMPHOCYTES (test code = ABSOLUTE LYMPHOCYTES) 2786 {cells/uL} 850-3900 N ABSOLUTE MONOCYTES (test code = ABSOLUTE MONOCYTES) 378 {cells/uL} 200-950 N ABSOLUTE EOSINOPHILS (test code = ABSOLUTE EOSINOPHILS) 258 {cells/ uL} 15-500 N ABSOLUTE BASOPHILS (test code = ABSOLUTE BASOPHILS) 69 {cells/uL} 0 -200 N NEUTROPHILS (test code = NEUTROPHILS) 59.4 % N LYMPHOCYTES (test code = LYMPHOCYTES) 32.4 % N MONOCYTES; Normal (test code = 59735-3) 4.4 % N EOSINOPHILS; Normal (test code = 53253-4) 3.0 % N BASOPHILS; Normal (test code = 21212-0) 0.8 % N [facility]] PTH, INTACT (WITHOUT CALCIUM)2019-09-02 15:33:00* Test Item Value Reference Range Interpretation Comments PARATHYROID HORMONE, INTACT (test code = PARATHYROID HORMONE , INTACT) 24 pg/ml 14-64 N Interpretive Guide Intact PTH Calcium -------Normal Parathyroid Normal NormalHypoparathyroidism Low or Low Normal LowHyperparathyroidism Primary Normal or High High Secondary High Normal or Low Tertiary High HighNon- Parathyroid Hypercalcemia Low or Low Normal High [facility]] [id number] 15:33:00* Test Item Value Reference Range Interpretation Comments FERRITIN (test code = FERRITIN) 62 ng/ml 16-232 N [facility]] FOLATE, [id number] 15:33:00* Test Item Value Reference Range Interpretation Comments FOLATE, SERUM (test code = FOLATE, SERUM) 6.8 ng/ml N Reference Range Low: <3.4 Borderline: 3.4-5.4 Normal: >5.4 [facility]] VITAMIN [id number] 15:33:00* Test Item Value Reference Range Interpretation Comments VITAMIN B12 (test code = VITAMIN B12) 749 pg/ml 200-1100 N [facility]] TSH, 3RD GENERATION W/REFLEX TO FT4 2019-09-02 15:33:00* Test Item Value Reference Range Interpretation Comments TSH, 3RD GENERATION W/REFLEX TO FT4 (marybeth t code = TSH, 3RD GENERATION W/REFLEX TO FT4) 5.71 {MIU/L} Reference Range > or = 20 Years 0.40-4.50 Ranges First trimester 0.26-2.66 Second trimester 0.55-2.73 Third trimester 0.43-2.91 [facility]] T4, [id number] 15:33:00* Test Item Value Reference Range Interpretation Comments T4, FREE (test code = T4, FREE) 0.9 ng/dl 0.8-1.8 N [facility]] VITAMIN D, 25-HYDROXY, [id number] 15:33:00* Test Item Value Reference Range Interpretation Comments VITAMIN D,25-OH,TOTAL,IA (test code = VITAMIN D,25-OH,TOTAL,IA) 26 ng/ml 30-100 Vitamin D Status 25-OH Vitamin D : Deficiency: <20 ng/mLInsufficiency: 20 - 29 ng/mLOptimal: > or = 30 ng/mL For 25-OH Vitamin D testing on patients on D2-supplementation and patients for whom quantitation of D2 and D3 fractions is required, the QuestAssureD(TM)25-OH VIT D, (D2,D3), LC/MS/MS is recommended: order code 36651 (patients >2yrs). For more information on this test, go to:http://education.Docurated.MentiNova/faq/MOO769(This link is being provided for informational/educational purposes only.) [facility]] HEMOGLOBIN [id number] 15:33:00* Test Item Value Reference Range Interpretation Comments HEMOGLOBIN A1c; Normal (test code = 4548-4) 5.6 {% of total} <5.7 N For the purpose of screening for the presence ofdiabetes: <5.7% Consistent with the absence of diabetes5.7-6.4% Consistent with increased risk for diabetes (prediabetes)> or =6.5% Consistent with diabetes This assay result is consistent with a decreased riskof diabetes. Currently, no consensus exists regarding use ofhemoglobin A1c for diagnosis of diabetes in children. According to [place] Diabetes Association (ADA)guidelines, hemoglobin A1c <7.0% represents optimalcontrol in non- diabetic patients. Differentmetrics may apply to specific patient populations. Standards of Medical Care in Diabetes(ADA). [facility]] VITAMIN E (TOCOPHEROL)2019-09-02 15:33:00* Test Item Value Reference Range Interpretation Comments ALPHA-TOCOPHEROL (test code = ALPHA-TOCOPHEROL) 9.7 mg/L Reference Range 5.7-19.9 mg/L Levels of alpha-tocopherol <5 mg/L are consistent with Vitamin E deficiency in adults.Vitamin supplementation within 24 hours prior to blood draw may affect the accuracy of results. This test was developed and its analytical performance characteristics have been determined by [facility]. It has not been cleared or approved by theFDA. This assay has been validated pursuant to the CLIA regulations and is used for clinical purposes. MIIX-TQFGN-TQXXKQPGOI (test code = UAKZ-DUXHR-ONOUAIWRHN) 1.9 mg/L <4.4 This test was developed and its analytical performance characteristics have been determined by [facility]. It has not been cleared or approved by theFDA. This assay has been validated pursuant to the CLIA regulations and is used for clinical purposes. [facility]] VITAMIN A (RETINOL)2019-09-02 15:33:00* Test Item Value Reference Range Interpretation Comments VITAMIN A (test code = VITAMIN A) 39 {mcg/dl} 38-98 Clin Chem Vol. 34.No.8. [id number]. 1998Vitamin supplementation within 24 hours prior to blood draw may affect the accuracy of results. This test was developed and its analytical performance characteristics have been determined by [facility]. It has not been cleared or approved by theFDA. This assay has been validated pursuant to the CLIA regulations and is used for clinical purposes. [facility]] VITAMIN B1, WHOLE [id number] 15:33:00* Test Item Value Reference Range Interpretation Comments VITAMIN B1, WHOLE BLOOD (test code = VITAMIN B1, WHOLE BLOOD) 11 9 nmol/L 78-185 Vitamin supplementation within 24 hours prior toblood draw may affect the accuracy of results. This test was developed and its analytical performance characteristics have been determined by [facility]. It has not been cleared or approved by theFDA. This assay has been validated pursuant to the CLIA regulations and is used for clinical purposes. [facility]] URIC [id number] 11:50:00* Test Item Value Reference Range Interpretation Comments URIC ACID; Normal (test code = 3086-6) 5.4 mg/dl 2.5-7.0 N Therapeutic target for gout patients: <6.0 mg/dL [facility]] SED RATE BY MODIFIED [id number] 11:50:00* Test Item Value Reference Range Interpretation Comments SED RATE BY MODIFIED DAYSI (test code = SED RATE BY MODIFIED SHABNAMREN) 29 mm/h < OR = 20 [facility] Pelvis with Pelvis Transvaginal [id number] 12:15:00EXAM: US PELVIS TRANSABDOMINALEXAM: US PELVIS TRANSVAGINALDATE: 07/30/2019 12:15 CSTINDICATION: - R10.2 Pelvic and perineal pain, R79.89 Other specifiedabnormal findings of blood chemistry. Hypoparathyroidism. Pelvic pain.Difficulty emptying bladder with recurrent urinary tract infections.ADDITIONAL INFORMATION: LMP: Status post hysterectomy in 2004COMPARISON: 04/27/2017.TECHNIQUE: Multiplanar grayscale and color Doppler ultrasound images of thepelvis were obtained transabdominally through a distended urinary bladderfollowed by transvaginal examination postvoid.FINDINGS:Uterus: Surgically absent with no abnormalities of the vaginal cuff.Right ovary: Not visualized sonographically at this time. No right adnex alregion abnormalities are seen.Left ovary: Size: 3.7 x 2.8 x 3.0. cm Cysts: Within the left ovary, there is an anechoic avascular thin-walledsimple cyst me asuring 3.3 x 2.4 x 2.3 cm. Masses: None. Vascularity: Normal.Free fluid: No ne.Other findings: No masses, wall thickening, or calculi are seen in the urinar ybladder. Postvoid residual is estimated to be 65 cc.IMPRESSION:1. Moderate post void residual of 65 cc in the urinary bladder. No other bladderpathology is dete cted.2. Left ovarian 3.3 cm simple cystic structure, most likely a benign ovaria nsimple cyst. Given the patient's symptoms of pelvic pain, follow-up sonographyi n 6-12 weeks is recommended to ensure regression/resolution.3. Status post hyste rectomy with no abnormalities of the vaginal cuff detected.4. The right ovary is not seen sonographically at this time.--Read by: Anselmo Castro MDDictate d Date/time: 07/30/19 14:43Electronically Signed by: Anselmo Castro MD 07/30/2013:49FINAL REPORTUnMountainStar Healthcare Physicians[O] Urine Dipstick (In Office)2019-07-25 11:08:00* Test Item Value Reference Range Interpretation Comments LEUKOCYTES (test code = LEUKOCYTES) negative N NITRITE; Normal (test code = 67549-4) negative N UROBILINOGEN; Normal (test code = 33229-5) 0.2 N PROTEIN; Normal (test code = 24215-3) negative N pH (test code = pH) 5.5 N URINE BLOOD; Normal (test code = 25764-5) negative N SPECIFIC GRAVITY; Normal (test code = 2965-2) <=1.030 N KETONES; Normal (test code = 16988-7) negative N BILIRUBIN; Normal (test code = 41032-2) negative N [facility]] URINALYSIS [id number] 00:00:00* Test Item Value Reference Range Interpretation Comments COLOR; Normal (test code = 5778-6) YELLOW YELLOW N APPEARANCE (test code = APPEARANCE) CLOUDY CLEAR A SPECIFIC GRAVITY; Normal (test code = 2965-2) 1.026 1.001-1. 035 N PH; Normal (test code = 2756-5) 5.5 5.0-8.0 N GLUCOSE; Normal (test code = 1547-9) NEGATIVE NEGATIVE N BILIRUBIN; Normal (test code = 62908-4) NEGATIVE NEGATIVE N KETONES; Normal (test code = 25364-7) NEGATIVE NEGATIVE N OCCULT BLOOD; Normal (test code = 68214-5) NEGATIVE NEGATIVE N PROTEIN; Normal (test code = 52677-0) NEGATIVE NEGATIVE N NITRITE; Normal (test code = 29492-9) NEGATIVE NEGATIVE N LEUKOCYTE ESTERASE (test code = LEUKOCYTE ESTERASE) NEGATIVE NE GATIVE N [facility][H] BV/ VAGINITIS PANEL DNA PROBE AFFIRM 2019-07-25 00:00:00* Test Item Value Reference Range Interpretation Comments TRICHOMONAS: (test code = TRICHOMONAS:) NOT DETECTED NOT DETECTED N GARDNERELLA: (test code = GARDNERELLA:) NOT DETECTED NOT DETECTED N SHELTON: (test code = SHELTON:) NOT DETECTED NOT DETECTED N [facility]] CULTURE, URINE, [id number] 00:00:00* Test Item Value Reference Range Interpretation Comments CULTURE (test code = CULTURE) See Comment CULTURE, URINE, ROUTINE Micro Number: [id number] Test Status: Final Specimen Source: NOT GIVEN Specimen Quality: Adequate Result: No Growth [facility][O] Hemoglobin A1c (in office)2019-07-23 14:14:00 * Test Item Value Reference Range Interpretation Comments HEMOGLOBIN A1c (test code = 4548-4) 5.3 [facility]iciansGl[facility] ([facility] of Care In Office)2019-07-23 14:14:00* Test Item Value Reference Range Interpretation Comments Glucose POC Lifescan (test code = Glucose POC Lifescan) 95 [facility] lateral [id number] 15:06:00EXAM: XR RIGHT FOOT 2 VIEWSDATE: 06/28/2019 15:06 CSTINDICATION: - right foot pa inCOMPARISON: Radiographs of bilateral feet on March 03, 2015.TECHNIQUE: AP and lateral radiographs of the footFINDINGS: No acute fracture or malalignment is identified. Joint spaces arepreserved. No abnormal osseous abnormality. Soft tis sues are unremarkable.IMPRESSION:No acute abnormality in the right foot.--This r eport was dictated by a Financial Management Consultant/Fellow/Physician Electroplating Laborer. Ihave per sonallyreviewed the images as well as the interpretation and agree with the find ings.Read by: Reed Canchola MD Resident/Fellow/PhysicianAss istant: Reed Canchola MDDictated Date/time: 06/28/19 15:44Electronically Signed by: Amrita Fitzpatrick MD 06/28/1917:48FINAL REPORT [facility]] CULTURE, URINE, [id number] 00:00:00* Test Item Value Reference Range Interpretation Comments CULTURE (test code = CULTURE) See Comment A CULTURE, URINE, ROUTINE Micro Number: [id number] Test Status: Final Specimen Source: URINE Specimen Quality: Adequate Result: 10,000-50,000 CFU/mL of Enterococcus faecalis E.faecalis INT SHANTI AMPICILLIN S <=2 CIPROFLOXACIN R >=8 LEVOFLOXACIN R >=8 NITROFURANTOIN S <=16 TETRACYCLINE R >=16 VANCOMYCIN S 1S=Susceptible I=Intermediate R=Resistant * = Not TestedNR = Not Reported NN = See Therapy Comments [facility][O] Urine Dipstick (In Office)2019-06-28 00:00:00 * Test Item Value Reference Range Interpretation Comments Glucose (test code = Glucose) NORMAL N LEUKOCYTES (test code = LEUKOCYTES) NEGATIVE N NITRITE; Normal (test code = 29953-2) NEGATIVE N UROBILINOGEN; Normal (test code = 51391-0) NORMAL N PROTEIN; Normal (test code = 35105-7) NEGATIVE N pH (test code = pH) 5 N URINE BLOOD; Normal (test code = 41508-0) NEGATIVE N SPECIFIC GRAVITY; Normal (test code = 2965-2) 1.010 N KETONES; Normal (test code = 96242-8) NEGATIVE N BILIRUBIN; Normal (test code = 47581-3) NEGATIVE N COLOR URINE; Normal (test code = 5778-6) YELLOW N [facility]] SED RATE BY MODIFIED [id number] 14:07:00* Test Item Value Reference Range Interpretation Comments SED RATE BY MODIFIED WESTERGREN (test code = SED RATE BY MODIFIED WESTERGREN) 31 mm/h < OR = 20 [facility]] CBC (INCLUDES DIFF/PLT)2019-06-12 14:07:00* Test Item Value Reference Range Interpretation Comments WHITE BLOOD CELL COUNT (test code = WHITE BLOOD CELL COUNT) 10.3 {Thousand/u} 3.8-10.8 N RED BLOOD CELL COUNT (test code = RED BLOOD CELL COUNT) 4.19 {Million/uL} 3.80-5.10 N HEMAGLOBIN; Normal (test code = 02438-7) 11.8 g/dl 11.7-15.5 N HEMATOCRIT; Normal (test code = 4544-3) 35.9 % 35.0-45.0 N MCV; Normal (test code = 787-2) 85.7 fL 80.0-100.0 N MCHC; Normal (test code = 05959-3) 32.9 g/dl 32.0-36.0 N RDW; Normal (test code = 788-0) 12.1 % 11.0-15.0 N PLATELET COUNT; Normal (test code = 777-3) 332 {Thousand/u} 140-400 N MPV; Normal (test code = 22201-7) 10.4 fL 7.5-12.5 N ABSOLUTE NEUTROPHILS (test code = ABSOLUTE NEUTROPHILS) 6664 {cells/uL} 3034-9289 N ABSOLUTE LYMPHOCYTES (test code = ABSOLUTE LYMPHOCYTES) 2791 {cells/uL} 850-3900 N ABSOLUTE MONOCYTES (test code = ABSOLUTE MONOCYTES) 515 {cells/uL} 200-950 N ABSOLUTE EOSINOPHILS (test code = ABSOLUTE EOSINOPHILS) 247 {cells/ uL} 15-500 N ABSOLUTE BASOPHILS (test code = ABSOLUTE BASOPHILS) 82 {cells/uL} 0 -200 N NEUTROPHILS (test code = NEUTROPHILS) 64.7 % N LYMPHOCYTES (test code = LYMPHOCYTES) 27.1 % N MONOCYTES; Normal (test code = 96003-7) 5.0 % N EOSINOPHILS; Normal (test code = 99899-2) 2.4 % N BASOPHILS; Normal (test code = 03134-8) 0.8 % N [facility]] IMMUNOGLOBULIN [id number] 14:07:00* Test Item Value Reference Range Interpretation Comments IMMUNOGLOBULIN A (test code = IMMUNOGLOBULIN A) 331 mg/dl 47-310 [facility]] IMMUNOGLOBULIN [id number] 14:07:00* Test Item Value Reference Range Interpretation Comments IMMUNOGLOBULIN E (test code = IMMUNOGLOBULIN E) 10 {KU/L} <OR=11 4 N [facility][] SUREPATH PAP RFX HR [id number] 16:00:00* Test Item Value Reference Range Interpretation Comments CLINICAL INFORMATION: (test code = CLINICAL INFORMATION:) See Comme nt N None given LMP: (test code = LMP:) See Comment N NONE GIVEN PREV. PAP: (test code = PREV. PAP:) See Comment N NONE GIVEN PREV. BX: (test code = PREV. BX:) See Comment N NONE GIVEN SOURCE: (test code = SOURCE:) See Comment N None given STATEMENT OF ADEQUACY: (test code = STATEMENT OF ADEQUACY:) See Com ment N Satisfactory for evaluation.Endocervical/transformation zone componentpresent.Age and/or menstrual status not provided INTERPRETATION/RESULT:; Normal (test code = 77052-2) See Comment N Negative for intraepithelial lesion or malignancy. INFECTION: (test code = INFECTION:) See Comment N Fungal organisms morphologically consistent withCandida spp. CONCRETE BATCHER: (test code = CONCRETE BATCHER:) See Comment N VXJ, CT(ASCP)CT screening location: [place] [address], [place] [employer] [address] [facility][] CHLAMYDIA/N. GONORRHOEAE RNA, [id number] 10:23:00* Test Item Value Reference Range Interpretation Comments CHLAMYDIAN TRACHOMATIS RNA, TMA UROGENITAL; Normal (te st code = 55297-1) NOT DETECTED NOT DETECTED N NEISSERIA GONORRHOEAE RNA, TMA UROGENITAL; Normal (marybeth t code = 42491-5) NOT DETECTED NOT DETECTED N [facility]] CULTURE, URINE, [id number] 10:23:00* Test Item Value Reference Range Interpretation Comments CULTURE (test code = CULTURE) See Comment A CULTURE, URINE, ROUTINE MICRO NUMBER: [id number] TEST STATUS: FINAL SPECIMEN SOURCE: URINE SPECIMEN QUALITY: ADEQUATE RESULT: 10,000-50,000 CFU/mL of Enterococcus faecalis 10,000-50,000 CFU/mL of Lactobacillus species May represent colonizers from external and internal genitalia. No further testing (including susceptibility) will be performed. COMMENT: Additional organism(s) less than 10,000 CFU/mL isolated. These organisms, commonly found on external and internal genitalia, are considered colonizers. No further testing performed. E.faecalis INT SHANTI AMPICILLIN S <=2 CIPROFLOXACIN R >=8 LEVOFLOXACIN R >=8 NITROFURANTOIN S <=16 TETRACYCLINE R >=16 VANCOMYCIN S 1S=Susceptible I=Intermediate R=Resistant * = Not TestedNR = Not Reported NN = See Therapy Comments [facility]] HEPATITIS [id number] 09:59:00* Test Item Value Reference Range Interpretation Comments HEPATITIS A AB, TOTAL; Normal (test code = 70041-0) NON-REACTIVE NO N-REACTIVE N HEPATITIS B SURFACE ANTIBODY QL; Normal (test code = 42080-6 ) NON-REACTIVE NON-REACTIVE N HEPATITIS B SURFACE ANTIGEN; Normal (test code = 5195-3) NON -REACTIVE NON-REACTIVE N HEPATITIS B CORE AB TOTAL; Normal (test code = 67784-6) NON- REACTIVE NON-REACTIVE N HEPATITIS C ANTIBODY; Normal (test code = 56430-5) NON-REACTIVE NON -REACTIVE N SIGNAL TO CUT-OFF (test code = SIGNAL TO CUT-OFF) 0.02 <1.0 0 N HCV antibody was non-reactive. There is no laboratory evidence of HCV infection. In most cases, no further action is required. However,if recent HCV exposure is suspected, a test for HCV RNA(test code 08543) is suggested. For additional information please refer [email or web address](This link is being provided for informational/educational purposes only.) [facility][Q] HIV-1/2 Antigen and Antibodies, Fourth Generation, with [id number] 09:59:00* Test Item Value Reference Range Interpretation Comments HIV AG/AB, 4TH GEN; Normal (test code = 80588-1) NON-REACTIVE NON-R EACTIVE N HIV-1 antigen and HIV-1/HIV-2 antibodies were notdetected. There is no laboratory evidence of HIVinfection. PLEASE NOTE: This information has been disclosed toyou from records whose confidentiality may beprotected by state law. If your state requires suchprotection, then the state law prohibits you frommaking any further disclosure of the informationwithout the specific written consent of the personto whom it pertains, or as otherwise permitted by law.A general authorization for the release of medical orother information is NOT sufficient for this purpose. For additional information please refer t [email or web address](This link is being provided for informational/educational purposes only.) The performance of this assay has not been clinicallyvalidated in patients less than 2 years old. [facility][QL] HSV 1/2 IGG, HERPESELECT TYPE SPECIFIC AB 2019-04-17 09:59:00* Test Item Value Reference Range Interpretation Comments HSV 1 IGG TYPE SPECIFIC AB (test code = HSV 1 IGG TYPE SPECIFIC AB) 34.60 {index} HSV 2 IGG TYPE SPECIFIC AB (test code = HSV 2 IGG TYPE SPECIFIC AB) <0.90 N Index Interpretation ----- <0.90 Negative 0.90-1.09 Equivocal >1.09 Positive This assay utilizes recombinant type-specific antigensto differentiate HSV-1 from HSV-2 infections. Apositive result cannot distinguish between recent andpast infection. If recent HSV infection is suspectedbut the results are negative or equivocal, the assayshould be repeated in 4-6 weeks. The performancecharacteristics of the assay have not been establishedfor pediatric populations, immunocompromised patients,or screening. [facility]] TSH, 3RD GENERATION W/REFLEX TO FT4 2019-04-17 09:59:00* Test Item Value Reference Range Interpretation Comments TSH, 3RD GENERATION W/REFLEX TO FT4 (marybeth t code = TSH, 3RD GENERATION W/REFLEX TO FT4) 5.52 {MIU/L} Reference Range > or = 20 Years 0.40-4.50 Ranges First trimester 0.26-2.66 Second trimester 0.55-2.73 Third trimester 0.43-2.91 [facility]] T4, [id number] 09:59:00* Test Item Value Reference Range Interpretation Comments T4, FREE (test code = T4, FREE) 1.1 ng/dl 0.8-1.8 N [facility]] [id number] 09:59:00* Test Item Value Reference Range Interpretation Comments RPR (MONITOR) W/REFL TITER (REFL) (test code = RPR (MONITOR) W/REFL TITER (REFL)) NON-REACTIVE NON-REACTIVE N [facility][O] Urine Dipstick (In Office)2019-04-17 08:55:00 * Test Item Value Reference Range Interpretation Comments Glucose (test code = Glucose) NORMAL N LEUKOCYTES (test code = LEUKOCYTES) TRACE NITRITE; Normal (test code = 66714-0) NEGATIVE N UROBILINOGEN; Normal (test code = 51062-8) NORMAL N PROTEIN; Normal (test code = 32037-5) NEATIVE N pH (test code = pH) 5 N URINE BLOOD; Normal (test code = 29816-6) NEGATIVE N SPECIFIC GRAVITY; Normal (test code = 2965-2) 1.020 N KETONES; Normal (test code = 28191-6) NEGATIVE N BILIRUBIN; Normal (test code = 24737-7) NEGATIVE N COLOR URINE; Normal (test code = 5778-6) YELLOW N [facility][] CHLAMYDIA/N. GONORRHOEAE DNA, [id number] 00:00:00* Test Item Value Reference Range Interpretation Comments CHLAMYDIAN TRACHOMATIS RNA, TMA UROGENITAL; Normal (te st code = 65167-9) NOT DETECTED NOT DETECTED N NEISSERIA GONORRHOEAE RNA, TMA UROGENITAL; Normal (marybeth t code = 05862-1) NOT DETECTED NOT DETECTED N [facility]] CULTURE, URINE, [id number] 00:00:00* Test Item Value Reference Range Interpretation Comments CULTURE (test code = CULTURE) See Comment A CULTURE, URINE, ROUTINE MICRO NUMBER: [id number] TEST STATUS: FINAL SPECIMEN SOURCE: NOT GIVEN SPECIMEN QUALITY: ADEQUATE RESULT: 10,000-50,000 CFU/mL of Enterococcus faecalis E.faecalis INT SHANTI AMPICILLIN S <=2 CIPROFLOXACIN S <=0.5 LEVOFLOXACIN S 1 NITROFURANTOIN S <=16 TETRACYCLINE R >=16 VANCOMYCIN S 1S=Susceptible I=Intermediate R=Resistant * = Not TestedNR = Not Reported NN = See Therapy Comments [facility] PhysiciansSodium [id number] 21:02:00* Test Item Value Reference Range Interpretation Comments Sodium Level (test code = 2951-2) 139 136-145 [facility] [id number] 21:02:00* Test Item Value Reference Range Interpretation Comments Potassium Level (test code = 2823-3) 3.9 3.5-5.1 [facility] CenterChloride [id number] 21:02:00* Test Item Value Reference Range Interpretation Comments Chloride Level (test code = 2075-0) 102 98-107 [facility] CenterCarbon Dioxide Zlaqi6809-56-23 21:02:00* Test Item Value Reference Range Interpretation Comments Carbon Dioxide Level (test code = 2028-9) 28 22-29 [facility] CenterAnion [id number] 21:02:00* Test Item Value Reference Range Interpretation Comments Anion Gap (test code = 62376-0) 12.9 8-16 [facility] CenterBlood Urea Hfxlhrnc5489-75-11 21:02:00* Test Item Value Reference Range Interpretation Comments Blood Urea Nitrogen (test code = 3094-0) 6 7-26 L [facility] CenterCreatinine2019-09-23 21:02:00* Test Item Value Reference Range Interpretation Comments Creatinine (test code = 2160-0) 0.73 0.57-1.11 [facility] CenterBUN/Creatinine [id number] 21:02:00* Test Item Value Reference Range Interpretation Comments BUN/Creatinine Ratio (test code = 3097-3) 8 6-25 [facility] CenterEstimat Glomerular Filtration Rate 2019-04-15 21:02:00* Test Item Value Reference Range Interpretation Comments Estimat Glomerular Filtration Rate (test code = 389988221) > 60 >60 Ranges were taken from the National Kidney Disease Education Program and the [facility] Foundation literature.Reference ranges:60 or greater: Zimaqx40-25 ( for 3 consecutive months): Chronic kidney disease 15 or less: Kidney failureEnnis Regional Medical CenterGlucose Oozon2871-54-85 21:02:00* Test Item Value Reference Range Interpretation Comments Glucose Level (test code = FKR0314) 87 74-118 [facility] CenterCalcium Pdiul8004-07-51 21:02:00* Test Item Value Reference Range Interpretation Comments Calcium Level (test code = 34438-7) 9.9 8.4-10.2 [facility] Gdzki5122-17-03 21:02:00* Test Item Value Reference Range Interpretation Comments Sodium Level (test code = 2951-2) 139 136-145 [facility] CenterPotassium Ghdgd7467-18-73 21:02:00* Test Item Value Reference Range Interpretation Comments Potassium Level (test code = 2823-3) 3.9 3.5-5.1 [facility] CenterChloride Veclc5108-51-03 21:02:00* Test Item Value Reference Range Interpretation Comments Chloride Level (test code = 2075-0) 102 98-107 [facility] CenterCarbon Dioxide [id number] 21:02:00* Test Item Value Reference Range Interpretation Comments Carbon Dioxide Level (test code = 2028-9) 28 22-29 [facility] CenterAnion [id number] 21:02:00* Test Item Value Reference Range Interpretation Comments Anion Gap (test code = 18688-5) 12.9 8-16 [facility] CenterBlood Urea Ndbcwczn9226-31-99 21:02:00* Test Item Value Reference Range Interpretation Comments Blood Urea Nitrogen (test code = 3094-0) 6 7-26 L [facility] CenterCreatinine2019-09-23 21:02:00* Test Item Value Reference Range Interpretation Comments Creatinine (test code = 2160-0) 0.73 0.57-1.11 [facility] CenterBUN/Creatinine Zawfc5606-94-01 21:02:00* Test Item Value Reference Range Interpretation Comments BUN/Creatinine Ratio (test code = 3097-3) 8 6-25 [facility] CenterEstimat Glomerular Filtration Rate 2019-04-15 21:02:00* Test Item Value Reference Range Interpretation Comments Estimat Glomerular Filtration Rate (test code = 665111373) > 60 >60 Ranges were taken from the National Kidney Disease Education Program and the [facility] Foundation literature.Reference ranges:60 or greater: Bsrxcb41-49 ( for 3 consecutive months): Chronic kidney disease 15 or less: Kidney failureEnnis Regional Medical CenterGlucose Xhmft1054-36-86 21:02:00* Test Item Value Reference Range Interpretation Comments Glucose Level (test code = FUF7357) 87 74-118 [facility] CenterCalcium Qvomd5775-77-58 21:02:00* Test Item Value Reference Range Interpretation Comments Calcium Level (test code = 85354-0) 9.9 8.4-10.2 [facility] CenterUrine [id number] 20:57:00* Test Item Value Reference Range Interpretation Comments Urine WBC (test code = 5821-4) NONE 0-5 [facility] CenterU[facility] [id number] 20:57:00* Test Item Value Reference Range Interpretation Comments Urine RBC (test code = 99607-7) NONE 0-5 [facility] CenterU[facility] Zclayrpy4110-17-78 20:57:00* Test Item Value Reference Range Interpretation Comments Urine Bacteria (test code = 46763-9) MANY NONE H [facility] CenterUrine Epithelial [id number] 20:57:00 * Test Item Value Reference Range Interpretation Comments Urine Epithelial Cells (test code = 18006-1) MODERATE NONE [facility] CenterU[facility] [id number] 20:57:00* Test Item Value Reference Range Interpretation Comments Urine WBC (test code = 5821-4) NONE 0-5 [facility] CenterU[facility] [id number] 20:57:00* Test Item Value Reference Range Interpretation Comments Urine RBC (test code = 17807-9) NONE 0-5 [facility] Center[facility] Tbjyeefp0644-11-63 20:57:00* Test Item Value Reference Range Interpretation Comments Urine Bacteria (test code = 36662-4) MANY NONE H [facility] CenterU[facility] Epithelial Opjvq6445-18-39 20:57:00 * Test Item Value Reference Range Interpretation Comments Urine Epithelial Cells (test code = 65408-0) MODERATE NONE [facility] CenterU[facility] Uaovc7605-81-34 20:52:00* Test Item Value Reference Range Interpretation Comments Urine Color (test code = 5778-6) COLORLESS YELLOW [facility] CenterU[facility] Cjfwtnt8941-98-96 20:52:00* Test Item Value Reference Range Interpretation Comments Urine Clarity (test code = 04496-5) CLEAR CLEAR [facility] CenterU[facility] Specific Kseiqgw3845-06-45 20:52:00 * Test Item Value Reference Range Interpretation Comments Urine Specific Robinson (test code = 5811-5) 1.010 1.010-1.02 5 [facility] CenterU[facility] [id number] 20:52:00* Test Item Value Reference Range Interpretation Comments Urine pH (test code = 48813-4) 7.5 5-7 [facility] Center[facility] Leukocyte Orenmfrq0075-58-44 20:52:00* Test Item Value Reference Range Interpretation Comments Urine Leukocyte Esterase (test code = 80709-7) NEGATIVE NEGATIV E [facility] CenterU[facility] Gukwbxy6363-51-16 20:52:00* Test Item Value Reference Range Interpretation Comments Urine Nitrite (test code = 01595-1) NEGATIVE NEGATIVE [facility] CenterU[facility] Axvxpui0607-69-11 20:52:00* Test Item Value Reference Range Interpretation Comments Urine Protein (test code = 02451-2) NEGATIVE NEGATIVE [facility] CenterU[facility] Glucose (UA)2019-04-15 20:52:00* Test Item Value Reference Range Interpretation Comments Urine Glucose (UA) (test code = 17681-0) NEGATIVE NEGATIVE [facility] CenterU[facility] Erhlaob8604-05-23 20:52:00* Test Item Value Reference Range Interpretation Comments Urine Ketones (test code = 07988-9) NEGATIVE NEGATIVE [facility] Lzrojtlxhwpl6163-68-48 20:52:00* Test Item Value Reference Range Interpretation Comments Urine Urobilinogen (test code = 74584-7) 0.2 0.2-1 [facility] Hxweaxcgk5581-92-19 20:52:00* Test Item Value Reference Range Interpretation Comments Urine Bilirubin (test code = 1977-8) NEGATIVE NEGATIVE [facility] Pkdta7736-20-26 20:52:00* Test Item Value Reference Range Interpretation Comments Urine Blood (test code = 02054-9) NEGATIVE NEGATIVE [facility] Center[facility] Usvhw9821-68-80 20:52:00* Test Item Value Reference Range Interpretation Comments Urine Color (test code = 5778-6) COLORLESS YELLOW [facility] CenterU[facility] Sokocci0992-15-64 20:52:00* Test Item Value Reference Range Interpretation Comments Urine Clarity (test code = 39599-7) CLEAR CLEAR [facility] CenterU[facility] Specific Ghrylmo5257-78-56 20:52:00 * Test Item Value Reference Range Interpretation Comments Urine Specific Robinson (test code = 5811-5) 1.010 1.010-1.02 5 [facility] CenterU[facility] [id number] 20:52:00* Test Item Value Reference Range Interpretation Comments Urine pH (test code = 75569-8) 7.5 5-7 [facility] Center[facility] Leukocyte Ackcsrto4579-86-52 20:52:00* Test Item Value Reference Range Interpretation Comments Urine Leukocyte Esterase (test code = 04389-6) NEGATIVE NEGATIV E [facility] CenterU[facility] Hagvlcn8271-26-72 20:52:00* Test Item Value Reference Range Interpretation Comments Urine Nitrite (test code = 51339-3) NEGATIVE NEGATIVE [facility] CenterU[facility] Xjicabh4371-71-76 20:52:00* Test Item Value Reference Range Interpretation Comments Urine Protein (test code = 92315-5) NEGATIVE NEGATIVE [facility] Glucose (UA)2019-04-15 20:52:00* Test Item Value Reference Range Interpretation Comments Urine Glucose (UA) (test code = 45156-0) NEGATIVE NEGATIVE [facility] CenterU[facility] Dbbtzhx2688-43-90 20:52:00* Test Item Value Reference Range Interpretation Comments Urine Ketones (test code = 75294-3) NEGATIVE NEGATIVE [facility] Center[facility] Hdcsvkkghtzb7982-53-80 20:52:00* Test Item Value Reference Range Interpretation Comments Urine Urobilinogen (test code = 53381-4) 0.2 0.2-1 [facility] Pzenjehpq0661-22-61 20:52:00* Test Item Value Reference Range Interpretation Comments Urine Bilirubin (test code = 1977-8) NEGATIVE NEGATIVE [facility] Pqiaa0298-07-07 20:52:00* Test Item Value Reference Range Interpretation Comments Urine Blood (test code = 51646-5) NEGATIVE NEGATIVE [facility] CenterWhite Blood Hsunj7545-54-55 20:39:00* Test Item Value Reference Range Interpretation Comments White Blood Count (test code = 6690-2) 12.00 4.8-10.8 H [facility] CenterRed Blood Eqtnq2911-98-23 20:39:00* Test Item Value Reference Range Interpretation Comments Red Blood Count (test code = 789-8) 4.68 3.6-5.1 [facility] CenterHemoglobin2019-09-23 20:39:00* Test Item Value Reference Range Interpretation Comments Hemoglobin (test code = 52778-6) 12.9 12.0-16.0 [facility] CenterHematocrit2019-09-23 20:39:00* Test Item Value Reference Range Interpretation Comments Hematocrit (test code = 4544-3) 41.6 34.2-44.1 [facility] CenterMean Corpuscular Cgvwmw8910-66-13 20:39:00* Test Item Value Reference Range Interpretation Comments Mean Corpuscular Volume (test code = 787-2) 88.9 81-99 [facility] CenterMean Corpuscular Wnborpiiyz0413-43-49 20:39:00* Test Item Value Reference Range Interpretation Comments Mean Corpuscular Hemoglobin (test code = 785-6) 27.6 28-32 L [facility] CenterMean Corpuscular Hemoglobin Concent 2019-04-15 20:39:00* Test Item Value Reference Range Interpretation Comments Mean Corpuscular Hemoglobin Concent (test code = 786-4) 31.0 31-35 [facility] CenterRed Cell Distribution Zqrmf0886-17-84 20:39:00* Test Item Value Reference Range Interpretation Comments Red Cell Distribution Width (test code = 31749-0) 13.4 11.7 -14.4 [facility] CenterPlatelet Stfjn6851-60-44 20:39:00* Test Item Value Reference Range Interpretation Comments Platelet Count (test code = 777-3) 354 140-360 [facility] CenterNeutrophils (%) (Auto)2019-04-15 20:39:00 * Test Item Value Reference Range Interpretation Comments Neutrophils (%) (Auto) (test code = 47616-7) 66.5 38.7-80.0 [facility] CenterLymphocytes (%) (Auto)2019-04-15 20:39:00 * Test Item Value Reference Range Interpretation Comments Lymphocytes (%) (Auto) (test code = 736-9) 25.1 18.0-39.1 [facility] [facility] CenterMonocytes (%) (Auto)2019-04-15 20:39:00* Test Item Value Reference Range Interpretation Comments Monocytes (%) (Auto) (test code = 5905-5) 5.5 4.4-11.3 [facility] CenterE[facility]ophils (%) (Auto)2019-04-15 20:39:00 * Test Item Value Reference Range Interpretation Comments Eosinophils (%) (Auto) (test code = 713-8) 1.9 0.0-6.0 [facility] CenterBasophils (%) (Auto)2019-04-15 20:39:00* Test Item Value Reference Range Interpretation Comments Basophils (%) (Auto) (test code = 706-2) 0.6 0.0-1.0 [facility] CenterIM GRANULOCYTES %2019-04-15 20:39:00* Test Item Value Reference Range Interpretation Comments IM GRANULOCYTES % (test code = IM GRANULOCYTES %) 0.4 0.0- 1.0 [facility] CenterNeutrophils # (Auto)2019-04-15 20:39:00* Test Item Value Reference Range Interpretation Comments Neutrophils # (Auto) (test code = 751-8) 8.0 2.1-6.9 H [facility] CenterLymphocytes # (Auto)2019-04-15 20:39:00* Test Item Value Reference Range Interpretation Comments Lymphocytes # (Auto) (test code = 05483-8) 3.0 1.0-3.2 [facility] CenterMonocytes # (Auto)2019-04-15 20:39:00* Test Item Value Reference Range Interpretation Comments Monocytes # (Auto) (test code = 742-7) 0.7 0.2-0.8 [facility] CenterEosinophils # (Auto)2019-04-15 20:39:00* Test Item Value Reference Range Interpretation Comments Eosinophils # (Auto) (test code = 711-2) 0.2 0.0-0.4 [facility] CenterBasophils # (Auto)2019-04-15 20:39:00* Test Item Value Reference Range Interpretation Comments Basophils # (Auto) (test code = 704-7) 0.1 0.0-0.1 [facility] CenterAbsolute Immature Granulocyte (auto 2019-04-15 20:39:00* Test Item Value Reference Range Interpretation Comments Absolute Immature Granulocyte (auto (marybeth t code = Absolute Immature Granulocyte (auto) 0.05 0-0.1 [facility] CenterWhite Blood Chbrg8201-87-69 20:39:00* Test Item Value Reference Range Interpretation Comments White Blood Count (test code = 6690-2) 12.00 4.8-10.8 H [facility] CenterRed Blood Eoeqw0276-48-15 20:39:00* Test Item Value Reference Range Interpretation Comments Red Blood Count (test code = 789-8) 4.68 3.6-5.1 [facility] CenterHemoglobin2019-09-23 20:39:00* Test Item Value Reference Range Interpretation Comments Hemoglobin (test code = 53940-8) 12.9 12.0-16.0 [facility] CenterHematocrit2019-09-23 20:39:00* Test Item Value Reference Range Interpretation Comments Hematocrit (test code = 4544-3) 41.6 34.2-44.1 [facility] CenterMean Corpuscular Kigvsj5411-77-98 20:39:00* Test Item Value Reference Range Interpretation Comments Mean Corpuscular Volume (test code = 787-2) 88.9 81-99 [facility] CenterMean Corpuscular Mhaplfjnjw4578-98-07 20:39:00* Test Item Value Reference Range Interpretation Comments Mean Corpuscular Hemoglobin (test code = 785-6) 27.6 28-32 [facility]an Corpuscular Hemoglobin Concent 2019-04-15 20:39:00* Test Item Value Reference Range Interpretation Comments Mean Corpuscular Hemoglobin Concent (test code = 786-4) 31.0 31-35 [facility] CenterRed Cell Distribution Oeihg3671-88-83 20:39:00* Test Item Value Reference Range Interpretation Comments Red Cell Distribution Width (test code = 27219-4) 13.4 11.7 -14.4 [facility] CenterPlatelet Bxqcb7850-68-57 20:39:00* Test Item Value Reference Range Interpretation Comments Platelet Count (test code = 777-3) 354 140-360 [facility] CenterNeutrophils (%) (Auto)2019-04-15 20:39:00 * Test Item Value Reference Range Interpretation Comments Neutrophils (%) (Auto) (test code = 28282-1) 66.5 38.7-80.0 [facility] CenterLymphocytes (%) (Auto)2019-04-15 20:39:00 * Test Item Value Reference Range Interpretation Comments Lymphocytes (%) (Auto) (test code = 736-9) 25.1 18.0-39.1 [facility] CenterMonocytes (%) (Auto)2019-04-15 20:39:00* Test Item Value Reference Range Interpretation Comments Monocytes (%) (Auto) (test code = 5905-5) 5.5 4.4-11.3 [facility] CenterEosinophils (%) (Auto)2019-04-15 20:39:00 * Test Item Value Reference Range Interpretation Comments Eosinophils (%) (Auto) (test code = 713-8) 1.9 0.0-6.0 [facility] CenterBasophils (%) (Auto)2019-04-15 20:39:00* Test Item Value Reference Range Interpretation Comments Basophils (%) (Auto) (test code = 706-2) 0.6 0.0-1.0 [facility] CenterIM GRANULOCYTES %2019-04-15 20:39:00* Test Item Value Reference Range Interpretation Comments IM GRANULOCYTES % (test code = IM GRANULOCYTES %) 0.4 0.0- 1.0 [facility] CenterNeutrophils # (Auto)2019-04-15 20:39:00* Test Item Value Reference Range Interpretation Comments Neutrophils # (Auto) (test code = 751-8) 8.0 2.1-6.9 H [facility] CenterLymphocytes # (Auto)2019-04-15 20:39:00* Test Item Value Reference Range Interpretation Comments Lymphocytes # (Auto) (test code = 73271-9) 3.0 1.0-3.2 [facility] CenterMonocytes # (Auto)2019-04-15 20:39:00* Test Item Value Reference Range Interpretation Comments Monocytes # (Auto) (test code = 742-7) 0.7 0.2-0.8 [facility] CenterEosinophils # (Auto)2019-04-15 20:39:00* Test Item Value Reference Range Interpretation Comments Eosinophils # (Auto) (test code = 711-2) 0.2 0.0-0.4 [facility] CenterBasophils # (Auto)2019-04-15 20:39:00* Test Item Value Reference Range Interpretation Comments Basophils # (Auto) (test code = 704-7) 0.1 0.0-0.1 [facility] CenterAbsolute Immature Granulocyte (auto 2019-04-15 20:39:00* Test Item Value Reference Range Interpretation Comments Absolute Immature Granulocyte (auto (marybeth t code = Absolute Immature Granulocyte (auto) 0.05 0-0.1 [facility] CenterNegative Retinal Eye Exam (Diabetic) 2019-03-22 18:10:49* Test Item Value Reference Range Interpretation Comments Negative Diabetic Eye Screening (test code = Negative Diabetic Eye Screening) [id number]; no retinopathy [facility] Brain wo contrast [id number] 07:40:00EXAM: CT BRAIN WITHOUT CONTRASTDATE: 03/22/2019 7:40 CDTINDICATION: Blurry vision x1 monthCOMPARISON: NoneTECHNIQUE: Noncontrast axial imaging of the brain was a cquired from the vertexto the skull base. Coronal and sagittal reformatted image s were generated.DLP: 166mGy-cmFINDINGS:No acute intracranial hemorrhage or extr a-axial collection.Unremarkable attenuation of the brain parenchyma.No hydroceph alus, midline shift, or herniation.Calvarium and skull base are intact.Imaged po rtions of the paranasal sinuses and mastoid air cells are clear.IMPRESSION: No acute intracranial abnormality. Negative brain CT.--Read by: Ronak Gaines MDDictated Date/time: 03/22/19 09:20Electronically Signed by: Ronak Gaines MD 03/22/1909:26FINAL REPORTUnMountainStar Healthcare Physicians[O] Hemoglobin A1c (in office)2019-03-19 14:59:00* Test Item Value Reference Range Interpretation Comments HEMOGLOBIN A1c (test code = 4548-4) 5.3 [facility]iciansGlucose ([facility] In [facility])2019-03-19 14:59:00* Test Item Value Reference Range Interpretation Comments Glucose POC Lifescan (test code = Glucose POC Lifescan) 98 [facility]] CMP W/ROUL0471-30-58 03:14:00* Test Item Value Reference Range Interpretation Comments GLUCOSE; Normal (test code = 1547-9) 95 mg/dl 65-139 N Non-fasting reference interval UREA NITROGEN (BUN) (test code = UREA NITROGEN (BUN)) 7 mg/dl 7-25 N CREATININE (test code = CREATININE) 0.72 mg/dl 0.50-1.10 N eGFR NON- (test code = eGFR NON-MITESH N SINGAP[place]AN) 102 {ML/MIN/1.7} > OR = 60 N eGFR (test code = eGFR ) 11 8 {ML/MIN/1.7} > OR = 60 N BUN/CREATININE RATIO (test code = BUN/CREATININE RATIO) NOT APPLICA BLE 6-22 SODIUM (test code = SODIUM) 142 mmol/L 135-146 N POTASSIUM (test code = POTASSIUM) 4.4 mmol/L 3.5-5.3 N CHLORIDE (test code = CHLORIDE) 105 mmol/L 98-110 N CARBON DIOXIDE (test code = CARBON DIOXIDE) 31 mmol/L 20-32 N CALCIUM (test code = CALCIUM) 9.3 mg/dl 8.6-10.2 N PROTEIN, TOTAL (test code = PROTEIN, TOTAL) 6.6 g/dl 6.1-8.1 N ALBUMIN (test code = ALBUMIN) 3.8 g/dl 3.6-5.1 N GLOBULIN (test code = GLOBULIN) 2.8 {G/DL CALC} 1.9-3.7 N ALBUMIN/GLOBULIN RATIO (test code = ALBUMIN/GLOBULIN RATIO) 1.4 {CALC} 1.0-2.5 N BILIRUBIN, TOTAL; Normal (test code = 74331-9) 0.3 mg/dl 0.2-1.2 N ALKALINE PHSPHATASE (test code = ALKALINE PHSPHATASE) 86 u/l 33-115 N AST; Normal (test code = 1916-6) 11 u/l 10-30 N ALT; Normal (test code = 1742-6) 13 u/l 6-29 N [facility]] CBC (INCLUDES DIFF/PLT)2019-03-06 03:14:00* Test Item Value Reference Range Interpretation Comments WHITE BLOOD CELL COUNT (test code = WHITE BLOOD CELL COUNT) 9.1 {Thousand/u} 3.8-10.8 N RED BLOOD CELL COUNT (test code = RED BLOOD CELL COUNT) 4.51 {Million/uL} 3.80-5.10 N HEMAGLOBIN; Normal (test code = 36966-5) 12.4 g/dl 11.7-15.5 N HEMATOCRIT; Normal (test code = 4544-3) 38.4 % 35.0-45.0 N MCV; Normal (test code = 787-2) 85.1 fL 80.0-100.0 N MCHC; Normal (test code = 57434-7) 32.3 g/dl 32.0-36.0 N RDW; Normal (test code = 788-0) 13.3 % 11.0-15.0 N PLATELET COUNT; Normal (test code = 777-3) 340 {Thousand/u} 140-400 N MPV; Normal (test code = 85428-9) 10.4 fL 7.5-12.5 N ABSOLUTE NEUTROPHILS (test code = ABSOLUTE NEUTROPHILS) 5715 {cells/uL} 1399-8528 N ABSOLUTE LYMPHOCYTES (test code = ABSOLUTE LYMPHOCYTES) 2594 {cells/uL} 850-3900 N ABSOLUTE MONOCYTES (test code = ABSOLUTE MONOCYTES) 582 {cells/uL} 200-950 N ABSOLUTE EOSINOPHILS (test code = ABSOLUTE EOSINOPHILS) 127 {cells/ uL} 15-500 N ABSOLUTE BASOPHILS (test code = ABSOLUTE BASOPHILS) 82 {cells/uL} 0 -200 N NEUTROPHILS (test code = NEUTROPHILS) 62.8 % N LYMPHOCYTES (test code = LYMPHOCYTES) 28.5 % N MONOCYTES; Normal (test code = 07812-4) 6.4 % N EOSINOPHILS; Normal (test code = 33491-6) 1.4 % N BASOPHILS; Normal (test code = 71147-6) 0.9 % N [facility]] TSH, 3RD GENERATION W/REFLEX TO FT4 2019-03-06 03:14:00* Test Item Value Reference Range Interpretation Comments TSH, 3RD GENERATION W/REFLEX TO FT4 (marybeth t code = TSH, 3RD GENERATION W/REFLEX TO FT4) 0.35 {MIU/L} Reference Range > or = 20 Years 0.40-4.50 Ranges First trimester 0.26-2.66 Second trimester 0.55-2.73 Third trimester 0.43-2.91 [facility]] T4, QLXZ2461-55-84 03:14:00* Test Item Value Reference Range Interpretation Comments T4, FREE (test code = T4, FREE) 1.0 ng/dl 0.8-1.8 N [facility] PhysiciansNegative Retinal Eye Exam (Diabetic)2019-02-21 05:00:00* Test Item Value Reference Range Interpretation Comments Negative Diabetic Eye Screening (test code = Negative Diabetic Eye Screening) [id number] [facility] PhysiciansGlucose (Point of Care In Office)2019-02-13 10:38:00* Test Item Value Reference Range Interpretation Comments Glucose POC Lifescan (test code = Glucose POC Lifescan) 107 [facility] PhysiciansUrine UFF9514-87-81 03:10:00* Test Item Value Reference Range Interpretation Comments Urine WBC (test code = 5821-4) 0-5 0-5 [facility] CenterU[facility] HGN1633-90-94 03:10:00* Test Item Value Reference Range Interpretation Comments Urine RBC (test code = 57103-1) 0-5 0-5 [facility] CenterUrine Rdcfdlwa6347-53-68 03:10:00* Test Item Value Reference Range Interpretation Comments Urine Bacteria (test code = 70580-2) FEW NONE [facility] CenterUrine Epithelial Xarbz1446-02-15 03:10:00 * Test Item Value Reference Range Interpretation Comments Urine Epithelial Cells (test code = 35577-7) FEW NONE [facility] CenterUrine Bpaud3998-70-28 03:05:00* Test Item Value Reference Range Interpretation Comments Urine Color (test code = 5778-6) YELLOW YELLOW [facility] CenterUrine Kjlqvfp4686-45-62 03:05:00* Test Item Value Reference Range Interpretation Comments Urine Clarity (test code = 27910-7) CLEAR CLEAR [facility] CenterUrine Specific Tgzotfn3502-19-27 03:05:00 * Test Item Value Reference Range Interpretation Comments Urine Specific Robinson (test code = 5811-5) 1.010 1.010-1.02 5 [facility] CenterUrine qG1812-35-66 03:05:00* Test Item Value Reference Range Interpretation Comments Urine pH (test code = 65517-0) 5.5 5-7 [facility] CenterU[facility] Leukocyte Aghhzuhj3427-79-69 03:05:00* Test Item Value Reference Range Interpretation Comments Urine Leukocyte Esterase (test code = 64551-6) NEGATIVE NEGATIV E [facility] CenterUrine Khassme3311-80-43 03:05:00* Test Item Value Reference Range Interpretation Comments Urine Nitrite (test code = 89596-2) NEGATIVE NEGATIVE [facility] CenterU[facility] Uluyrdm1004-60-18 03:05:00* Test Item Value Reference Range Interpretation Comments Urine Protein (test code = 81895-4) NEGATIVE NEGATIVE [facility] CenterUrine Glucose (UA)2019-01-27 03:05:00* Test Item Value Reference Range Interpretation Comments Urine Glucose (UA) (test code = 49977-5) NEGATIVE NEGATIVE [facility] CenterUrine Gtyugve6951-16-57 03:05:00* Test Item Value Reference Range Interpretation Comments Urine Ketones (test code = 27608-0) NEGATIVE NEGATIVE [facility] CenterUrine Qqrkkibhcagb1785-14-37 03:05:00* Test Item Value Reference Range Interpretation Comments Urine Urobilinogen (test code = 59444-8) 0.2 0.2-1 [facility] CenterUrine Bsrzebibg5735-91-11 03:05:00* Test Item Value Reference Range Interpretation Comments Urine Bilirubin (test code = 1977-8) NEGATIVE NEGATIVE [facility] Apddd5396-08-53 03:05:00* Test Item Value Reference Range Interpretation Comments Urine Blood (test code = 36901-4) NEGATIVE NEGATIVE [facility] FallsUS PELVIC (NON OB) [place] OR F/D7758-72-84 05:59:00 [place] [address] Patient Name: CHARLENE VASQUEZ MR #: [id number] : 1975 Age/Sex: 43/F Req #: [id number] Adm Physician: Ordered by: RONAK HOANG MD Report #: [id number] Location: ER Room/Bed: Procedure: [id number] US/ US PELVIC (NON OB) [facility] OR F/U Exam Date: 01/20/19 Ex am Time: 0532 REPORT STATUS: Signed Exam:Ultrasound pelvic Limited History:Pain Comparison: None avail able Findings:Transverse and longitudinal sonographic images of the bladder region performed. The bladder is unable to be visualized. Impres teresita: Poor visualization of the bladder Signed by: Dr. Dioni Hogan M.D. on 01/20/2019 6:00 AM Dictated By: DIONI HOGAN MD Electronical ly Signed By: DIONI HOGAN MD on 01/20/19599 Transcribed By: MELANIA on 01/20/19599 COPY TO: RONAK HOANG MD US ABDOMEN LIMITED 2019-01-20 05:57:00 [place] [address] Patient Name: CHARLENE VASQUEZ MR #: [id number] : 1975 Age/Sex: 43/F Req #: [id number] Adm Physician: Ordered by: RONAK HOANG MD Report #: [id number] Location: ER Room/Bed: Procedure: US/ US ABDOMEN LIMITED Exam Date: 01/20/19 Exam Time: 12 15 REPORT STATUS: Signed EXAMINA TION: Limited abdominal ultrasound CLINICAL INDICATION: Left upper quadrant pain COMPARISON: Pain DISCUSSION: Transverse and longitudina l images of the left upper quadrant were obtained. The spleen is normal in echogenicity and size measuring 11.8 centimeters in length. The left ki dney measures 10 centimeters in length. There is normal renal cortical echogen icity and no hydronephrosis, mass or shadowing calculi. The visualized por tions of the great vessels are normal. No free fluid is seen. IMPRESS ION: Normal sonographic appearance of the left upper quadrant. Sig дмитрий by: Dr. Dioni Hogan M.D. on 01/20/2019 5:59 AM Dictated By: DIONI HOGAN MD T ranscribed By: MELANIA on 01/20/19 0559 COPY TO: RONAK HOANG MD ABDOMEN-1VIEW (KUB)2019-01-20 05:11:00 [place] [address] Patient Name: CHARLENE VASQUEZ MR #: [id number] : 1975 Age/Sex: 43/F Req #: [id number] Adm Physician: Ordered by: RONAK HOANG MD Report #: [id number] Location: ER Room/Bed: Procedure: [id number] DX/ ABDOMEN-1VIEW (KUB) Exam Date: 01/20/19 Exam Time: 0 435 REPORT STATUS: Signed Exa m: Abdominal film Clinical History: Left upper quadrant pain Comparis on: None. DISCUSSION: Frontal view of the abdomen shows a nonobstructive reddy wel gas pattern with mild amount of retained stool. No dilated, air-fille d loops of bowel. No abnormal calcifications. Right upper quadrant clips. No acute bone abnormality. IMPRESSION: 1. Nonobstructive bowel ga s pattern. Signed by: Dr. Dioni Hogan M.D. on 01/21/20 5:13 AM Dictated By: DIONI HOGAN MD 2 Transcribed By: MELANIA on 01/20/19512 COPY TO: RONAK HOANG MD Sodium Imogz8747-71-55 04:49:00* Test Item Value Reference Range Interpretation Comments Sodium Level (test code = 2951-2) 139 136-145 [facility] CenterPotassium Pmwrm4671-18-20 04:49:00* Test Item Value Reference Range Interpretation Comments Potassium Level (test code = 2823-3) 4.6 3.5-5.1 [facility] CenterChloride Oxyxw5598-41-19 04:49:00* Test Item Value Reference Range Interpretation Comments Chloride Level (test code = 2075-0) 103 98-107 [facility] CenterCarbon Dioxide Zffcu9174-19-03 04:49:00* Test Item Value Reference Range Interpretation Comments Carbon Dioxide Level (test code = 2028-9) 27 22-29 [facility] CenterAnion Spg8582-59-12 04:49:00* Test Item Value Reference Range Interpretation Comments Anion Gap (test code = 82175-5) 13.6 8-16 [facility] CenterBlood Urea Hzpwcvsg3261-80-71 04:49:00* Test Item Value Reference Range Interpretation Comments Blood Urea Nitrogen (test code = 3094-0) 12 7-26 [facility] CenterCreatinine2019-06-30 04:49:00* Test Item Value Reference Range Interpretation Comments Creatinine (test code = 2160-0) 0.78 0.57-1.11 [facility] CenterBUN/Creatinine Zkipx7234-78-75 04:49:00* Test Item Value Reference Range Interpretation Comments BUN/Creatinine Ratio (test code = 3097-3) 15 01-15 [facility] CenterEstimat Glomerular Filtration Rate 2019-01-20 04:49:00* Test Item Value Reference Range Interpretation Comments Estimat Glomerular Filtration Rate (test code = 127298718) > 60 >60 Ranges were taken from the National Kidney Disease Education Program and the [facility] Kidney Foundation literature.Reference ranges:60 or greater: Ftdqiu27-91 ( for 3 consecutive months): Chronic kidney disease 15 or less: Kidney failureEnnis Regional Medical CenterGlucose Miqpm5444-68-36 04:49:00* Test Item Value Reference Range Interpretation Comments Glucose Level (test code = CXS0802) 90 74-118 [facility] CenterCalcium Btivy5195-59-33 04:49:00* Test Item Value Reference Range Interpretation Comments Calcium Level (test code = 54591-8) 9.7 8.4-10.2 [facility] CenterTotal Vhhjyzmpm5234-57-33 04:49:00* Test Item Value Reference Range Interpretation Comments Total Bilirubin (test code = 1975-2) 0.3 0.2-1.2 [facility] CenterAspartate Amino Transf (AST/SGOT) 2019-01-20 04:49:00* Test Item Value Reference Range Interpretation Comments Aspartate Amino Transf (AST/SGOT) (test code = Aspartate Amino Transf (AST/SGOT)) 12 [facility] CenterAlanine Aminotransferase (ALT/SGPT) 2019-01-20 04:49:00* Test Item Value Reference Range Interpretation Comments Alanine Aminotransferase (ALT/SGPT) (test code = 1742-6) 16 0-55 [facility] CenterTotal Nletxpg3048-86-75 04:49:00* Test Item Value Reference Range Interpretation Comments Total Protein (test code = 2885-2) 7.7 6.5-8.1 [facility] CenterAlbumin2019-06-30 04:49:00* Test Item Value Reference Range Interpretation Comments Albumin (test code = 1751-7) 3.8 3.5-5.0 [facility] CenterGlobulin2019-06-30 04:49:00* Test Item Value Reference Range Interpretation Comments Globulin (test code = 45280-3) 3.9 2.3-3.5 H [facility] CenterAlbumin/Globulin Gjizc8774-06-33 04:49:00 * Test Item Value Reference Range Interpretation Comments Albumin/Globulin Ratio (test code = 1759-0) 1.0 0.8-2.0 [facility] CenterAlkaline Mvcfbrnzqlh7186-76-58 04:49:00* Test Item Value Reference Range Interpretation Comments Alkaline Phosphatase (test code = 6768-6) 88 40-150 [facility] CenterLipase2019-06-30 04:49:00* Test Item Value Reference Range Interpretation Comments Lipase (test code = 3040-3) 41 8-78 [facility]odium Ewfuq0022-62-43 04:49:00* Test Item Value Reference Range Interpretation Comments Sodium Level (test code = 2951-2) 139 136-145 [facility] CenterPotassium Pgaci5960-86-40 04:49:00* Test Item Value Reference Range Interpretation Comments Potassium Level (test code = 2823-3) 4.6 3.5-5.1 [facility] CenterChloride Dnsbb5366-54-86 04:49:00* Test Item Value Reference Range Interpretation Comments Chloride Level (test code = 2075-0) 103 98-107 [facility] CenterCarbon Dioxide Bagps6032-70-53 04:49:00* Test Item Value Reference Range Interpretation Comments Carbon Dioxide Level (test code = 2028-9) 27 22-29 [facility] CenterAnion Zgd8190-07-26 04:49:00* Test Item Value Reference Range Interpretation Comments Anion Gap (test code = 97350-8) 13.6 8-16 [facility] CenterBlood Urea Kvsovlai2643-80-93 04:49:00* Test Item Value Reference Range Interpretation Comments Blood Urea Nitrogen (test code = 3094-0) 12 7-26 [facility] CenterCreatinine2019-06-30 04:49:00* Test Item Value Reference Range Interpretation Comments Creatinine (test code = 2160-0) 0.78 0.57-1.11 [facility] CenterBUN/Creatinine Hvyqy2118-35-83 04:49:00* Test Item Value Reference Range Interpretation Comments BUN/Creatinine Ratio (test code = 3097-3) 15 6-25 [facility] CenterEstimat Glomerular Filtration Rate 2019-01-20 04:49:00* Test Item Value Reference Range Interpretation Comments Estimat Glomerular Filtration Rate (test code = 045154927) > 60 >60 Ranges were taken from the National Kidney Disease Education Program and the [facility] Foundation literature.Reference ranges:60 or greater: Zookhq77-14 ( for 3 consecutive months): Chronic kidney disease 15 or less: Kidney failureEnnis Regional Medical CenterGlucose Vkvph4957-97-15 04:49:00* Test Item Value Reference Range Interpretation Comments Glucose Level (test code = DHJ2683) 90 74-118 [facility] CenterCalcium Wvwhb1670-32-05 04:49:00* Test Item Value Reference Range Interpretation Comments Calcium Level (test code = 10493-4) 9.7 8.4-10.2 [facility] CenterTotal Gkblhxdor6042-89-39 04:49:00* Test Item Value Reference Range Interpretation Comments Total Bilirubin (test code = 1975-2) 0.3 0.2-1.2 [facility] CenterAspartate Amino Transf (AST/SGOT) 2019-01-20 04:49:00* Test Item Value Reference Range Interpretation Comments Aspartate Amino Transf (AST/SGOT) (test code = Aspartate Amino Transf (AST/SGOT)) [facility] CenterAlanine Aminotransferase (ALT/SGPT) 2019-01-20 04:49:00* Test Item Value Reference Range Interpretation Comments Alanine Aminotransferase (ALT/SGPT) (test code = 1742-6) 16 0-55 [facility] CenterTotal Qaulabb4728-92-64 04:49:00* Test Item Value Reference Range Interpretation Comments Total Protein (test code = 2885-2) 7.7 6.5-8.1 [facility] CenterAlbumin2019-06-30 04:49:00* Test Item Value Reference Range Interpretation Comments Albumin (test code = 1751-7) 3.8 3.5-5.0 [facility] CenterGlobulin2019-06-30 04:49:00* Test Item Value Reference Range Interpretation Comments Globulin (test code = 60753-9) 3.9 2.3-3.5 H [facility] CenterAlbumin/Globulin Aksgw1208-40-26 04:49:00 * Test Item Value Reference Range Interpretation Comments Albumin/Globulin Ratio (test code = 1759-0) 1.0 0.8-2.0 [facility] CenterAlkaline Ijiedjmnwab0173-04-07 04:49:00* Test Item Value Reference Range Interpretation Comments Alkaline Phosphatase (test code = 6768-6) 88 40-150 [facility] CenterLipase2019-06-30 04:49:00* Test Item Value Reference Range Interpretation Comments Lipase (test code = 3040-3) 41 8-78 [facility] CenterTotal Ovahcubzz4413-92-57 04:49:00* Test Item Value Reference Range Interpretation Comments Total Bilirubin (test code = 1975-2) 0.3 0.2-1.2 [facility] CenterAspartate Amino Transf (AST/SGOT) 2019-01-20 04:49:00* Test Item Value Reference Range Interpretation Comments Aspartate Amino Transf (AST/SGOT) (test code = Aspartate Amino Transf (AST/SGOT)) [facility] CenterAlanine Aminotransferase (ALT/SGPT) 2019-01-20 04:49:00* Test Item Value Reference Range Interpretation Comments Alanine Aminotransferase (ALT/SGPT) (test code = 1742-6) 16 0-55 [facility] CenterTotal Kikmsmg1991-86-67 04:49:00* Test Item Value Reference Range Interpretation Comments Total Protein (test code = 2885-2) 7.7 6.5-8.1 [facility] CenterAlbumin2019-06-30 04:49:00* Test Item Value Reference Range Interpretation Comments Albumin (test code = 1751-7) 3.8 3.5-5.0 [facility] CenterGlobulin2019-06-30 04:49:00* Test Item Value Reference Range Interpretation Comments Globulin (test code = 26528-2) 3.9 2.3-3.5 H [facility] CenterAlbumin/Globulin Vmgkg7847-17-20 04:49:00 * Test Item Value Reference Range Interpretation Comments Albumin/Globulin Ratio (test code = 1759-0) 1.0 0.8-2.0 [facility] CenterAlkaline Olfpkzmaqvj2012-85-78 04:49:00* Test Item Value Reference Range Interpretation Comments Alkaline Phosphatase (test code = 6768-6) 88 40-150 [facility] CenterLipase2019-06-30 04:49:00* Test Item Value Reference Range Interpretation Comments Lipase (test code = 3040-3) 41 8-78 [facility] CenterTotal Qtzbiyemu8502-41-01 04:49:00* Test Item Value Reference Range Interpretation Comments Total Bilirubin (test code = 1975-2) 0.3 0.2-1.2 [facility] CenterAspartate Amino Transf (AST/SGOT) 2019-01-20 04:49:00* Test Item Value Reference Range Interpretation Comments Aspartate Amino Transf (AST/SGOT) (test code = Aspartate Amino Transf (AST/SGOT)) [facility] CenterAlanine Aminotransferase (ALT/SGPT) 2019-01-20 04:49:00* Test Item Value Reference Range Interpretation Comments Alanine Aminotransferase (ALT/SGPT) (test code = 1742-6) 16 0-55 [facility] CenterTotal Hgehkna9766-16-46 04:49:00* Test Item Value Reference Range Interpretation Comments Total Protein (test code = 2885-2) 7.7 6.5-8.1 [facility] CenterAlbumin2019-06-30 04:49:00* Test Item Value Reference Range Interpretation Comments Albumin (test code = 1751-7) 3.8 3.5-5.0 [facility] CenterGlobulin2019-06-30 04:49:00* Test Item Value Reference Range Interpretation Comments Globulin (test code = 77340-1) 3.9 2.3-3.5 H [facility] CenterAlbumin/Globulin Yfziq4164-81-59 04:49:00 * Test Item Value Reference Range Interpretation Comments Albumin/Globulin Ratio (test code = 1759-0) 1.0 0.8-2.0 [facility] CenterAlkaline Yrkmlykdfyh6015-53-86 04:49:00* Test Item Value Reference Range Interpretation Comments Alkaline Phosphatase (test code = 6768-6) 88 40-150 [facility] CenterLipase2019-06-30 04:49:00* Test Item Value Reference Range Interpretation Comments Lipase (test code = 3040-3) 41 8-78 [facility] CenterWhite Blood Nksij1783-29-12 04:31:00* Test Item Value Reference Range Interpretation Comments White Blood Count (test code = 6690-2) 13.66 4.8-10.8 H [facility] CenterRed Blood Dmlex7608-22-51 04:31:00* Test Item Value Reference Range Interpretation Comments Red Blood Count (test code = 789-8) 4.76 3.6-5.1 [facility] CenterHemoglobin2019-06-30 04:31:00* Test Item Value Reference Range Interpretation Comments Hemoglobin (test code = 65263-9) 13.0 12.0-16.0 [facility] CenterHematocrit2019-06-30 04:31:00* Test Item Value Reference Range Interpretation Comments Hematocrit (test code = 4544-3) 40.6 34.2-44.1 [facility] CenterMean Corpuscular Nmymcz0023-52-32 04:31:00* Test Item Value Reference Range Interpretation Comments Mean Corpuscular Volume (test code = 787-2) 85.3 81-99 [facility] CenterMean Corpuscular Muiiattkbh8961-14-37 04:31:00* Test Item Value Reference Range Interpretation Comments Mean Corpuscular Hemoglobin (test code = 785-6) 27.3 28-32 L [facility] CenterMean Corpuscular Hemoglobin Concent 2019-01-20 04:31:00* Test Item Value Reference Range Interpretation Comments Mean Corpuscular Hemoglobin Concent (test code = 786-4) 32.0 31-35 [facility] CenterRed Cell Distribution Qzheg3177-52-94 04:31:00* Test Item Value Reference Range Interpretation Comments Red Cell Distribution Width (test code = 67402-8) 13.2 11.7 -14.4 [facility] CenterPlatelet Wokxr1753-84-53 04:31:00* Test Item Value Reference Range Interpretation Comments Platelet Count (test code = 777-3) 351 140-360 [facility] CenterNeutrophils (%) (Auto)2019-01-20 04:31:00 * Test Item Value Reference Range Interpretation Comments Neutrophils (%) (Auto) (test code = 50530-9) 65.1 38.7-80.0 [facility] CenterLymphocytes (%) (Auto)2019-01-20 04:31:00 * Test Item Value Reference Range Interpretation Comments Lymphocytes (%) (Auto) (test code = 736-9) 26.8 18.0-39.1 [facility] CenterMonocytes (%) (Auto)2019-01-20 04:31:00* Test Item Value Reference Range Interpretation Comments Monocytes (%) (Auto) (test code = 5905-5) 6.1 4.4-11.3 [facility] CenterEosinophils (%) (Auto)2019-01-20 04:31:00 * Test Item Value Reference Range Interpretation Comments Eosinophils (%) (Auto) (test code = 713-8) 0.8 0.0-6.0 [facility] CenterBasophils (%) (Auto)2019-01-20 04:31:00* Test Item Value Reference Range Interpretation Comments Basophils (%) (Auto) (test code = 706-2) 0.6 0.0-1.0 [facility] CenterIM GRANULOCYTES %2019-01-20 04:31:00* Test Item Value Reference Range Interpretation Comments IM GRANULOCYTES % (test code = IM GRANULOCYTES %) 0.6 0.0- 1.0 [facility] CenterNeutrophils # (Auto)2019-01-20 04:31:00* Test Item Value Reference Range Interpretation Comments Neutrophils # (Auto) (test code = 751-8) 8.9 2.1-6.9 H [facility] CenterLymphocytes # (Auto)2019-01-20 04:31:00* Test Item Value Reference Range Interpretation Comments Lymphocytes # (Auto) (test code = 95420-9) 3.7 1.0-3.2 H [facility] CenterMonocytes # (Auto)2019-01-20 04:31:00* Test Item Value Reference Range Interpretation Comments Monocytes # (Auto) (test code = 742-7) 0.8 0.2-0.8 [facility] CenterEosinophils # (Auto)2019-01-20 04:31:00* Test Item Value Reference Range Interpretation Comments Eosinophils # (Auto) (test code = 711-2) 0.1 0.0-0.4 [facility] CenterBasophils # (Auto)2019-01-20 04:31:00* Test Item Value Reference Range Interpretation Comments Basophils # (Auto) (test code = 704-7) 0.1 0.0-0.1 [facility] CenterAbsolute Immature Granulocyte (auto 2019-01-20 04:31:00* Test Item Value Reference Range Interpretation Comments Absolute Immature Granulocyte (auto (marybeth t code = Absolute Immature Granulocyte (auto) 0.08 0-0.1 [facility] CenterWhite Blood Mhwyy3830-54-75 04:31:00* Test Item Value Reference Range Interpretation Comments White Blood Count (test code = 6690-2) 13.66 4.8-10.8 H [facility] CenterRed Blood Tauxo1917-23-72 04:31:00* Test Item Value Reference Range Interpretation Comments Red Blood Count (test code = 789-8) 4.76 3.6-5.1 [facility] CenterHemoglobin2019-06-30 04:31:00* Test Item Value Reference Range Interpretation Comments Hemoglobin (test code = 94610-9) 13.0 12.0-16.0 [facility] CenterHematocrit2019-06-30 04:31:00* Test Item Value Reference Range Interpretation Comments Hematocrit (test code = 4544-3) 40.6 34.2-44.1 [facility] CenterMean Corpuscular Yywkcp3234-78-19 04:31:00* Test Item Value Reference Range Interpretation Comments Mean Corpuscular Volume (test code = 787-2) 85.3 81-99 [facility] CenterMean Corpuscular Csxdopeozv6664-33-58 04:31:00* Test Item Value Reference Range Interpretation Comments Mean Corpuscular Hemoglobin (test code = 785-6) 27.3 28-32 L [facility] CenterMean Corpuscular Hemoglobin Concent 2019-01-20 04:31:00* Test Item Value Reference Range Interpretation Comments Mean Corpuscular Hemoglobin Concent (test code = 786-4) 32.0 31-35 [facility] CenterRed Cell Distribution Vnifw8534-75-92 04:31:00* Test Item Value Reference Range Interpretation Comments Red Cell Distribution Width (test code = 15434-8) 13.2 11.7 -14.4 [facility] CenterPlatelet Jufzb0311-05-02 04:31:00* Test Item Value Reference Range Interpretation Comments Platelet Count (test code = 777-3) 351 140-360 [facility] CenterNeutrophils (%) (Auto)2019-01-20 04:31:00 * Test Item Value Reference Range Interpretation Comments Neutrophils (%) (Auto) (test code = 55205-5) 65.1 38.7-80.0 [facility] CenterLymphocytes (%) (Auto)2019-01-20 04:31:00 * Test Item Value Reference Range Interpretation Comments Lymphocytes (%) (Auto) (test code = 736-9) 26.8 18.0-39.1 [facility] CenterMonocytes (%) (Auto)2019-01-20 04:31:00* Test Item Value Reference Range Interpretation Comments Monocytes (%) (Auto) (test code = 5905-5) 6.1 4.4-11.3 [facility] CenterEosinophils (%) (Auto)2019-01-20 04:31:00 * Test Item Value Reference Range Interpretation Comments Eosinophils (%) (Auto) (test code = 713-8) 0.8 0.0-6.0 [facility] CenterBasophils (%) (Auto)2019-01-20 04:31:00* Test Item Value Reference Range Interpretation Comments Basophils (%) (Auto) (test code = 706-2) 0.6 0.0-1.0 [facility] CenterIM GRANULOCYTES %2019-01-20 04:31:00* Test Item Value Reference Range Interpretation Comments IM GRANULOCYTES % (test code = IM GRANULOCYTES %) 0.6 0.0- 1.0 [facility] CenterNeutrophils # (Auto)2019-01-20 04:31:00* Test Item Value Reference Range Interpretation Comments Neutrophils # (Auto) (test code = 751-8) 8.9 2.1-6.9 H [facility] CenterLymphocytes # (Auto)2019-01-20 04:31:00* Test Item Value Reference Range Interpretation Comments Lymphocytes # (Auto) (test code = 56333-9) 3.7 1.0-3.2 H [facility] CenterMonocytes # (Auto)2019-01-20 04:31:00* Test Item Value Reference Range Interpretation Comments Monocytes # (Auto) (test code = 742-7) 0.8 0.2-0.8 [facility] CenterEosinophils # (Auto)2019-01-20 04:31:00* Test Item Value Reference Range Interpretation Comments Eosinophils # (Auto) (test code = 711-2) 0.1 0.0-0.4 [facility] CenterBasophils # (Auto)2019-01-20 04:31:00* Test Item Value Reference Range Interpretation Comments Basophils # (Auto) (test code = 704-7) 0.1 0.0-0.1 [facility] CenterAbsolute Immature Granulocyte (auto 2019-01-20 04:31:00* Test Item Value Reference Range Interpretation Comments Absolute Immature Granulocyte (auto (marybeth t code = Absolute Immature Granulocyte (auto) 0.08 0-0.1 [facility] CenterUrine ZYX7431-09-30 04:18:00* Test Item Value Reference Range Interpretation Comments Urine WBC (test code = 5821-4) 0-5 0-5 [facility] CenterUrine ZTA9780-55-36 04:18:00* Test Item Value Reference Range Interpretation Comments Urine RBC (test code = 19978-6) 0-5 0-5 [facility] CenterUrine Twrjbkmv8942-24-15 04:18:00* Test Item Value Reference Range Interpretation Comments Urine Bacteria (test code = 69206-3) MANY NONE H [facility] CenterUrine Epithelial Oywos6917-15-38 04:18:00 * Test Item Value Reference Range Interpretation Comments Urine Epithelial Cells (test code = 07323-5) MANY NONE [facility] CenterUrine Wplxh6665-37-97 04:07:00* Test Item Value Reference Range Interpretation Comments Urine Color (test code = 5778-6) YELLOW YELLOW [facility] CenterUrine Lkeaqth4441-86-33 04:07:00* Test Item Value Reference Range Interpretation Comments Urine Clarity (test code = 93965-9) CLEAR CLEAR [facility] CenterUrine Specific Vaqvtok9116-83-02 04:07:00 * Test Item Value Reference Range Interpretation Comments Urine Specific Robinson (test code = 5811-5) <=1.005 1.010-1.02 5 [facility] CenterUrine [id number] 04:07:00* Test Item Value Reference Range Interpretation Comments Urine pH (test code = 39890-5) 6.5 5-7 [facility] Leukocyte Qkdpdqnh1634-17-13 04:07:00* Test Item Value Reference Range Interpretation Comments Urine Leukocyte Esterase (test code = 72316-3) NEGATIVE NEGATIV E [facility] Hzyohoe6855-11-22 04:07:00* Test Item Value Reference Range Interpretation Comments Urine Nitrite (test code = 56870-0) POSITIVE NEGATIVE H [facility] Umweklk0669-48-79 04:07:00* Test Item Value Reference Range Interpretation Comments Urine Protein (test code = 24887-5) NEGATIVE NEGATIVE [facility] Glucose (UA)2019-01-20 04:07:00* Test Item Value Reference Range Interpretation Comments Urine Glucose (UA) (test code = 38977-9) NEGATIVE NEGATIVE [facility] CenterU[facility] Pvuxdyx3350-59-71 04:07:00* Test Item Value Reference Range Interpretation Comments Urine Ketones (test code = 96380-8) NEGATIVE NEGATIVE [facility] Kfcxswfyysys4191-37-57 04:07:00* Test Item Value Reference Range Interpretation Comments Urine Urobilinogen (test code = 71828-3) 0.2 0.2-1 [facility] CenterUrine Dsmapztuz7412-30-94 04:07:00* Test Item Value Reference Range Interpretation Comments Urine Bilirubin (test code = 1977-8) NEGATIVE NEGATIVE [facility] Uwrns8994-32-10 04:07:00* Test Item Value Reference Range Interpretation Comments Urine Blood (test code = 88625-5) 1+ NEGATIVE [facility] CenterGlucose ([facility] of [facility] In [facility]) 2019-01-16 13:55:00* Test Item Value Reference Range Interpretation Comments Glucose POC Lifescan (test code = Glucose POC Lifescan) 111 [facility] PhysiciansNegative Retinal Eye Exam (Diabetic)2018-12-24 12:40:58* Test Item Value Reference Range Interpretation Comments Negative Diabetic Eye Screening (test code = Negative Diabetic Eye Screening) [id number]; no retinopathy [facility][O] Hemoglobin A1c (in office)2018-12-19 08:15:00 * Test Item Value Reference Range Interpretation Comments HEMOGLOBIN A1c (test code = 4548-4) 5.7 [facility] PhysiciansGlucose ([facility] In Office)2018-12-19 08:15:00* Test Item Value Reference Range Interpretation Comments Glucose POC Lifescan (test code = Glucose POC Lifescan) 104 [facility][QH] SMOOTH MUSCLE AB W/REFL XHOVB0071-81-56 14:30:01* Test Item Value Reference Range Interpretation Comments Smooth Muscle Antibody Screen (test code = Smooth Musc le Antibody Screen) Positive Negative A [facility][H] SMA Nnyvm7902-79-96 14:30:01* Test Item Value Reference Range Interpretation Comments SMA Titer (test code = SMA Titer) 1:20 Negative A [facility][QLH] BRIAN PANEL, SURVHVEEQXTNO0352-15-44 14:30:01 * Test Item Value Reference Range Interpretation Comments Antinuclear Antibody Screen (test code = 55582-8) Negative Nega tive Because the BRIAN was Negative, the Reflex assays for Anti-dsDNA, SM/COTTON FEEDER, Jacqui/La (SSA/SSB) were not performed. [facility][H] BAXTER NfdczStuq9703-74-79 14:30:01* Test Item Value Reference Range Interpretation Comments Fibrosis Score (test code = Fibrosis Score) 0.06 0.00-0.21 Fibrosis Stage (test code = Fibrosis Stage) Comment F0 - No fibrosis Steatosis Score (test code = Steatosis Score) 0.52 0.00-0.3 0 Steatosis Grading (test code = Steatosis Grading) Comment < 0.30 = S0 - No Steatosis0.30 to 0.38 = S0 - S10.38 to 0.48 = S1 - Minimal Steatosis0.48 to 0.57 = S1 - S20.57 to 0.67 = S2 - Moderate Steatosis0.67 to 0.69 = S2 - S3 > 0.69 = S3 - Marked or Severe Steatosis BAXTER Score (test code = BAXTER Score) 0.50 >0.25 BAXTER Grade (test code = BAXTER Grade) Comment N1 - Borderline or probable BAXTER A 2 Macroglob (test code = 38080-1) 160 mg/dl 110-276 Haptoglobin; Above High Threshold (test code = 28904-3) 222 mg/dl 34-200 Apolipoprotein A-1 (test code = Apolipoprotein A-1) 104 mg/dl 11 6-209 Bili Total (test code = 1975-2) 0.3 mg/dl 0.0-1.2 GGT (test code = 2324-2) 14 {iu/l} 0-60 ALT (test code = 1743-4) 15 {iu/l} 0-40 AST (test code = 74453-9) 14 {iu/l} 0-40 Chol (test code = 2093-3) 193 mg/dl 100-199 Glucose Lvl (test code = 2345-7) 87 mg/dl 65-99 Adult reference range values reflect the clinical guidelinesof the [place] [employer]. Trig (test code = 2571-8) 107 mg/dl 0-149 BAXTER Interp (test code = BAXTER Interp) Comment Quantitative results of 10 biochemicals in combination withage, gender, height, and weight, are analyzed using acomputational algorithm to provide a quantitative surrogatemarker (0.0- 1.0) of liver fibrosis (Metavir F0-F4), hepaticsteatosis (0.0-1.0, S0-S3), and Non-Alcoholic Steato-Hepatitis (BAXTER) (0.0-0.75, N0-N2). The absence of steatosis(S<0.38) precludes the diagnosis of BAXTER.Fibrosis marker: In a study of 171 Non-Alcoholic FattyLiver Disease (NAFLD) patients where 23% had significantNAFLD fibrosis (Metavir F2-F4) and 11% had cirrhosis byliver biopsy, a fibrosis result of >0.3 yielded asensitivity of 83% and a specificity of 78% for thedetection of significant fibrosis(1).Steatosis Marker: In a population of 744 patients (583 HCV,18 HBV, 69 NAFLD, and 74 alcoholic disease patients), w here36% had significant steatosis (>5%) on a liver biopsy, asteatosis score >0.5 had a sensitivity of 71% and aspecificity of 72% for identification of significantsteatosis(2).BAXTER marker: In a population of 257 NAFLD patients, where62% had at least some BAXTER by liver biopsy, a prediction ofNASH had a sensitivity of 88% for identifying BAXTER and aspecificity of 50%(3). Fibrosis Scoring (test code = Fibrosis Scoring) Comment <0.21 = Stage F0 - No fibrosis0.21 - 0.27 = Stage F0 - F10.27 - 0.31 = Stage F1 - Portal fibrosis0.31 - 0.48 = Stage F1 - F20.48 - 0.58 = Stage F2 - Bridging fibrosis with few septa0.58 - 0.72 = Stage F3 - Bridging fibrosis with many septa0.72 - 0.74 = Stage F3 - F4 >0.74 = Stage F4 - Cirrhosis BAXTER Scoring (test code = BAXTER Scoring) Comment 0.25 = N0 - Not NASH0.50 = N1 - Borderline or probable NASH0.75 = N2 - BAXTER BAXTER Limitations (test code = BAXTER Limitations) Comment BAXTER FibroSure is recommended for patients with suspectednon-alcoholic fatty liver disease. It is not recommendedfor patients with other liver diseases. It is also notrecommended in patients with Gilbert Disease, acutehemolysis, acute viral hepatitis, drug induced hepatitis,genetic liver disease, autoimmune hepatitis and/or extra-hepatic cholestasis. Any of these clinical situations maylead to inaccurate quantitative predictions of fibrosis. BAXTER References (test code = BAXTER References) Comment This test was developed and its performance characteristics determinedby [facility]. It has not been cleared or approved by the Food and DrugAdministration. The FDA has determined that such clearance orapproval is not necessary.For questions regarding this report please contactcustomer service at .References:1. Tawny Branham. et al. Diagnostic Value of Biochemical Markers (FibroTest) for the prediction of Liver Fibrosis in patients with Non-Alcoholic Fatty Liver Disease. BMC Gastroenterology 2006; 6:6.2. Lux Brown. oliverio al. The Diagnostic Value of Biomarkers (Steato Test) for the Prediction of Liver Steatosis. Comparative Hepatol. 2005; 4:10.3. Lux Brown, Shell Hector, et al. Diagnostic value of biochemical markers (ABXTER TEST) for the prediction of non alcohol steato hepatitis in patients with non- alcoholic fatty liver disease. BMC Gastroenterology 2006; 6:34 doi:10.1186/6380-970Z-8-34.Performed At: [facility] [id number] Sanjai MD Ph:[phone] [facility][QL] [id number] 14:30:01* Test Item Value Reference Range Interpretation Comments Ceruloplasmin (test code = 2064-4) 35 mg/dl 20-60 [facility][H] Iron, TIBC \\T\\ Jqacyfhi3736-20-31 14:30:01* Test Item Value Reference Range Interpretation Comments Iron (test code = 2498-4) 35 ug/dL 30-160 % [place]; Below Low Threshold (test code = 2502-3) 11 % 1 2-57 TIBC (test code = 2500-7) 323 ug/dL 228-428 UIBC (test code = UIBC) 288 ug/dL 110-370 Ferritin Lvl (test code = 2276-4) 62 ng/ml 5-204 [facility][H] Celiac Pnl w/Rflx Endomy Ab [id number] 14:30:01* Test Item Value Reference Range Interpretation Comments IgA Lvl (test code = 2458-8) 362.0 mg/dl 68.0-378.0 Gliadin (Deamidated Peptide)IgA Ab (test code = 94196-1) <0.2 <=14.9 Gliadin (Deamidated Peptide)IgG Ab (test code = 11747-0) <0.4 <=14.9 Tissue Transglutaminase (tTG) IgA (test code = 21381-4) <0.5 <=14.9 Tissue Transglutaminase (tTg) IgG (test code = 54632-8) <0.8 <=14.9 [place] [facility] Liver [id number] 07:54:00EXAM: LIVERDATE: 12/05/2018INDICATION: - K76.0 Fatty (change of) liver, not elsewhere classifiedADDITIONAL INFORMATION: None.COMPARISON: None.TECHNIQUE: Mu ltiplanar grayscale and color Doppler ultrasound of the rightupper quadrant.FIND INGS:Liver: Craniocaudal length: 21.08 cm. Normal. Echogenicity: Increased. S urface nodularity: None Mass (size and location): None.Portal vein: Normal.Bile ducts: Common bile duct diameter: 0.5 cm. Normal Intrahepatic ducts: Normal.G allbladder: AbsentPancreas: Head and uncinate process: Normal. Body and ta il: Not seen.Right kidney: Hydronephrosis: None Size: 11.0 x 4.3 x 4.7 cm. Nor mal. Echogenicity: Normal. Mass/Stone/Cyst (size and location): None.Ascites: NoneIMPRESSION:1. Hepatomegaly with hepatic steatosis.2. Status post cholecys tectomy.--Read by: Ida Shaffer MDDictated Date/time: 12/05/18 09:30Electron ically Signed by: Ida Shaffer MD 12/05/1908:36FINAL REPORTUnMountainStar Healthcare Physicians[U] XRAY BONE LENGTH STUDIES, SCANOGRAM/TELEGRAM [id number] 15:18:00Images acquired, not reported on this accession number.[facility][O] Urine Dipstick (In Office) 2018-12-04 10:00:00* Test Item Value Reference Range Interpretation Comments Glucose (test code = Glucose) NORMAL N LEUKOCYTES (test code = LEUKOCYTES) NEGATIVE N NITRITE; Normal (test code = 99826-4) NEGATIVE N UROBILINOGEN; Normal (test code = 67029-8) NORMAL N PROTEIN; Normal (test code = 80226-2) NEGATIVE N pH (test code = pH) 5 N URINE BLOOD; Normal (test code = 11652-2) NEGATIVE N SPECIFIC GRAVITY; Normal (test code = 2965-2) 1.010 N KETONES; Normal (test code = 93916-2) NEGATIVE N BILIRUBIN; Normal (test code = 58109-0) NEGATIVE N COLOR URINE; Normal (test code = 5778-6) YELLOW N [facility]] CULTURE, URINE, [id number] 00:00:00* Test Item Value Reference Range Interpretation Comments CULTURE (test code = CULTURE) See Comment CULTURE, URINE, ROUTINE MICRO NUMBER: [id number] TEST STATUS: FINAL SPECIMEN SOURCE: URINE SPECIMEN QUALITY: ADEQUATE RESULT: Multiple organisms present, each less than 10,000 CFU/mL. These organisms, commonly found on external and internal genitalia, are considered to be colonizers. No further testing performed. [facility][U] XRAY KNEE 4 OR MORE VWS LEFT [id number] 09:19:00Images acquired, not reported on this accession number.[facility] PhysiciansCT ABDOMEN/PELVIS [id number] 20:02:00 [place] [address] Patient Name: CHARLENE VASQUEZ MR #: [id number] : 1975 Age/Sex: 42/F Req #: [id number] Adm Physician: Ordered by: YANG IBANEZ MD Report #: [id number] Location: ER Room/Bed: Procedure: [id number] CT/CT ABDOMEN/PELVIS W Exam D ate: 02/18/18 Exam Time: 192 REPORT STATUS: Si gned ADDENDUM #1 Dose modulation, iterative reconst ruction, and/or weight based adjustment of the mA/kV was utilized to reduce th e radiation dose to as low as reasonably achievable. Signed by: Dr. Mrak Fung M.D. on 03/20/2018 5:35 AM ORIGINAL REPORT EXAM: CT ABDOMEN AND PELVIS with IV CONTRAST DATE: 02/18/2018 3:[address] amp on Exam: 1929 hours INDICATION: Lower abdominal/bladder pain COMPARISON : None TECHNIQUE: The abdomen and pelvis were scanned using a multidetector helical scanner. Coronal and sagittal reformations were obtained. Routine prot ocol performed. IV Contrast: 100 cc Isovue-370 Oral Contrast: Water CTDI vol has been reviewed. It is below the limits set by the [facility] FINDINGS: LOWER THORAX: No consolidations LIVER: No m asses BILIARY: Cholecystectomy, no ductal dilation. SPLEEN: No masses PANCREAS: No masses ADRENALS: No nodules KIDNEYS: Symmetric perfusion. No enhancing masses. No hydronephrosis. GI TRACT: No distention, wall thicken ing or evidence of obstruction. Surgical changes of the stomach. 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 BONES: No suspicious bone lesions. IMPRESSION: No acute f indings in the CT of the abdomen or pelvis. No findings to explain patient's l ower abdominal pain. Signed by: Dr. Mark Fung M.D. on 02/18/2018 8: 15 PM Dictated By: MARK FUNG MD [id number] Transcribed By: MELANIA on 02/18/182014 COPY TO: YANG IBANEZ MD Urine [id number] 19:41:00* Test Item Value Reference Range Interpretation Comments Urine WBC (test code = 5821-4) 0-5 0-5 [facility] [id number] 19:41:00* Test Item Value Reference Range Interpretation Comments Urine RBC (test code = 05947-1) 0-5 0-5 [facility] Vpbojckw9335-64-95 19:41:00* Test Item Value Reference Range Interpretation Comments Urine Bacteria (test code = 10889-9) MODERATE NONE H [facility] Epithelial Pysmu7661-56-74 19:41:00 * Test Item Value Reference Range Interpretation Comments Urine Epithelial Cells (test code = 90917-6) MODERATE NONE [facility] [id number] 19:41:00* Test Item Value Reference Range Interpretation Comments Urine WBC (test code = 5821-4) 0-5 0-5 [facility] [id number] 19:41:00* Test Item Value Reference Range Interpretation Comments Urine RBC (test code = 87183-1) 0-5 0-5 [facility] Ybhreatw3845-77-27 19:41:00* Test Item Value Reference Range Interpretation Comments Urine Bacteria (test code = 04280-7) MODERATE NONE H [facility] Epithelial Ibghu8587-44-33 19:41:00 * Test Item Value Reference Range Interpretation Comments Urine Epithelial Cells (test code = 17170-0) MODERATE NONE [facility] Rsdno7138-58-98 19:39:00* Test Item Value Reference Range Interpretation Comments Urine Color (test code = 5778-6) YELLOW YELLOW [facility] Ykffivi1727-24-24 19:39:00* Test Item Value Reference Range Interpretation Comments Urine Clarity (test code = 87076-4) HAZY CLEAR [facility] Specific Xsucuwz6929-42-29 19:39:00 * Test Item Value Reference Range Interpretation Comments Urine Specific Robinson (test code = 5811-5) 1.010 1.010-1.02 5 [facility] [id number] 19:39:00* Test Item Value Reference Range Interpretation Comments Urine pH (test code = 83547-9) 6.5 5-7 [facility] Leukocyte Xorfbamk1741-18-27 19:39:00* Test Item Value Reference Range Interpretation Comments Urine Leukocyte Esterase (test code = 5799-2) NEGATIVE NEGATIVE [facility] Hewooih6602-01-48 19:39:00* Test Item Value Reference Range Interpretation Comments Urine Nitrite (test code = 24996-6) POSITIVE NEGATIVE H [facility] Ebgwvwc7504-71-99 19:39:00* Test Item Value Reference Range Interpretation Comments Urine Protein (test code = 5804-0) NEGATIVE NEGATIVE [facility] Glucose (UA)2018-02-18 19:39:00* Test Item Value Reference Range Interpretation Comments Urine Glucose (UA) (test code = 2349-9) NEGATIVE NEGATIVE [facility] Fgyrdiy4243-65-80 19:39:00* Test Item Value Reference Range Interpretation Comments Urine Ketones (test code = 96650-0) NEGATIVE NEGATIVE [facility] Zgoiocwpzjam9606-41-48 19:39:00* Test Item Value Reference Range Interpretation Comments Urine Urobilinogen (test code = 79913-5) 0.2 0.2-1 [facility] Ltucipvai9143-27-25 19:39:00* Test Item Value Reference Range Interpretation Comments Urine Bilirubin (test code = 1978-6) NEGATIVE NEGATIVE [facility] Suptp8340-70-75 19:39:00* Test Item Value Reference Range Interpretation Comments Urine Blood (test code = 11044-6) NEGATIVE NEGATIVE [facility] Waypg4923-17-96 19:39:00* Test Item Value Reference Range Interpretation Comments Urine Color (test code = 5778-6) YELLOW YELLOW [facility] Gpaaxyg5658-19-07 19:39:00* Test Item Value Reference Range Interpretation Comments Urine Clarity (test code = 51765-6) HAZY CLEAR [facility] Specific Negjaab8127-24-31 19:39:00 * Test Item Value Reference Range Interpretation Comments Urine Specific Robinson (test code = 5811-5) 1.010 1.010-1.02 5 [facility] [id number] 19:39:00* Test Item Value Reference Range Interpretation Comments Urine pH (test code = 39160-7) 6.5 5-7 [facility] Leukocyte Mkfqzmbm5991-58-87 19:39:00* Test Item Value Reference Range Interpretation Comments Urine Leukocyte Esterase (test code = 5799-2) NEGATIVE NEGATIVE [facility] Jvaqxnc8507-61-70 19:39:00* Test Item Value Reference Range Interpretation Comments Urine Nitrite (test code = 64448-4) POSITIVE NEGATIVE H [facility] CenterU[facility] Hcohfqc6425-41-46 19:39:00* Test Item Value Reference Range Interpretation Comments Urine Protein (test code = 5804-0) NEGATIVE NEGATIVE [facility] Glucose (UA)2018-02-18 19:39:00* Test Item Value Reference Range Interpretation Comments Urine Glucose (UA) (test code = 2349-9) NEGATIVE NEGATIVE [facility] Ylutuah1432-08-80 19:39:00* Test Item Value Reference Range Interpretation Comments Urine Ketones (test code = 56762-6) NEGATIVE NEGATIVE [facility] Apudpkmfvvse4121-81-35 19:39:00* Test Item Value Reference Range Interpretation Comments Urine Urobilinogen (test code = 46607-7) 0.2 0.2-1 [facility] Duzdtpyxq8020-91-74 19:39:00* Test Item Value Reference Range Interpretation Comments Urine Bilirubin (test code = 1978-6) NEGATIVE NEGATIVE [facility] Falpi3261-99-43 19:39:00* Test Item Value Reference Range Interpretation Comments Urine Blood (test code = 79999-0) NEGATIVE NEGATIVE [facility] CenterTotal Cjyakecud4028-21-71 19:10:00* Test Item Value Reference Range Interpretation Comments Total Bilirubin (test code = 1975-2) 0.6 0.2-1.2 [facility] CenterTotal Tbbipvxvl7979-08-43 19:10:00* Test Item Value Reference Range Interpretation Comments Total Bilirubin (test code = 1975-2) 0.6 0.2-1.2 [facility] Wilwt2895-28-24 18:54:00* Test Item Value Reference Range Interpretation Comments Sodium Level (test code = 2951-2) 141 136-145 [facility] CenterPotassium Cqzep2988-54-48 18:54:00* Test Item Value Reference Range Interpretation Comments Potassium Level (test code = 2823-3) 4.2 3.5-5.1 [facility] CenterChloride Yhwbh9259-38-79 18:54:00* Test Item Value Reference Range Interpretation Comments Chloride Level (test code = 2075-0) 105 98-107 [facility] CenterCarbon Dioxide Ppbma3971-90-25 18:54:00* Test Item Value Reference Range Interpretation Comments Carbon Dioxide Level (test code = 2028-9) 25 - [facility] CenterAnion Eyx0835-76-83 18:54:00* Test Item Value Reference Range Interpretation Comments Anion Gap (test code = 66352-5) 15.2 8-16 [facility] CenterBlood Urea Ggcrnumm2952-37-86 18:54:00* Test Item Value Reference Range Interpretation Comments Blood Urea Nitrogen (test code = 3094-0) 7 7-26 [facility] CenterCreatinine2018-07-29 18:54:00* Test Item Value Reference Range Interpretation Comments Creatinine (test code = 2160-0) 0.72 0.57-1.11 [facility] CenterBUN/Creatinine Gaiha4764-56-10 18:54:00* Test Item Value Reference Range Interpretation Comments BUN/Creatinine Ratio (test code = 3097-3) 10 6-25 [facility] CenterEstimat Glomerular Filtration Rate 2018-02-18 18:54:00* Test Item Value Reference Range Interpretation Comments Estimat Glomerular Filtration Rate (test code = 76074-2) 60- >60 Ranges were taken from the National Kidney Disease Education Program and the [facility] Foundation literature.Reference ranges:60 or greater: Gxagmc17-51 ( for 3 consecutive months): Chronic kidney disease 15 or less: Kidney failureEnnis Regional Medical CenterGlucose Gwass2910-27-21 18:54:00* Test Item Value Reference Range Interpretation Comments Glucose Level (test code = FXW8762) 100 74-118 [facility] CenterCalcium Entxw4323-29-79 18:54:00* Test Item Value Reference Range Interpretation Comments Calcium Level (test code = 01774-4) 9.8 8.4-10.2 [facility] CenterAspartate Amino Transf (AST/SGOT) 2018-02-18 18:54:00* Test Item Value Reference Range Interpretation Comments Aspartate Amino Transf (AST/SGOT) (test code = Aspartate Amino Transf (AST/SGOT)) 22 5-34 [facility] CenterAlanine Aminotransferase (ALT/SGPT) 2018-02-18 18:54:00* Test Item Value Reference Range Interpretation Comments Alanine Aminotransferase (ALT/SGPT) (test code = 1742-6) 27 0-55 [facility] CenterTotal Goyiygj2772-03-79 18:54:00* Test Item Value Reference Range Interpretation Comments Total Protein (test code = 2885-2) 7.8 6.5-8.1 [facility] CenterAlbumin2018-07-29 18:54:00* Test Item Value Reference Range Interpretation Comments Albumin (test code = 1751-7) 3.9 3.5-5.0 [facility] CenterGlobulin2018-07-29 18:54:00* Test Item Value Reference Range Interpretation Comments Globulin (test code = 52261-7) 3.9 2.3-3.5 H [facility] CenterAlbumin/Globulin Dgqnq0639-51-12 18:54:00 * Test Item Value Reference Range Interpretation Comments Albumin/Globulin Ratio (test code = 1759-0) 1.0 0.8-2.0 [facility] CenterAlkaline Cqmrltkaxqg6246-24-31 18:54:00* Test Item Value Reference Range Interpretation Comments Alkaline Phosphatase (test code = 6768-6) 74 40-150 [facility]odium Lqvnc2687-45-00 18:54:00* Test Item Value Reference Range Interpretation Comments Sodium Level (test code = 2951-2) 141 136-145 [facility] CenterPotassium Ygleq6219-75-52 18:54:00* Test Item Value Reference Range Interpretation Comments Potassium Level (test code = 2823-3) 4.2 3.5-5.1 [facility] CenterChloride Cnnvw1525-57-53 18:54:00* Test Item Value Reference Range Interpretation Comments Chloride Level (test code = 2075-0) 105 98-107 [facility] CenterCarbon Dioxide Utjai8745-51-05 18:54:00* Test Item Value Reference Range Interpretation Comments Carbon Dioxide Level (test code = 2028-9) 25 22-29 [facility] CenterAnion Cpn2134-96-26 18:54:00* Test Item Value Reference Range Interpretation Comments Anion Gap (test code = 20806-0) 15.2 8-16 [facility] CenterBlood Urea Uafdrjia1352-50-10 18:54:00* Test Item Value Reference Range Interpretation Comments Blood Urea Nitrogen (test code = 3094-0) 7 7-26 [facility] CenterCreatinine2018-07-29 18:54:00* Test Item Value Reference Range Interpretation Comments Creatinine (test code = 2160-0) 0.72 0.57-1.11 [facility] CenterBUN/Creatinine Xumxu9607-50-59 18:54:00* Test Item Value Reference Range Interpretation Comments BUN/Creatinine Ratio (test code = 3097-3) 10 6-25 [facility] CenterEstimat Glomerular Filtration Rate 2018-02-18 18:54:00* Test Item Value Reference Range Interpretation Comments Estimat Glomerular Filtration Rate (test code = 37368-2) 60- >60 Ranges were taken from the National Kidney Disease Education Program and the [facility] literature.Reference ranges:60 or greater: Baiwdd14-84 ( for 3 consecutive months): Chronic kidney disease 15 or less: Kidney failureEnnis Regional Medical CenterGlucose Xtsxv0940-08-19 18:54:00* Test Item Value Reference Range Interpretation Comments Glucose Level (test code = TTH1835) 100 74-118 [facility] CenterCalcium Ucvlp6815-77-67 18:54:00* Test Item Value Reference Range Interpretation Comments Calcium Level (test code = 65531-8) 9.8 8.4-10.2 [facility] CenterAspartate Amino Transf (AST/SGOT) 2018-02-18 18:54:00* Test Item Value Reference Range Interpretation Comments Aspartate Amino Transf (AST/SGOT) (test code = Aspartate Amino Transf (AST/SGOT)) 22 5-34 [facility] CenterAlanine Aminotransferase (ALT/SGPT) 2018-02-18 18:54:00* Test Item Value Reference Range Interpretation Comments Alanine Aminotransferase (ALT/SGPT) (test code = 1742-6) 27 0-55 [facility] CenterTotal Evhdakj1785-37-44 18:54:00* Test Item Value Reference Range Interpretation Comments Total Protein (test code = 2885-2) 7.8 6.5-8.1 [facility] CenterAlbumin2018-07-29 18:54:00* Test Item Value Reference Range Interpretation Comments Albumin (test code = 1751-7) 3.9 3.5-5.0 [facility] CenterGlobulin2018-07-29 18:54:00* Test Item Value Reference Range Interpretation Comments Globulin (test code = 08178-5) 3.9 2.3-3.5 H [facility] CenterAlbumin/Globulin Hsdoz9584-10-64 18:54:00 * Test Item Value Reference Range Interpretation Comments Albumin/Globulin Ratio (test code = 1759-0) 1.0 0.8-2.0 [facility] CenterAlkaline Bjnvtsifjxz1844-58-00 18:54:00* Test Item Value Reference Range Interpretation Comments Alkaline Phosphatase (test code = 6768-6) 74 40-150 [facility] CenterWhite Blood Wtnss3613-42-60 18:48:00* Test Item Value Reference Range Interpretation Comments White Blood Count (test code = 6690-2) 10.31 4.8-10.8 [facility] CenterRed Blood Agqeq0908-07-94 18:48:00* Test Item Value Reference Range Interpretation Comments Red Blood Count (test code = 789-8) 4.85 3.6-5.1 [facility] CenterHemoglobin2018-07-29 18:48:00* Test Item Value Reference Range Interpretation Comments Hemoglobin (test code = 57679-6) 13.4 12.0-16.0 [facility] CenterHematocrit2018-07-29 18:48:00* Test Item Value Reference Range Interpretation Comments Hematocrit (test code = 4544-3) 41.8 34.2-44.1 [facility] CenterMean Corpuscular Ulhmlh2287-00-55 18:48:00* Test Item Value Reference Range Interpretation Comments Mean Corpuscular Volume (test code = 787-2) 86.2 81-99 [facility] CenterMean Corpuscular Eaugssjxiu2161-35-02 18:48:00* Test Item Value Reference Range Interpretation Comments Mean Corpuscular Hemoglobin (test code = 785-6) 27.6 28-32 L [facility] CenterMean Corpuscular Hemoglobin Concent 2018-02-18 18:48:00* Test Item Value Reference Range Interpretation Comments Mean Corpuscular Hemoglobin Concent (test code = 786-4) 32.1 31-35 [facility] CenterRed Cell Distribution Sjczx0145-31-63 18:48:00* Test Item Value Reference Range Interpretation Comments Red Cell Distribution Width (test code = 35701-7) 13.2 11.7 -14.4 [facility] CenterPlatelet Allup2325-74-26 18:48:00* Test Item Value Reference Range Interpretation Comments Platelet Count (test code = 777-3) 330 140-360 [facility] CenterNeutrophils (%) (Auto)2018-02-18 18:48:00 * Test Item Value Reference Range Interpretation Comments Neutrophils (%) (Auto) (test code = 72168-8) 55.4 38.7-80.0 [facility] CenterLymphocytes (%) (Auto)2018-02-18 18:48:00 * Test Item Value Reference Range Interpretation Comments Lymphocytes (%) (Auto) (test code = 736-9) 34.2 18.0-39.1 [facility] CenterMonocytes (%) (Auto)2018-02-18 18:48:00* Test Item Value Reference Range Interpretation Comments Monocytes (%) (Auto) (test code = 5905-5) 6.4 4.4-11.3 [facility] CenterEosinophils (%) (Auto)2018-02-18 18:48:00 * Test Item Value Reference Range Interpretation Comments Eosinophils (%) (Auto) (test code = 713-8) 2.9 0.0-6.0 [facility] CenterBasophils (%) (Auto)2018-02-18 18:48:00* Test Item Value Reference Range Interpretation Comments Basophils (%) (Auto) (test code = 706-2) 0.8 0.0-1.0 [facility] CenterIM GRANULOCYTES %2018-02-18 18:48:00* Test Item Value Reference Range Interpretation Comments IM GRANULOCYTES % (test code = IM GRANULOCYTES %) 0.3 0.0- 1.0 [facility] CenterNeutrophils # (Auto)2018-02-18 18:48:00* Test Item Value Reference Range Interpretation Comments Neutrophils # (Auto) (test code = 751-8) 5.7 2.1-6.9 [facility] CenterLymphocytes # (Auto)2018-02-18 18:48:00* Test Item Value Reference Range Interpretation Comments Lymphocytes # (Auto) (test code = 46007-9) 3.5 1.0-3.2 H [facility] CenterMonocytes # (Auto)2018-02-18 18:48:00* Test Item Value Reference Range Interpretation Comments Monocytes # (Auto) (test code = 742-7) 0.7 0.2-0.8 [facility] CenterEosinophils # (Auto)2018-02-18 18:48:00* Test Item Value Reference Range Interpretation Comments Eosinophils # (Auto) (test code = 711-2) 0.3 0.0-0.4 [facility] CenterBasophils # (Auto)2018-02-18 18:48:00* Test Item Value Reference Range Interpretation Comments Basophils # (Auto) (test code = 704-7) 0.1 0.0-0.1 [facility] CenterAbsolute Immature Granulocyte (auto 2018-02-18 18:48:00* Test Item Value Reference Range Interpretation Comments Absolute Immature Granulocyte (auto (marybeth t code = Absolute Immature Granulocyte (auto) 0.03 0-0.1 [facility] CenterWhite Blood Kjgqo3030-03-13 18:48:00* Test Item Value Reference Range Interpretation Comments White Blood Count (test code = 6690-2) 10.31 4.8-10.8 [facility] CenterRed Blood Fotti9181-16-73 18:48:00* Test Item Value Reference Range Interpretation Comments Red Blood Count (test code = 789-8) 4.85 3.6-5.1 [facility] CenterHemoglobin2018-07-29 18:48:00* Test Item Value Reference Range Interpretation Comments Hemoglobin (test code = 50186-9) 13.4 12.0-16.0 [facility] CenterHematocrit2018-07-29 18:48:00* Test Item Value Reference Range Interpretation Comments Hematocrit (test code = 4544-3) 41.8 34.2-44.1 [facility] CenterMean Corpuscular Rrragl9695-08-41 18:48:00* Test Item Value Reference Range Interpretation Comments Mean Corpuscular Volume (test code = 787-2) 86.2 81-99 [facility] CenterMean Corpuscular Fxjyfubdjl4192-98-16 18:48:00* Test Item Value Reference Range Interpretation Comments Mean Corpuscular Hemoglobin (test code = 785-6) 27.6 28-32 L [facility] CenterMean Corpuscular Hemoglobin Concent 2018-02-18 18:48:00* Test Item Value Reference Range Interpretation Comments Mean Corpuscular Hemoglobin Concent (test code = 786-4) 32.1 31-35 [facility] CenterRed Cell Distribution Jkzru8531-47-95 18:48:00* Test Item Value Reference Range Interpretation Comments Red Cell Distribution Width (test code = 00146-6) 13.2 11.7 -14.4 [facility] CenterPlatelet Bshyu3606-17-24 18:48:00* Test Item Value Reference Range Interpretation Comments Platelet Count (test code = 777-3) 330 140-360 [facility] CenterNeutrophils (%) (Auto)2018-02-18 18:48:00 * Test Item Value Reference Range Interpretation Comments Neutrophils (%) (Auto) (test code = 97131-7) 55.4 38.7-80.0 [facility] CenterLymphocytes (%) (Auto)2018-02-18 18:48:00 * Test Item Value Reference Range Interpretation Comments Lymphocytes (%) (Auto) (test code = 736-9) 34.2 18.0-39.1 [facility] CenterMonocytes (%) (Auto)2018-02-18 18:48:00* Test Item Value Reference Range Interpretation Comments Monocytes (%) (Auto) (test code = 5905-5) 6.4 4.4-11.3 [facility] CenterEosinophils (%) (Auto)2018-02-18 18:48:00 * Test Item Value Reference Range Interpretation Comments Eosinophils (%) (Auto) (test code = 713-8) 2.9 0.0-6.0 [facility] CenterBasophils (%) (Auto)2018-02-18 18:48:00* Test Item Value Reference Range Interpretation Comments Basophils (%) (Auto) (test code = 706-2) 0.8 0.0-1.0 [facility] CenterIM GRANULOCYTES %2018-02-18 18:48:00* Test Item Value Reference Range Interpretation Comments IM GRANULOCYTES % (test code = IM GRANULOCYTES %) 0.3 0.0- 1.0 [facility] CenterNeutrophils # (Auto)2018-02-18 18:48:00* Test Item Value Reference Range Interpretation Comments Neutrophils # (Auto) (test code = 751-8) 5.7 2.1-6.9 [facility] CenterLymphocytes # (Auto)2018-02-18 18:48:00* Test Item Value Reference Range Interpretation Comments Lymphocytes # (Auto) (test code = 14673-3) 3.5 1.0-3.2 H [facility] CenterMonocytes # (Auto)2018-02-18 18:48:00* Test Item Value Reference Range Interpretation Comments Monocytes # (Auto) (test code = 742-7) 0.7 0.2-0.8 [facility] CenterEosinophils # (Auto)2018-02-18 18:48:00* Test Item Value Reference Range Interpretation Comments Eosinophils # (Auto) (test code = 711-2) 0.3 0.0-0.4 [facility] CenterBasophils # (Auto)2018-02-18 18:48:00* Test Item Value Reference Range Interpretation Comments Basophils # (Auto) (test code = 704-7) 0.1 0.0-0.1 [facility] CenterAbsolute Immature Granulocyte (auto 2018-02-18 18:48:00* Test Item Value Reference Range Interpretation Comments Absolute Immature Granulocyte (auto (marybeth t code = Absolute Immature Granulocyte (auto) 0.03 0-0.1 [facility]
== END 2020-05-22 02:15 | disposition home or self-care (01) ==
LOC: FSED 01:43
DX: M25.532 Pain in left wrist (principal); G56.02 Carpal tunnel syndrome, left upper limb; I10 Essential (primary) hypertension; E11.9 Type 2 diabetes mellitus without complications; F41.9 Anxiety disorder, unspecified; K21.9 Gastro-esophageal reflux disease without esophagitis; G47.30 Sleep apnea, unspecified
CPT/HCPCS: 99283

== ENCOUNTER 2022-09-19 07:41 | Emergency (ER) | payer MEDICARE, OTHER ==
[~2022-09-19] VITALS: Ht 170.2 cm; Wt 180.5 kg
[~2022-09-19 07:41] MED LIST changes: +NAPROSYN500 MG PO; +PREDNISONE20 MG PO
[2022-09-19] MEDS ORDERED: NAPROSYN500 MG PO (11:29)
== END 2022-09-19 11:46 | disposition home or self-care (01) ==
LOC: FSED 07:45
DX: M79.644 Pain in right finger(s) (principal); M19.042 Primary osteoarthritis, left hand; I10 Essential (primary) hypertension; E11.9 Type 2 diabetes mellitus without complications; E78.5 Hyperlipidemia, unspecified; J45.909 Unspecified asthma, uncomplicated; K21.9 Gastro-esophageal reflux disease without esophagitis; G47.30 Sleep apnea, unspecified; F41.9 Anxiety disorder, unspecified; Z87.19 Personal history of other diseases of the digestive system; E66.01 Morbid (severe) obesity due to excess calories
CPT/HCPCS: 99283

== ENCOUNTER 2022-11-03 12:35 | Emergency (ER) | payer MEDICARE, OTHER ==
[~2022-11-03] VITALS: Ht 170.2 cm; Wt 174.6 kg
[2022-11-03 13:25] VITALS: BP 141/91
== END 2022-11-03 13:27 | disposition home or self-care (01) ==
LOC: FSED 13:00
DX: R05.9 Cough, unspecified (principal); U07.1 COVID-19; E11.9 Type 2 diabetes mellitus without complications; E66.01 Morbid (severe) obesity due to excess calories; F41.9 Anxiety disorder, unspecified; Z98.84 Bariatric surgery status
CPT/HCPCS: 80053; 82553; 84484; 85025; 93005; 99283